=== PATIENT | female | born 1965 | race Caucasian/White ===

== ENCOUNTER 2016-12-28 01:25 | Inpatient (IN) | payer OTHER ==
[2016-12-28] MEDS ORDERED: CLINDAMYCIN 600MG PREMIX IVPB 50 ML IVPB ONE ×2 (02:12→03:53)
[2016-12-28] MEDS ORDERED: SODIUM CHLORIDE 1,000 ML IV STA (02:20)
[2016-12-28] MEDS ORDERED: ACETAMINOPHEN 325 MG TABLET (FP) PO ONE (02:20)
--- NOTE | 2016-12-28 02:45 | PDOC ---
History of Present Illness - General Chief Complaint: Wound Stated Complaint: RT FOOT WOUND, SWELLING, PAIN Time Seen by Provider: 12/28/16 01:55 History Source: Patient - History of Present Illness Occurred: reports: yesterday Lower Extremity Pain Location: right: foot Past History - Past Medical History Allergies/Adverse Reactions: Allergies Allergy/AdvReac Type Severity Reaction Status Date / Time No Known Drug Allergies Allergy Verified 12/28/16 01:54 Home Medications: Ambulatory Orders Levothyroxine [Synthroid -] 200 mcg PO DAILY 04/30/14 Aspirin [ASA -] 81 mg PO DAILY 06/30/14 Gabapentin 300 mg PO HS 10/25/14 Enalapril Maleate [Vasotec -] 10 mg PO HS 10/16/15 Metoprolol Tartrate [Lopressor -] 50 mg PO HS 10/22/15 Lantus Solostar PEN - 60 units SQ DAILY 10/29/16 Metformin HCl 500 mg PO HS 10/29/16 Humalog Kwikpen U-200 20 - 25 unit SQ TID 12/28/16 Anemia: No Asthma: No Cancer: No Cardiac Disorders: Yes (CAD) CVA: No COPD: No CHF: No Dementia: No Diabetes: Yes GI Disorders: No Disorders: No HTN: Yes Hypercholesterolemia: Yes (no meds) Liver Disease: No Suicide Attempt (Hx): No Seizures: No Thyroid Disease: Yes (HYPOTHYROID DISEASE) - Surgical History Abdominal Surgery: No Appendectomy: No Cardiac Surgery: No Cholecystectomy: No Lung Surgery: No Neurologic Surgery: No Orthopedic Surgery: No - Immunization History Immunization Up to Date: Yes - Psycho/Social/Smoking Cessation Hx Anxiety: No Suicidal Ideation: No Smoking Status: Yes Smoking History: Former smoker Have you smoked in the past 12 months: No Number of Cigarettes Smoked Daily: 0 If you are a former smoker, when did you quit?: 18 years ago Information on smoking cessation initiated: No Hx Alcohol Use: No Drug/Substance Use Hx: No Substance Use Type: None Hx Substance Use Treatment: No Review of Systems - Review of Systems Constitutional: Yes: Chills, Fever Integumentary: Yes: Erythema *Physical Exam - Vital Signs Last Vital Signs Temp Pulse Resp BP Pulse Ox 99.4 F 108 H 20 179/90 98 12/28/16 01:50 12/28/16 01:50 12/28/16 01:50 12/28/16 01:50 12/28/16 01:50 - Physical Exam General Appearance: Yes: Appropriately Dressed. No: Apparent Distress HEENT: positive: Normal Voice Neck: positive: Supple Respiratory/Chest: negative: Respiratory Distress Extremity: positive: Other (R foot w/ draining abscess to plantar aspect near 5th MTP joint w/ erythema to dorsum of foot extending into ankle, pulses intact) Integumentary: positive: Dry, Warm Neurologic: positive: Fully Oriented, Alert, Normal Mood/Affect ED Treatment Course - LABORATORY CBC & Chemistry Diagram: 12/28/16 03:05 12/28/16 03:49 - RADIOLOGY Radiology Studies Ordered: Category Date Time Status CHEST PA & LAT [RAD] Stat Radiology 12/28/16 02:15 Ordered FOOT-RIGHT [RAD] Stat Radiology 12/28/16 02:12 Ordered Medical Decision Making - Medical Decision Making 12/28/16 02:40 51-year-old female history of hypothyroid, hypertension, insulin-dependent diabetes, osteomyelitis of left second toe with no amputation, s/p fx of R 5th metatarsal remotely, here with right foot pain, swelling and drainage that started yesterday. Patient states approximately 2 weeks ago she developed blister to lateral aspect of right foot and was treated with po antibiotics, and states blister resolved, but at some point, developed small open wound to plantar aspect of right foot, near site of previous blister and states her wound care doctor "scraped" area last week and that she began having pain to site last night that acutely worsened today. Complaining of chills and malaise. See exam DM foot Low grade temp and tachy in ED but not ill appearing +draining wound to plantar aspect of R foot neat % 5th MTP joint, w/ erythema to dorsum of foot extending into ankle, pedal pulses intact -abx -IVF -XR r/o osteo -labs -vasc consult -admit 12/28/16 02:47 12/28/16 03:38 Case d/w Dr Burns (coverage for Dr Caballero) and pt admitted. MD requesting Dr Grigs[facility] consulted 12/28/16 04:43 12/28/16 04:45 *DC/Admit/Observation/Transfer Diagnosis at time of Disposition: Abscess or cellulitis of foot - Discharge Dispostion Condition at time of disposition: Fair Admit: Yes - Referrals
[2016-12-28 03:19] LABS: BASOPHIL 0.7 % (0-2.0); EOSINOPHIL 0.2 % (0-4.5); MCH 30.1 pg (25.7-33.7); MCHC 33.9 g/dl (32.0-36.0); MEAN CELL VOLUME 88.8 fl (80-96); MEAN PLT VOLUME 9.4 fl (7.5-11.1); NEUTROPHILS 76.8 % (42.8-82.8); PLATELET COUNT 253 K/MM3 (134-434); RDW 13.8 % (11.6-15.6); WHITE BLOOD COUNT 7.5 K/mm3 (4.0-10.0)
[2016-12-28 03:51] LABS: URINE APPEARANCE CLEAR; URINE BILIRUBIN NEGATIVE (NEGATIVE); URINE BLOOD NEGATIVE (NEGATIVE); URINE COLOR STRAW; URINE GLUCOSE (UA) 3+ (NEGATIVE); URINE KETONE NEGATIVE (NEGATIVE); URINE LEUK ESTERASE NEGATIVE (NEGATIVE); URINE NITRITE NEGATIVE (NEGATIVE); URINE PROTEIN NEGATIVE (NEGATIVE); URINE UROBILINOGEN NEGATIVE E.U./dl (0.2-1.0)
[2016-12-28] MEDS ORDERED: ACETAMINOPHEN 325 MG TABLET (FP) ONE (03:53)
[2016-12-28 04:26] LABS: ALBUMIN 3.2 g/dl (3.4-5.0); BILIRUBIN,TOTAL 0.3 mg/dL (0.2-1.0); CALCIUM 8.6 mg/dL (8.5-10.1); CREATININE 1.2 mg/dL (0.55-1.02); TOT PROT 7.3 g/dl (6.4-8.2)
[2016-12-28] MEDS ORDERED: IBUPROFEN 400 MG TABLET (FP) PO ONE ×2 (04:55→05:13)
[2016-12-28 07:09] VITALS: BMI 33.2
--- NOTE | 2016-12-28 09:28 | CONSULT ---
- Consultation REQUESTING PROVIDER: Dr. Grigsby, Vascular Surgery CONSULT REQUEST: We have been asked to surgically evaluate this patient for Right foot infection. PCP:Ariana Caballero HISTORY OF PRESENT ILLNESS: The patient is a 51 yo female with a history of diabetes and PVD who came to the ER because of increased pain, swelling, redness and chills to her right foot. She has had a chronic wound(2 months) to the lateral aspect of her foot which initially began as a blister. The local wound care she received by an outpt planer tailer had caused some irritation to her skin and the blister resolved but she developed a chronic wound/ulcer to this area. It was shaved in his office. She then became a patient of the [facility] at [facility] and has been followed by Dr. Cook. He ordered an MRI of this wound on 12/19 and as per the patient it was negative for osteomyelitis. This week in the office the callous was shaved and since then she developed the previously mentioned symptoms and then came to the ER. Overall the redness has improved since admission. The patient also states that she had RLE claudication symptoms and has had an angiogram with procedures to b/l LE and twice on the right. She no longer has claudication, she doesexperience some tingling/numbness to LE. She is unsure if she had stents placed in her RLE and was on plavix for several months after her procedures. PMHx: HTn, DM, Osteomelitlis of right second toe, PVD (claudication, peripheral neuropathy PSHx: c section Home Medications Medication Instructions Recorded Levothyroxine [Synthroid -] 200 mcg PO DAILY 04/30/14 Aspirin [ASA -] 81 mg PO DAILY 06/30/14 Gabapentin 300 mg PO HS 10/25/14 Enalapril Maleate [Vasotec -] 10 mg PO HS 10/16/15 Metoprolol Tartrate [Lopressor -] 50 mg PO HS 10/22/15 Lantus Solostar PEN - 60 units SQ DAILY 10/29/16 Metformin HCl 500 mg PO HS 10/29/16 Humalog Kwikpen U-200 20 - 25 unit SQ TID 12/28/16 Allergies Allergy/AdvReac Type Severity Reaction Status Date / Time No Known Drug Allergies Allergy Verified 04/02/17 01:54 REVIEW OF SYSTEMS: CONSTITUTIONAL: Present: fever, chills CARDIOVASCULAR: Absent: chest pain, syncope, palpitations, irregular heart rate RESPIRATORY: Absent: cough, shortness of breath, dyspnea with exertion GASTROINTESTINAL: Absent: abdominal pain, abdominal distension, nausea, constipation GENITOURINARY: Absent: dysuria, frequency,hematuria MUSCULOSKELETAL: present: right shoulder pain(intermittent) no ROM problems SKIN: Absent: rash, itching, pallor HEMATOLOGIC/IMMUNOLOGIC: Absent: easy bleeding, easy bruising NEUROLOGIC: Absent: headache, focal weakness Present:paresthesias PHYSICAL EXAM: GENERAL: Awake, alert, and fully oriented, in no acute distress. HEAD: Normal with no signs of trauma. EYES: PERRL, sclera anicteric, conjunctiva clear. NECK: Normal ROM, supple without lymphadenopathy. LUNGS: Clear to auscultation bilat anteriorly. No wheezes, and no crackles. HEART: Mild tachycardia, regular rhythm. No murmurs ABDOMEN: Soft, nontender, not distended, normoactive bowel sounds, no guarding, no rebound, no masses. MUSCULOSKELETAL: Normal ROM at all joints. No bony deformities or tenderness. UPPER EXTREMITIES: 2+ pulses, warm, well-perfused. No cyanosis. Cap refill <2 seconds. No peripheral edema. LOWER EXTREMITIES: 2+ DP/femoral/popliteal b/l, warm, well-perfused. No calf tenderness. No peripheral edema. PT-non palpable. Right foot: lateral/plantar aspect with callous, pinpoint opening which doesn't track when probed, non-tender to palpation with no purulent drainage expressed with palpation, No erythema. NEUROLOGICAL: Normal speech, gait not observed. PSYCH: Cooperative. Good eye contact. Appropriate mood and affect. SKIN: Warm, dry, normal turgor, no rashes or lesions noted. Vital Signs Temperature 98.4 F 12/28/16 06:54 Pulse Rate 100 H 12/28/16 06:54 Respiratory Rate 20 12/28/16 06:54 Blood Pressure 142/76 12/28/16 06:54 O2 Sat by Pulse Oximetry (%) 98 12/28/16 06:54 Lab Results WBC 7.5 K/mm3 (4.0-10.0) 12/28/16 03:05 RBC 4.19 M/mm3 (3.60-5.2) 12/28/16 03:05 Hgb 12.6 GM/dL (10.7-15.3) 12/28/16 03:05 Hct 37.2 % (32.4-45.2) 12/28/16 03:05 MCV 88.8 fl (80-96) 12/28/16 03:05 MCHC 33.9 g/dl (32.0-36.0) 12/28/16 03:05 RDW 13.8 % (11.6-15.6) 12/28/16 03:05 Plt Count 253 K/MM3 (134-434) 12/28/16 03:05 Sodium 135 mmol/L (136-145) L 12/28/16 03:49 Potassium 4.3 mmol/L (3.5-5.1) 12/28/16 03:49 Chloride 99 mmol/L (98-107) 12/28/16 03:49 Carbon Dioxide 26 mmol/L (21-32) 12/28/16 03:49 Anion Gap 10 (8-16) 12/28/16 03:49 BUN 17 mg/dL (7-18) 12/28/16 03:49 Creatinine 1.2 mg/dL (0.55-1.02) H 12/28/16 03:49 Random Glucose 290 mg/dL (74-106) H D 12/28/16 03:49 Calcium 8.6 mg/dL (8.5-10.1) 12/28/16 03:49 Right foot xray-soft tissue swelling with focal speck of air over 5th metatarsal MRI 12/19-No bone marrow edema, focal subcutaneous edema of 5th metatarsalphalangeal joint A/P: 51 yo female with chronic right foot ulcer with h/o of DM/PVD Admitted to right foot infection which appears to be improving, minimal redness to right foot/dorsal aspect and localized swelling to plantar surface Continue IV abx, ID consult pending. Her recent MRI as an outpt was negative for evidence of oteomyelitits I spoke with Dr. Grigsby and ordered baseline PVR imaging of her LE, she may need further imaging such as an angio/CTA since the wound hasn't completely healed over the past 2 months. IV hydration and will follow BUN/CRET values in the am keep right wound covered at all times Visit type - Case Type Case Type: ED Admission - Emergency Emergency Visit: Yes ED Registration Date: 12/28/16 Care time: The patient presented to the Emergency Department on the above date and was hospitalized for further evaluation of their emergent condition. - New patient This patient is new to me today: Yes Date on this admission: 12/28/16 - Critical Care Critical Care patient: No
[2016-12-28] MEDS: CEFTRIAXONE 100 ML IVPB SCH (09:51)
[2016-12-28] MEDS: HEPARIN NA (PORCINE) 5,000 UNITS/ML 1ML VIAL SQ SCH ×2 (09:51→21:41)
[2016-12-28] MEDS: LEVOTHYROXINE NA 100 MCG TABLET (FP) PO SCH (09:51)
[2016-12-28] MEDS: INSULIN DETEMIR 100 UNITS/ML MDV SQ SCH ×2 (09:51→21:48)
[2016-12-28] MEDS: ASPIRIN 81 MG CHEWABLE TABLETS PO SCH (09:52)
--- NOTE | 2016-12-28 09:55 | HP ---
Admitting History and Physical - Admission History of Present Illness: 51-year-old female history of hypothyroid, hypertension, insulin-dependent diabetes, osteomyelitis of left second toe with no amputation, s/p fx of R 5th metatarsal remotely, here with right foot pain,redness, swelling and drainage that started 2 days ago Patient states approximately 2 weeks ago she developed blister to lateral aspect of right foot and was treated at the [facility] with po antibiotics, and states blister resolved, but at some point, developed small open wound to plantar aspect of right foot, near site of previous blister and states her wound care doctor "scraped" area last week and that she began having pain to site last night that acutely worsened. 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 Cardiovascular: Yes: HTN, Hyperlipdemia ...LMP: 10/30/14 Endocrine: Yes: Diabetes Mellitus, Hypothyroidism - Smoking History Smoking history: Former smoker Have you smoked in the past 12 months: No Aproximately how many cigarettes per day: 0 If you are a former smoker, when did you quit?: 18 years ago - Alcohol/Substance Use Hx Alcohol Use: No Home Medications - Allergies Allergies/Adverse Reactions: Allergies Allergy/AdvReac Type Severity Reaction Status Date / Time No Known Drug Allergies Allergy Verified 12/28/16 01:54 - Home Medications Home Medications: Ambulatory Orders Levothyroxine [Synthroid -] 200 mcg PO DAILY 04/30/14 Aspirin [ASA -] 81 mg PO DAILY 06/30/14 Gabapentin 300 mg PO HS 10/25/14 Enalapril Maleate [Vasotec -] 10 mg PO HS 10/16/15 Metoprolol Tartrate [Lopressor -] 50 mg PO HS 10/22/15 Lantus Solostar PEN - 60 units SQ DAILY 10/29/16 Metformin HCl 500 mg PO HS 10/29/16 Humalog Kwikpen U-200 20 - 25 unit SQ TID 12/28/16 Review of Systems - Review of Systems Cardiovascular: reports: No Symptoms Respiratory: reports: No Symptoms Gastrointestinal: reports: No Symptoms Genitourinary: reports: No Symptoms Musculoskeletal: reports: Extremity Pain, Other (foot pain) Physical Examination Vital Signs: Vital Signs Temperature 98.4 F 12/28/16 06:54 Pulse Rate 100 H 12/28/16 06:54 Respiratory Rate 20 12/28/16 06:54 Blood Pressure 142/76 12/28/16 06:54 O2 Sat by Pulse Oximetry (%) 98 12/28/16 06:54 Cardiovascular: Yes: Regular Rate and Rhythm Respiratory: Yes: Regular, CTA Bilaterally Gastrointestinal: Yes: Normal Bowel Sounds, Soft. No: Tenderness Edema: No Wound/Incision: Yes: Dressing Removed, Other (hard tissue around the ulcer on plantar aspect of rt foot edema of foot) Labs: CBC, BMP 12/28/16 03:49 Imaging - Results X-ray: Report Reviewed Problem List - Problems (1) Diabetic foot ulcer Assessment/Plan: XRAY NOTED--R/O OSTEO IV ABX ID AND SURGERY MRI Code(s): E11.621 - TYPE 2 DIABETES MELLITUS WITH FOOT ULCER L97.509 - NON-PRESSURE CHRONIC ULCER OTH PRT UNSP FOOT W UNSP SEVERITY (2) Diabetes Assessment/Plan: BGM AIC Code(s): E11.9 - TYPE 2 DIABETES MELLITUS WITHOUT COMPLICATIONS (3) Hypertension Assessment/Plan: MONITOR ON SAHIL Code(s): I10 - ESSENTIAL (PRIMARY) HYPERTENSION (4) Hypothyroidism Assessment/Plan: CHECK TSH Code(s): E03.9 - HYPOTHYROIDISM, UNSPECIFIED
[2016-12-28] MEDS ORDERED: SODIUM CHLORIDE 0.45% 1,000 ML IV SCH (10:00)
[2016-12-28] MEDS ORDERED: INSULIN (NOVOLOG) ASPART 100 UNITS/ML 10ML VIAL ONE ×2 (11:51→16:43)
[2016-12-28] MEDS: INSULIN SLIDING SCALE (NOVOLOG) 1 VIAL SQ SCH ×3 (11:52→21:49)
[2016-12-28 11:54] LABS: CALCIUM 8.7 mg/dL (8.5-10.1); CREATININE 0.9 mg/dL (0.55-1.02)
--- NOTE | 2016-12-28 15:18 | PN ---
Progress Note (short form) - Note Progress Note: ID consult dictated 51 year old female with DM, hsotry of osteor 2/3 toe right foot 11/11, history fracture with malunion of one of the bones of the right foot with chronic callus 2 months ago had a blister on the foot that healed, the callus was scraped and became larger, she came wound care where she had MRI- no osteo the callus was shaved again on 12/19 she then noted chills and erythema of the dorsum of her right foot and came to ED this am celllulitis of the Right foot r/o osteo prior cultures notable for group b strep and MSSA would continue rocephin just returned from MRI will f/u in am Problem List - Problems (1) Cellulitis Code(s): L03.90 - CELLULITIS, UNSPECIFIED (2) Diabetes Code(s): E11.9 - TYPE 2 DIABETES MELLITUS WITHOUT COMPLICATIONS
[2016-12-28] MEDS: ACETAMINOPHEN 325 MG TABLET (FP) PO PRN (17:04)
[2016-12-28] MEDS: METOPROLOL TARTRATE 50 MG TABLET (FP) PO SCH (21:41)
[2016-12-28] MEDS: ENALAPRIL MALEATE 10 MG TABLET (FP) PO SCH (21:41)
[2016-12-28] MEDS: metFORMIN HCL 500 MG TABLET (FP) PO SCH (21:41)
[2016-12-28] MEDS: GABAPENTIN 300 MG CAPSULE (FP) PO SCH (21:41)
[2016-12-29] MEDS: LEVOTHYROXINE NA 100 MCG TABLET (FP) PO SCH (06:08)
[2016-12-29] MEDS: INSULIN DETEMIR 100 UNITS/ML MDV SQ SCH ×4 (06:08→23:19)
[2016-12-29] MEDS: INSULIN SLIDING SCALE (NOVOLOG) 1 VIAL SQ SCH ×5 (06:18→23:19)
--- NOTE | 2016-12-29 06:33 | PN ---
Progress Note, Physician Chief Complaint: NO COMPLAINTS - Current Medication List Current Medications: Active Medications Acetaminophen (Tylenol -) 650 mg PO Q4H PRN PRN Reason: FEVER OR PAIN Last Admin: 12/28/16 17:04 Dose: 650 mg Aspirin (Asa -) 81 mg PO DAILY [facility] Last Admin: 12/28/16 09:52 Dose: 81 mg Enalapril Maleate (Vasotec -) 10 mg PO [facility] Last Admin: 12/28/16 21:41 Dose: 10 mg Gabapentin (Neurontin -) 300 mg PO [facility] Last Admin: 12/28/16 21:41 Dose: 300 mg Heparin Sodium (Porcine) (Heparin -) 5,000 unit SQ BID [facility] Last Admin: 12/28/16 21:41 Dose: 5,000 unit Ceftriaxone Sodium (Rocephin 2gm Ivpb (Pre-Docked)) 100 mls @ 200 mls/hr IVPB DAILY [facility] Last Admin: 12/28/16 09:51 Dose: 200 mls/hr Sodium Chloride (1/2 Normal Saline) 1,000 mls @ 50 mls/hr IV ASDIR [facility] Stop: 12/29/16 09:53 Last Admin: 12/28/16 09:57 Dose: 50 mls/hr Insulin Aspart (Novolog Vial Sliding Scale -) 1 vial SQ ACHS [facility] PRN Reason: Protocol Last Admin: 12/29/16 06:18 Dose: Not Given Levothyroxine Sodium (Synthroid -) 200 mcg PO DAILY@0700 [facility] Last Admin: 12/29/16 06:08 Dose: 200 mcg Metformin HCl (Glucophage -) 500 mg PO [facility] Last Admin: 12/28/16 21:41 Dose: 500 mg Metoprolol Tartrate (Lopressor -) 50 mg PO [facility] Last Admin: 12/28/16 21:41 Dose: 50 mg - Objective Vital Signs: Vital Signs Temperature 97.8 F 12/29/16 06:00 Pulse Rate 91 H 12/29/16 06:00 Respiratory Rate 20 12/29/16 06:00 Blood Pressure 137/79 12/29/16 06:00 O2 Sat by Pulse Oximetry (%) 98 12/28/16 21:00 Neck: Yes: WNL Cardiovascular: Yes: WNL Respiratory: Yes: WNL Gastrointestinal: Yes: WNL Wound/Incision: Yes: Dressing Dry and Intact Labs: CBC, BMP 04/02/17 10:52 Problem List - Problems (1) Abscess or cellulitis of foot Code(s): L03.119 - CELLULITIS OF UNSPECIFIED PART OF LIMB L02.619 - CUTANEOUS ABSCESS OF UNSPECIFIED FOOT (2) Diabetes Code(s): E11.9 - TYPE 2 DIABETES MELLITUS WITHOUT COMPLICATIONS (3) Hypertension Code(s): I10 - ESSENTIAL (PRIMARY) HYPERTENSION (4) Hypothyroidism Code(s): E03.9 - HYPOTHYROIDISM, UNSPECIFIED Assessment/Plan (1) Diabetic foot ulcer Assessment/Plan: IV ABX ID AND SURGERY MRI SHOWS NO OM Code(s): E11.621 - TYPE 2 DIABETES MELLITUS WITH FOOT ULCER L97.509 - NON-PRESSURE CHRONIC ULCER OTH PRT UNSP FOOT W UNSP SEVERITY (2) Diabetes Assessment/Plan: BGM ISS Code(s): E11.9 - TYPE 2 DIABETES MELLITUS WITHOUT COMPLICATIONS (3) Hypertension Assessment/Plan: MONITOR ON SAHIL Code(s): I10 - ESSENTIAL (PRIMARY) HYPERTENSION (4) Hypothyroidism Assessment/Plan: CHECK TSH -> NL Code(s): E03.9 - HYPOTHYROIDISM, UNSPECIFIED [employer]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
[2016-12-29 08:21] LABS: BASOPHIL 0.5 % (0-2.0); EOSINOPHIL 2.2 % (0-4.5); MCH 29.7 pg (25.7-33.7); MEAN CELL VOLUME 90.2 fl (80-96); MEAN PLT VOLUME 9.1 fl (7.5-11.1); NEUTROPHILS 46.5 % (42.8-82.8); PLATELET COUNT 227 K/MM3 (134-434); RDW 13.3 % (11.6-15.6); WHITE BLOOD COUNT 5.9 K/mm3 (4.0-10.0)
[2016-12-29 08:34] LABS: CHOLESTEROL 159 mg/dL (50-200); LDL CHOLESTEROL (ONLY SJRH) 100 mg/dL (5-100)
[2016-12-29 08:52] LABS: ALK PHOS 101 U/L (45-117); ANION GAP 9 (8-16); BILIRUBIN,TOTAL 0.2 mg/dL (0.2-1.0); CALCIUM 8.8 mg/dL (8.5-10.1); CO2 26 mmol/L (21-32); CREATININE 0.9 mg/dL (0.55-1.02); GLUCOSE,RANDOM 151 mg/dL (74-106); SGOT/AST 37 U/L (15-37); SGPT/ALT 54 U/L (12-78); THYROID STIMULATING HORMONE 2.54 uIU/ml (0.358-3.74); TOT PROT 6.9 g/dl (6.4-8.2)
[2016-12-29] MEDS: ASPIRIN 81 MG CHEWABLE TABLETS PO SCH (09:30)
[2016-12-29] MEDS: HEPARIN NA (PORCINE) 5,000 UNITS/ML 1ML VIAL SQ SCH ×2 (09:30→23:05)
[2016-12-29] MEDS: CEFTRIAXONE 100 ML IVPB SCH (09:30)
--- NOTE | 2016-12-29 13:53 | PN ---
Progress Note (short form) - Note Progress Note: reports some bleeding from callus MRI no osteo Vital Signs Period Temp Pulse Resp BP Sys/Davila Pulse Ox Last 24 Hr 97.8 F-98.4 F 90-101 18-20 137-170/79-95 98 cor-rrr lungs clear abd soft,nt ext still some erythema dorsum of foot but less dry callous CBC, BMP 12/29/16 06:00 12/29/16 06:00 a/p celllulitis of the foot prior history MSSA/group b strep continue cefazolin diabetes history of osteomyelitis
--- NOTE | 2016-12-29 14:22 | CONS ---
DATE OF CONSULTATION: 12/28/2016 REQUESTED BY: Ariana Caballero MD This is a 51-year-old woman, past medical history of diabetes for many years. She has a history of osteomyelitis of the 2nd and 3rd toe of her right foot in 2013. She was successfully treated with IV antibiotics. She has a history of a fracture of the right 5th metatarsal, she says about 6 or 7 years ago, with malunion, for which she had a chronic callus on her right foot. About 2 months ago she had a blister on the right foot that resolved. She subsequently, the callus was noted to be larger. It was shaved as an outpatient, which made it even larger. She then came to Wound Care. She had the callus shaved again on the . It was debrided, and she notes after that that she started having erythema on the dorsum of the right foot accompanied by chills. She came to the emergency room with these complaints. Her past medical history is notable for CVA, hypertension, hyperlipidemia, diabetes, hypothyroidism, osteomyelitis of the right foot. She also had history of fracture of the right 5th metatarsal. She has had a section and cataract surgery in the past. She also has diabetic neuropathy. She has no known drug allergies. Her medications as an outpatient include Synthroid, aspirin, gabapentin, Vasotec, Lopressor, insulin, metformin. Her PMD is Dr. Caballero. Family history is noncontributory. SOCIAL HISTORY: She lives in [place]. She is from [facility] originally. There is no history of any cigarette or substance use. She does not work. PHYSICAL EXAMINATION: Vital Signs: Temperature is 98.4. She has had no fever since admission. She had a temperature of 100.4 on admission. Her current temperature is 98.3. Blood pressure is 138/56. Respiratory rate is 18. She is saturating 98% on room air. Heart rate is 90. HEENT: She is normocephalic. Eyes are anicteric. Neck: Supple. Lungs: Clear to auscultation. Heart: Regular rate and rhythm. Abdomen: Soft, nontender. Extremities: Notable for erythema of the dorsum of the right foot. She has a chronic callus that is dry on the lateral aspect of her right 5th metatarsal. There is no drainage. Her labs are notable for a white count of 7.5, hemoglobin 12.6, platelets 253. BUN 15, creatinine 0.9, glucose is 328. Urinalysis is notable for glucose, otherwise negative. She just returned from MRI, the results of which are pending. In summary, this is a 51-year-old woman with diabetes, with erythema of the dorsum of the right foot, possible cellulitis versus underlying osteomyelitis. She just had an MRI, which we will follow up. I reviewed prior cultures, which are mainly MSSA and group B streptococcus, so given those findings, would agree with continuing her on ceftriaxone, which has been started. Unfortunately, blood cultures were not drawn. Will obtain, but I am not sure how effective they will be as she was started on antibiotics, as they were not drawn prior to antibiotics. Further recommendations to follow based on her clinical course. BLAS BAPTISTE M.D. [facility]/[id number]
[2016-12-29] MEDS: CEFAZOLIN 2 GM/D5W 50 ML IVPB SCH (18:02)
[2016-12-29] MEDS: ACETAMINOPHEN 325 MG TABLET (FP) PO PRN (18:08)
--- NOTE | 2016-12-29 18:48 | PN ---
Progress Note (short form) - Note Progress Note: Vascular Surgery Pt seen and examined. Palpable DP and PT pulses. ARVIN/PVR results reviewed. ARVIN in RLE is .87. Right foot callus with wound on lateral foot. Old fracture site with malunion. On IV antibiotics. Has HBO set up as outpt as well. As per podiatry pt needs to have bone removed so that wound would heal without callus. Pt understands that. Wants to try HBO and antibiotics first. Will follow Dr. Vang as outpt in wound care clinic. Circulation is intact, no need for any vascular intervention. Adithya Grigsby DO
[2016-12-29] MEDS ORDERED: INSULIN DETEMIR 100 UNITS/ML MDV SQ SCH (22:31)
[2016-12-29] MEDS ORDERED: INSULIN SLIDING SCALE (NOVOLOG) 1 VIAL SQ SCH (22:32)
--- NOTE | 2016-12-29 22:49 | CONSULT ---
Consult Consult Specialty:: endocrine Referred by:: dr.saba tellez Reason for Consultation:: iddm - History of Present Illness Chief Complaint: high sugar History of Present Illness: 51-year-old female history of hypothyroid, hypertension, insulin-dependent diabetes, osteomyelitis of left second toe with no amputation, s/p fx of R 5th metatarsal remotely, here with right foot pain,redness, swelling and drainage that started 2 days ago Patient states approximately 2 weeks ago she developed blister to lateral aspect of right foot and was treated at the [facility] with po antibiotics, and states blister resolved, but at some point, developed small open wound to plantar aspect of right foot, with reddness pain elevated sugar - Past Medical History 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 Cardio/Vascular: Yes: HTN, Hyperlipdemia ...LMP: 10/30/14 Endocrine: Yes: Diabetes Mellitus, Hypothyroidism - Alcohol/Substance Use Hx Alcohol Use: No - Smoking History Smoking history: Former smoker Have you smoked in the past 12 months: No Aproximately how many cigarettes per day: 0 If you are a former smoker, when did you quit?: 18 years ago Home Medications - Allergies Allergies/Adverse Reactions: Allergies Allergy/AdvReac Type Severity Reaction Status Date / Time No Known Drug Allergies Allergy Verified 12/28/16 01:54 - Home Medications Home Medications: Ambulatory Orders Levothyroxine [Synthroid -] 200 mcg PO DAILY 04/30/14 Aspirin [ASA -] 81 mg PO DAILY 06/30/14 Gabapentin 300 mg PO HS 10/25/14 Enalapril Maleate [Vasotec -] 10 mg PO HS 10/16/15 Metoprolol Tartrate [Lopressor -] 50 mg PO HS 10/22/15 Lantus Solostar PEN - 60 units SQ DAILY 10/29/16 Metformin HCl 500 mg PO HS 10/29/16 Humalog Kwikpen U-200 20 - 25 unit SQ TID 12/28/16 Review of Systems - Review of Systems Constitutional: reports: Lethargy, Loss of Appetite Eyes: reports: Blurred Vision HENT: reports: No Symptoms Neck: reports: Decreased ROM Respiratory: reports: Exercise Intolerance, SOB on Exertion Gastrointestinal: reports: Indigestion Genitourinary: reports: No Symptoms Musculoskeletal: reports: Joint Swelling, Muscle Pain, Muscle Cramps, Muscle Weakness Integumentary: reports: Lesions, Pruritis, Rash Neurological: reports: Numbness Endocrine: reports: Unexplained Weight Gain Physical Exam Vital Signs: Vital Signs Temperature 98.7 F 12/29/16 15:57 Pulse Rate 95 H 12/29/16 15:57 Respiratory Rate 20 12/29/16 15:57 Blood Pressure 131/98 12/29/16 15:57 O2 Sat by Pulse Oximetry (%) 98 12/29/16 09:00 Constitutional: Yes: Anxious Eyes: Yes: EOM Intact HENT: Yes: Normocephalic Neck: Yes: Trachea Midline Cardiovascular: Yes: Regular Rate and Rhythm Respiratory: Yes: CTA Bilaterally Gastrointestinal: Yes: Normal Bowel Sounds ...Rectal Exam: Yes: Deferred Renal/: Yes: WNL Musculoskeletal: Yes: Muscle Pain, Muscle Weakness Edema: Yes Edema: RLE: 1+ Integumentary: Yes: Onychomycosis Wound/Incision: Yes: Well Approximated Neurological: Yes: WNL, Alert, Oriented, Unsteady Gait, Weakness ...Motor Strength: WNL Labs: CBC, BMP 12/29/16 06:00 12/29/16 06:00 Problem List - Problems (1) Abscess or cellulitis of foot Code(s): L03.119 - CELLULITIS OF UNSPECIFIED PART OF LIMB L02.619 - CUTANEOUS ABSCESS OF UNSPECIFIED FOOT (2) Diabetic foot ulcer Code(s): E11.621 - TYPE 2 DIABETES MELLITUS WITH FOOT ULCER L97.509 - NON-PRESSURE CHRONIC ULCER OTH PRT UNSP FOOT W UNSP SEVERITY Qualifiers: Diabetes mellitus type: type 1 (3) Hyperlipidemia Code(s): E78.5 - HYPERLIPIDEMIA, UNSPECIFIED (4) Hypertension Code(s): I10 - ESSENTIAL (PRIMARY) HYPERTENSION (5) Hypothyroidism Code(s): E03.9 - HYPOTHYROIDISM, UNSPECIFIED (6) Insulin dependent diabetes mellitus Code(s): E11.9 - TYPE 2 DIABETES MELLITUS WITHOUT COMPLICATIONS 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 Assessment/Plan Current Active Problems Abscess or cellulitis of foot (Acute) Cellulitis (Acute) Diabetes (Acute) Diabetic foot ulcer (Acute) Hyperlipidemia (Acute) Hypertension (Acute) Hypothyroidism (Acute) Insulin dependent diabetes mellitus (Acute) Osteomyelitis (Acute) iddm uncontrolled/hyperglycemia neuropathy Abnormal Lab Results 12/29/16 12/29/16 12/29/16 06:00 06:00 06:00 Monocytes % 17.0 H D Random Glucose 151 H D Albumin 3.0 L HDL Cholesterol 34 L Laboratory Results - last 24 hr 12/29/16 12/29/16 12/29/16 05:51 06:00 06:00 WBC 5.9 RBC 4.04 Hgb 12.0 Hct 36.4 MCV 90.2 MCHC 33.0 RDW 13.3 Plt Count 227 MPV 9.1 Neutrophils % 46.5 D Lymphocytes % 33.8 D Monocytes % 17.0 H D Eosinophils % 2.2 D Basophils % 0.5 Sodium 138 Potassium 4.7 Chloride 103 Carbon Dioxide 26 Anion Gap 9 BUN 18 Creatinine 0.9 Creat Clearance w eGFR > 60 POC Glucometer 139 Random Glucose 151 H D Hemoglobin A1c % Calcium 8.8 Total Bilirubin 0.2 D AST 37 D ALT 54 D Alkaline Phosphatase 101 Total Protein 6.9 Albumin 3.0 L Triglycerides Cholesterol Total LDL Cholesterol HDL Cholesterol TSH 2.54 12/29/16 12/29/16 12/29/16 06:00 06:00 12:30 WBC RBC Hgb Hct MCV MCHC RDW Plt Count MPV Neutrophils % Lymphocytes % Monocytes % Eosinophils % Basophils % Sodium Potassium Chloride Carbon Dioxide Anion Gap BUN Creatinine Creat Clearance w eGFR POC Glucometer 234 Random Glucose Hemoglobin A1c % Cancelled Calcium Total Bilirubin AST ALT Alkaline Phosphatase Total Protein Albumin Triglycerides 154 Cholesterol 159 Total LDL Cholesterol 100 HDL Cholesterol 34 L TSH 12/29/16 16:50 WBC RBC Hgb Hct MCV MCHC RDW Plt Count MPV Neutrophils % Lymphocytes % Monocytes % Eosinophils % Basophils % Sodium Potassium Chloride Carbon Dioxide Anion Gap BUN Creatinine Creat Clearance w eGFR POC Glucometer 261 Random Glucose Hemoglobin A1c % Calcium Total Bilirubin AST ALT Alkaline Phosphatase Total Protein Albumin Triglycerides Cholesterol Total LDL Cholesterol HDL Cholesterol TSH Current Medications Generic Name Dose Route Start Last Admin Trade Name Freq PRN Reason Stop Dose Admin Acetaminophen 650 mg 12/28/16 09:02 12/29/16 18:08 Tylenol - PO 650 mg Q4H PRN Administration FEVER OR PAIN Aspirin 81 mg 12/28/16 10:00 12/29/16 09:30 Asa - PO 81 mg DAILY [facility] Administration Enalapril Maleate 10 mg 12/28/16 22:00 12/28/16 21:41 Vasotec - PO 10 mg HS [facility] Administration Gabapentin 300 mg 04/02/17 22:00 12/28/16 21:41 Neurontin - PO 300 mg HS [facility] Administration Heparin Sodium (Porcine) 5,000 unit 12/28/16 10:00 12/29/16 09:30 Heparin - SQ 5,000 unit BID [facility] Administration Cefazolin Sodium/Dextrose 50 mls @ 200 mls/hr 12/29/16 18:00 12/29/16 18:02 Ancef 2 Gm Premixed Ivpb - IVPB 200 mls/hr Q8H-IV [facility] Administration Insulin Aspart 1 vial 12/29/16 22:32 Novolog Vial Sliding Scale - SQ ACHS [facility] Protocol Insulin Detemir 40 units 12/29/16 22:31 Levemir Vial SQ BID@0700,2200 [facility] Levothyroxine Sodium 200 mcg 12/28/16 10:00 12/29/16 06:08 Synthroid - PO 200 mcg DAILY@0700 [facility] Administration Metformin HCl 500 mg 12/28/16 22:00 12/28/16 21:41 Glucophage - PO 500 mg HS [facility] Administration Metoprolol Tartrate 50 mg 12/28/16 22:00 12/28/16 21:41 Lopressor - PO 50 mg HS [facility] Administration plan: titrate insulin dose bgm,achs levemir 40 units bid iv antibiotic as per id wound care debridement
[2016-12-29] MEDS: metFORMIN HCL 500 MG TABLET (FP) PO SCH (23:04)
[2016-12-29] MEDS: GABAPENTIN 300 MG CAPSULE (FP) PO SCH (23:05)
[2016-12-29] MEDS: METOPROLOL TARTRATE 50 MG TABLET (FP) PO SCH (23:05)
[2016-12-29] MEDS: ENALAPRIL MALEATE 10 MG TABLET (FP) PO SCH (23:06)
[2016-12-30] MEDS: CEFAZOLIN 2 GM/D5W 50 ML IVPB SCH ×3 (01:32→18:35)
[2016-12-30] MEDS: ACETAMINOPHEN 325 MG TABLET (FP) PO PRN ×2 (02:18→12:12)
[2016-12-30] MEDS: INSULIN DETEMIR 100 UNITS/ML MDV SQ SCH ×2 (06:30→21:55)
[2016-12-30] MEDS: INSULIN SLIDING SCALE (NOVOLOG) 1 VIAL SQ SCH ×4 (06:32→21:56)
[2016-12-30] MEDS: LEVOTHYROXINE NA 100 MCG TABLET (FP) PO SCH (06:33)
--- NOTE | 2016-12-30 07:15 | EKG ---
Test Reason : Blood Pressure : / mmHG Vent. Rate : 108 BPM Atrial Rate : 108 BPM P-R Int : 130 ms QRS Dur : 084 ms QT Int : 324 ms P-R-T Axes : 057 054 -29 degrees QTc Int : 434 ms SINUS TACHYCARDIA POSSIBLE LEFT ATRIAL ENLARGEMENT T WAVE ABNORMALITY, CONSIDER INFERIOR ISCHEMIA ABNORMAL ECG WHEN COMPARED WITH ECG OF 25-OCT-2014 00:37, T WAVE INVERSION MORE EVIDENT IN INFERIOR LEADS Confirmed by JORDYN FERNANDEZ, TRANG (2016) on 12/30/2016 7:14:48 AM Referred By: Confirmed By:TRANG COBB MD
[2016-12-30 08:02] LABS: BASOPHIL 0.5 % (0-2.0); EOSINOPHIL 2.5 % (0-4.5); MCH 29.9 pg (25.7-33.7); MCHC 33.7 g/dl (32.0-36.0); MEAN CELL VOLUME 88.8 fl (80-96); MEAN PLT VOLUME 9.1 fl (7.5-11.1); NEUTROPHILS 42.3 % (42.8-82.8); PLATELET COUNT 243 K/MM3 (134-434); RDW 13.2 % (11.6-15.6); WHITE BLOOD COUNT 5.7 K/mm3 (4.0-10.0)
[2016-12-30 08:12] LABS: BILIRUBIN,TOTAL 0.3 mg/dL (0.2-1.0); CREATININE 1.2 mg/dL (0.55-1.02); TOT PROT 6.9 g/dl (6.4-8.2)
[2016-12-30] MEDS: HEPARIN NA (PORCINE) 5,000 UNITS/ML 1ML VIAL SQ SCH ×2 (11:46→21:55)
[2016-12-30] MEDS: ASPIRIN 81 MG CHEWABLE TABLETS PO SCH (11:46)
--- NOTE | 2016-12-30 13:31 | PN ---
Progress Note (short form) - Note Progress Note: nad Vital Signs Period Temp Pulse Resp BP Sys/Davila Pulse Ox Last 24 Hr 97.4 F-98.7 F 90-95 18-20 129-159/76-98 98 cor-rrr lungs clear abd-soft, nt ext-decreased erythema of the dorsum of the foot, dry callus, swelling has resolved CBC, BMP 12/30/16 06:30 12/30/16 06:30 Microbiology 12/28/16 17:50 Blood - Peripheral Venous Blood Culture - Preliminary NO GROWTH OBTAINED AFTER 24 HOURS, INCUBATION TO CONTINUE FOR 4 DAYS. 12/28/16 17:50 Blood - Peripheral Venous Blood Culture - Preliminary NO GROWTH OBTAINED AFTER 24 HOURS, INCUBATION TO CONTINUE FOR 4 DAYS. a/p celllulitis of the Right foot continue ancef mri negative for osteomyelitis Problem List - Problems (1) Cellulitis Code(s): L03.90 - CELLULITIS, UNSPECIFIED (2) Diabetes Code(s): E11.9 - TYPE 2 DIABETES MELLITUS WITHOUT COMPLICATIONS
--- NOTE | 2016-12-30 19:53 | PN ---
Progress Note, Physician Chief Complaint: AWAKE , ALERT MILD DISTRESS FOOT - Current Medication List Current Medications: Active Medications Acetaminophen (Tylenol -) 650 mg PO Q4H PRN PRN Reason: FEVER OR PAIN Last Admin: 12/30/16 12:12 Dose: 650 mg Aspirin (Asa -) 81 mg PO DAILY [facility] Last Admin: 12/30/16 11:46 Dose: 81 mg Bacitracin (Bacitracin -) 1 applic TP BID [facility] Enalapril Maleate (Vasotec -) 10 mg PO [facility] Last Admin: 12/29/16 23:06 Dose: 10 mg Gabapentin (Neurontin -) 300 mg PO HS [facility] Last Admin: 12/29/16 23:05 Dose: 300 mg Heparin Sodium (Porcine) (Heparin -) 5,000 unit SQ BID [facility] Last Admin: 12/30/16 11:46 Dose: 5,000 unit Cefazolin Sodium/Dextrose (Ancef 2 Gm Premixed Ivpb -) 50 mls @ 200 mls/hr IVPB Q8H-IV [facility] Last Admin: 12/30/16 18:35 Dose: 200 mls/hr Insulin Aspart (Novolog Vial Sliding Scale -) 1 vial SQ ACHS [facility] PRN Reason: Protocol Last Admin: 12/30/16 18:36 Dose: 9 unit Insulin Detemir (Levemir Vial) 40 units SQ BID@0700,2200 [facility] Last Admin: 12/30/16 06:30 Dose: 40 unit Levothyroxine Sodium (Synthroid -) 200 mcg PO DAILY@0700 [facility] Last Admin: 12/30/16 06:33 Dose: 200 mcg Metformin HCl (Glucophage -) 500 mg PO [facility] Last Admin: 12/29/16 23:04 Dose: 500 mg Metoprolol Tartrate (Lopressor -) 50 mg PO [facility] Last Admin: 12/29/16 23:05 Dose: 50 mg - Objective Vital Signs: Vital Signs Temperature 99 F 12/30/16 17:03 Pulse Rate 95 H 12/30/16 17:03 Respiratory Rate 20 12/30/16 17:03 Blood Pressure 152/83 12/30/16 17:03 O2 Sat by Pulse Oximetry (%) 98 12/30/16 10:00 Constitutional: Yes: Mild Distress Eyes: Yes: WNL HENT: Yes: WNL Neck: Yes: WNL Cardiovascular: Yes: WNL Respiratory: Yes: WNL Gastrointestinal: Yes: WNL Genitourinary: Yes: WNL Musculoskeletal: Yes: Joint Swelling Extremities: Yes: Erythema, Other Edema: No Peripheral Pulses WNL: Yes Integumentary: Yes: Pressure Ulcer, Skin Tear Wound/Incision: Yes: Dressing Removed, Reddened, Excoriated, Other Neurological: Yes: Paresthesia, Pre-Existing Deficit, Unsteady Gait, Weakness ...Motor Strength: LLE, RLE Psychiatric: Yes: WNL Labs: CBC, BMP 12/30/16 06:30 12/30/16 06:30 Problem List - Problems (1) Abscess or cellulitis of foot Code(s): L03.119 - CELLULITIS OF UNSPECIFIED PART OF LIMB L02.619 - CUTANEOUS ABSCESS OF UNSPECIFIED FOOT (2) Cellulitis Code(s): L03.90 - CELLULITIS, UNSPECIFIED Qualifiers: Site of cellulitis of extremity: lower extremity (3) Diabetes Code(s): E11.9 - TYPE 2 DIABETES MELLITUS WITHOUT COMPLICATIONS Qualifiers: Diabetes mellitus type: type 2 Diabetes mellitus complication status: with neurologic complications Diabetes mellitus complication detail: with polyneuropathy (4) Diabetic foot ulcer Code(s): E11.621 - TYPE 2 DIABETES MELLITUS WITH FOOT ULCER L97.509 - NON-PRESSURE CHRONIC ULCER OTH PRT UNSP FOOT W UNSP SEVERITY Qualifiers: Diabetes mellitus type: type 1 (5) Hyperlipidemia Code(s): E78.5 - HYPERLIPIDEMIA, UNSPECIFIED (6) Hypertension Code(s): I10 - ESSENTIAL (PRIMARY) HYPERTENSION (7) Hypothyroidism Code(s): E03.9 - HYPOTHYROIDISM, UNSPECIFIED (8) Insulin dependent diabetes mellitus Code(s): E11.9 - TYPE 2 DIABETES MELLITUS WITHOUT COMPLICATIONS 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 WILL ADD BACITRACIN OINMENT OUTPATIENT WOUND CARE TIGHT GLYCEMIC CONTROL WEIGHT LOSS AND EXERCISE DISCUSSED WITH PATIENT
[2016-12-30] MEDS: BACITRACIN 30 GM TUBE TOPICAL OINTMENT TP SCH (21:49)
[2016-12-30] MEDS: metFORMIN HCL 500 MG TABLET (FP) PO SCH (21:55)
[2016-12-30] MEDS: METOPROLOL TARTRATE 50 MG TABLET (FP) PO SCH (21:56)
[2016-12-30] MEDS: GABAPENTIN 300 MG CAPSULE (FP) PO SCH (21:56)
[2016-12-30] MEDS: ENALAPRIL MALEATE 10 MG TABLET (FP) PO SCH (21:56)
[2016-12-31] MEDS: CEFAZOLIN 2 GM/D5W 50 ML IVPB SCH ×2 (01:37→10:25)
[2016-12-31] MEDS: ACETAMINOPHEN 325 MG TABLET (FP) PO PRN ×2 (01:44→22:03)
[2016-12-31] MEDS: INSULIN DETEMIR 100 UNITS/ML MDV SQ SCH ×2 (06:51→21:34)
[2016-12-31] MEDS: LEVOTHYROXINE NA 100 MCG TABLET (FP) PO SCH (06:53)
[2016-12-31] MEDS: INSULIN SLIDING SCALE (NOVOLOG) 1 VIAL SQ SCH ×4 (06:53→21:35)
[2016-12-31] MEDS ORDERED: INSULIN DETEMIR 100 UNITS/ML MDV SQ ONE (07:57)
[2016-12-31 08:36] LABS: MCH 29.8 pg (25.7-33.7); MCHC 33.5 g/dl (32.0-36.0); MEAN CELL VOLUME 89.1 fl (80-96); MEAN PLT VOLUME 8.8 fl (7.5-11.1); PLATELET COUNT 273 K/MM3 (134-434); RDW 13.1 % (11.6-15.6); WHITE BLOOD COUNT 6.7 K/mm3 (4.0-10.0)
[2016-12-31 08:54] LABS: ALBUMIN 3.4 g/dl (3.4-5.0); CALCIUM 9.3 mg/dL (8.5-10.1); CREATININE 1.1 mg/dL (0.55-1.02)
[2016-12-31 08:56] LABS: BILIRUBIN,TOTAL 0.4 mg/dL (0.2-1.0); TOT PROT 7.5 g/dl (6.4-8.2)
[2016-12-31] MEDS: ASPIRIN 81 MG CHEWABLE TABLETS PO SCH (10:25)
[2016-12-31] MEDS: HEPARIN NA (PORCINE) 5,000 UNITS/ML 1ML VIAL SQ SCH ×2 (10:35→21:34)
[2016-12-31] MEDS: COLLAGENASE CLOSTRIDIUM HIST. 30 GRAMS TUBE TP SCH (10:36)
[2016-12-31] MEDS: BACITRACIN 30 GM TUBE TOPICAL OINTMENT TP SCH ×2 (10:37→21:38)
--- NOTE | 2016-12-31 11:56 | PN ---
Progress Note (short form) - Note Progress Note: continued foot discomfort Vital Signs Period Temp Pulse Resp BP Sys/Davila Pulse Ox Last 24 Hr 98.1 F-99 F 80-98 18-20 142-170/81-92 97-97 decreased erythema of dorsum of foot, no swelling +purulent drainage from calllus CBC, BMP 12/31/16 07:00 12/31/16 07:00 a/p celllulitis of the Right foot continue ancef mri negative for osteomyelitis now with purulent drainage from callus- culture sent escalate antibiotics to ceftaroline to add MRSA coverage called wound care to request f/u from Dr Cook Problem List - Problems (1) Cellulitis Code(s): L03.90 - CELLULITIS, UNSPECIFIED Qualifiers: Site of cellulitis of extremity: lower extremity (2) Diabetes Code(s): E11.9 - TYPE 2 DIABETES MELLITUS WITHOUT COMPLICATIONS Qualifiers: Diabetes mellitus type: type 2 Diabetes mellitus complication status: with neurologic complications Diabetes mellitus complication detail: with polyneuropathy
[2016-12-31] MEDS ORDERED: INSULIN (NOVOLOG) ASPART 100 UNITS/ML 10ML VIAL ONE ×2 (12:01→17:33)
[2016-12-31] MEDS: CEFTAROLINE FOSAMIL ACETATE 600 MG in DEXTROSE 5%-WATER - 100 ML IVPB SCH ×2 (13:30→21:36)
--- NOTE | 2016-12-31 20:48 | PN ---
Progress Note, Physician Chief Complaint: AWAKE ALERT EVENTS AND CHART REVIEWED NO FEVERS - Current Medication List Current Medications: Active Medications Acetaminophen (Tylenol -) 650 mg PO Q4H PRN PRN Reason: FEVER OR PAIN Last Admin: 12/31/16 01:44 Dose: 650 mg Aspirin (Asa -) 81 mg PO DAILY [facility] Last Admin: 12/31/16 10:25 Dose: 81 mg Bacitracin (Bacitracin -) 1 applic TP BID [facility] Last Admin: 12/31/16 10:37 Dose: Not Given Collagenase (Santyl -) 1 applic TP DAILY [facility] Last Admin: 12/31/16 10:36 Dose: 1 applic Enalapril Maleate (Vasotec -) 10 mg PO HS [facility] Last Admin: 12/30/16 21:56 Dose: 10 mg Gabapentin (Neurontin -) 300 mg PO HS [facility] Last Admin: 12/30/16 21:56 Dose: 300 mg Heparin Sodium (Porcine) (Heparin -) 5,000 unit SQ BID [facility] Last Admin: 12/31/16 10:35 Dose: 5,000 unit Ceftaroline Fosamil 600 mg/ (Dextrose) 100 mls @ 200 mls/hr IVPB BID [facility] PRN Reason: Protocol Last Admin: 12/31/16 13:30 Dose: 200 mls/hr Insulin Aspart (Novolog Vial Sliding Scale -) 1 vial SQ ACHS [facility] PRN Reason: Protocol Last Admin: 12/31/16 17:30 Dose: 7 unit Insulin Detemir (Levemir Vial) 40 units SQ BID@0700,2200 [facility] Last Admin: 12/31/16 06:51 Dose: 40 unit Levothyroxine Sodium (Synthroid -) 200 mcg PO DAILY@0700 [facility] Last Admin: 12/31/16 06:53 Dose: 200 mcg Metformin HCl (Glucophage -) 500 mg PO [facility] Last Admin: 12/30/16 21:55 Dose: 500 mg Metoprolol Tartrate (Lopressor -) 50 mg PO [facility] Last Admin: 12/30/16 21:56 Dose: 50 mg - Objective Vital Signs: Vital Signs Temperature 98.1 F 12/31/16 17:16 Pulse Rate 90 12/31/16 17:16 Respiratory Rate 20 12/31/16 17:16 Blood Pressure 132/63 12/31/16 17:16 O2 Sat by Pulse Oximetry (%) 97 12/31/16 09:00 Constitutional: Yes: Mild Distress Eyes: Yes: WNL HENT: Yes: WNL Neck: Yes: WNL Cardiovascular: Yes: WNL Respiratory: Yes: WNL Gastrointestinal: Yes: WNL Genitourinary: Yes: WNL Musculoskeletal: Yes: Joint Swelling Extremities: Yes: Deformity Edema: Yes Edema: LLE: 1+, RLE: 1+ Peripheral Pulses WNL: Yes Integumentary: Yes: Pressure Ulcer, Rash Wound/Incision: Yes: Dressing Removed, Excoriated, Unapproximated Neurological: Yes: Pre-Existing Deficit, Weakness ...Motor Strength: LLE, RLE (STAGE 2-3 FOOT ULCER WITH PURELENT DISCHARGE) Psychiatric: Yes: WNL Labs: CBC, BMP 12/31/16 07:00 12/31/16 07:00 Problem List - Problems (1) Abscess or cellulitis of foot Code(s): L03.119 - CELLULITIS OF UNSPECIFIED PART OF LIMB L02.619 - CUTANEOUS ABSCESS OF UNSPECIFIED FOOT (2) Cellulitis Code(s): L03.90 - CELLULITIS, UNSPECIFIED Qualifiers: Site of cellulitis of extremity: lower extremity (3) Diabetes Code(s): E11.9 - TYPE 2 DIABETES MELLITUS WITHOUT COMPLICATIONS Qualifiers: Diabetes mellitus type: type 2 Diabetes mellitus complication status: with neurologic complications Diabetes mellitus complication detail: with polyneuropathy (4) Diabetic foot ulcer Code(s): E11.621 - TYPE 2 DIABETES MELLITUS WITH FOOT ULCER L97.509 - NON-PRESSURE CHRONIC ULCER OTH PRT UNSP FOOT W UNSP SEVERITY Qualifiers: Diabetes mellitus type: type 1 (5) Hyperlipidemia Code(s): E78.5 - HYPERLIPIDEMIA, UNSPECIFIED (6) Hypertension Code(s): I10 - ESSENTIAL (PRIMARY) HYPERTENSION (7) Hypothyroidism Code(s): E03.9 - HYPOTHYROIDISM, UNSPECIFIED (8) Insulin dependent diabetes mellitus Code(s): E11.9 - TYPE 2 DIABETES MELLITUS WITHOUT COMPLICATIONS Z79.4 - SNF (CURRENT) USE OF INSULIN (9) Blister of foot Code(s): S90.829A - BLISTER (NONTHERMAL), UNSPECIFIED FOOT, INITIAL ENCOUNTER Qualifiers: Encounter type: initial encounter Laterality: right Qualified Code(s): S90.821A - Blister (nonthermal), right foot, initial encounter Assessment/Plan IV ABX ID CONSULT PODIATRY/VASC SX EVAL BIOPSY/CULTURES PENDING HBC OUTPATIENT R/O OSTEOMYELITIS SNF ABX? PER ID TIGHT GLYCEMIC CONTROL
[2016-12-31] MEDS: metFORMIN HCL 500 MG TABLET (FP) PO SCH (21:34)
[2016-12-31] MEDS: GABAPENTIN 300 MG CAPSULE (FP) PO SCH (21:35)
[2016-12-31] MEDS: METOPROLOL TARTRATE 50 MG TABLET (FP) PO SCH (21:35)
[2016-12-31] MEDS: ENALAPRIL MALEATE 10 MG TABLET (FP) PO SCH (21:36)
--- NOTE | 2016-12-31 23:21 | PN ---
Progress Note (short form) - Note Progress Note: S/ Pt seen and examined at bedside c/o mild pain to Right foot. Patient is well known to me O/ Palpable DP and PT pulses. ARVIN/PVR results reviewed. ARVIN in RLE is .87. Right foot callus with wound. no fluctuance no evidance of acute abscess no drainge today. She has an Old fracture base of the 5th metatarsal with malunion A/ DM ulcer with ma; union base of 5th right foot P/ Continue IV antibiotics. Has HBO set up as outpt already Pt needs to have bone removed from mal union so that wound would heal without callus, but she refuses at this time Pt understands that the wound will probaly not heal until bone remvoed She Wants to try HBO and antibiotics first. Have patient follow up with me in Wound Cre[facility] upon D/C no need for any surgical intervention at this time.
--- NOTE | 2016-12-31 23:56 | PN ---
Progress Note (short form) - Note Progress Note: ambulating ,denies hypoglycemia,has decided for hbo and antibiotic before surgery on foot Abnormal Lab Results 12/31/16 07:00 BUN 22 H Creatinine 1.1 H Random Glucose 170 H D Current Active Problems Abscess or cellulitis of foot (Acute) Cellulitis (Acute) Diabetes (Acute) Diabetic foot ulcer (Acute) Hyperlipidemia (Acute) Hypertension (Acute) Hypothyroidism (Acute) Insulin dependent diabetes mellitus (Acute) Osteomyelitis (Acute) plan:bgm qid novolog dose titration levemir 42 units bid Current Medications Generic Name Dose Route Start Last Admin Trade Name Freq PRN Reason Stop Dose Admin Acetaminophen 650 mg 12/28/16 09:02 12/31/16 22:03 Tylenol - PO 650 mg Q4H PRN Administration FEVER OR PAIN Aspirin 81 mg 12/28/16 10:00 12/31/16 10:25 Asa - PO 81 mg DAILY [facility] Administration Bacitracin 1 applic 12/30/16 22:00 12/31/16 21:38 Bacitracin - TP Not Given BID [facility] Collagenase 1 applic 12/31/16 10:00 12/31/16 10:36 Santyl - TP 1 applic DAILY [facility] Administration Enalapril Maleate 10 mg 12/28/16 22:00 12/31/16 21:36 Vasotec - PO 10 mg HS [facility] Administration Gabapentin 300 mg 12/28/16 22:00 12/31/16 21:35 Neurontin - PO 300 mg HS [facility] Administration Heparin Sodium (Porcine) 5,000 unit 12/28/16 10:00 12/31/16 21:34 Heparin - SQ 5,000 unit BID [facility] Administration Ceftaroline Fosamil 600 mg/ 100 mls @ 200 mls/hr 12/31/16 12:00 12/31/16 21:36 Dextrose IVPB 200 mls/hr BID [facility] Administration Protocol Insulin Aspart 1 vial 12/31/16 23:54 Novolog Vial Sliding Scale - SQ ACHS [facility] Protocol Insulin Detemir 40 units 12/29/16 23:15 12/31/16 21:34 Levemir Vial SQ 40 unit BID@0700,2200 [facility] Administration Levothyroxine Sodium 200 mcg 12/28/16 10:00 12/31/16 06:53 Synthroid - PO 200 mcg DAILY@0700 [facility] Administration Metformin HCl 500 mg 12/28/16 22:00 12/31/16 21:34 Glucophage - PO 500 mg HS [facility] Administration Metoprolol Tartrate 50 mg 12/28/16 22:00 12/31/16 21:35 Lopressor - PO 50 mg HS [facility] Administration Problem List - Problems (1) Abscess or cellulitis of foot Code(s): L03.119 - CELLULITIS OF UNSPECIFIED PART OF LIMB L02.619 - CUTANEOUS ABSCESS OF UNSPECIFIED FOOT (2) Diabetic foot ulcer Code(s): E11.621 - TYPE 2 DIABETES MELLITUS WITH FOOT ULCER L97.509 - NON-PRESSURE CHRONIC ULCER OTH PRT UNSP FOOT W UNSP SEVERITY Qualifiers: Diabetes mellitus type: type 1 (3) Hyperlipidemia Code(s): E78.5 - HYPERLIPIDEMIA, UNSPECIFIED (4) Hypertension Code(s): I10 - ESSENTIAL (PRIMARY) HYPERTENSION (5) Hypothyroidism Code(s): E03.9 - HYPOTHYROIDISM, UNSPECIFIED (6) Insulin dependent diabetes mellitus Code(s): E11.9 - TYPE 2 DIABETES MELLITUS WITHOUT COMPLICATIONS Z79.4 - ALF (CURRENT) USE OF INSULIN
[2017-01-01] MEDS: INSULIN DETEMIR 100 UNITS/ML MDV SQ SCH ×2 (06:24→21:33)
[2017-01-01] MEDS: LEVOTHYROXINE NA 100 MCG TABLET (FP) PO SCH (06:27)
[2017-01-01] MEDS: INSULIN SLIDING SCALE (NOVOLOG) 1 VIAL SQ SCH ×4 (06:27→21:36)
[2017-01-01] MEDS: BACITRACIN 30 GM TUBE TOPICAL OINTMENT TP SCH ×2 (10:24→21:37)
[2017-01-01] MEDS ORDERED: PT OWN MED DRAWER 7, Y5N ONE (10:28)
[2017-01-01] MEDS: CEFTAROLINE FOSAMIL ACETATE 600 MG in DEXTROSE 5%-WATER - 100 ML IVPB SCH ×2 (10:44→21:52)
[2017-01-01] MEDS: COLLAGENASE CLOSTRIDIUM HIST. 30 GRAMS TUBE TP SCH (10:45)
[2017-01-01] MEDS: ASPIRIN 81 MG CHEWABLE TABLETS PO SCH (10:45)
[2017-01-01] MEDS: HEPARIN NA (PORCINE) 5,000 UNITS/ML 1ML VIAL SQ SCH ×2 (10:45→21:25)
--- NOTE | 2017-01-01 15:33 | PN ---
Progress Note (short form) - Note Progress Note: continues to complain of foot pain Vital Signs Period Temp Pulse Resp BP Sys/Davila Pulse Ox Last 24 Hr 98.1 F-99.4 F 84-100 20-20 115-163/60-98 95-97 corrrr llungs clear abd soft,nt ext minimal erythema, no drainage from callus CBC, BMP 12/31/16 07:00 12/31/16 07:00 Microbiology 12/31/16 12:10 Foot - Right Lateral Gram Stain - Final 12/31/16 12:10 Foot - Right Lateral Wound Culture - Preliminary Staphylococcus Coagulase Neg 12/28/16 17:50 Blood - Peripheral Venous Blood Culture - Preliminary NO GROWTH OBTAINED AFTER 72 HOURS, INCUBATION TO CONTINUE FOR 2 DAYS. 12/28/16 17:50 Blood - Peripheral Venous Blood Culture - Preliminary NO GROWTH OBTAINED AFTER 72 HOURS, INCUBATION TO CONTINUE FOR 2 DAYS. a/p cellulitis with callous right foot mri no osteo- now on ceftaroline day #2 f/u wound culture Problem List - Problems (1) Cellulitis Code(s): L03.90 - CELLULITIS, UNSPECIFIED Qualifiers: Site of cellulitis of extremity: lower extremity (2) Diabetes Code(s): E11.9 - TYPE 2 DIABETES MELLITUS WITHOUT COMPLICATIONS Qualifiers: Diabetes mellitus type: type 2 Diabetes mellitus complication status: with neurologic complications Diabetes mellitus complication detail: with polyneuropathy
--- NOTE | 2017-01-01 18:10 | PN ---
Progress Note, Physician Chief Complaint: AWAKE ALERT TOLERATING ABX - Current Medication List Current Medications: Active Medications Acetaminophen (Tylenol -) 650 mg PO Q4H PRN PRN Reason: FEVER OR PAIN Last Admin: 12/31/16 22:03 Dose: 650 mg Aspirin (Asa -) 81 mg PO DAILY [facility] Last Admin: 01/01/17 10:45 Dose: 81 mg Bacitracin (Bacitracin -) 1 applic TP BID [facility] Last Admin: 01/01/17 10:24 Dose: Not Given Collagenase (Santyl -) 1 applic TP DAILY [facility] Last Admin: 01/01/17 10:45 Dose: 1 applic Enalapril Maleate (Vasotec -) 10 mg PO HS [facility] Last Admin: 12/31/16 21:36 Dose: 10 mg Gabapentin (Neurontin -) 300 mg PO HS [facility] Last Admin: 12/31/16 21:35 Dose: 300 mg Heparin Sodium (Porcine) (Heparin -) 5,000 unit SQ BID [facility] Last Admin: 01/01/17 10:45 Dose: 5,000 unit Ceftaroline Fosamil 600 mg/ (Dextrose) 100 mls @ 200 mls/hr IVPB BID [facility] PRN Reason: Protocol Last Admin: 01/01/17 10:44 Dose: 200 mls/hr Insulin Aspart (Novolog Vial Sliding Scale -) 1 vial SQ ACHS [facility] PRN Reason: Protocol Last Admin: 01/01/17 17:09 Dose: 10 unit Insulin Detemir (Levemir Vial) 40 units SQ BID@0700,2200 [facility] Last Admin: 01/01/17 06:24 Dose: 40 unit Levothyroxine Sodium (Synthroid -) 200 mcg PO DAILY@0700 [facility] Last Admin: 01/01/17 06:27 Dose: 200 mcg Metformin HCl (Glucophage -) 500 mg PO [facility] Last Admin: 12/31/16 21:34 Dose: 500 mg Metoprolol Tartrate (Lopressor -) 50 mg PO [facility] Last Admin: 12/31/16 21:35 Dose: 50 mg - Objective Vital Signs: Vital Signs Temperature 98.3 F 01/01/17 17:11 Pulse Rate 98 H 01/01/17 17:11 Respiratory Rate 20 01/01/17 17:11 Blood Pressure 158/79 01/01/17 17:11 O2 Sat by Pulse Oximetry (%) 95 01/01/17 09:00 Constitutional: Yes: Mild Distress Eyes: Yes: WNL HENT: Yes: WNL Neck: Yes: WNL Cardiovascular: Yes: WNL Respiratory: Yes: WNL Gastrointestinal: Yes: WNL Genitourinary: Yes: WNL Musculoskeletal: Yes: WNL, Joint Swelling Extremities: Yes: Deformity Edema: Yes Peripheral Pulses WNL: Yes Integumentary: Yes: Other Wound/Incision: Yes: Dressing Removed, Draining, Unapproximated Neurological: Yes: Paresthesia, Other ...Motor Strength: LLE, RLE Psychiatric: Yes: WNL Labs: CBC, BMP 12/31/16 07:00 12/31/16 07:00 Problem List - Problems (1) Abscess or cellulitis of foot Code(s): L03.119 - CELLULITIS OF UNSPECIFIED PART OF LIMB L02.619 - CUTANEOUS ABSCESS OF UNSPECIFIED FOOT (2) Cellulitis Code(s): L03.90 - CELLULITIS, UNSPECIFIED Qualifiers: Site of cellulitis of extremity: lower extremity (3) Diabetes Code(s): E11.9 - TYPE 2 DIABETES MELLITUS WITHOUT COMPLICATIONS Qualifiers: Diabetes mellitus type: type 2 Diabetes mellitus complication status: with neurologic complications Diabetes mellitus complication detail: with polyneuropathy (4) Diabetic foot ulcer Code(s): E11.621 - TYPE 2 DIABETES MELLITUS WITH FOOT ULCER L97.509 - NON-PRESSURE CHRONIC ULCER OTH PRT UNSP FOOT W UNSP SEVERITY Qualifiers: Diabetes mellitus type: type 1 (5) Hyperlipidemia Code(s): E78.5 - HYPERLIPIDEMIA, UNSPECIFIED (6) Hypertension Code(s): I10 - ESSENTIAL (PRIMARY) HYPERTENSION (7) Hypothyroidism Code(s): E03.9 - HYPOTHYROIDISM, UNSPECIFIED (8) Insulin dependent diabetes mellitus Code(s): E11.9 - TYPE 2 DIABETES MELLITUS WITHOUT COMPLICATIONS Z79.4 - SKILLED NURSING (CURRENT) USE OF INSULIN (9) Blister of foot Code(s): S90.829A - BLISTER (NONTHERMAL), UNSPECIFIED FOOT, INITIAL ENCOUNTER Qualifiers: Encounter type: initial encounter Laterality: right Qualified Code(s): S90.821A - Blister (nonthermal), right foot, initial encounter Assessment/Plan IV ABX ID CONSULT PODIATRY/VASC SX EVAL BIOPSY/CULTURES PENDING HBC OUTPATIENT R/O 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 PER ID TIGHT GLYCEMIC CONTROL
[2017-01-01] MEDS: ENALAPRIL MALEATE 10 MG TABLET (FP) PO SCH (21:30)
[2017-01-01] MEDS: GABAPENTIN 300 MG CAPSULE (FP) PO SCH (21:30)
[2017-01-01] MEDS: metFORMIN HCL 500 MG TABLET (FP) PO SCH (21:30)
[2017-01-01] MEDS: METOPROLOL TARTRATE 50 MG TABLET (FP) PO SCH (21:30)
[2017-01-01] MEDS: ACETAMINOPHEN 325 MG TABLET (FP) PO PRN (21:39)
[2017-01-02 06:16] VITALS: TEMP 98.8
[2017-01-02] MEDS: INSULIN SLIDING SCALE (NOVOLOG) 1 VIAL SQ SCH ×2 (06:24→11:24)
[2017-01-02] MEDS: INSULIN DETEMIR 100 UNITS/ML MDV SQ SCH (06:24)
[2017-01-02] MEDS: LEVOTHYROXINE NA 100 MCG TABLET (FP) PO SCH (06:25)
[2017-01-02] MEDS ORDERED: PT OWN MED DRAWER 7, Y5N ONE (10:09)
[2017-01-02] MEDS: CEFTAROLINE FOSAMIL ACETATE 600 MG in DEXTROSE 5%-WATER - 100 ML IVPB SCH (10:10)
[2017-01-02] MEDS: HEPARIN NA (PORCINE) 5,000 UNITS/ML 1ML VIAL SQ SCH (10:11)
[2017-01-02] MEDS: BACITRACIN 30 GM TUBE TOPICAL OINTMENT TP SCH (10:11)
[2017-01-02] MEDS: COLLAGENASE CLOSTRIDIUM HIST. 30 GRAMS TUBE TP SCH (10:11)
[2017-01-02] MEDS: ASPIRIN 81 MG CHEWABLE TABLETS PO SCH (10:11)
--- NOTE | 2017-01-02 10:47 | DS ---
Physical Examination Vital Signs: Vital Signs Temperature 98.8 F 01/02/17 06:14 Pulse Rate 87 01/02/17 06:14 Respiratory Rate 18 01/02/17 06:14 Blood Pressure 131/67 01/02/17 06:14 O2 Sat by Pulse Oximetry (%) 96 01/01/17 21:00 Constitutional: Yes: Mild Distress Eyes: Yes: WNL HENT: Yes: WNL Neck: Yes: WNL Cardiovascular: Yes: WNL Respiratory: Yes: WNL Gastrointestinal: Yes: WNL Renal/: Yes: WNL Musculoskeletal: Yes: Muscle Pain Extremities: Yes: Deformity, Other (right foot ulcer) Edema: No Peripheral Pulses WNL: Yes Integumentary: Yes: Pressure Ulcer, Other Wound/Incision: Yes: Dressing Dry and Intact Neurological: Yes: Loss of Sensation, Pre-Existing Deficit ...Motor Strength: RLE Labs: CBC, BMP 12/31/16 07:00 12/31/16 07:00 Discharge Summary Reason For Visit: ABSCESS OR CELLULITIS OF FOOT EXCLUDING TOE Current Active Problems Abscess or cellulitis of foot (Acute) Cellulitis (Acute) Diabetes (Acute) Diabetic foot ulcer (Acute) Hyperlipidemia (Acute) Hypertension (Acute) Hypothyroidism (Acute) Insulin dependent diabetes mellitus (Acute) Osteomyelitis (Acute) Procedures: Principal: mri/labs Other Procedures: cultures Hospital Course: ADMITTED WITH FOOT INFECTION/RULE OUT OSTEOMYELITIS, IV ABX GIVEN, WOUND CARE, F /U OUT PATIENT AT WOUND CENTER, BACTRIM DS 21 DAYS BID, WOUND CARE AT WOUND CENTER Condition: Fair - Instructions Diet, Activity, Other Instructions: WOUND CARE CENTER OUT PATIENT/ ADA Referrals: Ariana Caballero MD [Primary Care Provider] - Disposition: VNS/HOME HEALTH CARE - Home Medications Comprehensive Discharge Medication List: Ambulatory Orders Levothyroxine [Synthroid -] 200 mcg PO DAILY 04/30/14 Aspirin [ASA -] 81 mg PO DAILY 06/30/14 Gabapentin 300 mg PO HS 10/25/14 Enalapril Maleate [Vasotec -] 10 mg PO HS 10/16/15 Metoprolol Tartrate [Lopressor -] 50 mg PO HS 10/22/15 Lantus Solostar PEN - 60 units SQ DAILY 10/29/16 Metformin HCl 500 mg PO HS 10/29/16 Humalog Kwikpen U-200 20 - 25 unit SQ TID 12/28/16
[2017-01-02] MEDS ORDERED: SULFAMETHOXAZOLE/TRIMETHOPRIM 800MG/160MG D.S. TABLET PO SCH (11:45)
[2017-01-02] MEDS ORDERED: FLUCONAZOLE 150 MG TABLET PO ONE (12:00)
[2017-01-02 12:23] VITALS: BP 123/76; PULSE 90
== END 2017-01-02 15:17 | disposition home health service (06) | DRG 383 ==
LOC: JER 01:25 → JERBED 03:37 → UNDOADMIN 03:44 → JERBED 03:44 → J8W 05:46
PROVIDERS: ADMIT Family Medicine; ATTEND Family Medicine
DX: L03.115 Cellulitis of right lower limb (principal); E11.621 Type 2 diabetes mellitus with foot ulcer; E78.5 Hyperlipidemia, unspecified; Z79.4 Long term (current) use of insulin; E03.9 Hypothyroidism, unspecified; I10 Essential (primary) hypertension; Z87.891 Personal history of nicotine dependence; I73.9 Peripheral vascular disease, unspecified; E11.65 Type 2 diabetes mellitus with hyperglycemia
CPT/HCPCS: 36415; 71020-TC; 73630-TC-RT; 73720-TC; 80048; 80053; 80061; 81003; 83721; 84443; 85025; 85027; 85651; 87040; 87070; 87076; 87205; 93005; 93010; 93923; 99283-25; J1644

== ENCOUNTER 2017-01-14 00:38 | Observation (INO) | payer OTHER ==
[2017-01-14 01:15] VITALS: BMI 35.0
--- NOTE | 2017-01-14 01:47 | PDOC ---
History of Present Illness - General Chief Complaint: Pain Stated Complaint: PAIN Time Seen by Provider: 01/14/17 00:57 - History of Present Illness Initial Comments: 01/14/17 01:26 CHIEF COMPLAINT: foot pain HISTORY OF PRESENT ILLNESS: 51 yo F with hx of hypothyroidism, IDDM, HTN, osteomyelitis of L second toe with no amputation, s/p fx of R 5th metatarsal returns to ED with pain to ulcer of R foot. Patient was admitted to this hospital two weeks ago for cellulitis of R foot s/p blister to foot, discharged on 01/02/17. Patient states she went to her PCP Dr. Caballero this morning and was told to go to the ER, but at that time she "wanted to wait until tomorrow to go to the wound care clinic because it wasn't that bad, but now it hurts too much. " Patient denies any fever, nausea, vomiting, diarrhea, but does complain of chills. No recent travel or sick contacts. PAST MEDICAL HISTORY: Denies past medical history FAMILY HISTORY: Denies SOCIAL HISTORY: Denies tobacco, alcohol, illicit drug use. SURGICAL HISTORY: Denies ALLERGIES: No known drug allergies REVIEW OF SYSTEMS General/Constitutional: Chills. Denies fever. Denies weakness, weight change. HEENT: Denies change in vision. Denies ear pain or discharge. Denies sore throat. Cardiovascular: Denies chest pain or shortness of breath. Respiratory: Denies cough, wheezing, or hemoptysis. Gastrointestinal: Denies nausea, vomiting, diarrhea or constipation. Denies rectal bleeding. Genitourinary: Denies dysuria, frequency, or change in urination. Musculoskeletal: Denies joint or muscle swelling or pain. Denies neck or back pain. Skin and breasts: Worsening painful ulcer to R foot. Denies rash or easy bruising. PHYSICAL EXAM General Appearance: Well-appearing, appropriately dressed. No apparent distress , no intoxication. HEENT: EOMI, PERRLA, normal ENT inspection, normal voice, TMs normal, pharynx normal. No conjunctival pallor. No photophobia, scleral icterus. Neck: Supple. Trachea midline. No tenderness, rigidity, carotid bruit, stridor , lymphadenopathy, or thyromegaly. Respiratory/Chest: Lungs CTAB. Cardiovascular: RRR. S1, S2. Vascular Pulses: Dorsalis-Pedis (R): 2+, Dorsalis-Pedis (L): 2+ Gastrointestinal/Abdominal: Normal bowel sounds. Abdomen soft, non-distended. No tenderness or rebound tenderness. No organomegaly, pulsatile mass, guarding , hernia, hepatomegaly, splenomegaly. Musculoskeletal/Extremities: Normal inspection. FROM of all extremities, normal capillary refill. Pelvis Stable. No CVA tenderness. No tenderness to extremities, pedal edema, swelling, erythema or deformity. Integumentary: 3 cm x 3 cm ulcer to R foot with surrounding necrotic tissue, . Appropriate color, dry, warm. 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 Fully oriented, alert. Appropriate mood/affect. Motor strength 5/5. No appreciable EOM palsy, facial droop or sensory deficit. 01/14/17 01:50 Past History - Past Medical History Allergies/Adverse Reactions: Allergies Allergy/AdvReac Type Severity Reaction Status Date / Time No Known Drug Allergies Allergy Verified 01/14/17 01:02 Home Medications: Ambulatory Orders Levothyroxine [Synthroid -] 200 mcg PO DAILY 04/30/14 Aspirin [ASA -] 81 mg PO DAILY 06/30/14 Gabapentin 300 mg PO HS 10/25/14 Enalapril Maleate [Vasotec -] 5 mg PO HS 10/16/15 Metoprolol Tartrate [Lopressor -] 50 mg PO HS 10/22/15 Lantus Solostar PEN - 60 units SQ DAILY 10/29/16 Metformin HCl 1,000 mg PO HS 10/29/16 Humalog Kwikpen U-200 20 - 25 unit SQ TID 12/28/16 Bacitracin - [Bacitracin Topical Ointment -] 1 applic TP BID #90 tube 01/02/17 Collagenase Clostridium Hist. [Santyl -] 1 applic TP DAILY #90 tube 01/02/17 Sulfamethoxazole/Trimethoprim [Bactrim DS -] 1 each PO BID #42 tablet 01/02/17 Anemia: No Asthma: No Cancer: No Cardiac Disorders: Yes (CAD) CVA: No COPD: No CHF: No Dementia: No Diabetes: Yes GI Disorders: No Disorders: No HTN: Yes Hypercholesterolemia: Yes (no meds) Liver Disease: No Suicide Attempt (Hx): No Seizures: No Thyroid Disease: Yes (HYPOTHYROID DISEASE) - Surgical History Abdominal Surgery: No Appendectomy: No Cardiac Surgery: No Cholecystectomy: No Lung Surgery: No Neurologic Surgery: No Orthopedic Surgery: No - Immunization History Immunization Up to Date: Yes - Psycho/Social/Smoking Cessation Hx Anxiety: No Suicidal Ideation: No Smoking Status: Yes Smoking History: Never smoked Have you smoked in the past 12 months: No Number of Cigarettes Smoked Daily: 0 If you are a former smoker, when did you quit?: 18 years ago Information on smoking cessation initiated: No Hx Alcohol Use: No Drug/Substance Use Hx: No Substance Use Type: None Hx Substance Use Treatment: No *Physical Exam - Vital Signs Last Vital Signs Temp Pulse Resp BP Pulse Ox 97.5 F L 94 H 18 179/70 99 01/14/17 00:59 01/14/17 00:59 01/14/17 00:59 01/14/17 00:59 01/14/17 00:59 ED Treatment Course - LABORATORY CBC & Chemistry Diagram: 01/14/17 01:48 01/14/17 01:48 - RADIOLOGY Radiology Studies Ordered: Category Date Time Status FOOT-RIGHT [RAD] Stat Radiology 01/14/17 01:16 Ordered *DC/Admit/Observation/Transfer Diagnosis at time of Disposition: Acute kidney injury, Abscess or cellulitis of foot - Discharge Dispostion Admit: Yes
[2017-01-14 01:55] LABS: BASOPHIL 0.9 % (0-2.0); MCH 30.3 pg (25.7-33.7); MCHC 34.2 g/dl (32.0-36.0); MEAN CELL VOLUME 88.7 fl (80-96); MEAN PLT VOLUME 8.6 fl (7.5-11.1); PLATELET COUNT 316 K/MM3 (134-434); RDW 12.9 % (11.6-15.6); WHITE BLOOD COUNT 6.2 K/mm3 (4.0-10.0)
[2017-01-14 02:08] LABS: INR 1.12 (0.82-1.09); PROTHROMBIN TIME (PATIENT) 12.4 SEC (9.98-11.88)
[2017-01-14 02:18] LABS: ALBUMIN 3.8 g/dl (3.4-5.0); BILIRUBIN,TOTAL 0.1 mg/dL (0.2-1.0); CALCIUM 9.4 mg/dL (8.5-10.1); COCKROFT - GAULT 53.601; CREATININE 1.8 mg/dL (0.55-1.02)
[2017-01-14] MEDS ORDERED: SODIUM CHLORIDE 0.9% 1000 ML INFUS.BAG IV ONE (02:43)
[2017-01-14] MEDS ORDERED: CEFAZOLIN 1 GM in DEXTROSE 5%-WATER - 50 ML IVPB ONE (02:55)
[2017-01-14] MEDS ORDERED: CLINDAMYCIN 600MG PREMIX IVPB 50 ML IVPB ONE ×2 (02:55→03:01)
[2017-01-14] MEDS ORDERED: SODIUM CHLORIDE 0.9% 500 ML INFUS.BAG IV ONE (03:03)
[2017-01-14] MEDS ORDERED: TETANUS AND DIPHTHERIA TOXOID 0.5 ML DISP.SYRIN IM ONE (03:04)
[2017-01-14] MEDS ORDERED: ACETAMINOPHEN 325 MG TABLET (FP) PO PRN (04:11)
[2017-01-14] MEDS ORDERED: morphine CARPU-JECT 4 MG/1 ML DISP.SYRIN IVPUSH PRN (04:11)
[2017-01-14] MEDS ORDERED: CEFAZOLIN (PRE-DOCKED) 50 ML IVPB ONE (04:24)
[2017-01-14 06:38] LABS: URINE APPEARANCE CLEAR; URINE BILIRUBIN NEGATIVE (NEGATIVE); URINE BLOOD NEGATIVE (NEGATIVE); URINE COLOR COLORLESS; URINE GLUCOSE (UA) 1+ (NEGATIVE); URINE KETONE NEGATIVE (NEGATIVE); URINE LEUK ESTERASE NEGATIVE (NEGATIVE); URINE NITRITE NEGATIVE (NEGATIVE); URINE PROTEIN NEGATIVE (NEGATIVE); URINE UROBILINOGEN NEGATIVE E.U./dl (0.2-1.0)
[2017-01-14] MEDS: INSULIN SLIDING SCALE (NOVOLOG) 1 VIAL SQ SCH ×4 (06:44→21:35)
[2017-01-14] MEDS: LEVOTHYROXINE NA 200 MCG TABLET PO SCH (07:13)
--- NOTE | 2017-01-14 08:14 | CONSULT ---
Consultation: REQUESTING PROVIDER: Dr. Ariana Caballero CONSULT REQUEST: We have been asked to medically evaluate this patient for Cellulitis/Osteomyelitis . HISTORY OF PRESENT ILLNESS: Patient is a 51 year old female with a PMHx of HTN, IDDM with peripheral neuropathy, previous osteomyelitis, and hypothyroidism who was sent over by her PCP for possible osteomyelitis of the right foot. Patient reports three months ago she started forming blisters on her right foot and was then wrapped and covered with topical antibiotics. She states the callus was then beginning to swell up and her vp genetic "took some skin off the callus". After that was done the foot took a long time to heel and she began seeing retail support specialist for debridement back in November. Yesterday, patient reports her right foot was draining more associated with chills but no fevers. Her PCP then sent her over to the hospital for rule out active osteomyelitis. Patient was recently discharged on 01/02/2017 for right foot cellulitis and was discharged with a course of Bactrim for 21 days, which she is currently taking. In the ED today, patient was found to have ЕЛЕНА and foot X-ray revealed soft tissue by the right fifth metatarsal. She was given Clindamycin, ancef and TDAP and admitted to rule out osteomyelitis. Otherwise, patient denies nausea, vomiting, diarrhea , chest pain, palpitations, shortness of breath, headaches, dizziness. Recent Travel: Denies PMHx: HTN, IDDM, Peripheral Neuropathy, Previous Osteomyelitis, Hypothyroidism PSHx: Cataracts, 4 C-sections Family History: Parents both with DMII Social History: Denies alcohol use, drug use or smoking. Lives with her and 4 kids. 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 Allergies: NKDA Recent Antibiotic use: Yes. Bactrim DS started on 01/02/2017 for cellulitis Up to date with immunizations and vaccines Denies history of blood transfusions or IVDA Denies being around sick contacts Denies any recent outdoor activities such as hiking REVIEW OF SYSTEMS: CONSTITUTIONAL: chills Absent: fever, diaphoresis, generalized weakness, malaise, loss of appetite, weight change HEENT: Absent: rhinorrhea, nasal congestion, throat pain, throat swelling, difficulty swallowing, mouth swelling, ear pain, eye pain, visual changes CARDIOVASCULAR: Absent: chest pain, syncope, palpitations, irregular heart rate, lightheadedness , peripheral edema RESPIRATORY: Absent: cough, shortness of breath, dyspnea with exertion, orthopnea, wheezing, stridor, hemoptysis GASTROINTESTINAL: Absent: abdominal pain, abdominal distension, nausea, vomiting, diarrhea, constipation, melena, hematochezia GENITOURINARY: Absent: dysuria, frequency, urgency, hesitancy, hematuria, flank pain, genital pain MUSCULOSKELETAL: Absent: myalgia, arthralgia, joint swelling, back pain, neck pain SKIN: Ulceration of the right foot Absent: itching, pallor HEMATOLOGIC/IMMUNOLOGIC: Absent: easy bleeding, easy bruising, lymphadenopathy, frequent infections ENDOCRINE: Absent: unexplained weight gain, unexplained weight loss, heat intolerance, cold intolerance NEUROLOGIC: Absent: headache, focal weakness or paresthesias, dizziness, unsteady gait, seizure, mental status changes, bladder or bowel incontinence PSYCHIATRIC: Absent: anxiety, depression, suicidal or homicidal ideation, hallucinations. PHYSICAL EXAMINATION Vital Signs - 24 hr 01/14/17 01/14/17 01/14/17 05:58 06:03 07:39 Temperature 98.2 F 98.3 F Pulse Rate 89 Pulse Rate [ 82 Apical] Respiratory 16 18 Rate Blood Pressure 142/84 Blood Pressure 163/94 [Left] O2 Sat by Pulse 100 100 Oximetry (%) 01/14/17 08:09 Temperature Pulse Rate Pulse Rate [ Apical] Respiratory Rate Blood Pressure Blood Pressure [Left] O2 Sat by Pulse 100 Oximetry (%) GENERAL: Awake, alert, and fully oriented, in no acute distress. EYES: Sclera anicteric, conjunctiva clear. THROAT: Oropharynx clear without exudates. Moist mucous membranes. NECK: Normal range of motion, supple without lymphadenopathy. LUNGS: Breath sounds equal, clear to auscultation bilaterally. No wheezes, and no crackles. No accessory muscle use. HEART: Regular rate and rhythm, normal S1 and S2 without murmur, rub or gallop. ABDOMEN: Soft, nontender, not distended, no guarding, no rebound, no masses. No hepatomegaly or splenomegaly. EXTREMITIES: 2+ pedal pulses. No peripheral edema. SKIN: 3X3cm right ulceration to the lateral aspect of the foot extending to the plantar aspect of foot near the 5th MTP joint with no active bleeding. Laboratory Results - last 24 hr 01/14/17 01/14/17 01/14/17 05:13 05:14 06:43 ESR 32 H POC Glucometer 195 Urine Color Colorless Urine Appearance Clear Urine pH 6.0 Ur Specific Mcgregor 1.008 Urine Protein Negative Urine Glucose (UA) 1+ H D Urine Ketones Negative Urine Blood Negative Urine Nitrite Negative Urine Bilirubin Negative Urine Urobilinogen Negative Ur Leukocyte Esterase Negative Active Medications Generic Name Dose Route Start Last Admin Trade Name Freq PRN Reason Stop Dose Admin Acetaminophen 650 mg 01/14/17 04:11 Tylenol - PO Q6H PRN FEVER OR PAIN Aspirin 81 mg 01/14/17 10:00 Ecotrin - PO DAILY [facility] Bacitracin 1 applic 01/14/17 10:00 Bacitracin - TP DAILY [facility] Collagenase 1 applic 01/14/17 10:00 Santyl - TP DAILY [facility] Enalapril Maleate 5 mg 01/14/17 10:00 Vasotec - PO DAILY [facility] Gabapentin 300 mg 01/14/17 10:00 Neurontin - PO BID [facility] Insulin Aspart 1 vial 01/14/17 07:00 01/14/17 06:44 Novolog Vial Sliding Scale - SQ Not Given ACHS [facility] Protocol Insulin Detemir 60 units 01/14/17 22:00 Levemir Vial SQ HS [facility] Levothyroxine Sodium 200 mcg 01/14/17 07:00 01/14/17 07:13 Synthroid - PO 200 mcg DAILY@0700 [facility] Administration Metoprolol Tartrate 50 mg 01/14/17 10:00 Lopressor - PO DAILY [facility] Morphine Sulfate 4 mg 01/14/17 04:11 Morphine Injection - IVPUSH Q6H PRN PAIN ASSESSMENT/PLAN: Right Foot Ulceration, r/o osteomyelitis -Possibly mechanical vs. infection due to location of ulceration -X-ray revealed soft tissue of right foot -TDAP given -Clindamycin and Ancef given in the ED -Wound care consult -ESR elevated -Afebrile with no Leukocytosis. No indication for antibiotics at this point Dispo: We will continue to follow the patient. Thank you for this consultative opportunity. Visit type - Emergency Visit Emergency Visit: Yes ED Registration Date: 01/14/17 Care time: The patient presented to the Emergency Department on the above date and was hospitalized for further evaluation of their emergent condition. - New Patient This patient is new to me today: Yes Date on this admission: 01/14/17 - Critical Care Critical Care patient: No
[2017-01-14 09:10] LABS: MCH 30.2 pg (25.7-33.7); MCHC 33.8 g/dl (32.0-36.0); MEAN CELL VOLUME 89.3 fl (80-96); MEAN PLT VOLUME 8.6 fl (7.5-11.1); PLATELET COUNT 319 K/MM3 (134-434); RDW 12.9 % (11.6-15.6); WHITE BLOOD COUNT 6.4 K/mm3 (4.0-10.0)
[2017-01-14 09:30] LABS: COCKROFT - GAULT 80.4015; CREATININE 1.2 mg/dL (0.55-1.02)
[2017-01-14] MEDS ORDERED: ENALAPRIL MALEATE 5 MG TABLET (FP) PO SCH (10:00)
[2017-01-14] MEDS ORDERED: METOPROLOL TARTRATE 50 MG TABLET (FP) PO SCH (10:00)
[2017-01-14] MEDS: ASPIRIN COATED 81 MG TABLET.EC PO SCH (10:03)
[2017-01-14] MEDS: GABAPENTIN 300 MG CAPSULE (FP) PO SCH ×2 (10:06→21:35)
--- NOTE | 2017-01-14 10:24 | HP ---
Admitting History and Physical - Primary Care Physician PCP: Ariana Caballero - Admission Chief Complaint: RIGHT FOOT PAIN AND WORSENING CHRONIC ULCER History of Present Illness: PATIENT WITH DM/HTN/NEUROPATHY, HERE WITH WORSENING FOOT ULCER STAGE 2-3 WITH PURELENT DISCHARGE NOTED, AND EXTREME PAIN. PATIENT WAS DISCHARGED 2 WEEKS AGO ON BACTRIM BID FOR 21 DAYS WHICH NOW HAS CAUSED WORSENING OF HER CHRONIC RENAL INSUFFICIENCY. 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 Cardiovascular: Yes: HTN, Hyperlipdemia ...LMP: 10/30/14 Endocrine: Yes: Diabetes Mellitus, Hypothyroidism - Smoking History Smoking history: Never smoked Have you smoked in the past 12 months: No Aproximately how many cigarettes per day: 0 If you are a former smoker, when did you quit?: 18 years ago - Alcohol/Substance Use Hx Alcohol Use: No Home Medications - Allergies Allergies/Adverse Reactions: Allergies Allergy/AdvReac Type Severity Reaction Status Date / Time No Known Drug Allergies Allergy Verified 01/14/17 01:02 - Home Medications Home Medications: Ambulatory Orders Levothyroxine [Synthroid -] 200 mcg PO DAILY 04/30/14 Aspirin [ASA -] 81 mg PO DAILY 06/30/14 Gabapentin 300 mg PO HS 10/25/14 Enalapril Maleate [Vasotec -] 5 mg PO HS 10/16/15 Metoprolol Tartrate [Lopressor -] 50 mg PO HS 10/22/15 Lantus Solostar PEN - 60 units SQ DAILY 10/29/16 Metformin HCl 1,000 mg PO HS 10/29/16 Humalog Kwikpen U-200 20 - 25 unit SQ TID 12/28/16 Bacitracin - [Bacitracin Topical Ointment -] 1 applic TP BID #90 tube 01/02/17 Collagenase Clostridium Hist. [Santyl -] 1 applic TP DAILY #90 tube 01/02/17 Sulfamethoxazole/Trimethoprim [Bactrim DS -] 1 each PO BID #42 tablet 01/02/17 Review of Systems - Review of Systems Constitutional: reports: Weakness Eyes: reports: No Symptoms HENT: reports: No Symptoms Neck: reports: No Symptoms Cardiovascular: reports: No Symptoms Respiratory: reports: No Symptoms Gastrointestinal: reports: No Symptoms Genitourinary: reports: No Symptoms Musculoskeletal: reports: Joint Pain Integumentary: reports: Other Neurological: reports: Pre-Existing Deficit Endocrine: reports: No Symptoms Hematology/Lymphatic: reports: No Symptoms Psychiatric: reports: No Symptoms Physical Examination Vital Signs: Vital Signs Temperature 98.3 F 01/14/17 07:39 Pulse Rate 89 01/14/17 07:39 Respiratory Rate 18 01/14/17 07:39 Blood Pressure 142/84 01/14/17 07:39 O2 Sat by Pulse Oximetry (%) 100 01/14/17 08:09 Constitutional: Yes: Moderate Distress Eyes: Yes: WNL HENT: Yes: WNL Neck: Yes: WNL Cardiovascular: Yes: WNL Respiratory: Yes: WNL Gastrointestinal: Yes: WNL Renal/: Yes: WNL Musculoskeletal: Yes: Joint Swelling, Other Extremities: Yes: Deformity Edema: Yes Edema: RLE: Trace Peripheral Pulses WNL: Yes Integumentary: Yes: Pressure Ulcer, Other Wound/Incision: Yes: Open to air, Draining (3 CM STAGE 2-3 ULCER TENDER) Psychiatric: Yes: WNL Labs: CBC, BMP 01/14/17 08:35 01/14/17 08:35 Problem List - Problems (1) Abscess or cellulitis of foot Code(s): L03.119 - CELLULITIS OF UNSPECIFIED PART OF LIMB L02.619 - CUTANEOUS ABSCESS OF UNSPECIFIED FOOT (2) Acute kidney injury Code(s): N17.9 - ACUTE KIDNEY FAILURE, UNSPECIFIED (3) Diabetes Code(s): E11.9 - TYPE 2 DIABETES MELLITUS WITHOUT COMPLICATIONS Qualifiers: Diabetes mellitus type: type 2 Diabetes mellitus complication status: with neurologic complications Diabetes mellitus complication detail: with polyneuropathy (4) Hyperlipidemia Code(s): E78.5 - HYPERLIPIDEMIA, UNSPECIFIED Qualifiers: Hyperlipidemia type: pure hypercholesterolemia Qualified Code(s): E78.00 - Pure hypercholesterolemia, unspecified; E78.0 - Pure hypercholesterolemia (5) Hypertension Code(s): I10 - ESSENTIAL (PRIMARY) HYPERTENSION Qualifiers: Hypertension type: essential hypertension Qualified Code(s): I10 - Essential (primary) hypertension (6) Hypothyroidism Code(s): E03.9 - HYPOTHYROIDISM, UNSPECIFIED Qualifiers: Hypothyroidism type: other Qualified Code(s): E03.8 - Other specified hypothyroidism (7) Insulin dependent diabetes mellitus Code(s): E11.9 - TYPE 2 DIABETES MELLITUS WITHOUT COMPLICATIONS Z79.4 - SKILLED NURSING (CURRENT) USE OF INSULIN (8) Cellulitis Code(s): L03.90 - CELLULITIS, UNSPECIFIED Qualifiers: Site of cellulitis of extremity: lower extremity Assessment/Plan OBSERVATION STATUS WITH IV ABX ORDERED ID AND PODIATRY EVAL STOP BACTRIM SSI IVF PAIN CONTROL
--- NOTE | 2017-01-14 10:46 | PN ---
[id number] the resident's note and discussed the case with the resident. I agree with the resident's findings and plan as documented. SUBJECTIVE: OBJECTIVE: ASSESSMENT AND PLAN: I saw her earlier in the month 12/28 to 01/02 for cellulitis of the forefoot MRI done that admission was negative for osteomyelitis ( 2 recent MRIs are negative) she was discharged on po bactrim now admitted with painful callus and ЕЛЕНА I suspect the ЕЛЕНА is secondary to the bactrim there is no cellulitis, callus is dry, no drainage will d/w Dr Vang- I suspect this is all mechanical and that there is no infection but callus has certainly enlarged and she is concerned will await evaluation by podiatry will observe off antibiotics check esr/crp
[2017-01-14] MEDS ORDERED: INSULIN (NOVOLOG) ASPART 100 UNITS/ML 10ML VIAL ONE (11:29)
--- NOTE | 2017-01-14 12:52 | PN ---
Progress Note (short form) - Note Progress Note: PODIATRY NOTE patient well known to me, seen and examined at bedside Right foot: There is a small open wound plantar aspect with elvira wound callous formation with sub dermal hematoma most likely due to excessive pressure.There is no erythema, no edema, no fluctuance and no clinical signs of abscess either superficial or deep. There is + hypertrophy of the styloid process due to old fracture healing by secondary intention resulting in Mal union. She has palpable Femoral, Popliteal, Posterior Tibial and Dorsalis pedis pulses B/L with normal skin temp and Capillary re-fill. All epiciritic senses diminished due to DM. 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 She demonstrated verbal understanding of all that was said today but wishes to continue HBO since it saved her 2nd toe Educate patient to start wearing her extra-depth diabetic shoes with plastazote inserts to help off load the area Have patient follow up in wound healing center upon Discharge All noted read and appreciated Thank you
[2017-01-14] MEDS: COLLAGENASE CLOSTRIDIUM HIST. 30 GRAMS TUBE TP SCH (14:45)
[2017-01-14] MEDS: BACITRACIN 30 GM TUBE TOPICAL OINTMENT TP SCH (14:46)
--- NOTE | 2017-01-14 17:05 | PN ---
Progress Note (short form) - Note Progress Note: Vascular Surgery Pt seen and examined. Seen December 28 in the hospital. Palpable pulse in right foot. Has malunion deformity in foot, lateral aspect, causing callus and ulcer. Not very optimistic that HBO will heal her. Podiatry on case. Discussed with pt about surgical option. Pt will think about it. Dr. Vang to come back and speak to pt. Cleared from vascular Standpoint for podiatry intervention Adithya Grigsby DO
--- NOTE | 2017-01-14 18:00 | CONSULT ---
Consult Consult Specialty:: Nephrology Reason for Consultation:: ЕЛЕНА - History of Present Illness Chief Complaint: right foot pain History of Present Illness: Pt is a 51 year old female with pmhx of DM, HTN and osteomyelitis who presents to the ER with right foot pain. She has had osteomyelitis in the past. She was found to have elevated creatinine and I was called to evaluate her. She denies history of CKD. She denies nsaid use. She was on bactrim. She denies dysuria or hematuria. 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: Yes: CVA Cardio/Vascular: Yes: HTN, Hyperlipdemia ...LMP: 10/30/14 Endocrine: Yes: Diabetes Mellitus, Hypothyroidism - Alcohol/Substance Use Hx Alcohol Use: No - Smoking History Smoking history: Never smoked Have you smoked in the past 12 months: No Aproximately how many cigarettes per day: 0 If you are a former smoker, when did you quit?: 18 years ago Home Medications - Allergies Allergies/Adverse Reactions: Allergies Allergy/AdvReac Type Severity Reaction Status Date / Time No Known Drug Allergies Allergy Verified 01/14/17 01:02 - Home Medications Home Medications: Ambulatory Orders Levothyroxine [Synthroid -] 200 mcg PO DAILY 04/30/14 Aspirin [ASA -] 81 mg PO DAILY 06/30/14 Gabapentin 300 mg PO HS 10/25/14 Enalapril Maleate [Vasotec -] 5 mg PO HS 10/16/15 Metoprolol Tartrate [Lopressor -] 50 mg PO HS 10/22/15 Lantus Solostar PEN - 60 units SQ DAILY 10/29/16 Metformin HCl 1,000 mg PO HS 10/29/16 Humalog Kwikpen U-200 20 - 25 unit SQ TID 12/28/16 Bacitracin - [Bacitracin Topical Ointment -] 1 applic TP BID #90 tube 01/02/17 Collagenase Clostridium Hist. [Santyl -] 1 applic TP DAILY #90 tube 01/02/17 Sulfamethoxazole/Trimethoprim [Bactrim DS -] 1 each PO BID #42 tablet 01/02/17 Family Disease History - Family Disease History Family History: Denies Review of Systems - Review of Systems Constitutional: reports: No Symptoms Eyes: reports: No Symptoms HENT: reports: No Symptoms Neck: reports: No Symptoms Cardiovascular: reports: No Symptoms Respiratory: reports: No Symptoms Gastrointestinal: reports: No Symptoms Genitourinary: denies: Burning, Discharge, Dysuria Musculoskeletal: reports: Other (right foot pain) Neurological: reports: No Symptoms Endocrine: reports: No Symptoms Hematology/Lymphatic: reports: No Symptoms Psychiatric: reports: No Symptoms Physical Exam Vital Signs: Vital Signs Temperature 97.9 F 01/14/17 14:36 Pulse Rate 91 H 01/14/17 14:36 Respiratory Rate 18 01/14/17 14:36 Blood Pressure 141/77 01/14/17 14:36 O2 Sat by Pulse Oximetry (%) 100 01/14/17 14:00 Constitutional: Yes: Calm Eyes: Yes: Conjunctiva Clear HENT: Yes: Atraumatic Neck: Yes: Supple Cardiovascular: Yes: S1, S2 Respiratory: Yes: CTA Bilaterally Gastrointestinal: Yes: Normal Bowel Sounds Renal/: Yes: WNL Extremities: Yes: Other (right foot dressing in place) Edema: No Wound/Incision: Yes: Dressing Dry and Intact Neurological: Yes: Oriented Psychiatric: Yes: Oriented Labs: CBC, BMP 01/14/17 08:35 01/14/17 08:35 Laboratory Tests 10/25/14 12/28/16 12/29/16 01:20 10:52 06:00 WBC Hgb Plt Count Sodium Potassium Chloride Carbon Dioxide Anion Gap BUN Creatinine 1.0 0.9 D 0.9 Random Glucose Urine Color Urine Appearance Urine pH Ur Specific Cameron Urine Protein Urine Glucose (UA) Urine Ketones Urine Blood Urine Nitrite Urine Bilirubin Urine Urobilinogen Ur Leukocyte Esterase 12/30/16 12/31/16 01/14/17 06:30 07:00 01:48 WBC Hgb Plt Count Sodium 136 Potassium 4.2 Chloride 99 Carbon Dioxide 30 Anion Gap 7 L BUN 27 H D Creatinine 1.2 H D 1.1 H 1.8 H D Random Glucose Urine Color Urine Appearance Urine pH Ur Specific Cameron Urine Protein Urine Glucose (UA) Urine Ketones Urine Blood Urine Nitrite Urine Bilirubin Urine Urobilinogen Ur Leukocyte Esterase 01/14/17 01/14/17 01/14/17 01:48 05:14 08:35 WBC 6.2 6.4 Hgb 12.0 12.1 Plt Count 316 319 Sodium Potassium Chloride Carbon Dioxide Anion Gap BUN Creatinine Random Glucose Urine Color Colorless Urine Appearance Clear Urine pH 6.0 Ur Specific Cameron 1.008 Urine Protein Negative Urine Glucose (UA) 1+ H D Urine Ketones Negative Urine Blood Negative Urine Nitrite Negative Urine Bilirubin Negative Urine Urobilinogen Negative Ur Leukocyte Esterase Negative 01/14/17 08:35 WBC Hgb Plt Count Sodium 134 L Potassium 4.9 Chloride 100 Carbon Dioxide 26 Anion Gap 8 BUN 26 H Creatinine 1.2 H D Random Glucose 266 H Urine Color Urine Appearance Urine pH Ur Specific Cameron Urine Protein Urine Glucose (UA) Urine Ketones Urine Blood Urine Nitrite Urine Bilirubin Urine Urobilinogen Ur Leukocyte Esterase Problem List - Problems (1) Acute kidney injury Code(s): N17.9 - ACUTE KIDNEY FAILURE, UNSPECIFIED (2) Diabetes Code(s): E11.9 - TYPE 2 DIABETES MELLITUS WITHOUT COMPLICATIONS Qualifiers: Diabetes mellitus type: type 2 Diabetes mellitus complication status: with neurologic complications Diabetes mellitus complication detail: with polyneuropathy (3) Hyperlipidemia Code(s): E78.5 - HYPERLIPIDEMIA, UNSPECIFIED Qualifiers: Hyperlipidemia type: pure hypercholesterolemia Qualified Code(s): E78.00 - Pure hypercholesterolemia, unspecified; E78.0 - Pure hypercholesterolemia (4) Hypertension Code(s): I10 - ESSENTIAL (PRIMARY) HYPERTENSION Qualifiers: Hypertension type: essential hypertension Qualified Code(s): I10 - Essential (primary) hypertension Assessment/Plan Current Medications Generic Name Dose Route Start Last Admin Trade Name Freq PRN Reason Stop Dose Admin Acetaminophen 650 mg 01/14/17 04:11 Tylenol - PO Q6H PRN FEVER OR PAIN Aspirin 81 mg 01/14/17 10:00 01/14/17 10:03 Ecotrin - PO 81 mg DAILY TR[facility]I Administration Bacitracin 1 applic 01/14/17 10:00 01/14/17 14:46 Bacitracin - TP Not Given DAILY TRACI Collagenase 1 applic 01/14/17 10:00 01/14/17 14:45 Santyl - TP 1 applic DAILY [facility]I Administration Enalapril Maleate 5 mg 01/14/17 10:00 01/14/17 10:08 Vasotec - PO Not Given DAILY [facility] Gabapentin 300 mg 01/14/17 10:00 01/14/17 10:06 Neurontin - PO 300 mg BID TRACI Administration Insulin Aspart 1 vial 01/14/17 07:00 01/14/17 17:49 Novolog Vial Sliding Scale - SQ 4 units ACHS TRACI Administration Protocol Insulin Detemir 60 units 01/14/17 22:00 Levemir Vial SQ HS [facility]I Levothyroxine Sodium 200 mcg 01/14/17 07:00 01/14/17 07:13 Synthroid - PO 200 mcg DAILY@0700 [facility] Administration Metoprolol Tartrate 50 mg 01/14/17 10:00 01/14/17 10:06 Lopressor - PO Not Given DAILY [facility] Morphine Sulfate 4 mg 01/14/17 04:11 Morphine Injection - IVPUSH Q6H PRN PAIN Impression 1. ЕЛЕНА 2. cellulitis 3. HTN 4. DM 5. hypothyroidism Plan - renal function is improving - bactrim held - repeat labs in am - check renal ultrasound - urine neg for blood pr protein - will follow pt - likely elevated from bactrim - cont edis for now Dr Agudelo
[2017-01-14] MEDS ORDERED: INSULIN DETEMIR 100 UNITS/ML MDV SQ SCH (22:00)
[2017-01-14] MEDS ORDERED: PT OWN MED DRAWER 7, Y5N ONE (22:08)
[2017-01-14] MEDS: METOPROLOL TARTRATE 50 MG TABLET (FP) PO SCH (22:10)
[2017-01-14] MEDS: ENALAPRIL MALEATE 5 MG TABLET (FP) PO SCH (22:10)
[2017-01-15] MEDS ORDERED: PT OWN MED DRAWER 7, Y5N ONE ×3 (05:19→19:27)
[2017-01-15] MEDS: INSULIN SLIDING SCALE (NOVOLOG) 1 VIAL SQ SCH (06:05)
[2017-01-15] MEDS: LEVOTHYROXINE NA 200 MCG TABLET PO SCH (06:05)
[2017-01-15 07:28] LABS: CALCIUM 8.9 mg/dL (8.5-10.1); COCKROFT - GAULT 87.7115; CREATININE 1.1 mg/dL (0.55-1.02)
--- NOTE | 2017-01-15 07:33 | DS ---
Physical Examination Vital Signs: Vital Signs Temperature 97.7 F 01/15/17 06:00 Pulse Rate 84 01/15/17 06:00 Respiratory Rate 20 01/15/17 06:00 Blood Pressure 119/65 01/15/17 06:00 O2 Sat by Pulse Oximetry (%) 100 01/14/17 14:00 Findings/Remarks: podiatry and surgery noted reviewed, outpatient care illustrated Constitutional: Yes: Mild Distress Eyes: Yes: WNL HENT: Yes: WNL Neck: Yes: WNL Cardiovascular: Yes: WNL Respiratory: Yes: WNL Gastrointestinal: Yes: WNL Renal/: Yes: WNL Musculoskeletal: Yes: Joint Swelling Extremities: Yes: Deformity Edema: Yes Edema: LLE: Trace, RLE: Trace Peripheral Pulses WNL: Yes Integumentary: Yes: Pressure Ulcer, Venous Stasis Changes Wound/Incision: Yes: Dressing Removed (malunion of metatarsal right 5th digit, with tender 3cm ulceration) Neurological: Yes: Numbness, Paresthesia, Pre-Existing Deficit ...Motor Strength: RLE Psychiatric: Yes: WNL Labs: CBC, BMP 01/14/17 08:35 Discharge Summary Reason For Visit: ACUTE KIDNEY DISEASE CELLULITIS OF FOOT Current Active Problems Abscess or cellulitis of foot (Acute) Acute kidney injury (Acute) Diabetes (Acute) Hyperlipidemia (Acute) Hypertension (Acute) Hypothyroidism (Acute) Insulin dependent diabetes mellitus (Acute) Osteomyelitis (Acute) Procedures: Principal: xrays Other Procedures: renal sono Hospital Course: observation of 5th digit/tarsal right foot worsening ulcer/cellulitis, with worsening renal function. stop bactrim, wound care asout patient with wound center. Condition: Stable - Instructions Diet, Activity, Other Instructions: ada/low sodium Referrals: Ariana Caballero MD [Primary Care Provider] - Disposition: VNS/HOME HEALTH CARE - Home Medications Comprehensive Discharge Medication List: Ambulatory Orders Levothyroxine [Synthroid -] 200 mcg PO DAILY 04/30/14 Aspirin [ASA -] 81 mg PO DAILY 06/30/14 Gabapentin 300 mg PO HS 10/25/14 Enalapril Maleate [Vasotec -] 5 mg PO HS 10/16/15 Metoprolol Tartrate [Lopressor -] 50 mg PO HS 10/22/15 Lantus Solostar PEN - 60 units SQ DAILY 10/29/16 Metformin HCl 1,000 mg PO HS 10/29/16 Humalog Kwikpen U-200 20 - 25 unit SQ TID 12/28/16 Bacitracin - [Bacitracin Topical Ointment -] 1 applic TP BID #90 tube 01/02/17 Collagenase Clostridium Hist. [Santyl -] 1 applic TP DAILY #90 tube 01/02/17 Acetaminophen [Tylenol .Regular Strength -] 650 mg PO Q6H PRN #0 tablet Bacitracin - [Bacitracin Topical Ointment -] 1 applic TP DAILY tube 01/15/17 Collagenase Clostridium Hist. [Santyl -] 1 applic TP DAILY tube 01/15/17 Enalapril Maleate [Vasotec -] 5 mg PO DAILY@HS tablet 01/15/17 Levothyroxine [Synthroid -] 200 mcg PO DAILY@0700 tablet 01/15/17 Metoprolol Tartrate [Lopressor -] 50 mg PO DAILY@HS tablet 01/15/17
--- NOTE | 2017-01-15 09:27 | PN ---
Physical Exam: SUBJECTIVE: Patient seen and examined by me at bedside. No overnight events noted. Patient was to be discharged home but vascular surgery examined patient and explained that hyperbaric will not help her right foot and that she would need intervention by podiatry. Podiatry was asked to speak to patient again as she is refusing the intervention and would much rather have hyperbaric. Otherwise, patient denies fever, chills, nausea, vomiting, diarrhea, chest pain , palpitations, shortness of breath. OBJECTIVE: Vital Signs Period Temp Pulse Resp BP Sys/Davila Pulse Ox Last 24 Hr 97.7 F-98.5 F 77-98 18-20 119-150/57-77 100 GENERAL: Awake, alert, and fully oriented, in no acute distress. LUNGS: Breath sounds equal, clear to auscultation bilaterally. No wheezes, and no crackles. No accessory muscle use. HEART: Regular rate and rhythm, normal S1 and S2 without murmur, rub or gallop. ABDOMEN: Soft, nontender, not distended, no guarding, no rebound. EXTREMITIES: 2+ pedal pulses. No peripheral edema. SKIN: 3X3cm right ulceration to the lateral aspect of the foot extending to the plantar aspect of foot near the 5th MTP joint with no active bleeding. Laboratory Results - last 24 hr 01/14/17 01/14/17 01/14/17 08:35 11:23 17:45 Sodium 134 L Potassium 4.9 Chloride 100 Carbon Dioxide 26 Anion Gap 8 BUN 26 H Creatinine 1.2 H D POC Glucometer 295 280 Random Glucose 266 H Calcium 9.0 01/14/17 01/15/17 01/15/17 20:50 05:44 06:30 Sodium 137 Potassium 4.6 Chloride 104 Carbon Dioxide 25 Anion Gap 8 BUN 24 H Creatinine 1.1 H POC Glucometer 231 190 Random Glucose 183 H D Calcium 8.9 Active Medications Generic Name Dose Route Start Last Admin Trade Name Freq PRN Reason Stop Dose Admin Acetaminophen 650 mg 01/14/17 04:11 Tylenol - PO Q6H PRN FEVER OR PAIN Aspirin 81 mg 01/14/17 10:00 01/14/17 10:03 Ecotrin - PO 81 mg DAILY TRACI Administration Bacitracin 1 applic 01/14/17 10:00 01/14/17 14:46 Bacitracin - TP Not Given DAILY TR[facility]I Collagenase 1 applic 01/14/17 10:00 01/14/17 14:45 Santyl - TP 1 applic DAILY TRACI Administration Enalapril Maleate 5 mg 01/14/17 22:00 01/14/17 22:10 Vasotec - PO 5 mg DAILY@HS TRACI Administration Gabapentin 300 mg 01/14/17 10:00 01/14/17 21:35 Neurontin - PO 300 mg BID TRACI Administration Insulin Aspart 1 vial 01/14/17 07:00 01/15/17 06:05 Novolog Vial Sliding Scale - SQ Not Given ACHS TRACI Protocol Insulin Detemir 60 units 01/14/17 22:00 01/14/17 21:27 Levemir Vial SQ Not Given HS TRACI Levothyroxine Sodium 200 mcg 01/14/17 07:00 01/15/17 06:05 Synthroid - PO 200 mcg DAILY@0700 TRACI Administration Metoprolol Tartrate 50 mg 01/14/17 22:00 01/14/17 22:10 Lopressor - PO 50 mg DAILY@HS TRACI Administration Morphine Sulfate 4 mg 01/14/17 04:11 Morphine Injection - IVPUSH Q6H PRN PAIN ASSESSMENT/PLAN: Right Foot Ulceration -Possibly mechanical vs. infection due to location of ulceration -X-ray revealed soft tissue of right foot -Vascular surgeon not optimistic that HBO will resolve it. -Afebrile with no Leukocytosis. Still no indication for antibiotics at this point Visit type - Emergency Visit Emergency Visit: Yes ED Registration Date: 01/14/17 Care time: The patient presented to the Emergency Department on the above date and was hospitalized for further evaluation of their emergent condition. - New Patient This patient is new to me today: No - Critical Care Critical Care patient: No
[2017-01-15] MEDS: ASPIRIN COATED 81 MG TABLET.EC PO SCH (10:28)
[2017-01-15] MEDS: GABAPENTIN 300 MG CAPSULE (FP) PO SCH ×2 (10:28→22:18)
[2017-01-15] MEDS: COLLAGENASE CLOSTRIDIUM HIST. 30 GRAMS TUBE TP SCH ×2 (10:30→19:24)
--- NOTE | 2017-01-15 10:46 | PN ---
Progress Note (short form) - Note Progress Note: DISCUSSED WITH NURSING STAFF AND PATIENT, PATIENT WAS TOLD BY INFECTIOUS DISEASE THAT THE WOUND ON HER RIGHT FOOT IS DARK APPEARING AND NEEDS SURGERY FOR WOUND REPAIR. NURSE INTRAUCTED TO CALL DR BEASLEY FOR F/U AND DECISION ON SURGERY. Problem List - Problems (1) Abscess or cellulitis of foot Code(s): L03.119 - CELLULITIS OF UNSPECIFIED PART OF LIMB L02.619 - CUTANEOUS ABSCESS OF UNSPECIFIED FOOT (2) Acute kidney injury Code(s): N17.9 - ACUTE KIDNEY FAILURE, UNSPECIFIED (3) Diabetes Code(s): E11.9 - TYPE 2 DIABETES MELLITUS WITHOUT COMPLICATIONS Qualifiers: Diabetes mellitus type: type 2 Diabetes mellitus complication status: with neurologic complications Diabetes mellitus complication detail: with polyneuropathy (4) Hyperlipidemia Code(s): E78.5 - HYPERLIPIDEMIA, UNSPECIFIED Qualifiers: Hyperlipidemia type: pure hypercholesterolemia Qualified Code(s): E78.00 - Pure hypercholesterolemia, unspecified; E78.0 - Pure hypercholesterolemia (5) Hypertension Code(s): I10 - ESSENTIAL (PRIMARY) HYPERTENSION Qualifiers: Hypertension type: essential hypertension Qualified Code(s): I10 - Essential (primary) hypertension (6) Hypothyroidism Code(s): E03.9 - HYPOTHYROIDISM, UNSPECIFIED Qualifiers: Hypothyroidism type: other Qualified Code(s): E03.8 - Other specified hypothyroidism; E06.3 - Autoimmune thyroiditis (7) Insulin dependent diabetes mellitus Code(s): E11.9 - TYPE 2 DIABETES MELLITUS WITHOUT COMPLICATIONS Z79.4 - HOSPITAL PRODUCT SPECIALIST (CURRENT) USE OF INSULIN (8) Cellulitis Code(s): L03.90 - CELLULITIS, UNSPECIFIED Qualifiers: Site of cellulitis of extremity: lower extremity
--- NOTE | 2017-01-15 16:01 | PN ---
Progress Note, Physician History of Present Illness: Pt seen and examined at bedside. She says her right foot ulcer is worse. She denies dysuria or hematuria. - Current Medication List Current Medications: Active Medications Acetaminophen (Tylenol -) 650 mg PO Q6H PRN PRN Reason: FEVER OR PAIN Aspirin (Ecotrin -) 81 mg PO DAILY [facility] Last Admin: 01/15/17 10:28 Dose: 81 mg Bacitracin (Bacitracin -) 1 applic TP DAILY [facility] Last Admin: 01/14/17 14:46 Dose: Not Given Collagenase (Santyl -) 1 applic TP DAILY [facility] Last Admin: 01/15/17 10:30 Dose: 1 applic Enalapril Maleate (Vasotec -) 5 mg PO DAILY@[facility] Last Admin: 01/14/17 22:10 Dose: 5 mg Gabapentin (Neurontin -) 300 mg PO BID [facility] Last Admin: 01/15/17 10:28 Dose: 300 mg Insulin Aspart (Novolog Vial Sliding Scale -) 1 vial SQ [facility] PRN Reason: Protocol Last Admin: 01/15/17 06:05 Dose: Not Given Insulin Detemir (Levemir Vial) 60 units SQ [facility] Last Admin: 01/14/17 21:27 Dose: Not Given Levothyroxine Sodium (Synthroid -) 200 mcg PO DAILY@0700 [facility] Last Admin: 01/15/17 06:05 Dose: 200 mcg Metoprolol Tartrate (Lopressor -) 50 mg PO DAILY@[facility] Last Admin: 01/14/17 22:10 Dose: 50 mg Morphine Sulfate (Morphine Injection -) 4 mg IVPUSH Q6H PRN PRN Reason: PAIN - Objective Vital Signs: Vital Signs Temperature 98.3 F 01/15/17 14:36 Pulse Rate 93 H 01/15/17 14:36 Respiratory Rate 20 01/15/17 06:00 Blood Pressure 141/76 01/15/17 14:36 O2 Sat by Pulse Oximetry (%) 100 01/14/17 14:00 Constitutional: Yes: Calm Eyes: Yes: Conjunctiva Clear HENT: Yes: Atraumatic Neck: Yes: Supple Cardiovascular: Yes: S1, S2 Respiratory: Yes: CTA Bilaterally Gastrointestinal: Yes: Soft Genitourinary: Yes: WNL Musculoskeletal: Yes: WNL Edema: No Neurological: Yes: Oriented Psychiatric: Yes: Oriented Labs: CBC, BMP 04/19/17 08:35 01/15/17 06:30 INR, PTT INR 1.12 (0.82-1.09) 01/14/17 01:48 Problem List - Problems (1) Acute kidney injury Code(s): N17.9 - ACUTE KIDNEY FAILURE, UNSPECIFIED (2) Diabetes Code(s): E11.9 - TYPE 2 DIABETES MELLITUS WITHOUT COMPLICATIONS Qualifiers: Diabetes mellitus type: type 2 Diabetes mellitus complication status: with neurologic complications Diabetes mellitus complication detail: with polyneuropathy (3) Hyperlipidemia Code(s): E78.5 - HYPERLIPIDEMIA, UNSPECIFIED Qualifiers: Hyperlipidemia type: pure hypercholesterolemia Qualified Code(s): E78.00 - Pure hypercholesterolemia, unspecified; E78.0 - Pure hypercholesterolemia (4) Hypertension Code(s): I10 - ESSENTIAL (PRIMARY) HYPERTENSION Qualifiers: Hypertension type: essential hypertension Qualified Code(s): I10 - Essential (primary) hypertension Assessment/Plan Current Medications Generic Name Dose Route Start Last Admin Trade Name Freq PRN Reason Stop Dose Admin Acetaminophen 650 mg 01/14/17 04:11 Tylenol - PO Q6H PRN FEVER OR PAIN Aspirin 81 mg 01/14/17 10:00 01/15/17 10:28 Ecotrin - PO 81 mg DAILY [facility] Administration Bacitracin 1 applic 01/14/17 10:00 01/14/17 14:46 Bacitracin - TP Not Given DAILY [facility] Collagenase 1 applic 01/14/17 10:00 01/15/17 10:30 Santyl - TP 1 applic DAILY [facility]I Administration Enalapril Maleate 5 mg 01/14/17 22:00 01/14/17 22:10 Vasotec - PO 5 mg DAILY@HS TRACI Administration Gabapentin 300 mg 01/14/17 10:00 01/15/17 10:28 Neurontin - PO 300 mg BID TRACI Administration Insulin Aspart 1 vial 01/14/17 07:00 01/15/17 06:05 Novolog Vial Sliding Scale - SQ Not Given ACHS [facility] Protocol Insulin Detemir 60 units 01/14/17 22:00 01/14/17 21:27 Levemir Vial SQ Not Given HS [facility]I Levothyroxine Sodium 200 mcg 01/14/17 07:00 01/15/17 06:05 Synthroid - PO 200 mcg DAILY@0700 [facility]I Administration Metoprolol Tartrate 50 mg 01/14/17 22:00 01/14/17 22:10 Lopressor - PO 50 mg DAILY@HS TR[facility]I Administration Morphine Sulfate 4 mg 01/14/17 04:11 Morphine Injection - IVPUSH Q6H PRN PAIN Impression 1. ЕЛЕНА 2. cellulitis 3. HTN 4. DM 5. hypothyroidism Plan - renal function continues to improve - repeat labs in am - renal ultrasound reviewed, unremarkable - cont edis for now - case discussed with pt - will follow Dr Agudelo
--- NOTE | 2017-01-15 16:06 | PN ---
Teaching Attending Note Name of Resident: Julieta Contreras ATTENDING PHYSICIAN STATEMENT I saw and evaluated the patient. I reviewed the resident's note and discussed the case with the resident. I agree with the resident's findings and plan as documented. SUBJECTIVE: OBJECTIVE: ASSESSMENT AND PLAN: agree with plans for podiatry to re-evaluate patient is willing to consider surgical intervention for the foot
[2017-01-15] MEDS ORDERED: HUMALOG INSULIN SQ SCH (16:30)
[2017-01-15] MEDS: BACITRACIN 30 GM TUBE TOPICAL OINTMENT TP SCH (17:12)
[2017-01-15] MEDS ORDERED: HUMALOG INSULIN SQ ONE (17:15)
--- NOTE | 2017-01-15 18:06 | PN ---
Progress Note (short form) - Note Progress Note: PODIATRY NOTE patient well known to me, seen and examined at bedside Right foot: There is a small open wound plantar aspect with elvira wound callous formation with sub dermal hematoma most likely due to excessive pressure.There is no erythema, no edema, no fluctuance and no clinical signs of abscess either superficial or deep. There is + hypertrophy of the styloid process due to old fracture healing by secondary intention resulting in Mal union. She has palpable Femoral, Popliteal, Posterior Tibial and Dorsalis pedis pulses B/L with normal skin temp and Capillary re-fill. All epiciritic senses diminished due to DM. Debride callous today asepticaally, probed wound no abscess no drainage. 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 Patient surgically stable for discharge home Have patient follow up in wound healing center upon Discharge will schedule Sx as Out pateint All noted read and appreciated Thank you
[2017-01-15] MEDS ORDERED: INSULIN SLIDING SCALE (NOVOLOG) 1 VIAL SQ SCH (22:00)
[2017-01-15] MEDS ORDERED: LANTUS INSULIN SQ SCH (22:00)
[2017-01-15] MEDS ORDERED: INSULIN DETEMIR 100 UNITS/ML MDV SQ SCH (22:00)
[2017-01-15] MEDS: METOPROLOL TARTRATE 50 MG TABLET (FP) PO SCH (22:18)
[2017-01-15] MEDS: HUMALOG INSULIN SQ SCH (22:18)
[2017-01-15] MEDS: ENALAPRIL MALEATE 5 MG TABLET (FP) PO SCH (22:19)
--- NOTE | 2017-01-15 22:50 | CONSULT ---
Consult Consult Specialty:: endocrine Referred by:: dr.iyad andrade Reason for Consultation:: iddm uncontrolled - History of Present Illness Chief Complaint: high sugar History of Present Illness: 51yo F with hx of hypothyroidism, IDDM, HTN, osteomyelitis of L second toe with no amputation, s/p fx of R 5th metatarsal returns to ED with pain to ulcer of R foot. Patient was admitted to this hospital two weeks ago for cellulitis of R foot s/p blister to foot, discharged on 01/02/17. pain and swelling returned to wound with significant dark circular border requiring surgical wound reevaluation. her sugar has remained elevated despite higher insulin doses - Past Medical History WET SANDER: Yes: CVA Cardio/Vascular: Yes: HTN, Hyperlipdemia ...LMP: 10/30/14 Endocrine: Yes: Diabetes Mellitus, Hypothyroidism - Alcohol/Substance Use Hx Alcohol Use: No - Smoking History Smoking history: Never smoked Have you smoked in the past 12 months: No Aproximately how many cigarettes per day: 0 If you are a former smoker, when did you quit?: 18 years ago Home Medications - Allergies Allergies/Adverse Reactions: Allergies Allergy/AdvReac Type Severity Reaction Status Date / Time No Known Drug Allergies Allergy Verified 01/14/17 01:02 - Home Medications Home Medications: Ambulatory Orders Levothyroxine [Synthroid -] 200 mcg PO DAILY 04/30/14 Aspirin [ASA -] 81 mg PO DAILY 06/30/14 Gabapentin 300 mg PO HS 10/25/14 Enalapril Maleate [Vasotec -] 5 mg PO HS 10/16/15 Metoprolol Tartrate [Lopressor -] 50 mg PO HS 10/22/15 Lantus Solostar PEN - 60 units SQ DAILY 10/29/16 Metformin HCl 1,000 mg PO HS 10/29/16 Humalog Kwikpen U-200 20 - 25 unit SQ TID 12/28/16 Bacitracin - [Bacitracin Topical Ointment -] 1 applic TP BID #90 tube 01/02/17 Collagenase Clostridium Hist. [Santyl -] 1 applic TP DAILY #90 tube 01/02/17 Acetaminophen [Tylenol .Regular Strength -] 650 mg PO Q6H PRN #0 tablet Bacitracin - [Bacitracin Topical Ointment -] 1 applic TP DAILY tube 01/15/17 Collagenase Clostridium Hist. [Santyl -] 1 applic TP DAILY tube 01/15/17 Enalapril Maleate [Vasotec -] 5 mg PO DAILY@HS tablet 01/15/17 Levothyroxine [Synthroid -] 200 mcg PO DAILY@0700 tablet 01/15/17 Metoprolol Tartrate [Lopressor -] 50 mg PO DAILY@HS tablet 01/15/17 Review of Systems - Review of Systems Constitutional: reports: Malaise Eyes: reports: No Symptoms HENT: reports: No Symptoms Neck: reports: No Symptoms Cardiovascular: reports: Shortness of Breath Respiratory: reports: No Symptoms Gastrointestinal: reports: No Symptoms Genitourinary: reports: No Symptoms Breasts: reports: No Symptoms Reported Musculoskeletal: reports: Muscle Pain, Muscle Weakness Endocrine: reports: Unexplained Weight Gain Physical Exam Vital Signs: Vital Signs Temperature 98.1 F 01/15/17 21:49 Pulse Rate 98 H 01/15/17 21:49 Respiratory Rate 16 01/15/17 21:49 Blood Pressure 145/89 01/15/17 21:49 O2 Sat by Pulse Oximetry (%) 100 01/14/17 14:00 Constitutional: Yes: Calm Eyes: Yes: WNL HENT: Yes: WNL Cardiovascular: Yes: WNL Respiratory: Yes: WNL Gastrointestinal: Yes: WNL Renal/: Yes: WNL Extremities: Yes: Delayed Capillary Refill Edema: No Wound/Incision: Yes: Clean/Dry Labs: CBC, BMP 01/14/17 08:35 01/15/17 06:30 Assessment/Plan Current Active Problems Abscess or cellulitis of foot (Acute) Acute kidney injury (Acute) Diabetes (Acute) Hyperlipidemia (Acute) Hypertension (Acute) Hypothyroidism (Acute) Insulin dependent diabetes mellitus (Acute) Osteomyelitis (Acute) Abnormal Lab Results 01/15/17 06:30 BUN 24 H Creatinine 1.1 H Random Glucose 183 H D Laboratory Results - last 24 hr 01/15/17 01/15/17 01/15/17 05:44 06:30 11:35 Sodium 137 Potassium 4.6 Chloride 104 Carbon Dioxide 25 Anion Gap 8 BUN 24 H Creatinine 1.1 H POC Glucometer 190 182 Random Glucose 183 H D Calcium 8.9 01/15/17 01/15/17 16:30 22:10 Sodium Potassium Chloride Carbon Dioxide Anion Gap BUN Creatinine POC Glucometer 203 205 Random Glucose Calcium Laboratory Tests 01/14/17 01/14/17 01/15/17 17:45 20:50 05:44 POC Glucometer 280 231 190 01/15/17 01/15/17 01/15/17 11:35 16:30 22:10 POC Glucometer 182 203 205 plan: lantus 70 units am lantus 25 units hs bgm qid novolog coverage
[2017-01-15] MEDS: MUPIROCIN CA 2% TOPICAL CREAM 15 GM TUBE TP SCH (23:01)
--- NOTE | 2017-01-16 05:38 | PN ---
Progress Note (short form) - Note Progress Note: CHART AND EVENTS REVIEWED, WILL FOLLOW PODIATRY INTRUCTIONS. DISCHARGE HOME AND FOLLOW UP WITH PODIATRY / WOUND CARE CENTER OUTPATIENT. INSTRUCTIONS GIVEN TO PATIENT AND SHE UNDERSTANDS PLAN OF CARE. Problem List - Problems (1) Abscess or cellulitis of foot Code(s): L03.119 - CELLULITIS OF UNSPECIFIED PART OF LIMB L02.619 - CUTANEOUS ABSCESS OF UNSPECIFIED FOOT (2) Acute kidney injury Code(s): N17.9 - ACUTE KIDNEY FAILURE, UNSPECIFIED (3) Diabetes Code(s): E11.9 - TYPE 2 DIABETES MELLITUS WITHOUT COMPLICATIONS Qualifiers: Diabetes mellitus type: type 2 Diabetes mellitus complication status: with neurologic complications Diabetes mellitus complication detail: with polyneuropathy (4) Hyperlipidemia Code(s): E78.5 - HYPERLIPIDEMIA, UNSPECIFIED Qualifiers: Hyperlipidemia type: pure hypercholesterolemia Qualified Code(s): E78.00 - Pure hypercholesterolemia, unspecified; E78.0 - Pure hypercholesterolemia (5) Hypertension Code(s): I10 - ESSENTIAL (PRIMARY) HYPERTENSION Qualifiers: Hypertension type: essential hypertension Qualified Code(s): I10 - Essential (primary) hypertension (6) Hypothyroidism Code(s): E03.9 - HYPOTHYROIDISM, UNSPECIFIED Qualifiers: Hypothyroidism type: other Qualified Code(s): E03.8 - Other specified hypothyroidism; E06.3 - Autoimmune thyroiditis (7) Insulin dependent diabetes mellitus Code(s): E11.9 - TYPE 2 DIABETES MELLITUS WITHOUT COMPLICATIONS Z79.4 - SENIOR LIVING (CURRENT) USE OF INSULIN (8) Cellulitis Code(s): L03.90 - CELLULITIS, UNSPECIFIED Qualifiers: Site of cellulitis of extremity: lower extremity
[2017-01-16 06:29] VITALS: TEMP 98.2
[2017-01-16] MEDS: LEVOTHYROXINE NA 200 MCG TABLET PO SCH (06:33)
[2017-01-16] MEDS ORDERED: INSULIN DETEMIR 100 UNITS/ML MDV SQ SCH (07:00)
[2017-01-16] MEDS ORDERED: LANTUS INSULIN SQ SCH (07:00)
[2017-01-16] MEDS: HUMALOG INSULIN SQ SCH (08:34)
[2017-01-16] MEDS: BACITRACIN 30 GM TUBE TOPICAL OINTMENT TP SCH (10:25)
[2017-01-16] MEDS: ASPIRIN COATED 81 MG TABLET.EC PO SCH (10:25)
[2017-01-16] MEDS: GABAPENTIN 300 MG CAPSULE (FP) PO SCH (10:25)
[2017-01-16] MEDS: COLLAGENASE CLOSTRIDIUM HIST. 30 GRAMS TUBE TP SCH (10:25)
[2017-01-16] MEDS: MUPIROCIN CA 2% TOPICAL CREAM 15 GM TUBE TP SCH (10:25)
[2017-01-16 11:34] VITALS: BP 120/68; PULSE 92
== END 2017-01-16 12:35 | disposition home health service (06) ==
LOC: JER 00:38 → JERBED 04:30 → J6S 06:54
PROVIDERS: ADMIT Family Medicine; ATTEND Family Medicine
PROC: 3E03329 Introduction of Other Anti-infective into Peripheral Vein, Percutaneous Approach (ICD-10-PCS; principal; 2017-01-14)
PROC: 3E0337Z Introduction of Electrolytic and Water Balance Substance into Peripheral Vein, Percutaneous Approach (ICD-10-PCS; 2017-01-14)
PROC: 3E013VG Introduction of Insulin into Subcutaneous Tissue, Percutaneous Approach (ICD-10-PCS; 2017-01-14)
DX: L03.115 Cellulitis of right lower limb (principal); L02.619 Cutaneous abscess of unspecified foot; L97.519 Non-pressure chronic ulcer of other part of right foot with unspecified severity; N17.9 Acute kidney failure, unspecified; E11.42 Type 2 diabetes mellitus with diabetic polyneuropathy; E78.5 Hyperlipidemia, unspecified; I10 Essential (primary) hypertension; E03.9 Hypothyroidism, unspecified; Z79.4 Long term (current) use of insulin; I25.10 Atherosclerotic heart disease of native coronary artery without angina pectoris; Z79.82 Long term (current) use of aspirin; Z86.73 Personal history of transient ischemic attack (TIA), and cerebral infarction without residual deficits; M84.674A Pathological fracture in other disease, right foot, initial encounter for fracture
CPT/HCPCS: 36415; 73630-TC-RT; 76775-TC; 76856-TC; 80048; 80053; 81003; 82550; 82553; 83605; 85025; 85027; 85610; 85651; 86141; 87040; 87070; 87086; 87186; 87205; 99285-25; G0378

== ENCOUNTER 2018-08-27 23:45 | Inpatient (IN) | payer OTHER ==
[2018-08-28] MEDS ORDERED: VANCOMYCIN 1 GM in D5W (PRE-DOCKED) 1,000 MG/250 ML IVPB ONE (01:51)
[2018-08-28 02:14] LABS: BASO % 0.7 % (0-2.0); EOS % 2.3 % (0-4.5); HEMATOCRIT 36.9 % (32.4-45.2); LYMPH % 40.8 % (8-40); MCH 31.3 pg (25.7-33.7); MCHC 35.2 g/dl (32.0-36.0); MEAN CELL VOLUME 88.8 fl (80-96); MEAN PLT VOLUME 8.6 fl (7.5-11.1); MONO % 9.2 % (3.8-10.2); PLATELET COUNT 335 K/MM3 (134-434); RBC 4.15 M/mm3 (3.60-5.2); RDW 12.6 % (11.6-15.6); WHITE BLOOD COUNT 5.1 K/mm3 (4.0-10.0)
--- NOTE | 2018-08-28 02:31 | PDOC ---
History of Present Illness - General Stated Complaint: Eye Problem Time Seen by Provider: 08/28/18 01:27 History Source: Patient Exam Limitations: No Limitations - History of Present Illness Initial Comments: 53 y/o F hx of HTN, HLD, DM, hypothyroidism, PAD presents with L eyelid swelling , pain and redness from 4 days ago. Mentions it was just a little red, but it has gradually gotten worse. Saw her PCP, Dr. Camargo, recently a few days, for vertigo and was prescribed Amoxicillin for sinus infection (has been taking the antibiotic for 3 days). States she sent Dr. Camargo a picture of her eye and he advised her to come to ED for IV antibiotics. Has some tearing from the eye which causes her vision to be a bit blurred. Denies fever, photophobia, diplopia , pain on eye movement, sob, cp, abd pain, n/v. 08/28/18 02:25 Past History - Past Medical History Allergies/Adverse Reactions: Allergies Allergy/AdvReac Type Severity Reaction Status Date / Time No Known Drug Allergies Allergy Verified 01/14/17 01:02 Home Medications: Ambulatory Orders Aspirin [ASA -] 81 mg PO DAILY 06/30/14 Gabapentin 300 mg PO HS 10/25/14 Lantus Solostar PEN - 60 units SQ DAILY 10/29/16 Humalog Kwikpen U-200 20 - 25 unit SQ TID 12/28/16 Acetaminophen [Tylenol .Regular Strength -] 650 mg PO Q6H PRN #0 tablet Enalapril Maleate [Vasotec -] 5 mg PO DAILY@HS tablet 01/15/17 Levothyroxine [Synthroid -] 200 mcg PO DAILY@0700 tablet 01/15/17 Metoprolol Tartrate [Lopressor -] 50 mg PO DAILY@HS tablet 01/15/17 Plavix 75 mg PO DAILY 02/04/17 Tramadol HCl PRN 02/04/17 Anemia: No Asthma: No Cancer: No Cardiac Disorders: Yes (CAD) CVA: No COPD: No CHF: No Dementia: No Diabetes: Yes GI Disorders: No Disorders: No HTN: Yes Hypercholesterolemia: Yes (no meds) Liver Disease: No Seizures: No Thyroid Disease: Yes (HYPOTHYROID DISEASE) - Surgical History Abdominal Surgery: No Appendectomy: No Cardiac Surgery: No Cholecystectomy: No Lung Surgery: No Neurologic Surgery: No Orthopedic Surgery: No - Immunization History Immunization Up to Date: Yes - Suicide/Smoking/Psychosocial Hx Smoking Status: Yes Smoking History: Former smoker Have you smoked in the past 12 months: No Number of Cigarettes Smoked Daily: 0 If you are a former smoker, when did you quit?: 18 years ago Hx Alcohol Use: No Drug/Substance Use Hx: No Substance Use Type: None Hx Substance Use Treatment: No Review of Systems - Review of Systems Comments:: see hpi 08/28/18 02:29 *Physical Exam - Vital Signs Last Vital Signs Temp Pulse Resp BP Pulse Ox 98.1 F 92 H 18 168/101 H 98 08/28/18 02:18 08/28/18 02:18 08/28/18 02:18 08/28/18 02:18 08/28/18 02:18 - Physical Exam General Appearance: No: Apparent Distress HEENT: positive: EOMI, LUIS FERNANDO, Other (+redness and swelling of L upper eyelid, no palpable stye, no pain on eye movement, no proptosis, no chemosis, no swelling of the whole eye noted) Respiratory/Chest: positive: Lungs Clear, Normal Breath Sounds. negative: Respiratory Distress Cardiovascular: positive: Regular Rhythm, Regular Rate, S1, S2. negative: Murmur Gastrointestinal/Abdominal: positive: Normal Bowel Sounds, Soft. negative: Tender, Distended, Guarding, Rebound Neurologic: positive: Fully Oriented, Alert, Normal Mood/Affect Moderate Sedation - Procedure Monitoring Vital Signs: Procedure Monitoring Vital Signs Temperature 98.1 F 08/28/18 02:18 Pulse Rate 92 H 08/28/18 02:18 Respiratory Rate 18 08/28/18 02:18 Blood Pressure 168/101 H 08/28/18 02:18 O2 Sat by Pulse Oximetry (%) 98 08/28/18 02:18 ED Treatment Course - LABORATORY CBC & Chemistry Diagram: 08/28/18 01:51 08/28/18 02:10 - ADDITIONAL ORDERS Additional order review: 08/28/18 01:51 RBC 4.15 MCV 88.8 MCHC 35.2 RDW 12.6 MPV 8.6 Neutrophils % 47.0 Lymphocytes % 40.8 H Monocytes % 9.2 Eosinophils % 2.3 Basophils % 0.7 Medical Decision Making - Medical Decision Making 53 y/o F hx of HTN, HLD, DM, hypothyroidism, PAD presents with what appears as periorbital cellulitis. No concern for orbital cellulitis given her eye exam. Patient has already been taking PO Amoxicillin x 3 days and her eye has not improved. Consider possible MRSA infection. Will give dose of IV Vanc, admit as obs for further monitoring of the eye. D/W Dr. Cabrera 08/28/18 02:31 *DC/Admit/Observation/Transfer Diagnosis at time of Disposition: Periorbital cellulitis of left eye - Discharge Dispostion Decision to Admit order: Yes - Referrals Referrals: Ariana Caballero MD [Primary Care Provider] - - Patient Instructions - Post Discharge Activity
[2018-08-28] MEDS ORDERED: VANCOMYCIN 1 GRAM (PRE-DOCKED) 1,000 MG/250 ML BAG IVPB ONE (02:36)
[2018-08-28 02:42] LABS: ANION GAP 6 MMOL/L (8-16); BLOOD UREA NITROGEN 19 mg/dL (7-18); CALCIUM 8.8 mg/dL (8.5-10.1); CHLORIDE 100 mmol/L (98-107); CO2 30 mmol/L (21-32); GLUCOSE,RANDOM 238 mg/dL (74-106); POTASSIUM 4.2 mmol/L (3.5-5.1); SODIUM 136 mmol/L (136-145)
[2018-08-28] MEDS ORDERED: ONDANSETRON 4 MG/2 ML VIAL IVPUSH ONE (03:45)
[2018-08-28] MEDS ORDERED: PSEUDOEPHEDRINE HCL 60 MG TABLET ONE (03:49)
[2018-08-28] MEDS ORDERED: ONDANSETRON 4 MG/2 ML VIAL ONE (03:49)
[2018-08-28] MEDS ORDERED: PSEUDOEPHEDRINE HCL 30 MG TABLET PO ONE (04:00)
[2018-08-28] MEDS ORDERED: SODIUM CHLORIDE 1,000 ML IV STA (04:12)
--- NOTE | 2018-08-28 04:25 | HP ---
Admitting History and Physical - Admission History of Present Illness: 3 y/o F hx of HTN, HLD, DM, hypothyroidism, PAD presents with L eyelid swelling , pain and redness from 4 days ago. Mentions it was just a little red, but it has gradually gotten worse. Saw her PCP, Dr. Camargo, recently a few days, for vertigo and was prescribed Amoxicillin for sinus infection (has been taking the antibiotic for 3 days). States she sent Dr. Camargo a picture of her eye and he advised her to come to ED for IV antibiotics. Has some tearing from the eye which causes her vision to be a bit blurred. Denies fever, photophobia, diplopia , pain on eye movement, sob, cp, abd pain, n/v. 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 Cardiovascular: Yes: HTN, Hyperlipdemia ...LMP: 10/30/14 Endocrine: Yes: Diabetes Mellitus, Hypothyroidism - Smoking History Smoking history: Former smoker Have you smoked in the past 12 months: No Aproximately how many cigarettes per day: 0 If you are a former smoker, when did you quit?: 18 years ago - Alcohol/Substance Use Hx Alcohol Use: No Home Medications - Allergies Allergies/Adverse Reactions: Allergies Allergy/AdvReac Type Severity Reaction Status Date / Time No Known Drug Allergies Allergy Verified 08/28/18 02:50 - Home Medications Home Medications: Ambulatory Orders Aspirin [ASA -] 81 mg PO DAILY 06/30/14 Gabapentin 300 mg PO HS 10/25/14 Humalog Kwikpen U-200 20 - 25 unit SQ TID 12/28/16 Acetaminophen [Tylenol .Regular Strength -] 650 mg PO Q6H PRN #0 tablet Enalapril Maleate [Vasotec -] 5 mg PO DAILY@HS tablet 01/15/17 Metoprolol Tartrate [Lopressor -] 50 mg PO DAILY@HS tablet 01/15/17 Plavix 75 mg PO DAILY 02/04/17 Levothyroxine [Synthroid -] 25 mcg PO DAILY@0700 08/28/18 Review of Systems - Review of Systems Constitutional: reports: No Symptoms, Fever Eyes: reports: No Symptoms, Eye Pain HENT: reports: No Symptoms Neck: reports: No Symptoms Cardiovascular: reports: No Symptoms Respiratory: reports: No Symptoms Gastrointestinal: reports: No Symptoms Physical Examination Vital Signs: Vital Signs Temperature 98.1 F 08/28/18 02:18 Pulse Rate 92 H 08/28/18 02:18 Respiratory Rate 18 08/28/18 02:18 Blood Pressure 168/101 H 08/28/18 02:18 O2 Sat by Pulse Oximetry (%) 98 08/28/18 02:18 Constitutional: Yes: Well Nourished, No Distress, Calm Eyes: Yes: WNL, Conjunctiva Clear, EOM Intact, Other (swelling of the outer eye- lid and pain with movemenet of the eye lid) HENT: Yes: WNL, Atraumatic, Normocephalic Neck: Yes: WNL, Supple, Trachea Midline Cardiovascular: Yes: WNL, Regular Rate and Rhythm, S1, S2 Respiratory: Yes: WNL, Regular, CTA Bilaterally Gastrointestinal: Yes: WNL, Normal Bowel Sounds Musculoskeletal: Yes: WNL Extremities: Yes: WNL Labs: CBC, BMP 08/28/18 01:51 08/28/18 02:10 Problem List - Problems (1) Periorbital cellulitis of left eye Assessment/Plan: start the patient on clindamycin 600mg q8hrs ID consult Code(s): L03.213 - PERIORBITAL CELLULITIS (2) Fever Assessment/Plan: 2/2 to elvira-orbital cellulitis tylenol prn fever Code(s): R50.9 - FEVER, UNSPECIFIED (3) Hyperlipidemia Assessment/Plan: stable c/w statin Code(s): E78.5 - HYPERLIPIDEMIA, UNSPECIFIED Qualifiers: (4) Hypertension Assessment/Plan: cotnrolled continue with enalapril Code(s): I10 - ESSENTIAL (PRIMARY) HYPERTENSION Qualifiers: (5) Hypothyroidism Assessment/Plan: c/w levothyroxine 200mcg Code(s): E03.9 - HYPOTHYROIDISM, UNSPECIFIED Qualifiers: (6) Insulin dependent diabetes mellitus Assessment/Plan: insulin sliding scale Code(s): E11.9 - TYPE 2 DIABETES MELLITUS WITHOUT COMPLICATIONS; Z79.4 - S[employer]IOR [employer] (CURRENT) USE OF INSULIN
[2018-08-28] MEDS ORDERED: LEVOTHYROXINE NA 25 MCG TABLET (FP) ONE (07:11)
[2018-08-28] MEDS: ACETAMINOPHEN 325 MG TABLET (FP) PO PRN ×2 (07:31→22:05)
[2018-08-28] MEDS: LEVOTHYROXINE NA 25 MCG TABLET (FP) PO SCH (07:31)
[2018-08-28] MEDS ORDERED: ACETAMINOPHEN 325 MG TABLET (FP) ONE (07:32)
[2018-08-28] MEDS ORDERED: INSULIN REGULAR HUMAN 100 UNITS/ML *VIAL ONE ×2 (07:33→11:18)
[2018-08-28] MEDS: INSULIN SLIDING SCALE (NOVOLOG) 1 VIAL SQ SCH ×3 (07:37→18:41)
[2018-08-28] MEDS: CLOPIDOGREL BISULFATE 75 MG TABLET (FP) PO SCH (09:44)
[2018-08-28] MEDS: LORATADINE 10 MG TABLET PO SCH (09:44)
[2018-08-28] MEDS: ASPIRIN 81 MG CHEWABLE TABLETS PO SCH (09:44)
[2018-08-28] MEDS: ENOXAPARIN NA (PORCINE) 40 MG/0.4 ML DISP.SYRIN SQ SCH (09:54)
[2018-08-28] MEDS ORDERED: FLU VACCINE QUAD 60 MCG/0.5 ML (MDV 18-19) IM ONE (12:07)
--- NOTE | 2018-08-28 17:18 | PN ---
Progress Note, Physician Chief Complaint: left eye erythema/periorbital cellulitis - Current Medication List Current Medications: Active Medications Acetaminophen (Tylenol -) 650 mg PO Q6H PRN PRN Reason: FEVER Last Admin: 08/28/18 07:31 Dose: 650 mg Aspirin (Asa -) 81 mg PO DAILY [facility] Last Admin: 08/28/18 09:44 Dose: 81 mg Clopidogrel Bisulfate (Plavix -) 75 mg PO DAILY [facility] Last Admin: 08/28/18 09:44 Dose: 75 mg Enalapril Maleate (Vasotec -) 5 mg PO [facility] Enoxaparin Sodium (Lovenox -) 40 mg SQ DAILY [facility] Last Admin: 08/28/18 09:54 Dose: Not Given Gabapentin (Neurontin -) 300 mg PO [facility] Insulin Aspart (Novolog Vial Sliding Scale -) [facility] Protocol Last Admin: 08/28/18 11:20 Dose: 2 unit Levothyroxine Sodium (Synthroid -) 25 mcg PO DAILY@0700 [facility] Last Admin: 08/28/18 07:31 Dose: 25 mcg Loratadine (Claritin -) 10 mg PO DAILY [facility] Last Admin: 08/28/18 09:44 Dose: 10 mg Metoprolol Tartrate (Lopressor -) 50 mg PO [facility] - Objective Vital Signs: Vital Signs Temperature 97.7 F 08/28/18 07:39 Pulse Rate 88 08/28/18 15:40 Respiratory Rate 16 08/28/18 15:40 Blood Pressure 143/86 08/28/18 15:40 O2 Sat by Pulse Oximetry (%) 98 08/28/18 15:40 Constitutional: Yes: Mild Distress Eyes: Yes: Tearing, Other (LEFT EYE ERYTHEMA/TENDERNESS) HENT: Yes: WNL Neck: Yes: WNL Cardiovascular: Yes: WNL Respiratory: Yes: WNL Gastrointestinal: Yes: WNL Genitourinary: Yes: WNL Musculoskeletal: Yes: WNL Extremities: Yes: WNL Edema: No Peripheral Pulses WNL: Yes Integumentary: Yes: WNL Wound/Incision: Yes: Clean/Dry Neurological: Yes: WNL ...Motor Strength: WNL Psychiatric: Yes: WNL Labs: CBC, BMP 08/28/18 01:51 08/28/18 02:10 Problem List - Problems (1) Periorbital cellulitis of left eye Code(s): L03.213 - PERIORBITAL CELLULITIS (2) Diabetes Code(s): E11.9 - TYPE 2 DIABETES MELLITUS WITHOUT COMPLICATIONS (3) Hyperlipidemia Code(s): E78.5 - HYPERLIPIDEMIA, UNSPECIFIED Qualifiers: (4) Hypertension Code(s): I10 - ESSENTIAL (PRIMARY) HYPERTENSION Qualifiers: (5) Hypothyroidism Code(s): E03.9 - HYPOTHYROIDISM, UNSPECIFIED Qualifiers: Assessment/Plan IV ABX OPHTHALMOLOGY CONSULT CLARITON/FLONASE DM CONTROL
[2018-08-28 18:41] VITALS: BMI 28.8
[2018-08-28] MEDS: AMPICILLIN NA/SULBACTAM NA 3 GM in SODIUM CHLORIDE 100 ML IVPB SCH (20:12)
[2018-08-28] MEDS: BACITRACIN 3.5 GM OPTHALMIC OINT TUBE OD SCH ×2 (20:12→22:07)
[2018-08-28] MEDS ORDERED: BACITRACIN/POLYMYXIN OPH OINT 3.5 GM TUBE OD SCH ×3 (22:00→22:10)
[2018-08-28] MEDS: METOPROLOL TARTRATE 50 MG TABLET (FP) PO SCH (22:05)
[2018-08-28] MEDS: GABAPENTIN 300 MG CAPSULE (FP) PO SCH (22:05)
[2018-08-28] MEDS: ENALAPRIL MALEATE 5 MG TABLET (FP) PO SCH (22:06)
[2018-08-29] MEDS: BACITRACIN 15 GM TUBE TOPICAL OINTMENT TP SCH ×3 (00:22→21:54)
[2018-08-29] MEDS: AMPICILLIN NA/SULBACTAM NA 3 GM in SODIUM CHLORIDE 100 ML IVPB SCH ×3 (04:12→17:11)
[2018-08-29] MEDS: LEVOTHYROXINE NA 25 MCG TABLET (FP) PO SCH (06:27)
[2018-08-29] MEDS: INSULIN SLIDING SCALE (NOVOLOG) 1 VIAL SQ SCH ×3 (06:27→17:13)
[2018-08-29 07:11] LABS: HEMOGLOBIN 11.6 GM/dL (10.7-15.3); MCH 29.7 pg (25.7-33.7); MCHC 33.2 g/dl (32.0-36.0); MEAN CELL VOLUME 89.4 fl (80-96); MEAN PLT VOLUME 8.5 fl (7.5-11.1); PLATELET COUNT 272 K/MM3 (134-434); RBC 3.91 M/mm3 (3.60-5.2); RDW 12.6 % (11.6-15.6)
[2018-08-29] MEDS ORDERED: BENZOCAINE/MENTH/CETYLPYRD CL 1 EACH LOZENGE MM PRN (08:08)
[2018-08-29] MEDS ORDERED: PHENOL 177 ML SPRAY BOTTLE MM PRN (08:08)
[2018-08-29] MEDS ORDERED: SODIUM CHLORIDE NASAL SPRAY 44 ML BOTTLE NS PRN (08:08)
[2018-08-29 08:54] LABS: ALK PHOS 106 U/L (45-117); ANION GAP 6 MMOL/L (8-16); BILIRUBIN,TOTAL 0.2 mg/dL (0.2-1); BLOOD UREA NITROGEN 17 mg/dL (7-18); CALCIUM 8.7 mg/dL (8.5-10.1); CHLORIDE 103 mmol/L (98-107); CO2 29 mmol/L (21-32); CREATININE 0.9 mg/dL (0.55-1.3); GLUCOSE,RANDOM 212 mg/dL (74-106); PHOSPHOROUS 3.7 mg/dL (2.5-4.9); POTASSIUM 4.2 mmol/L (3.5-5.1); SGOT/AST 14 U/L (15-37); SGPT/ALT 19 U/L (13-61); SODIUM 138 mmol/L (136-145); TOT PROT 6.5 g/dl (6.4-8.2)
[2018-08-29] MEDS: LORATADINE 10 MG TABLET PO SCH (09:31)
[2018-08-29] MEDS: ASPIRIN 81 MG CHEWABLE TABLETS PO SCH (09:31)
[2018-08-29] MEDS: CLOPIDOGREL BISULFATE 75 MG TABLET (FP) PO SCH (09:31)
[2018-08-29] MEDS: ENOXAPARIN NA (PORCINE) 40 MG/0.4 ML DISP.SYRIN SQ SCH (09:38)
[2018-08-29] MEDS ORDERED: PT OWN MED DRAWER 7, Y5N ONE ×3 (10:07→21:14)
[2018-08-29] MEDS: FLUTICASONE PROP 0.05% 16 GM NASAL SPRAY NS SCH (10:12)
--- NOTE | 2018-08-29 12:52 | PN ---
Progress Note, Physician Chief Complaint: PATIENT TELLS ME THAT SHE HAD CATARACTS AND RETINOPATHY SURGERY WITH A DR MOTA IN THE [place] 1 YEAR AGO AND HAS NEVER FOLLOWED UP WITH HIM BECAUSE SHE WAS TO BUSY. I TOLD HER THAT WAS NOT GOOD AND SHE NEEDS TO SEE HIM KASHMIR. 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 - Current Medication List Current Medications: Active Medications Acetaminophen (Tylenol -) 650 mg PO Q6H PRN PRN Reason: FEVER Last Admin: 08/28/18 22:05 Dose: 650 mg Albuterol/Ipratropium (Duoneb -) 1 amp NEB Q6H PRN PRN Reason: SHORTNESS OF BREATH Aspirin (Asa -) 81 mg PO DAILY [facility] Last Admin: 08/29/18 09:31 Dose: 81 mg Bacitracin (Bacitracin -) 1 applic TP BID [facility] Last Admin: 08/29/18 09:36 Dose: 1 applic Benzocaine/Menthol (Cepacol Lozenge -) 1 each MM PRN PRN PRN Reason: SORE THROAT Clopidogrel Bisulfate (Plavix -) 75 mg PO DAILY [facility] Last Admin: 08/29/18 09:31 Dose: 75 mg Enalapril Maleate (Vasotec -) 5 mg PO HS [facility] Last Admin: 08/28/18 22:06 Dose: 5 mg Enoxaparin Sodium (Lovenox -) 40 mg SQ DAILY [facility] Last Admin: 08/29/18 09:38 Dose: 40 mg Fluticasone Propionate (Flonase -) 2 spray NS DAILY [facility] Last Admin: 08/29/18 10:12 Dose: 2 spray Gabapentin (Neurontin -) 300 mg PO HS [facility] Last Admin: 08/28/18 22:05 Dose: 300 mg Ampicillin Sodium/Sulbactam (Sodium 3 gm/ Sodium Chloride) 100 mls @ 200 mls/ hr IVPB Q8H-IV [facility] Last Admin: 08/29/18 09:38 Dose: 200 mls/hr Insulin Aspart (Novolog Vial Sliding Scale -) 1 vial SQ TIDAC [facility]; Protocol Last Admin: 08/29/18 12:17 Dose: 2 unit Levothyroxine Sodium (Synthroid -) 25 mcg PO DAILY@0700 [facility] Last Admin: 08/29/18 06:27 Dose: 25 mcg Loratadine (Claritin -) 10 mg PO DAILY [facility] Last Admin: 08/29/18 09:31 Dose: 10 mg Metoprolol Tartrate (Lopressor -) 50 mg PO HS [facility] Last Admin: 08/28/18 22:05 Dose: 50 mg Phenol/Menthol (Chloraseptic -) 1 spray MM Q6HPO PRN PRN Reason: SORE THROAT Sodium Chloride ([place] Nasal [place] -) 2 spray NS TID PRN PRN Reason: NASAL CONGESTION - Objective Vital Signs: Vital Signs Temperature 98.3 F 08/29/18 09:00 Pulse Rate 88 08/29/18 09:00 Respiratory Rate 18 08/29/18 09:00 Blood Pressure 130/68 08/29/18 09:00 O2 Sat by Pulse Oximetry (%) 98 08/29/18 03:00 Constitutional: Yes: Mild Distress Eyes: Yes: Other (ERYTHEMA/TENDERNESS) HENT: Yes: WNL Neck: Yes: WNL Cardiovascular: Yes: WNL Respiratory: Yes: WNL Gastrointestinal: Yes: WNL Genitourinary: Yes: WNL Musculoskeletal: Yes: WNL Edema: No Peripheral Pulses WNL: Yes Integumentary: Yes: WNL Neurological: Yes: WNL ...Motor Strength: WNL Psychiatric: Yes: WNL Labs: CBC, BMP 08/29/18 06:30 08/29/18 06:30 Problem List - Problems (1) Periorbital cellulitis of left eye Code(s): L03.213 - PERIORBITAL CELLULITIS (2) Diabetes Code(s): E11.9 - TYPE 2 DIABETES MELLITUS WITHOUT COMPLICATIONS (3) Hyperlipidemia Code(s): E78.5 - HYPERLIPIDEMIA, UNSPECIFIED Qualifiers: (4) Hypertension Code(s): I10 - ESSENTIAL (PRIMARY) HYPERTENSION Qualifiers: (5) Hypothyroidism Code(s): E03.9 - HYPOTHYROIDISM, UNSPECIFIED Qualifiers: Assessment/Plan IV ABX OPHTHALMOLOGY CONSULT CLARITON/FLONASE DM CONTROL
[2018-08-29] MEDS ORDERED: ONDANSETRON *ODT* 4 MG TABLET SL PRN (20:19)
[2018-08-29] MEDS: GABAPENTIN 300 MG CAPSULE (FP) PO SCH (21:55)
[2018-08-29] MEDS: METOPROLOL TARTRATE 50 MG TABLET (FP) PO SCH (21:55)
[2018-08-29] MEDS: ENALAPRIL MALEATE 5 MG TABLET (FP) PO SCH (21:55)
[2018-08-30] MEDS: ALBUTEROL SO4 2.5/IPRATROPIUM 0.5 INH SOL 3 ML VIAL.NEB. NEB PRN ×2 (00:24→08:02)
[2018-08-30] MEDS: AMPICILLIN NA/SULBACTAM NA 3 GM in SODIUM CHLORIDE 100 ML IVPB SCH ×3 (02:52→18:11)
[2018-08-30] MEDS: LEVOTHYROXINE NA 25 MCG TABLET (FP) PO SCH (06:19)
[2018-08-30] MEDS: INSULIN SLIDING SCALE (NOVOLOG) 1 VIAL SQ SCH ×3 (06:21→16:12)
[2018-08-30] MEDS: LORATADINE 10 MG TABLET PO SCH (10:41)
[2018-08-30] MEDS: ENOXAPARIN NA (PORCINE) 40 MG/0.4 ML DISP.SYRIN SQ SCH (10:41)
[2018-08-30] MEDS: ASPIRIN 81 MG CHEWABLE TABLETS PO SCH (10:42)
[2018-08-30] MEDS: CLOPIDOGREL BISULFATE 75 MG TABLET (FP) PO SCH (10:42)
[2018-08-30] MEDS: BACITRACIN 15 GM TUBE TOPICAL OINTMENT TP SCH ×2 (10:42→22:18)
[2018-08-30] MEDS: FLUTICASONE PROP 0.05% 16 GM NASAL SPRAY NS SCH (10:47)
[2018-08-30] MEDS ORDERED: INSULIN (NOVOLOG) ASPART 100 UNITS/ML 10ML VIAL ONE (10:52)
--- NOTE | 2018-08-30 11:32 | PN ---
Progress Note, Physician Chief Complaint: Periorbital cellulitis of Left eye History of Present Illness: NAD, fells better On IV abx afebrile no leukocytosis seen by Ophthalmology-but no note? To be seen by ID - Current Medication List Current Medications: Active Medications Acetaminophen (Tylenol -) 650 mg PO Q6H PRN PRN Reason: FEVER Last Admin: 08/28/18 22:05 Dose: 650 mg Albuterol/Ipratropium (Duoneb -) 1 amp NEB Q6H PRN PRN Reason: SHORTNESS OF BREATH Last Admin: 08/30/18 08:02 Dose: 1 amp Aspirin (Asa -) 81 mg PO DAILY [facility] Last Admin: 08/30/18 10:42 Dose: 81 mg Bacitracin (Bacitracin -) 1 applic TP BID [facility] Last Admin: 08/30/18 10:42 Dose: 1 applic Benzocaine/Menthol (Cepacol Lozenge -) 1 each MM PRN PRN PRN Reason: SORE THROAT Clopidogrel Bisulfate (Plavix -) 75 mg PO DAILY [facility] Last Admin: 08/30/18 10:42 Dose: 75 mg Enalapril Maleate (Vasotec -) 5 mg PO HS [facility] Last Admin: 08/29/18 21:55 Dose: 5 mg Enoxaparin Sodium (Lovenox -) 40 mg SQ DAILY [facility] Last Admin: 08/30/18 10:41 Dose: 40 mg Fluticasone Propionate (Flonase -) 2 spray NS DAILY [facility] Last Admin: 08/30/18 10:47 Dose: 2 sprays Gabapentin (Neurontin -) 300 mg PO HS [facility] Last Admin: 08/29/18 21:55 Dose: 300 mg Ampicillin Sodium/Sulbactam (Sodium 3 gm/ Sodium Chloride) 100 mls @ 200 mls/ hr IVPB Q8H-IV [facility] Last Admin: 08/30/18 10:43 Dose: 200 mls/hr Insulin Aspart (Novolog Vial Sliding Scale -) 1 vial SQ TIDAC [facility]; Protocol Last Admin: 08/30/18 10:56 Dose: 2 unit Levothyroxine Sodium (Synthroid -) 25 mcg PO DAILY@0700 [facility] Last Admin: 08/30/18 06:19 Dose: 25 mcg Loratadine (Claritin -) 10 mg PO DAILY [facility] Last Admin: 08/30/18 10:41 Dose: 10 mg Metoprolol Tartrate (Lopressor -) 50 mg PO HS [facility] Last Admin: 08/29/18 21:55 Dose: 50 mg Ondansetron HCl (Zofran Odt -) 4 mg SL Q8H PRN PRN Reason: NAUSEA AND/OR VOMITING Phenol/Menthol (Chloraseptic -) 1 spray MM Q6HPO PRN PRN Reason: SORE THROAT Sodium Chloride ([place] Nasal [place] -) 2 spray NS TID PRN PRN Reason: NASAL CONGESTION Last Admin: 08/30/18 10:43 Dose: 2 sprays - Objective Vital Signs: Vital Signs Temperature 98.3 F 08/30/18 06:23 Pulse Rate 80 08/30/18 06:23 Respiratory Rate 21 H 08/30/18 06:23 Blood Pressure 134/70 08/30/18 06:23 O2 Sat by Pulse Oximetry (%) 98 08/30/18 05:38 Constitutional: Yes: Well Nourished, No Distress, Calm Eyes: Yes: Other (left periorbital swelling-much improved) Cardiovascular: Yes: Regular Rate and Rhythm Respiratory: Yes: Regular Gastrointestinal: Yes: Normal Bowel Sounds, Soft Musculoskeletal: Yes: WNL Extremities: Yes: WNL Edema: No Peripheral Pulses WNL: Yes Neurological: Yes: Alert, Oriented Psychiatric: Yes: Alert, Oriented Labs: CBC, BMP 08/29/18 06:30 08/29/18 06:30 Problem List - Problems (1) Periorbital cellulitis of left eye Assessment/Plan: -IV abx -Warm compress Q2H -ID and ophthalmology consult Code(s): L03.213 - PERIORBITAL CELLULITIS (2) Diabetes Assessment/Plan: -BGM AC HS -Diabetic/ low sodium diet -Start Januvia 100 mg po daily -RD consult -Novolog sliding scale -check A1c Code(s): E11.9 - TYPE 2 DIABETES MELLITUS WITHOUT COMPLICATIONS (3) Hypertension Assessment/Plan: -Increase metoprolol to 100 mg po daily -monitor BP trend -Low sodium diet Code(s): I10 - ESSENTIAL (PRIMARY) HYPERTENSION Qualifiers: Assessment/Plan see problem list DVT prophylaxis Self ambulatory
--- NOTE | 2018-08-30 15:11 | PN ---
Progress Note (short form) - Note Progress Note: ID Consult dictated L periorbital cellulitis Diabetes mellitus Continue IV antibiotics additional 24hr Unasyn/ Vancomycin
[2018-08-30] MEDS: VANCOMYCIN 1 GRAM (PRE-DOCKED) 1,000 MG/250 ML BAG IVPB SCH (16:13)
--- NOTE | 2018-08-30 17:12 | CONS ---
DATE OF CONSULTATION: DATE OF DICTATION: 08/30/2018 INFECTIOUS DISEASE CONSULTATION HISTORY OF PRESENT ILLNESS: The patient is a 53-year-old insulin dependent diabetic female who is evaluated for left periorbital cellulitis. The patient states she began to develop left eye pain approximately 2 weeks ago. Approximately 1 week ago, she began to notice erythema, warmth and swelling of the left upper eyelid that became progressively worse and involved the left periorbital area. She presented to her PMD, where she was evaluated. She was given amoxicillin for cellulitis and sinusitis. She had developed sinus congestion and sinus pressure. She denied any associated fever or chills. Patient denies any traumatic injury to her eye, no scratches, a yellowish ocular discharge 4 days prior to admission. She denies any change in her visual acuity. She presented to the emergency room where she was treated with Unasyn and bacitracin. She also received vancomycin. She denies prior history of eye infection. She has had a history of diabetic foot infections in the past and has been treated for osteomyelitis. Cultures in the past have grown mixed organisms including coagulated negative staph, staph aureus, and enterococcus. PAST MEDICAL HISTORY: Positive for insulin dependent diabetes mellitus, hypertension, hyperlipidemia, peripheral vascular disease, hypothyroidism. ALLERGIES: No known allergies. MEDICATION: Aspirin, Neurontin, Humalog, Vasotec, Synthroid, Lopressor, Plavix, tramadol. PAST SURGICAL HISTORY: Status post cataract surgery, gastric bypass, and section. LABORATORY DATA: White count 5.0, hematocrit 35.0, platelet count 272, creatinine 0.9. PHYSICAL EXAMINATION: General: On exam, the patient is awake and alert, not acutely toxic appearing. Vital signs: Temperature 98.3, blood pressure 172/86, pulse 80 regular, respirations 20 per minute. HEENT: Sclerae anicteric. No conjunctival injection. Examination of the left eye, there is diffuse swelling of the left upper eyelid. There is faint erythema involving the periorbital area extending to the lower eyelid. Extraocular muscles are intact. No photophobia. There is some tenderness present over the maxillary sinuses bilaterally. Neck: Supple. No palpable adenopathy. Cardiovascular: Heart sounds S1, S2. Lungs: Clear. Abdomen: Soft, nontender. Extremities: Negative for edema. IMPRESSION: 1. Left periorbital cellulitis. 2. Insulin dependent diabetes mellitus. Continue empiric antibiotic coverage with Unasyn 3 g IV piggyback every 8 hours plus vancomycin 1 g IV piggyback every 12 hours for an additional 24 hours. Ophthalmology consultation appreciated. Etiology of periorbital cellulitis not clear. Focal swelling in the upper eyelid consistent with possible sty which may have become secondarily infected. Other possibilities include an occluded lacrimal duct or hair follicle with secondary infection. Continue warm compresses, analgesics, will follow. Thank you for the kind referral. TRISTIN JIMÉNEZ M.D. [id number]
[2018-08-30] MEDS ORDERED: PT OWN MED DRAWER 7, Y5N ONE ×2 (17:37→21:46)
[2018-08-30] MEDS: GABAPENTIN 300 MG CAPSULE (FP) PO SCH (22:18)
[2018-08-30] MEDS: ENALAPRIL MALEATE 5 MG TABLET (FP) PO SCH (22:18)
[2018-08-31] MEDS: AMPICILLIN NA/SULBACTAM NA 3 GM in SODIUM CHLORIDE 100 ML IVPB SCH ×2 (01:41→10:25)
[2018-08-31] MEDS: VANCOMYCIN 1 GRAM (PRE-DOCKED) 1,000 MG/250 ML BAG IVPB SCH (03:03)
[2018-08-31] MEDS: INSULIN SLIDING SCALE (NOVOLOG) 1 VIAL SQ SCH ×2 (06:15→11:38)
[2018-08-31] MEDS: LEVOTHYROXINE NA 25 MCG TABLET (FP) PO SCH (06:16)
[2018-08-31 06:38] VITALS: PULSE 87
[2018-08-31] MEDS: ALBUTEROL SO4 2.5/IPRATROPIUM 0.5 INH SOL 3 ML VIAL.NEB. NEB PRN (07:48)
[2018-08-31] MEDS ORDERED: PT OWN MED DRAWER 7, Y5N ONE ×2 (10:23→14:17)
[2018-08-31] MEDS: LORATADINE 10 MG TABLET PO SCH (10:25)
[2018-08-31] MEDS: ASPIRIN 81 MG CHEWABLE TABLETS PO SCH (10:25)
[2018-08-31] MEDS: ENOXAPARIN NA (PORCINE) 40 MG/0.4 ML DISP.SYRIN SQ SCH (10:25)
[2018-08-31] MEDS: CLOPIDOGREL BISULFATE 75 MG TABLET (FP) PO SCH (10:25)
[2018-08-31] MEDS: FLUTICASONE PROP 0.05% 16 GM NASAL SPRAY NS SCH (10:25)
[2018-08-31] MEDS: BACITRACIN 15 GM TUBE TOPICAL OINTMENT TP SCH (10:26)
--- NOTE | 2018-08-31 11:05 | PN ---
Progress Note, Physician Chief Complaint: Periorbital cellulitis of Left eye History of Present Illness: NAD, fells better On IV abx-started on Vanco-received 2 doses afebrile no leukocytosis seen by Ophthalmology-but no note? seen by ID - Current Medication List Current Medications: Active Medications Acetaminophen (Tylenol -) 650 mg PO Q6H PRN PRN Reason: FEVER Last Admin: 08/28/18 22:05 Dose: 650 mg Albuterol/Ipratropium (Duoneb -) 1 amp NEB Q6H PRN PRN Reason: SHORTNESS OF BREATH Last Admin: 08/31/18 07:48 Dose: 1 amp Aspirin (Asa -) 81 mg PO DAILY [facility] Last Admin: 08/31/18 10:25 Dose: 81 mg Bacitracin (Bacitracin -) 1 applic TP BID [facility] Last Admin: 08/31/18 10:26 Dose: 1 applic Benzocaine/Menthol (Cepacol Lozenge -) 1 each MM PRN PRN PRN Reason: SORE THROAT Clopidogrel Bisulfate (Plavix -) 75 mg PO DAILY [facility] Last Admin: 08/31/18 10:25 Dose: 75 mg Enalapril Maleate (Vasotec -) 5 mg PO HS [facility] Last Admin: 08/30/18 22:18 Dose: 5 mg Enoxaparin Sodium (Lovenox -) 40 mg SQ DAILY [facility] Last Admin: 08/31/18 10:25 Dose: 40 mg Fluticasone Propionate (Flonase -) 2 spray NS DAILY [facility] Last Admin: 08/31/18 10:25 Dose: 2 sprays Gabapentin (Neurontin -) 300 mg PO HS [facility] Last Admin: 08/30/18 22:18 Dose: 300 mg Ampicillin Sodium/Sulbactam (Sodium 3 gm/ Sodium Chloride) 100 mls @ 200 mls/ hr IVPB Q8H-IV [facility] Last Admin: 08/31/18 10:25 Dose: 200 mls/hr Vancomycin HCl (Vancomycin (Pre-Docked)) 1,000 mg in 250 mls @ 166.667 mls/hr IVPB Q12H [facility]; Protocol Last Admin: 08/31/18 03:03 Dose: 166.667 mls/hr Insulin Aspart (Novolog Vial Sliding Scale -) 1 vial SQ TIDAC [facility]; Protocol Last Admin: 08/31/18 06:15 Dose: Not Given Levothyroxine Sodium (Synthroid -) 25 mcg PO DAILY@0700 [facility] Last Admin: 08/31/18 06:16 Dose: 25 mcg Loratadine (Claritin -) 10 mg PO DAILY [facility] Last Admin: 08/31/18 10:25 Dose: 10 mg Metoprolol Succinate (Toprol Xl -) 100 mg PO DAILY [facility] Last Admin: 08/31/18 10:26 Dose: 100 mg Ondansetron HCl (Zofran Odt -) 4 mg SL Q8H PRN PRN Reason: NAUSEA AND/OR VOMITING Phenol/Menthol (Chloraseptic -) 1 spray MM Q6HPO PRN PRN Reason: SORE THROAT Sitagliptin Phosphate (Januvia -) 100 mg PO DAILY@0700 [facility] Sodium Chloride ([place] Nasal [place] -) 2 spray NS TID PRN PRN Reason: NASAL CONGESTION Last Admin: 08/30/18 10:43 Dose: 2 sprays - Objective Vital Signs: Vital Signs Temperature 98.8 F 08/31/18 06:36 Pulse Rate 87 08/31/18 06:36 Respiratory Rate 20 08/31/18 06:36 Blood Pressure 125/74 08/31/18 06:36 O2 Sat by Pulse Oximetry (%) 98 08/31/18 01:00 Constitutional: Yes: Well Nourished, No Distress, Calm Eyes: Yes: Other (Left upper lid swelling-much improved) Cardiovascular: Yes: Regular Rate and Rhythm Respiratory: Yes: Regular Gastrointestinal: Yes: Normal Bowel Sounds, Soft Musculoskeletal: Yes: WNL Extremities: Yes: WNL Edema: No Peripheral Pulses WNL: Yes Neurological: Yes: Alert, Oriented Psychiatric: Yes: Alert, Oriented Labs: CBC, BMP 08/29/18 06:30 08/29/18 06:30 Problem List - Problems (1) Periorbital cellulitis of left eye Assessment/Plan: -IV abx -Warm compress Q2H -ID and ophthalmology consult Code(s): L03.213 - PERIORBITAL CELLULITIS (2) Diabetes Assessment/Plan: -BGM AC HS -Diabetic/ low sodium diet -Start Januvia 100 mg po daily-continue outpatient -RD consult -Novolog sliding scale -check A1c Code(s): E11.9 - TYPE 2 DIABETES MELLITUS WITHOUT COMPLICATIONS (3) Hypertension Assessment/Plan: -much improved after increasing metoprolol -metoprolol to 100 mg po daily-would continue outpatient -monitor BP trend -Low sodium diet Code(s): I10 - ESSENTIAL (PRIMARY) HYPERTENSION Qualifiers: Assessment/Plan see problem list DVT prophylaxis Self ambulatory D/C home on Augmentin 1 tab 2 x day for 7 days
[2018-08-31 11:44] LABS: BASO % 0.4 % (0-2.0); HEMATOCRIT 35.7 % (32.4-45.2); HEMOGLOBIN 12.4 GM/dL (10.7-15.3); LYMPH % 29.5 % (8-40); MCHC 34.8 g/dl (32.0-36.0); MEAN PLT VOLUME 8.5 fl (7.5-11.1); MONO % 7.1 % (3.8-10.2); PLATELET COUNT 302 K/MM3 (134-434); RBC 4.01 M/mm3 (3.60-5.2); RDW 12.9 % (11.6-15.6); WHITE BLOOD COUNT 6.5 K/mm3 (4.0-10.0)
--- NOTE | 2018-08-31 11:49 | PN ---
Progress Note, Physician History of Present Illness: Awake, alert L eyelid swelling nearly all resolved No c/o eye pain Reports vaginal itching - Current Medication List Current Medications: Active Medications Acetaminophen (Tylenol -) 650 mg PO Q6H PRN PRN Reason: FEVER Last Admin: 08/28/18 22:05 Dose: 650 mg Albuterol/Ipratropium (Duoneb -) 1 amp NEB Q6H PRN PRN Reason: SHORTNESS OF BREATH Last Admin: 08/31/18 07:48 Dose: 1 amp Aspirin (Asa -) 81 mg PO DAILY [facility] Last Admin: 08/31/18 10:25 Dose: 81 mg Bacitracin (Bacitracin -) 1 applic TP BID [facility] Last Admin: 08/31/18 10:26 Dose: 1 applic Benzocaine/Menthol (Cepacol Lozenge -) 1 each MM PRN PRN PRN Reason: SORE THROAT Clopidogrel Bisulfate (Plavix -) 75 mg PO DAILY [facility] Last Admin: 08/31/18 10:25 Dose: 75 mg Enalapril Maleate (Vasotec -) 5 mg PO HS [facility] Last Admin: 08/30/18 22:18 Dose: 5 mg Enoxaparin Sodium (Lovenox -) 40 mg SQ DAILY [facility] Last Admin: 08/31/18 10:25 Dose: 40 mg Fluticasone Propionate (Flonase -) 2 spray NS DAILY [facility] Last Admin: 08/31/18 10:25 Dose: 2 sprays Gabapentin (Neurontin -) 300 mg PO HS [facility] Last Admin: 08/30/18 22:18 Dose: 300 mg Ampicillin Sodium/Sulbactam (Sodium 3 gm/ Sodium Chloride) 100 mls @ 200 mls/ hr IVPB Q8H-IV [facility] Last Admin: 08/31/18 10:25 Dose: 200 mls/hr Vancomycin HCl (Vancomycin (Pre-Docked)) 1,000 mg in 250 mls @ 166.667 mls/hr IVPB Q12H [facility]; Protocol Last Admin: 08/31/18 03:03 Dose: 166.667 mls/hr Insulin Aspart (Novolog Vial Sliding Scale -) 1 vial SQ TIDAC [facility]; Protocol Last Admin: 08/31/18 11:38 Dose: Not Given Levothyroxine Sodium (Synthroid -) 25 mcg PO DAILY@0700 [facility] Last Admin: 12/04/18 06:16 Dose: 25 mcg Loratadine (Claritin -) 10 mg PO DAILY [facility] Last Admin: 08/31/18 10:25 Dose: 10 mg Metoprolol Succinate (Toprol Xl -) 100 mg PO DAILY [facility] Last Admin: 08/31/18 10:26 Dose: 100 mg Ondansetron HCl (Zofran Odt -) 4 mg SL Q8H PRN PRN Reason: NAUSEA AND/OR VOMITING Phenol/Menthol (Chloraseptic -) 1 spray MM Q6HPO PRN PRN Reason: SORE THROAT Sitagliptin Phosphate (Januvia -) 100 mg PO DAILY@0700 [facility] Sodium Chloride ([place] Nasal [place] -) 2 spray NS TID PRN PRN Reason: NASAL CONGESTION Last Admin: 08/30/18 10:43 Dose: 2 sprays - Objective Vital Signs: Vital Signs Temperature 98.8 F 08/31/18 06:36 Pulse Rate 87 08/31/18 06:36 Respiratory Rate 20 08/31/18 06:36 Blood Pressure 125/74 08/31/18 06:36 O2 Sat by Pulse Oximetry (%) 98 08/31/18 01:00 Constitutional: Yes: No Distress Eyes: Yes: Conjunctiva Clear HENT: Yes: Other (L upper eyelid swelling and erythema nearly all resolved) Cardiovascular: Yes: Regular Rate and Rhythm, S1, S2 Respiratory: Yes: CTA Bilaterally Edema: No Assessment/Plan L periorbital cellulitis improved ? Vulvovaginal candidiasis Switch to po augmentin x7d Outpatient ophtho followup Fluconazole x 1
[2018-08-31] MEDS ORDERED: FLUCONAZOLE 50 MG TABLET PO ONE (11:50)
[2018-08-31 13:01] LABS: ALBUMIN 3.3 g/dl (3.4-5.0); ALK PHOS 112 U/L (45-117); ANION GAP 9 MMOL/L (8-16); BILIRUBIN,TOTAL 0.2 mg/dL (0.2-1); BLOOD UREA NITROGEN 20 mg/dL (7-18); CALCIUM 8.6 mg/dL (8.5-10.1); CHLORIDE 100 mmol/L (98-107); CO2 29 mmol/L (21-32); CREATININE 0.9 mg/dL (0.55-1.3); GLUCOSE,RANDOM 181 mg/dL (74-106); POTASSIUM 3.9 mmol/L (3.5-5.1); SGOT/AST 17 U/L (15-37); SGPT/ALT 23 U/L (13-61); SODIUM 138 mmol/L (136-145); TOT PROT 7.2 g/dl (6.4-8.2)
[2018-08-31 14:35] VITALS: BP 157/88; TEMP 98.2
[2018-08-31] MEDS ORDERED: AMOX TR/POT CLAV 875MG/125MG TABLETS (FP) PO SCH (17:30)
[2018-09-01] MEDS ORDERED: sitaGLIPtin PHOSPHATE 100 MG TABLET (FP) PO SCH (07:00)
== END 2018-08-31 15:25 | disposition home or self-care (01) | DRG 383 ==
LOC: JER 23:45 → JERBED 08-28 02:35 → OBSVTOIN 08-28 04:12 → J6S 08-28 17:58
PROVIDERS: ADMIT Internal Medicine; ATTEND Family Medicine
DX: L03.213 Periorbital cellulitis (principal); I73.9 Peripheral vascular disease, unspecified; E11.9 Type 2 diabetes mellitus without complications; B37.3 Candidiasis of vulva and vagina; I10 Essential (primary) hypertension; E78.5 Hyperlipidemia, unspecified; E03.9 Hypothyroidism, unspecified; Z79.4 Long term (current) use of insulin; I25.10 Atherosclerotic heart disease of native coronary artery without angina pectoris; Z87.891 Personal history of nicotine dependence; Z86.73 Personal history of transient ischemic attack (TIA), and cerebral infarction without residual deficits
CPT/HCPCS: 36415; 80048; 80053; 82962; 83036; 83735; 84100; 85025; 85027; 90688; 94640; 99284-25; G0008; G0378; J7030

== ENCOUNTER 2018-09-17 00:58 | Emergency (ER) | payer OTHER ==
[2018-09-17 01:15] VITALS: TEMP 98.6; BMI 27.4
[2018-09-17 01:19] VITALS: PULSE 98
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
[2018-09-17] MEDS ORDERED: ACETAMINOPHEN 325 MG TABLET (FP) PO ONE (02:32)
[2018-09-17] MEDS ORDERED: ACETAMINOPHEN 325 MG TABLET (FP) ONE (02:54)
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
[2018-09-17] MEDS ORDERED: METHOCARBAMOL 500 MG TABLET PO ONE (05:11)
[2018-09-17] MEDS ORDERED: METHOCARBAMOL 500 MG TABLET ONE (05:19)
[2018-09-17 05:34] VITALS: BP 140/93
== END 2018-09-17 06:14 | disposition home or self-care (01) ==
LOC: JER 00:58
DX: M62.830 Muscle spasm of back (principal); M54.5 Low back pain; V43.52XA Car driver injured in collision with other type car in traffic accident, initial encounter; Y92.414 Local residential or business street as the place of occurrence of the external cause; Y93.89 Activity, other specified; Y99.9 Unspecified external cause status; I10 Essential (primary) hypertension; E11.9 Type 2 diabetes mellitus without complications; Z79.4 Long term (current) use of insulin; I73.9 Peripheral vascular disease, unspecified; Z79.01 Long term (current) use of anticoagulants; Z95.828 Presence of other vascular implants and grafts
CPT/HCPCS: 70450-TC; 71046-TC-FY; 72125-TC; 72128-TC; 72131-TC; 73562-TC-LT-FY; 73562-TC-RT-FY; 99282-25

== ENCOUNTER 2019-06-13 15:06 | Inpatient (IN) | payer OTHER ==
--- NOTE | 2019-06-13 15:33 | PDOC ---
Rapid Medical Evaluation Chief Complaint: Wound Time Seen by Provider: 06/13/19 15:25 Medical Evaluation: Allergies Allergy/AdvReac Type Severity Reaction Status Date / Time No Known Drug Allergies Allergy Verified 09/17/18 01:13 Vital Signs Temp Pulse Resp BP Pulse Ox 98.4 F 98 H 16 149/63 98 06/13/19 15:12 06/13/19 15:12 06/13/19 15:12 06/13/19 15:12 06/13/19 15:12 06/13/19 15:31 I have performed a brief in-person evaluation of this patient. The patient presents with a chief complaint of: right foot pain/infection s/p bunion shaving, now toe pain with drainage Pertinent physical exam findings: purulent drainage to toe I have ordered the following: labs, xray The patient will proceed to the ED for further evaluation. Discharge Disposition - Diagnosis Toe infection - Discharge Dispostion Condition at time of disposition: Stable - Referrals - Patient Instructions - Post Discharge Activity
[2019-06-13 15:59] LABS: BASO % 0.6 % (0-2.0); EOS % 1.4 % (0-4.5); HEMATOCRIT 33.8 % (32.4-45.2); HEMOGLOBIN 11.2 GM/dL (10.7-15.3); LYMPH % 29.7 % (8-40); MCH 30.1 pg (25.7-33.7); MCHC 33.2 g/dl (32.0-36.0); MEAN CELL VOLUME 90.7 fl (80-96); MEAN PLT VOLUME 8.6 fl (7.5-11.1); MONO % 7.9 % (3.8-10.2); NEUT % 60.4 % (42.8-82.8); PLATELET COUNT 316 K/MM3 (134-434); RBC 3.72 M/mm3 (3.60-5.2); RDW 13.1 % (11.6-15.6); WHITE BLOOD COUNT 6.1 K/mm3 (4.0-10.0)
[2019-06-13 16:27] LABS: ALBUMIN 3.3 g/dl (3.4-5.0); BILIRUBIN,TOTAL 0.2 mg/dL (0.2-1); BLOOD UREA NITROGEN 15.7 mg/dL (7-18); POTASSIUM 4.3 mmol/L (3.5-5.1); TOT PROT 6.8 g/dl (6.4-8.2)
--- NOTE | 2019-06-13 17:39 | PDOC ---
History of Present Illness - General Chief Complaint: Injury Stated Complaint: WOUND Time Seen by Provider: 06/13/19 15:25 Past History - Travel Traveled outside of the country in the last 30 days: No Close contact w/someone who was outside of country & ill: No - Past Medical History Allergies/Adverse Reactions: Allergies Allergy/AdvReac Type Severity Reaction Status Date / Time No Known Drug Allergies Allergy Verified 09/17/18 01:13 Home Medications: Ambulatory Orders Aspirin [ASA -] 81 mg PO DAILY 06/30/14 Gabapentin 300 mg PO HS 10/25/14 Humalog Kwikpen U-200 20 - 25 unit SQ TID 12/28/16 Acetaminophen [Tylenol .Regular Strength -] 650 mg PO Q6H PRN #0 tablet Enalapril Maleate [Vasotec -] 5 mg PO DAILY@HS tablet 01/15/17 Metoprolol Tartrate [Lopressor -] 50 mg PO DAILY@HS tablet 01/15/17 Levothyroxine [Synthroid -] 25 mcg PO DAILY@0700 08/28/18 Ammonium Lactate Cream [Lac-Hydrin 12% Cream -] 1 applic TP BID #1 tube Clopidogrel Bisulfate [Plavix] 75 mg PO DAILY #30 tablet 01/24/19 Anemia: No Asthma: No Cancer: No Cardiac Disorders: Yes (CAD) CVA: No COPD: No CHF: No Dementia: No Diabetes: Yes GI Disorders: No Disorders: No HTN: Yes Hypercholesterolemia: Yes Liver Disease: No Seizures: No Thyroid Disease: Yes (HYPOTHYROID DISEASE) - Surgical History Abdominal Surgery: No Appendectomy: No Cardiac Surgery: No Cholecystectomy: No Lung Surgery: No Neurologic Surgery: No Orthopedic Surgery: No - Immunization History Immunization Up to Date: Yes - Suicide/Smoking/Psychosocial Hx Smoking Status: Yes Smoking History: Never smoked Have you smoked in the past 12 months: No Number of Cigarettes Smoked Daily: 0 If you are a former smoker, when did you quit?: 18 years ago Information on smoking cessation initiated: No Hx Alcohol Use: No Drug/Substance Use Hx: No Substance Use Type: None Hx Substance Use Treatment: No Review of Systems - Review of Systems Able to Perform ROS?: Yes Comments:: 06/13/19 18:21 CONSTITUTIONAL: Absent: fever, chills, diaphoresis, generalized weakness, malaise, loss of appetite HEENT: Absent: rhinorrhea, nasal congestion, throat pain, throat swelling, difficulty swallowing, mouth swelling, ear pain, eye pain, visual Changes CARDIOVASCULAR: Absent: chest pain, loss of consciousness, palpitations, irregular heart rate, peripheral edema RESPIRATORY: Absent: cough, shortness of breath, dyspnea with exertion, orthopnea, wheezing, stridor, hemoptysis GASTROINTESTINAL: Absent: abdominal pain, abdominal distension, nausea, vomiting, diarrhea, constipation, melena, hematochezia GENITOURINARY: Absent: dysuria, frequency, urgency, hesitancy, hematuria, flank pain, genital pain MUSCULOSKELETAL: Absent: myalgia, arthralgia, joint swelling SKIN: Present: foot infection Absent: rash, itching, pallor HEMATOLOGIC/IMMUNOLOGIC: Absent: easy bleeding, easy bruising, lymphadenopathy, frequent infections ENDOCRINE: Absent: unexplained weight gain, unexplained weight loss, heat intolerance, cold intolerance NEUROLOGIC: Absent: headache, focal weakness or paresthesias, dizziness, unsteady gait, seizure, mental status changes, bladder or bowel incontinence PSYCHIATRIC: Absent: anxiety, depression, suicidal or homicidal ideation, hallucinations. Is the patient limited Irish proficient: No *Physical Exam - Vital Signs Last Vital Signs Temp Pulse Resp BP Pulse Ox 98.4 F 98 H 16 149/63 98 06/13/19 15:12 06/13/19 15:12 06/13/19 15:12 06/13/19 15:12 06/13/19 15:12 - Physical Exam Comments: 06/13/19 18:22 GENERAL: Well developed, well nourished. Awake and alert. No acute distress. HEENT: Normocephalic, atraumatic. PERRLA, EOMI. No conjunctival pallor. Sclera are non- icteric. Moist mucous membranes. Oropharynx is clear. NECK: Supple. Full ROM. No JVD. Carotid pulses 2+ and symmetric, without bruits. No thyromegaly. No lymphadenopathy. CARDIOVASCULAR: Regular rate and rhythm. No murmurs, rubs, or gallops. Distal pulses are 2+ and symmetric. PULMONARY: No evidence of respiratory distress. Lungs clear to auscultation bilaterally. No wheezing, rales or rhonchi. ABDOMINAL: Soft. Non-tender. Non-distended. No rebound or guarding. No organomegaly. Normoactive bowel sounds. MUSCULOSKELETAL Normal range of motion at all joints. No bony deformities or tenderness. No CVA tenderness. EXTREMITIES: No cyanosis. No clubbing. No edema. No calf tenderness. SKIN: 3cm round callus with purulent discharge noted to the R lateral dorsum. Also streaking from the R lateral foot to the ventral aspect of the foot. Warm and dry. Normal capillary refill. No jaundice. NEUROLOGICAL: Alert, awake, appropriate. Cranial nerves 2-12 intact. No deficits to light touch and temperature in face, upper extremities and lower extremities. No motor deficits in the in face, upper extremities and lower extremities. Normoreflexic in the upper and lower extremities. Normal speech. Toes are down- going bilaterally. Gait is normal without ataxia. PSYCHIATRIC: Cooperative. Good eye contact. Appropriate mood and affect. ED Treatment Course - LABORATORY CBC & Chemistry Diagram: 06/13/19 15:42 06/13/19 15:42 - ADDITIONAL ORDERS Additional order review: Laboratory Results 06/13/19 15:42 Sodium 139 Potassium 4.3 Chloride 104 Carbon Dioxide 30 Anion Gap 5 L BUN 15.7 Creatinine 1.0 Est GFR (CKD-EPI)AfAm 75.01 Est GFR (CKD-EPI)NonAf 64.72 Random Glucose 210 H Calcium 9.0 Total Bilirubin 0.2 AST 15 ALT 17 Alkaline Phosphatase 113 Total Protein 6.8 Albumin 3.3 L 06/13/19 15:42 RBC 3.72 MCV 90.7 MCHC 33.2 RDW 13.1 MPV 8.6 Neutrophils % 60.4 Lymphocytes % 29.7 Monocytes % 7.9 Eosinophils % 1.4 Basophils % 0.6 Medical Decision Making - Medical Decision Making 06/13/19 18:20 The patient is a 54-year-old female past medical history of insulin dependent diabetes, hypertension, hyperlipidemia, coronary artery disease, hypothyroidism , presents to the ER today with a infection to her right foot. The patient tissues at wound care and they were shaving down the callus. She believes they shaved to close. She is noted discharge from the area. She now notes that the area is warm and red to touch. Denies fevers, chills, nausea, vomiting, diarrhea , presenting with weakness the affected extremity. A/P: Wound infection in diabetic On exam patient with a 3 cm round callus with purulent discharge noted to the R lateral dorsum. Also streaking from the R lateral foot to the ventral aspect of the foot Wound culture taken Basic labs, blood cultures, urine obtained X-ray obtained of the foot, no osteal noted at this time. IV Zosyn and Vanco ordered We'll admit patient for IV antibiotics John villagran for Dr. Caballero *DC/Admit/Observation/Transfer Diagnosis at time of Disposition: Toe infection Cellulitis Qualifiers: Site of cellulitis: extremity Site of cellulitis of extremity: lower extremity Laterality: right Qualified Code(s): L03.115 - Cellulitis of right lower limb - Discharge Dispostion Condition at time of disposition: Stable Decision to Admit order: Yes - Referrals Referrals: Ariana Caballero MD [Primary Care Provider] - - Patient Instructions - Post Discharge Activity
[2019-06-13] MEDS ORDERED: VANCOMYCIN 1,000 MG in DEXTROSE 5%-WATER - 250 ML IVPB ONE (17:40)
[2019-06-13] MEDS ORDERED: PIPERACILLIN/TAZOB 3.375 GM 3.375 GM in DEXTROSE 5%-WATER - 50 ML IVPB ONE (17:40)
[2019-06-13] MEDS ORDERED: VANCOMYCIN 1 GRAM (PRE-DOCKED) 1,000 MG/250 ML BAG IVPB ONE (17:45)
[2019-06-13] MEDS ORDERED: PIPERACILLIN/TAZOB 3.375 GM 3.375 GM/50 ML BAG IVPB ONE (17:46)
[2019-06-13 19:12] LABS: EPI CELLS 1.8 /HPF (0-5/HPF); HYALINE CASTS 2 /lpf (0-8); URINE APPEARANCE CLEAR; URINE BACTERIA 56.4 /hpf (NEGATIVE); URINE BILIRUBIN NEGATIVE (NEGATIVE); URINE COLOR YELLOW; URINE GLUCOSE (UA) NEGATIVE (NEGATIVE); URINE KETONE NEGATIVE (NEGATIVE); URINE LEUK ESTERASE NEGATIVE (NEGATIVE); URINE NITRITE NEGATIVE (NEGATIVE); URINE PROTEIN NEGATIVE (NEGATIVE); URINE RBC 9 /hpf (0-4); URINE UROBILINOGEN 0.2 mg/dL (0.2-1.0); URINE WBC 1 /hpf (0-5)
--- NOTE | 2019-06-13 22:07 | HP ---
Admitting History and Physical - Primary Care Physician PCP: Ariana Caballero - Admission Chief Complaint: Right Foot Wound History of Present Illness: This is a 54 y/o woman with a PMHx of HTN, HLD, DM. Who presents to the ED for right foot wound with purulent drainage. Patient was at the wound center 2 days ago. The patient reports scraping her foot, bleeding and then having brown purulent drainage. Patient reports increased pain with walking. Patient denies fever, chills, cough, SOB, dizziness, CP, palpitations, AP, N/V/D, constipation , dysuria History Source: Patient Limitations to Obtaining History: No Limitations - Past Medical History WALL TAPER: Yes: CVA Cardiovascular: Yes: HTN, Hyperlipdemia ...LMP: 10/29/18 Endocrine: Yes: Diabetes Mellitus, Hypothyroidism - Smoking History Smoking history: Former smoker Have you smoked in the past 12 months: No Aproximately how many cigarettes per day: 0 If you are a former smoker, when did you quit?: 18 years ago - Alcohol/Substance Use Hx Alcohol Use: No Home Medications - Allergies Allergies/Adverse Reactions: Allergies Allergy/AdvReac Type Severity Reaction Status Date / Time No Known Drug Allergies Allergy Verified 09/17/18 01:13 - Home Medications Home Medications: Ambulatory Orders Aspirin [ASA -] 81 mg PO DAILY 06/30/14 Gabapentin 300 mg PO HS 10/25/14 Humalog Kwikpen U-200 20 - 25 unit SQ TID 12/28/16 Acetaminophen [Tylenol .Regular Strength -] 650 mg PO Q6H PRN #0 tablet Enalapril Maleate [Vasotec -] 5 mg PO DAILY@HS tablet 01/15/17 Metoprolol Tartrate [Lopressor -] 50 mg PO DAILY@HS tablet 01/15/17 Levothyroxine [Synthroid -] 25 mcg PO DAILY@0700 08/28/18 Ammonium Lactate Cream [Lac-Hydrin 12% Cream -] 1 applic TP BID #1 tube Clopidogrel Bisulfate [Plavix] 75 mg PO DAILY #30 tablet 01/24/19 Family Medical History Family Hx Cardiac Disorders: Father Family Hx Diabetes: Father Review of Systems - Review of Systems Constitutional: reports: No Symptoms Eyes: reports: No Symptoms HENT: reports: No Symptoms Neck: reports: No Symptoms Cardiovascular: reports: No Symptoms Respiratory: reports: No Symptoms Gastrointestinal: reports: No Symptoms Genitourinary: reports: No Symptoms Breasts: reports: No Symptoms Reported Musculoskeletal: reports: Extremity Pain Integumentary: reports: Wound, Other (purulent drainage) Neurological: reports: Pre-Existing Deficit Endocrine: reports: No Symptoms Hematology/Lymphatic: reports: No Symptoms Psychiatric: reports: No Symptoms Physical Examination Vital Signs: Vital Signs Temperature 98.4 F 06/13/19 15:12 Pulse Rate 82 06/13/19 20:11 Respiratory Rate 18 06/13/19 20:11 Blood Pressure 136/84 06/13/19 20:11 O2 Sat by Pulse Oximetry (%) 99 06/13/19 20:11 Constitutional: Yes: Well Nourished, No Distress, Calm Eyes: Yes: WNL, Conjunctiva Clear, EOM Intact, PERRL HENT: Yes: WNL, Atraumatic, Normocephalic Neck: Yes: WNL, Supple, Trachea Midline Cardiovascular: Yes: WNL, Regular Rate and Rhythm, S1, S2 Respiratory: Yes: WNL, Regular, CTA Bilaterally Gastrointestinal: Yes: WNL, Normal Bowel Sounds, Soft ...Rectal Exam: Yes: Deferred Renal/: Yes: WNL Musculoskeletal: Yes: Other (right foot pain/swelling to lateral medial aspect, induration, TTP) Extremities: Yes: Erythema Edema: No Peripheral Pulses WNL: Yes Integumentary: Yes: Erythema Wound/Incision: Yes: Open to air, Reddened. No: Draining Neurological: Yes: WNL, Alert, Oriented, Cran Nerves II-XII Intact ...Motor Strength: WNL Psychiatric: Yes: WNL, Alert, Oriented Labs: CBC, BMP 06/13/19 15:42 06/13/19 15:42 Laboratory Results - last 24 hr 06/13/19 06/13/19 06/13/19 15:42 15:42 18:16 WBC 6.1 RBC 3.72 Hgb 11.2 Hct 33.8 MCV 90.7 MCH 30.1 MCHC 33.2 RDW 13.1 Plt Count 316 MPV 8.6 Absolute Neuts (auto) 3.7 Neutrophils % 60.4 Lymphocytes % 29.7 Monocytes % 7.9 Eosinophils % 1.4 Basophils % 0.6 Nucleated RBC % 0 Sodium 139 Potassium 4.3 Chloride 104 Carbon Dioxide 30 Anion Gap 5 L BUN 15.7 Creatinine 1.0 Est GFR (CKD-EPI)AfAm 75.01 Est GFR (CKD-EPI)NonAf 64.72 POC Glucometer Random Glucose 210 H Calcium 9.0 Total Bilirubin 0.2 AST 15 ALT 17 Alkaline Phosphatase 113 Total Protein 6.8 Albumin 3.3 L Urine Color Yellow Urine Appearance Clear Urine pH 5.0 Ur Specific [place] 1.010 Urine Protein Negative Urine Glucose (UA) Negative Urine Ketones Negative Urine Blood 3+ H Urine Nitrite Negative Urine Bilirubin Negative Urine Urobilinogen 0.2 Ur Leukocyte Esterase Negative Urine WBC (Auto) 1 Urine RBC (Auto) 9 Urine Casts (Auto) 2 U Epithel Cells (Auto) 1.8 Urine Bacteria (Auto) 56.4 06/13/19 18:59 WBC RBC Hgb Hct MCV MCH MCHC RDW Plt Count MPV Absolute Neuts (auto) Neutrophils % Lymphocytes % Monocytes % Eosinophils % Basophils % Nucleated RBC % Sodium Potassium Chloride Carbon Dioxide Anion Gap BUN Creatinine Est GFR (CKD-EPI)AfAm Est GFR (CKD-EPI)NonAf POC Glucometer 143 Random Glucose Calcium Total Bilirubin AST ALT Alkaline Phosphatase Total Protein Albumin Urine Color Urine Appearance Urine pH Ur Specific [place] Urine Protein Urine Glucose (UA) Urine Ketones Urine Blood Urine Nitrite Urine Bilirubin Urine Urobilinogen Ur Leukocyte Esterase Urine WBC (Auto) Urine RBC (Auto) Urine Casts (Auto) U Epithel Cells (Auto) Urine Bacteria (Auto) Imaging - Results X-ray: Report Reviewed, Image Reviewed Problem List - Problems (1) Diabetic foot ulcer Assessment/Plan: r/o Osteomyelitis Blood Cultures- pending Foot Xray report- olf healed fracture deformity, no acute process No leukocytosis, afebrile at present Vancomycin and Zosyn started in ED, will continue Appreciate ID consult Consider Podiatry consult Monitor CBC, BMP Elevate extremity Wound care Tylenol prn Code(s): E11.621 - TYPE 2 DIABETES MELLITUS WITH FOOT ULCER; L97.509 - NON- PRESSURE CHRONIC ULCER OTH PRT UNSP FOOT W UNSP SEVERITY (2) Insulin dependent diabetes mellitus Assessment/Plan: stable BGMs ISS Code(s): E11.9 - TYPE 2 DIABETES MELLITUS WITHOUT COMPLICATIONS; 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 Admitted for R- foot wound for further evaluation of their emergent condition. Plan: See Problem List FEN PO fluids as tolerated Replete lytes prn Low Na, Diabetic Diet DVT ppx OOB SCDs Heparin SQ Code Status: Full Code Dispo: Requires Inpatient Care Visit type - Emergency Visit Emergency Visit: Yes ED Registration Date: 06/13/19 Care time: The patient presented to the Emergency Department on the above date and was hospitalized for further evaluation of their emergent condition. - New Patient This patient is new to me today: Yes Date on this admission: 06/13/19 - Critical Care Critical Care patient: No
[2019-06-13] MEDS: HEPARIN NA (PORCINE) 5,000 UNITS/ML 1ML VIAL SQ SCH (22:48)
[2019-06-13] MEDS: INSULIN SLIDING SCALE (NOVOLOG) 1 VIAL SQ SCH (22:49)
[2019-06-14 01:05] VITALS: BMI 29.7
[2019-06-14] MEDS ORDERED: PIPERACILLIN/TAZOBACTAM 3.375 GM VIAL IVPB ONE ×3 (01:36→17:14)
[2019-06-14] MEDS ORDERED: DEXTROSE 5%-WATER - 50 ML IVPB ONE ×3 (01:36→17:14)
[2019-06-14] MEDS ORDERED: PIPERACILLIN/TAZOB 3.375 GM 3.375 GM in DEXTROSE 5%-WATER - 50 ML IVPB SCH (02:00)
[2019-06-14] MEDS: PIPERACILLIN/TAZOB 3.375 GM 3.375 GM in DEXTROSE 5%-WATER - 50 ML IVPB SCH ×3 (02:07→17:37)
[2019-06-14] MEDS: ACETAMINOPHEN 325 MG TABLET (FP) PO PRN ×2 (02:15→20:05)
[2019-06-14] MEDS: ENALAPRIL MALEATE 5 MG TABLET (FP) PO SCH ×2 (02:17→22:38)
[2019-06-14] MEDS: METOPROLOL TARTRATE 50 MG TABLET (FP) PO SCH ×2 (02:17→22:38)
[2019-06-14] MEDS: GABAPENTIN 300 MG CAPSULE (FP) PO SCH ×2 (02:17→22:37)
[2019-06-14] MEDS: LEVOTHYROXINE NA 25 MCG TABLET (FP) PO SCH (06:04)
[2019-06-14] MEDS: INSULIN SLIDING SCALE (NOVOLOG) 1 VIAL SQ SCH ×4 (06:27→22:38)
[2019-06-14 07:01] LABS: BASO % 0.4 % (0-2.0); EOS % 1.7 % (0-4.5); HEMATOCRIT 35.3 % (32.4-45.2); HEMOGLOBIN 11.8 GM/dL (10.7-15.3); MCH 30.3 pg (25.7-33.7); MCHC 33.5 g/dl (32.0-36.0); MEAN CELL VOLUME 90.5 fl (80-96); MONO % 8.4 % (3.8-10.2); NEUT % 55.5 % (42.8-82.8); PLATELET COUNT 335 K/MM3 (134-434); RDW 13.1 % (11.6-15.6); WHITE BLOOD COUNT 5.3 K/mm3 (4.0-10.0)
[2019-06-14 07:24] LABS: BLOOD UREA NITROGEN 15.8 mg/dL (7-18); CALCIUM 8.8 mg/dL (8.5-10.1); CREATININE 1.1 mg/dL (0.55-1.3); POTASSIUM 3.9 mmol/L (3.5-5.1)
[2019-06-14] MEDS ORDERED: VANCOMYCIN 1,000 MG in DEXTROSE 5%-WATER - 250 ML IVPB SCH ×2 (10:00→19:00)
--- NOTE | 2019-06-14 10:44 | PN ---
Progress Note, Physician Chief Complaint: Right foot cellulitis Uncontrolled Diabetes Mellitus 2 History of Present Illness: NAD sitting in chair - Current Medication List Current Medications: Active Medications Acetaminophen (Tylenol -) 650 mg PO Q6H PRN PRN Reason: FEVER Last Admin: 06/14/19 02:15 Dose: 650 mg Aspirin (Asa -) 81 mg PO DAILY [facility] Clopidogrel Bisulfate (Plavix -) 75 mg PO DAILY [facility] Enalapril Maleate (Vasotec -) 5 mg PO DAILY@[facility] Last Admin: 06/14/19 02:17 Dose: 5 mg Gabapentin (Neurontin -) 300 mg PO HS [facility] Last Admin: 06/14/19 02:17 Dose: 300 mg Heparin Sodium (Porcine) (Heparin -) 5,000 unit SQ BID [facility] Last Admin: 06/13/19 22:48 Dose: 5,000 unit Piperacillin Sod/Tazobactam (Sod 3.375 gm/ Dextrose) 50 mls @ 100 mls/hr IVPB Q8H-IV [facility]; Protocol Piperacillin Sod/Tazobactam (Sod 3.375 gm/ Dextrose) 50 mls @ 100 mls/hr IVPB Q8H-IV [facility]; Protocol Stop: 06/14/19 18:29 Last Admin: 06/14/19 02:07 Dose: 100 mls/hr Vancomycin HCl 1,000 mg/ (Dextrose) 250 mls @ 200 mls/hr IVPB Q24H [facility]; Protocol Vancomycin HCl 1,000 mg/ (Dextrose) 250 mls @ 166.667 mls/hr IVPB Q24H [facility]; Protocol Stop: 06/14/19 20:29 Insulin Aspart (Novolog Vial Sliding Scale -) [facility]; Protocol Last Admin: 06/14/19 06:27 Dose: 2 units Levothyroxine Sodium (Synthroid -) 25 mcg PO DAILY@0700 [facility] Last Admin: 06/14/19 06:04 Dose: 25 mcg Melatonin (Melatonin) 5 mg PO HS PRN PRN Reason: INSOMNIA Metoprolol Tartrate (Lopressor -) 50 mg PO DAILY@HS [facility] Last Admin: 06/14/19 02:17 Dose: 50 mg - Objective Vital Signs: Vital Signs Temperature 98.4 F 06/14/19 06:00 Pulse Rate 60 06/14/19 06:00 Respiratory Rate 18 06/14/19 00:48 Blood Pressure 124/53 L 06/14/19 06:00 O2 Sat by Pulse Oximetry (%) 99 06/14/19 00:48 Constitutional: Yes: Well Nourished, No Distress, Calm Cardiovascular: Yes: Regular Rate and Rhythm Respiratory: Yes: Regular Gastrointestinal: Yes: Normal Bowel Sounds, Soft Genitourinary: Yes: WNL Musculoskeletal: Yes: WNL Extremities: Yes: Erythema (right lateral plantar) Edema: No Peripheral Pulses WNL: Yes Neurological: Yes: Alert, Oriented Psychiatric: Yes: Alert, Oriented Labs: CBC, BMP 06/14/19 06:10 06/14/19 06:10 Problem List - Problems (1) Cellulitis Assessment/Plan: - ID consult -Podiatry consult -Vascular consult -IV abx -afebrile -no leukocytosis -pain management -Check ESR/CRP Code(s): L03.90 - CELLULITIS, UNSPECIFIED Qualifiers: Site of cellulitis: extremity Site of cellulitis of extremity: lower extremity Laterality: right Qualified Code(s): L03.115 - Cellulitis of right lower limb (2) Diabetes Assessment/Plan: -check a1c -BGM AC HS -ISS -Endocrinology consult -Diabetes low sodium diet Code(s): E11.9 - TYPE 2 DIABETES MELLITUS WITHOUT COMPLICATIONS Assessment/Plan see problem list DVT ppx Self ambulatory
--- NOTE | 2019-06-14 11:05 | CONSULT ---
- Consultation REQUESTING PROVIDER: CONSULT REQUEST: We have been asked to surgically evaluate this patient for Rt foot wound PCP:Ariana Caballero HISTORY OF PRESENT ILLNESS: 54yo F with long history of Rt foot wound and DM. Pt is followed by Dr. Bell in the wound care clinic who last saw the pt on 06/09/19. Pt states that she came into the hospital after found to have worsening pain and redness around her foot. Pt has a history of RLE angio with stent placement, pt had vascular study several weeks ago that showed good flow in her RLE. PMHx: DM, Hypothyroidism, PVD Home Medications Medication Instructions Recorded Aspirin [ASA -] 81 mg PO DAILY 06/30/14 Gabapentin 300 mg PO HS 10/25/14 Humalog Kwikpen U-200 20 - 25 unit SQ TID 12/28/16 Acetaminophen [Tylenol .Regular 650 mg PO Q6H PRN #0 tablet 01/15/17 Strength -] Enalapril Maleate [Vasotec -] 5 mg PO DAILY@HS tablet 01/15/17 Metoprolol Tartrate [Lopressor -] 50 mg PO DAILY@HS tablet 01/15/17 Levothyroxine [Synthroid -] 25 mcg PO DAILY@0700 08/28/18 Ammonium Lactate Cream [Lac-Hydrin 1 applic TP BID #1 tube 01/13/19 12% Cream -] Clopidogrel Bisulfate [Plavix] 75 mg PO DAILY #30 tablet 01/24/19 Allergies Allergy/AdvReac Type Severity Reaction Status Date / Time No Known Drug Allergies Allergy Verified 09/17/18 01:13 REVIEW OF SYSTEMS: CONSTITUTIONAL: Absent: fever, chills, diaphoresis, generalized weakness, malaise, loss of appetite, weight change CARDIOVASCULAR: Absent: chest pain, syncope, palpitations, irregular heart rate, lightheadedness , peripheral edema RESPIRATORY: Absent: cough, shortness of breath, dyspnea with exertion, wheezing, stridor, hemoptysis PHYSICAL EXAM: GENERAL: Awake, alert, and fully oriented, in no acute distress. HEAD: Normal with no signs of trauma. EYES: PERRL, sclera anicteric, conjunctiva clear. NECK: Normal ROM LUNGS: Clear to auscultation bilat anteriorly. No wheezes, and no crackles. No accessory muscle use. HEART: Regular rate and rhythm. No murmurs LOWER EXTREMITIES: 2+ pulses, warm, well-perfused. No calf tenderness. No peripheral edema. Rt foot lateral foot shows 3 cm swelling, with erythema tracting up anterior foot, yellowish drainage. NEUROLOGICAL: Normal speech, gait not observed. PSYCH: Cooperative. Good eye contact. Appropriate mood and affect. SKIN: Warm, dry, normal turgor, no rashes or lesions noted. Vital Signs Temperature 98.4 F 06/14/19 06:00 Pulse Rate 60 06/14/19 06:00 Respiratory Rate 18 06/14/19 00:48 Blood Pressure 124/53 L 06/14/19 06:00 O2 Sat by Pulse Oximetry (%) 99 06/14/19 00:48 Lab Results WBC 5.3 K/mm3 (4.0-10.0) 06/14/19 06:10 RBC 3.90 M/mm3 (3.60-5.2) 06/14/19 06:10 Hgb 11.8 GM/dL (10.7-15.3) 06/14/19 06:10 Hct 35.3 % (32.4-45.2) 06/14/19 06:10 MCV 90.5 fl (80-96) 06/14/19 06:10 MCHC 33.5 g/dl (32.0-36.0) 06/14/19 06:10 RDW 13.1 % (11.6-15.6) 06/14/19 06:10 Plt Count 335 K/MM3 (134-434) 06/14/19 06:10 Sodium 139 mmol/L (136-145) 06/14/19 06:10 Potassium 3.9 mmol/L (3.5-5.1) 06/14/19 06:10 Chloride 102 mmol/L (98-107) 06/14/19 06:10 Carbon Dioxide 30 mmol/L (21-32) 06/14/19 06:10 Anion Gap 6 MMOL/L (8-16) L 06/14/19 06:10 BUN 15.8 mg/dL (7-18) 06/14/19 06:10 Creatinine 1.1 mg/dL (0.55-1.3) 06/14/19 06:10 Random Glucose 200 mg/dL (74-106) H 06/14/19 06:10 Calcium 8.8 mg/dL (8.5-10.1) 06/14/19 06:10 Problem List - Problems (1) Cellulitis Assessment/Plan: Plan -pt has good pulses and blood flow in her Rt foot, no need for vascular intervention, recommend follow up and wound care as per Podiatry (Arabella) -please contact vascular team if any changes Code(s): L03.90 - CELLULITIS, UNSPECIFIED Qualifiers: Site of cellulitis: extremity Site of cellulitis of extremity: lower extremity Laterality: right Qualified Code(s): L03.115 - Cellulitis of right lower limb
[2019-06-14] MEDS: HEPARIN NA (PORCINE) 5,000 UNITS/ML 1ML VIAL SQ SCH ×2 (11:37→22:37)
[2019-06-14] MEDS: CLOPIDOGREL BISULFATE 75 MG TABLET (FP) PO SCH (11:37)
[2019-06-14] MEDS: ASPIRIN 81 MG CHEWABLE TABLETS PO SCH (11:37)
--- NOTE | 2019-06-14 13:04 | EKG ---
Test Reason : Blood Pressure : / mmHG Vent. Rate : 084 BPM Atrial Rate : 084 BPM P-R Int : 136 ms QRS Dur : 090 ms QT Int : 406 ms P-R-T Axes : 046 035 042 degrees QTc Int : 479 ms NORMAL SINUS RHYTHM POSSIBLE LEFT ATRIAL ENLARGEMENT WHEN COMPARED WITH ECG OF 28-DEC-2016 02:37, T WAVE INVERSION NO LONGER EVIDENT IN INFERIOR LEADS Confirmed by MD Oscar, Piotr ([id number]) on 06/14/2019 1:04:17 PM Referred By: Confirmed By:Piotr Moore MD
--- NOTE | 2019-06-14 16:26 | PN ---
Progress Note (short form) - Note Progress Note: ID CONSULT DICTATED CELLULITIS R FOOT DIABETES MELLITUS AWAIT C/S EMPIRIC ZOSYN/ VANCOMYCIN LOCAL WOUND CARE
[2019-06-14] MEDS: VANCOMYCIN 1 GRAM (PRE-DOCKED) 1,000 MG/250 ML BAG IVPB SCH (17:37)
--- NOTE | 2019-06-14 20:28 | CONSULT ---
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 Cardio/Vascular: Yes: HTN, Hyperlipdemia ...LMP: 06/13/19 ...: No Endocrine: Yes: Diabetes Mellitus, Hypothyroidism - Alcohol/Substance Use Hx Alcohol Use: No - Smoking History Smoking history: Former smoker Have you smoked in the past 12 months: No Aproximately how many cigarettes per day: 0 If you are a former smoker, when did you quit?: 18 years ago Home Medications - Allergies Allergies/Adverse Reactions: Allergies Allergy/AdvReac Type Severity Reaction Status Date / Time No Known Drug Allergies Allergy Verified 09/17/18 01:13 - Home Medications Home Medications: Ambulatory Orders Aspirin [ASA -] 81 mg PO DAILY 06/30/14 Gabapentin 300 mg PO HS 10/25/14 Humalog Kwikpen U-200 20 - 25 unit SQ TID 12/28/16 Acetaminophen [Tylenol .Regular Strength -] 650 mg PO Q6H PRN #0 tablet Enalapril Maleate [Vasotec -] 5 mg PO DAILY@HS tablet 01/15/17 Metoprolol Tartrate [Lopressor -] 50 mg PO DAILY@HS tablet 01/15/17 Levothyroxine [Synthroid -] 25 mcg PO DAILY@0700 08/28/18 Ammonium Lactate Cream [Lac-Hydrin 12% Cream -] 1 applic TP BID #1 tube Clopidogrel Bisulfate [Plavix] 75 mg PO DAILY #30 tablet 01/24/19 Physical Exam Vital Signs: Vital Signs Temperature 98.0 F 06/14/19 14:38 Pulse Rate 88 06/14/19 14:38 Respiratory Rate 18 06/14/19 10:00 Blood Pressure 159/85 06/14/19 14:38 O2 Sat by Pulse Oximetry (%) 99 06/14/19 00:48 Extremities: Yes: Other (+abscess right foot, r/o om, -naveed drainage, +non draining blister with ascending cellulitis) Labs: CBC, BMP 06/14/19 06:10 06/14/19 06:10 Imaging - Results X-ray: Image Reviewed Assessment/Plan dm with neuropathy abscess right r/o om mri ordered. ivabx as per id. vascular consult. betadine dressing to wound right foot. will follow.
--- NOTE | 2019-06-14 20:33 | CONS ---
INFECTIOUS DISEASE CONSULTATION DATE OF CONSULTATION: DATE OF DICTATION: 06/14/2019 HISTORY: The patient is a 54-year-old female insulin-dependent diabetic who was evaluated for diabetic foot infection. The patient reports a history of right lateral foot callus. [facility], for her usual visit. Trimming of the callus was performed. She reports developing worsening erythema, warmth, and swelling of the lateral aspect of the right foot and noted purulent drainage. Symptoms worsened on Wednesday, June 12, 2019. She presented to the emergency room where she was noted to have erythema extending from the lateral aspect of the right foot to the dorsum of the foot. There was also some purulent drainage, which was cultured. X-rays showed old fractures of the 5th metatarsal. She denies associated fevers or chills. PAST MEDICAL HISTORY: Positive for insulin-dependent diabetes mellitus, hypertension, hyperlipidemia, coronary artery disease, hypothyroidism. ALLERGIES: No known allergies. LABORATORY DATA: White count 5.3, hematocrit 35.3, platelets 335, creatinine 1.1, ESR 34, C-reactive protein 3.2, white count 1 white cell. Blood and wound cultures pending. PHYSICAL EXAMINATION: General: She is awake and alert. She is not acutely toxic appearing. Vital Signs: Temperature 98.0, blood pressure 159/85, pulse 88 regular, respirations 20 per minute. HEENT: Sclerae anicteric. Heart: Sounds S1, S2. Lungs: Clear. Abdomen: Soft. Extremities: Examination of the lower extremities, there is a hard callus present on the lateral aspect of the right foot at the midfoot. There is erythema extending from that callus to the dorsum of the foot proximally. There is no crepitus, fluctuance, or expressible pus. IMPRESSION: 1. Cellulitis of the right foot. 2. Diabetes mellitus. PLAN: Await wound and blood culture results. Empiric antibiotic coverage with vancomycin and Zosyn. Local wound care. We will follow. Thank you for the kind referral. TRISTIN JIMÉNEZ M.D. [id number]
[2019-06-14] MEDS: MELATONIN 5 MG TABLETS PO PRN (22:38)
[2019-06-14] MEDS ORDERED: FAMOTIDINE 20 MG/50 ML IVPB 20 MG/50 ML MG IVPB ONE (23:02)
[2019-06-15] MEDS ORDERED: PIPERACILLIN/TAZOBACTAM 3.375 GM VIAL IVPB ONE ×3 (02:57→17:08)
[2019-06-15] MEDS ORDERED: DEXTROSE 5%-WATER - 50 ML IVPB ONE ×3 (02:57→17:08)
[2019-06-15] MEDS: PIPERACILLIN/TAZOB 3.375 GM 3.375 GM in DEXTROSE 5%-WATER - 50 ML IVPB SCH ×3 (02:59→17:21)
[2019-06-15] MEDS: VANCOMYCIN 1 GRAM (PRE-DOCKED) 1,000 MG/250 ML BAG IVPB SCH ×2 (03:57→17:20)
[2019-06-15] MEDS ORDERED: INSULIN (NOVOLOG) ASPART 100 UNITS/ML 10ML VIAL ONE ×2 (06:23→11:40)
[2019-06-15] MEDS: LEVOTHYROXINE NA 25 MCG TABLET (FP) PO SCH (06:24)
[2019-06-15] MEDS: INSULIN SLIDING SCALE (NOVOLOG) 1 VIAL SQ SCH ×4 (06:24→21:55)
[2019-06-15] MEDS: HEPARIN NA (PORCINE) 5,000 UNITS/ML 1ML VIAL SQ SCH ×2 (10:06→21:54)
[2019-06-15] MEDS: CLOPIDOGREL BISULFATE 75 MG TABLET (FP) PO SCH (10:06)
[2019-06-15] MEDS: ASPIRIN 81 MG CHEWABLE TABLETS PO SCH (10:06)
[2019-06-15] MEDS: ACETAMINOPHEN 325 MG TABLET (FP) PO PRN (10:08)
[2019-06-15] MEDS ORDERED: ASPIRIN 81 MG CHEWABLE TABLETS ONE (10:25)
--- NOTE | 2019-06-15 11:13 | PN ---
Progress Note, Physician Chief Complaint: Right foot cellulitis Uncontrolled Diabetes Mellitus 2 History of Present Illness: NAD sitting in chair - Current Medication List Current Medications: Active Medications Acetaminophen (Tylenol -) 650 mg PO Q6H PRN PRN Reason: FEVER Last Admin: 06/15/19 10:08 Dose: 650 mg Aspirin (Asa -) 81 mg PO DAILY [facility] Last Admin: 06/15/19 10:06 Dose: 81 mg Clopidogrel Bisulfate (Plavix -) 75 mg PO DAILY [facility] Last Admin: 06/15/19 10:06 Dose: 75 mg Enalapril Maleate (Vasotec -) 5 mg PO DAILY@[facility] Last Admin: 06/14/19 22:38 Dose: 5 mg Gabapentin (Neurontin -) 300 mg PO HS [facility] Last Admin: 06/14/19 22:37 Dose: 300 mg Heparin Sodium (Porcine) (Heparin -) 5,000 unit SQ BID [facility] Last Admin: 06/15/19 10:06 Dose: 5,000 unit Piperacillin Sod/Tazobactam (Sod 3.375 gm/ Dextrose) 50 mls @ 100 mls/hr IVPB Q8H-IV [facility]; Protocol Last Admin: 06/15/19 10:07 Dose: 100 mls/hr Vancomycin HCl (Vancomycin (Pre-Docked)) 1,000 mg in 250 mls @ 166.667 mls/hr IVPB Q12H [facility]; Protocol Last Admin: 06/15/19 03:57 Dose: 166.667 mls/hr Insulin Aspart (Novolog Vial Sliding Scale -) 1 vial SQ ACHS [facility]; Protocol Last Admin: 06/15/19 06:24 Dose: 2 units Levothyroxine Sodium (Synthroid -) 25 mcg PO DAILY@0700 [facility] Last Admin: 06/15/19 06:24 Dose: 25 mcg Melatonin (Melatonin) 5 mg PO HS PRN PRN Reason: INSOMNIA Last Admin: 06/14/19 22:38 Dose: 5 mg Metoprolol Tartrate (Lopressor -) 50 mg PO DAILY@HS [facility] Last Admin: 06/14/19 22:38 Dose: 50 mg - Objective Vital Signs: Vital Signs Temperature 98.2 F 06/15/19 09:15 Pulse Rate 84 06/15/19 09:15 Respiratory Rate 14 06/15/19 09:15 Blood Pressure 124/78 06/15/19 09:15 O2 Sat by Pulse Oximetry (%) 99 06/14/19 21:00 Constitutional: Yes: Well Nourished, No Distress, Calm Cardiovascular: Yes: Regular Rate and Rhythm Respiratory: Yes: Regular Gastrointestinal: Yes: WNL Genitourinary: Yes: WNL Musculoskeletal: Yes: WNL Extremities: Yes: Erythema (Right lateral plantar foot) Edema: No Peripheral Pulses WNL: Yes Neurological: Yes: Alert, Oriented Psychiatric: Yes: Alert, Oriented Labs: CBC, BMP 06/14/19 06:10 06/14/19 06:10 Problem List - Problems (1) Cellulitis Assessment/Plan: - ID consult -Podiatry consult -Vascular consult -IV abx -afebrile -no leukocytosis -pain management -ESR/CRP elevated -MRI RLE done, results pending Code(s): L03.90 - CELLULITIS, UNSPECIFIED Qualifiers: Site of cellulitis: extremity Site of cellulitis of extremity: lower extremity Laterality: right Qualified Code(s): L03.115 - Cellulitis of right lower limb (2) Diabetes Assessment/Plan: -check a1c -BGM AC HS -ISS -Endocrinology consult -Diabetes low sodium diet Code(s): E11.9 - TYPE 2 DIABETES MELLITUS WITHOUT COMPLICATIONS Assessment/Plan see problem list DVT ppx Self ambulatory
--- NOTE | 2019-06-15 12:17 | PN ---
Progress Note (short form) - Note Progress Note: FUV right foot. No pain. VSS. MRI done. +enlarged blister right foot lateral aspect, -drainage, -mal odor, -tender Abscess/Blister right r/o om After patient was consented and foot was prepped using a 6cc syringe and an 18guage draw up needle the blister/abscess was evacuated at bedside under sterile technique w/o anesthesia. Specimen sent to microbiolgy for culture. Betadine dressing. Tyler review MR results once read. Will formulate tx plan after that. Will follow.
[2019-06-15] MEDS ORDERED: BASAGLAR 100 UNIT/ML PO SCH (13:15)
--- NOTE | 2019-06-15 15:03 | EKG ---
Test Reason : Blood Pressure : / mmHG Vent. Rate : 085 BPM Atrial Rate : 085 BPM P-R Int : 146 ms QRS Dur : 090 ms QT Int : 386 ms P-R-T Axes : 054 038 023 degrees QTc Int : 459 ms NORMAL SINUS RHYTHM POSSIBLE LEFT ATRIAL ENLARGEMENT BORDERLINE ECG WHEN COMPARED WITH ECG OF 13-JUN-2019 18:37, NO SIGNIFICANT CHANGE WAS FOUND Confirmed by MIRIAM STOVALL MD ([id number]) on 06/15/2019 3:02:47 PM Referred By: Confirmed By:MIRIAM STOVALL MD
[2019-06-15] MEDS: GABAPENTIN 300 MG CAPSULE (FP) PO SCH (21:54)
[2019-06-15] MEDS: METOPROLOL TARTRATE 50 MG TABLET (FP) PO SCH (21:54)
[2019-06-15] MEDS: ENALAPRIL MALEATE 5 MG TABLET (FP) PO SCH (21:54)
[2019-06-15] MEDS: BASAGLAR 100 UNIT/ML PO SCH (21:56)
[2019-06-15] MEDS ORDERED: INSULIN (LEVEMIR) 100 UNITS/ML UNITS SQ SCH (22:00)
[2019-06-16] MEDS ORDERED: PIPERACILLIN/TAZOBACTAM 3.375 GM VIAL IVPB ONE ×3 (01:18→16:40)
[2019-06-16] MEDS ORDERED: DEXTROSE 5%-WATER - 50 ML IVPB ONE ×3 (01:18→16:41)
[2019-06-16] MEDS: PIPERACILLIN/TAZOB 3.375 GM 3.375 GM in DEXTROSE 5%-WATER - 50 ML IVPB SCH ×3 (02:14→17:01)
[2019-06-16] MEDS: VANCOMYCIN 1 GRAM (PRE-DOCKED) 1,000 MG/250 ML BAG IVPB SCH (04:16)
[2019-06-16] MEDS: ACETAMINOPHEN 325 MG TABLET (FP) PO PRN (04:20)
[2019-06-16] MEDS: INSULIN SLIDING SCALE (NOVOLOG) 1 VIAL SQ SCH ×4 (06:49→22:33)
[2019-06-16] MEDS: LEVOTHYROXINE NA 25 MCG TABLET (FP) PO SCH (06:49)
[2019-06-16] MEDS: BASAGLAR 100 UNIT/ML PO SCH ×2 (06:50→22:35)
[2019-06-16] MEDS: HEPARIN NA (PORCINE) 5,000 UNITS/ML 1ML VIAL SQ SCH ×2 (09:48→22:32)
[2019-06-16] MEDS: ASPIRIN 81 MG CHEWABLE TABLETS PO SCH (09:48)
[2019-06-16] MEDS: CLOPIDOGREL BISULFATE 75 MG TABLET (FP) PO SCH (09:48)
--- NOTE | 2019-06-16 10:15 | PN ---
Progress Note, Physician Chief Complaint: Right Foot Cellulitis Uncontrolled DM History of Present Illness: Previous notes and events reviewed awake and alert NAD s/p bedside I&D yesterday with podiatry no leukocytosis afebrile - Current Medication List Current Medications: Active Medications Acetaminophen (Tylenol -) 650 mg PO Q6H PRN PRN Reason: FEVER Last Admin: 06/16/19 04:20 Dose: 650 mg Aspirin (Asa -) 81 mg PO DAILY [facility] Last Admin: 06/16/19 09:48 Dose: 81 mg Clopidogrel Bisulfate (Plavix -) 75 mg PO DAILY [facility] Last Admin: 06/16/19 09:48 Dose: 75 mg Enalapril Maleate (Vasotec -) 5 mg PO DAILY@[facility] Last Admin: 06/15/19 21:54 Dose: 5 mg Gabapentin (Neurontin -) 300 mg PO HS [facility] Last Admin: 06/15/19 21:54 Dose: 300 mg Heparin Sodium (Porcine) (Heparin -) 5,000 unit SQ BID [facility] Last Admin: 06/16/19 09:48 Dose: 5,000 unit Piperacillin Sod/Tazobactam (Sod 3.375 gm/ Dextrose) 50 mls @ 100 mls/hr IVPB Q8H-IV [facility]; Protocol Last Admin: 06/16/19 09:49 Dose: 100 mls/hr Vancomycin HCl (Vancomycin (Pre-Docked)) 1,000 mg in 250 mls @ 166.667 mls/hr IVPB Q12H [facility]; Protocol Last Admin: 06/16/19 04:16 Dose: 166.667 mls/hr Insulin Aspart (Novolog Vial Sliding Scale -) 1 vial SQ ACHS [facility]; Protocol Last Admin: 06/16/19 06:49 Dose: 2 units Levothyroxine Sodium (Synthroid -) 25 mcg PO DAILY@0700 [facility] Last Admin: 06/16/19 06:49 Dose: 25 mcg Melatonin (Melatonin) 5 mg PO HS PRN PRN Reason: INSOMNIA Last Admin: 06/14/19 22:38 Dose: 5 mg Metoprolol Tartrate (Lopressor -) 50 mg PO DAILY@HS [facility] Last Admin: 06/15/19 21:54 Dose: 50 mg Basaglar 100 Units/Ml(Patient's Own Med ) 0 each PO BID@0700,2200 [facility] Last Admin: 06/16/19 06:50 Dose: 1 each - Objective Vital Signs: Vital Signs Temperature 97.9 F 06/16/19 08:03 Pulse Rate 75 06/16/19 08:03 Respiratory Rate 15 06/16/19 08:03 Blood Pressure 116/60 06/16/19 08:03 O2 Sat by Pulse Oximetry (%) 99 06/15/19 21:00 Constitutional: Yes: No Distress, Calm Eyes: Yes: Conjunctiva Clear HENT: Yes: Atraumatic Cardiovascular: Yes: Regular Rate and Rhythm Respiratory: Yes: Regular, CTA Bilaterally Gastrointestinal: Yes: Normal Bowel Sounds, Soft Musculoskeletal: Yes: Muscle Weakness Extremities: Yes: WNL Edema: No Wound/Incision: Yes: Dressing Dry and Intact Neurological: Yes: Alert, Oriented Psychiatric: Yes: Alert, Oriented Labs: CBC, BMP 06/14/19 06:10 06/14/19 06:10 Microbiology 06/13/19 18:16 Blood - Peripheral Venous Blood Culture - Preliminary NO GROWTH OBTAINED AFTER 48 HOURS, INCUBATION TO CONTINUE FOR 3 DAYS. 06/13/19 18:16 Blood - Peripheral Venous Blood Culture - Preliminary NO GROWTH OBTAINED AFTER 48 HOURS, INCUBATION TO CONTINUE FOR 3 DAYS. 06/15/19 12:00 Foot - Right Lateral Gram Stain - Final 06/13/19 18:16 Foot - Right Lateral Gram Stain - Final 06/13/19 18:16 Foot - Right Lateral Wound Culture - Preliminary Lactose Fermenting Neg Bacilli Lactose Fermenting Neg Bacilli#2 Staphylococcus Coagulase Neg Alpha Hemolytic Streptococcus 06/13/19 18:16 Urine - Urine Clean Catch Urine Culture - Final NO GROWTH OBTAINED - ....Imaging MRI: Report Reviewed Problem List - Problems (1) Cellulitis Assessment/Plan: -ID on board -no leukocytosis -afebrile -MRI RLE shows no osteomyelitis -ESR and CRP elevated -wound culture from 06/13 positive, repeat wound culture pending -Podiatry and Vascular on board -Vancomycin and Zosyn Code(s): L03.90 - CELLULITIS, UNSPECIFIED Qualifiers: Site of cellulitis: extremity Site of cellulitis of extremity: lower extremity Laterality: right Qualified Code(s): L03.115 - Cellulitis of right lower limb (2) Hypertension Assessment/Plan: -Vasotec and Metoprolol -low Na diet Code(s): I10 - ESSENTIAL (PRIMARY) HYPERTENSION Qualifiers: (3) Hypothyroidism Assessment/Plan: -Levothyroxine Code(s): E03.9 - HYPOTHYROIDISM, UNSPECIFIED Qualifiers: (4) Type 2 diabetes mellitus with foot ulcer Assessment/Plan: -BGM ACHS -diabetic diet -ISS -HgA1c 8.3% -Endocrinology consult Code(s): E11.621 - TYPE 2 DIABETES MELLITUS WITH FOOT ULCER; L97.509 - NON- PRESSURE CHRONIC ULCER OTH PRT UNSP FOOT W UNSP SEVERITY Qualifiers: Assessment/Plan see problem list dvt ppx
[2019-06-16] MEDS ORDERED: INSULIN (NOVOLOG) ASPART 100 UNITS/ML 10ML VIAL ONE (11:20)
--- NOTE | 2019-06-16 13:45 | PN ---
Progress Note, Physician History of Present Illness: C/O R FOOT PAIN AFEBRILE MRI NO OSTEO WOUND C/S POLYMICROBIAL - Current Medication List Current Medications: Active Medications Acetaminophen (Tylenol -) 650 mg PO Q6H PRN PRN Reason: FEVER Last Admin: 06/16/19 04:20 Dose: 650 mg Aspirin (Asa -) 81 mg PO DAILY [facility] Last Admin: 06/16/19 09:48 Dose: 81 mg Clopidogrel Bisulfate (Plavix -) 75 mg PO DAILY [facility] Last Admin: 06/16/19 09:48 Dose: 75 mg Enalapril Maleate (Vasotec -) 5 mg PO DAILY@HS [facility] Last Admin: 06/15/19 21:54 Dose: 5 mg Gabapentin (Neurontin -) 300 mg PO HS [facility] Last Admin: 06/15/19 21:54 Dose: 300 mg Heparin Sodium (Porcine) (Heparin -) 5,000 unit SQ BID [facility] Last Admin: 06/16/19 09:48 Dose: 5,000 unit Piperacillin Sod/Tazobactam (Sod 3.375 gm/ Dextrose) 50 mls @ 100 mls/hr IVPB Q8H-IV [facility]; Protocol Last Admin: 06/16/19 09:49 Dose: 100 mls/hr Vancomycin HCl (Vancomycin (Pre-Docked)) 1,000 mg in 250 mls @ 166.667 mls/hr IVPB Q12H [facility]; Protocol Last Admin: 06/16/19 04:16 Dose: 166.667 mls/hr Insulin Aspart (Novolog Vial Sliding Scale -) 1 vial SQ ACHS [facility]; Protocol Last Admin: 06/16/19 11:25 Dose: 2 units Levothyroxine Sodium (Synthroid -) 25 mcg PO DAILY@0700 [facility] Last Admin: 06/16/19 06:49 Dose: 25 mcg Melatonin (Melatonin) 5 mg PO HS PRN PRN Reason: INSOMNIA Last Admin: 06/14/19 22:38 Dose: 5 mg Metoprolol Tartrate (Lopressor -) 50 mg PO DAILY@HS [facility] Last Admin: 06/15/19 21:54 Dose: 50 mg Basaglar 100 Units/Ml(Patient's Own Med ) 0 each PO BID@0700,2200 [facility] Last Admin: 06/16/19 06:50 Dose: 1 each - Objective Vital Signs: Vital Signs Temperature 97.9 F 09/19/19 08:03 Pulse Rate 75 06/16/19 08:03 Respiratory Rate 15 06/16/19 08:03 Blood Pressure 116/60 06/16/19 08:03 O2 Sat by Pulse Oximetry (%) 99 06/15/19 21:00 Constitutional: Yes: No Distress Cardiovascular: Yes: Regular Rate and Rhythm, S1, S2 Respiratory: Yes: CTA Bilaterally Gastrointestinal: Yes: Normal Bowel Sounds, Soft. No: Tenderness Extremities: Yes: Other (R LATERAL FOOT ERYTHEMA IMPROVED; + DRY PLANTAR CALLOUS ; BULLA WITH CLEAR FLUID LATERAL FOOT) Labs: CBC, BMP 06/14/19 06:10 06/14/19 06:10 Assessment/Plan CELLULITIS R FOOT IMPROVED DM AWAIT FINAL WOUND C/S CONTINUE ZOSYN D/C VANCOMYCIN
--- NOTE | 2019-06-16 14:09 | PN ---
Progress Note (short form) - Note Progress Note: FUV right foot. No pain. VSS. MRI done. +improved blister right foot lateral aspect, -drainage, -mal odor, -tender Abscess/Blister right r/o om ID note read and appreciated. Continue betadine dressing to wound right foot. Will follow. Patient needs diabetic shoes with proper insoles.
[2019-06-16] MEDS: PANTOPRAZOLE 40 MG TABLET (FP) PO SCH (15:16)
[2019-06-16] MEDS ORDERED: PT OWN MED DRAWER 7, Y5N ONE (22:30)
[2019-06-16] MEDS: GABAPENTIN 300 MG CAPSULE (FP) PO SCH (22:33)
[2019-06-16] MEDS: ENALAPRIL MALEATE 5 MG TABLET (FP) PO SCH (22:33)
[2019-06-16] MEDS: METOPROLOL TARTRATE 50 MG TABLET (FP) PO SCH (22:33)
[2019-06-17] MEDS ORDERED: PT OWN MED DRAWER 7, Y5N ONE ×3 (01:12→09:44)
[2019-06-17] MEDS ORDERED: PIPERACILLIN/TAZOBACTAM 3.375 GM VIAL IVPB ONE ×3 (01:12→16:49)
[2019-06-17] MEDS ORDERED: DEXTROSE 5%-WATER - 50 ML IVPB ONE ×3 (01:14→16:49)
[2019-06-17] MEDS: PIPERACILLIN/TAZOB 3.375 GM 3.375 GM in DEXTROSE 5%-WATER - 50 ML IVPB SCH ×3 (01:45→17:44)
[2019-06-17] MEDS: LEVOTHYROXINE NA 25 MCG TABLET (FP) PO SCH (06:44)
[2019-06-17] MEDS: BASAGLAR 100 UNIT/ML PO SCH ×2 (06:44→22:23)
[2019-06-17] MEDS: INSULIN SLIDING SCALE (NOVOLOG) 1 VIAL SQ SCH ×4 (06:44→22:20)
[2019-06-17] MEDS: ACETAMINOPHEN 325 MG TABLET (FP) PO PRN ×2 (06:47→22:31)
[2019-06-17 08:56] LABS: HEMATOCRIT 32.7 % (32.4-45.2); HEMOGLOBIN 11.1 GM/dL (10.7-15.3); MCH 30.1 pg (25.7-33.7); MCHC 33.9 g/dl (32.0-36.0); MEAN CELL VOLUME 88.8 fl (80-96); MEAN PLT VOLUME 8.9 fl (7.5-11.1); PLATELET COUNT 342 K/MM3 (134-434); RBC 3.69 M/mm3 (3.60-5.2); RDW 12.8 % (11.6-15.6); WHITE BLOOD COUNT 4.8 K/mm3 (4.0-10.0)
[2019-06-17 09:22] LABS: BILIRUBIN,TOTAL 0.3 mg/dL (0.2-1); BLOOD UREA NITROGEN 27.9 mg/dL (7-18); CREATININE 1.1 mg/dL (0.55-1.3); POTASSIUM 3.9 mmol/L (3.5-5.1); TOT PROT 6.6 g/dl (6.4-8.2)
[2019-06-17] MEDS: PANTOPRAZOLE 40 MG TABLET (FP) PO SCH (09:57)
[2019-06-17] MEDS: HEPARIN NA (PORCINE) 5,000 UNITS/ML 1ML VIAL SQ SCH ×2 (09:58→22:22)
[2019-06-17] MEDS: CLOPIDOGREL BISULFATE 75 MG TABLET (FP) PO SCH (09:58)
[2019-06-17] MEDS: ASPIRIN 81 MG CHEWABLE TABLETS PO SCH (09:58)
--- NOTE | 2019-06-17 14:44 | PN ---
Progress Note, Physician Chief Complaint: Right Foot Cellulitis Uncontrolled DM History of Present Illness: Previous notes and events reviewed awake and alert NAD sts pain to R foot with ambulating no leukocytosis afebrile - Current Medication List Current Medications: Active Medications Acetaminophen (Tylenol -) 650 mg PO Q6H PRN PRN Reason: FEVER Last Admin: 06/17/19 06:47 Dose: 650 mg Aspirin (Asa -) 81 mg PO DAILY [facility] Last Admin: 06/17/19 09:58 Dose: 81 mg Clopidogrel Bisulfate (Plavix -) 75 mg PO DAILY [facility] Last Admin: 06/17/19 09:58 Dose: 75 mg Enalapril Maleate (Vasotec -) 5 mg PO DAILY@HS [facility] Last Admin: 06/16/19 22:33 Dose: 5 mg Gabapentin (Neurontin -) 300 mg PO HS [facility] Last Admin: 06/16/19 22:33 Dose: 300 mg Heparin Sodium (Porcine) (Heparin -) 5,000 unit SQ BID [facility] Last Admin: 06/17/19 09:58 Dose: 5,000 unit Piperacillin Sod/Tazobactam (Sod 3.375 gm/ Dextrose) 50 mls @ 100 mls/hr IVPB Q8H-IV [facility]; Protocol Last Admin: 06/17/19 09:58 Dose: 100 mls/hr Insulin Aspart (Novolog Vial Sliding Scale -) 1 vial SQ ACHS [facility]; Protocol Last Admin: 06/17/19 12:26 Dose: 4 units Levothyroxine Sodium (Synthroid -) 25 mcg PO DAILY@0700 [facility] Last Admin: 06/17/19 06:44 Dose: 25 mcg Melatonin (Melatonin) 5 mg PO HS PRN PRN Reason: INSOMNIA Last Admin: 06/14/19 22:38 Dose: 5 mg Metoprolol Tartrate (Lopressor -) 50 mg PO DAILY@HS [facility] Last Admin: 06/16/19 22:33 Dose: 50 mg Basaglar 100 Units/Ml(Patient's Own Med ) 0 each PO BID@0700,2200 [facility] Last Admin: 06/17/19 06:44 Dose: 1 each Pantoprazole Sodium (Protonix -) 40 mg PO DAILY [facility] Last Admin: 06/17/19 09:57 Dose: 40 mg - Objective Vital Signs: Vital Signs Temperature 98.1 F 06/17/19 05:08 Pulse Rate 79 06/17/19 05:08 Respiratory Rate 20 06/17/19 05:08 Blood Pressure 101/56 L 06/17/19 05:08 O2 Sat by Pulse Oximetry (%) 100 06/16/19 21:00 Constitutional: Yes: No Distress, Calm Eyes: Yes: Conjunctiva Clear HENT: Yes: Atraumatic Cardiovascular: Yes: Regular Rate and Rhythm Respiratory: Yes: Regular, CTA Bilaterally Gastrointestinal: Yes: Normal Bowel Sounds, Soft Musculoskeletal: Yes: WNL Extremities: Yes: WNL Edema: No Wound/Incision: Yes: Dressing Dry and Intact Neurological: Yes: Alert, Oriented Psychiatric: Yes: Alert, Oriented Labs: CBC, BMP 06/17/19 07:43 06/17/19 07:43 Microbiology 06/15/19 12:00 Foot - Right Lateral Gram Stain - Final 06/15/19 12:00 Foot - Right Lateral Wound Culture - Preliminary Enterobacter Cloacae Lactose Fermenting Neg Bacilli#2 Alpha Hemolytic Streptococcus 06/13/19 18:16 Blood - Peripheral Venous Blood Culture - Preliminary NO GROWTH OBTAINED AFTER 72 HOURS, INCUBATION TO CONTINUE FOR 2 DAYS. 06/13/19 18:16 Blood - Peripheral Venous Blood Culture - Preliminary NO GROWTH OBTAINED AFTER 72 HOURS, INCUBATION TO CONTINUE FOR 2 DAYS. 06/13/19 18:16 Foot - Right Lateral Gram Stain - Final 06/13/19 18:16 Foot - Right Lateral Wound Culture - Final Klebsiella Oxytoca Enterobacter Cloacae Staphylococcus Coagulase Neg Alpha Hemolytic Streptococcus 06/13/19 18:16 Urine - Urine Clean Catch Urine Culture - Final NO GROWTH OBTAINED Problem List - Problems (1) Cellulitis Assessment/Plan: -ID on board -no leukocytosis -afebrile -MRI RLE shows no osteomyelitis -ESR and CRP elevated -wound culture from 06/13 positive, repeat wound culture positive -Podiatry and Vascular on board -Zosyn Code(s): L03.90 - CELLULITIS, UNSPECIFIED Qualifiers: Site of cellulitis: extremity Site of cellulitis of extremity: lower extremity Laterality: right Qualified Code(s): L03.115 - Cellulitis of right lower limb (2) Hypertension Assessment/Plan: -Vasotec and Metoprolol -low Na diet Code(s): I10 - ESSENTIAL (PRIMARY) HYPERTENSION Qualifiers: (3) Hypothyroidism Assessment/Plan: -Levothyroxine Code(s): E03.9 - HYPOTHYROIDISM, UNSPECIFIED Qualifiers: (4) Type 2 diabetes mellitus with foot ulcer Assessment/Plan: -BGM ACHS -diabetic diet -ISS -HgA1c 8.3% -Endocrinology consult Code(s): E11.621 - TYPE 2 DIABETES MELLITUS WITH FOOT ULCER; L97.509 - NON- PRESSURE CHRONIC ULCER OTH PRT UNSP FOOT W UNSP SEVERITY Qualifiers: Assessment/Plan see problem list dvt ppx
--- NOTE | 2019-06-17 16:25 | PN ---
Progress Note, Physician History of Present Illness: REPORTS LESS R FOOT PAIN AFEBRILE MRI NO OSTEO WOUND C/S POLYMICROBIAL - Current Medication List Current Medications: Active Medications Acetaminophen (Tylenol -) 650 mg PO Q6H PRN PRN Reason: FEVER Last Admin: 06/17/19 06:47 Dose: 650 mg Aspirin (Asa -) 81 mg PO DAILY [facility] Last Admin: 06/17/19 09:58 Dose: 81 mg Clopidogrel Bisulfate (Plavix -) 75 mg PO DAILY [facility] Last Admin: 06/17/19 09:58 Dose: 75 mg Enalapril Maleate (Vasotec -) 5 mg PO DAILY@HS [facility] Last Admin: 06/16/19 22:33 Dose: 5 mg Gabapentin (Neurontin -) 300 mg PO HS [facility] Last Admin: 06/16/19 22:33 Dose: 300 mg Heparin Sodium (Porcine) (Heparin -) 5,000 unit SQ BID [facility] Last Admin: 06/17/19 09:58 Dose: 5,000 unit Piperacillin Sod/Tazobactam (Sod 3.375 gm/ Dextrose) 50 mls @ 100 mls/hr IVPB Q8H-IV [facility]; Protocol Last Admin: 06/17/19 09:58 Dose: 100 mls/hr Insulin Aspart (Novolog Vial Sliding Scale -) 1 vial SQ ACHS [facility]; Protocol Last Admin: 06/17/19 12:26 Dose: 4 units Levothyroxine Sodium (Synthroid -) 25 mcg PO DAILY@0700 [facility] Last Admin: 06/17/19 06:44 Dose: 25 mcg Melatonin (Melatonin) 5 mg PO HS PRN PRN Reason: INSOMNIA Last Admin: 06/14/19 22:38 Dose: 5 mg Metoprolol Tartrate (Lopressor -) 50 mg PO DAILY@HS [facility] Last Admin: 06/16/19 22:33 Dose: 50 mg Basaglar 100 Units/Ml(Patient's Own Med ) 0 each PO BID@0700,2200 [facility] Last Admin: 06/17/19 06:44 Dose: 1 each Pantoprazole Sodium (Protonix -) 40 mg PO DAILY [facility] Last Admin: 06/17/19 09:57 Dose: 40 mg - Objective Vital Signs: Vital Signs Temperature 98.0 F 06/17/19 15:00 Pulse Rate 86 06/17/19 15:00 Respiratory Rate 20 06/17/19 15:00 Blood Pressure 123/80 06/17/19 15:00 O2 Sat by Pulse Oximetry (%) 100 06/16/19 21:00 Constitutional: Yes: No Distress Cardiovascular: Yes: Regular Rate and Rhythm, S1, S2 Respiratory: Yes: CTA Bilaterally Gastrointestinal: Yes: Normal Bowel Sounds, Soft. No: Tenderness Extremities: Yes: Other (DECREASED ERYTHEMA R LATERAL FOOT. BLISTER INTACT) Labs: CBC, BMP 06/17/19 07:43 06/17/19 07:43 Assessment/Plan CELLULITIS R FOOT IMPROVED DM CONTINUE ZOSYN SUBSTITUTE BACTRIM DS PO BID X 7D NEXT 48HR OUTPATIENT F/U [facility]
[2019-06-17] MEDS ORDERED: INSULIN (NOVOLOG) ASPART 100 UNITS/ML 10ML VIAL ONE (22:18)
[2019-06-17] MEDS: METOPROLOL TARTRATE 50 MG TABLET (FP) PO SCH (22:23)
[2019-06-17] MEDS: GABAPENTIN 300 MG CAPSULE (FP) PO SCH (22:23)
[2019-06-17] MEDS: ENALAPRIL MALEATE 5 MG TABLET (FP) PO SCH (22:23)
[2019-06-18] MEDS ORDERED: PIPERACILLIN/TAZOBACTAM 3.375 GM VIAL IVPB ONE ×3 (02:29→17:16)
[2019-06-18] MEDS ORDERED: DEXTROSE 5%-WATER - 50 ML IVPB ONE ×3 (02:29→17:16)
[2019-06-18] MEDS: PIPERACILLIN/TAZOB 3.375 GM 3.375 GM in DEXTROSE 5%-WATER - 50 ML IVPB SCH ×3 (02:30→17:36)
[2019-06-18] MEDS: INSULIN SLIDING SCALE (NOVOLOG) 1 VIAL SQ SCH ×4 (06:58→22:37)
[2019-06-18] MEDS: BASAGLAR 100 UNIT/ML PO SCH ×2 (06:59→22:37)
[2019-06-18] MEDS: LEVOTHYROXINE NA 25 MCG TABLET (FP) PO SCH (07:01)
--- NOTE | 2019-06-18 08:33 | PN ---
Progress Note (short form) - Note Progress Note: FUV right foot. No pain. VSS. +improved blister right foot lateral aspect, -drainage, -mal odor, -tender grade 2 wound right Blister unroofed betadine dressing applied. Consult Dr. Savage for better control of her sugar levels. May be DC with abx as per ID and follow up in wound care.
[2019-06-18 08:54] LABS: HEMATOCRIT 33.2 % (32.4-45.2); MCH 29.8 pg (25.7-33.7); MCHC 33.1 g/dl (32.0-36.0); MEAN CELL VOLUME 89.9 fl (80-96); MEAN PLT VOLUME 8.9 fl (7.5-11.1); PLATELET COUNT 350 K/MM3 (134-434); RBC 3.69 M/mm3 (3.60-5.2); RDW 12.9 % (11.6-15.6); WHITE BLOOD COUNT 4.6 K/mm3 (4.0-10.0)
[2019-06-18 09:07] LABS: BILIRUBIN,TOTAL 0.3 mg/dL (0.2-1); BLOOD UREA NITROGEN 26.7 mg/dL (7-18); CALCIUM 9.2 mg/dL (8.5-10.1); CREATININE 1.3 mg/dL (0.55-1.3); POTASSIUM 4.5 mmol/L (3.5-5.1); TOT PROT 6.7 g/dl (6.4-8.2)
[2019-06-18] MEDS: HEPARIN NA (PORCINE) 5,000 UNITS/ML 1ML VIAL SQ SCH ×2 (09:39→22:36)
[2019-06-18] MEDS: ASPIRIN 81 MG CHEWABLE TABLETS PO SCH (09:40)
[2019-06-18] MEDS: PANTOPRAZOLE 40 MG TABLET (FP) PO SCH (09:40)
[2019-06-18] MEDS: CLOPIDOGREL BISULFATE 75 MG TABLET (FP) PO SCH (09:40)
[2019-06-18] MEDS ORDERED: INSULIN (NOVOLOG) ASPART 100 UNITS/ML 10ML VIAL ONE (11:53)
--- NOTE | 2019-06-18 12:02 | PN ---
Progress Note, Physician Chief Complaint: AWAKE ALERT EVENTS REVIEWED NO FEVERS - Current Medication List Current Medications: Active Medications Acetaminophen (Tylenol -) 650 mg PO Q6H PRN PRN Reason: FEVER Last Admin: 06/17/19 22:31 Dose: 650 mg Aspirin (Asa -) 81 mg PO DAILY [facility] Last Admin: 06/18/19 09:40 Dose: 81 mg Clopidogrel Bisulfate (Plavix -) 75 mg PO DAILY [facility] Last Admin: 06/18/19 09:40 Dose: 75 mg Enalapril Maleate (Vasotec -) 5 mg PO DAILY@HS [facility] Last Admin: 06/17/19 22:23 Dose: 5 mg Gabapentin (Neurontin -) 300 mg PO HS [facility] Last Admin: 06/17/19 22:23 Dose: 300 mg Heparin Sodium (Porcine) (Heparin -) 5,000 unit SQ BID [facility] Last Admin: 06/18/19 09:39 Dose: 5,000 unit Piperacillin Sod/Tazobactam (Sod 3.375 gm/ Dextrose) 50 mls @ 100 mls/hr IVPB Q8H-IV [facility]; Protocol Last Admin: 06/18/19 09:39 Dose: 100 mls/hr Insulin Aspart (Novolog Vial Sliding Scale -) 1 vial SQ ACHS [facility]; Protocol Last Admin: 06/18/19 06:58 Dose: Not Given Levothyroxine Sodium (Synthroid -) 25 mcg PO DAILY@0700 [facility] Last Admin: 06/18/19 07:01 Dose: 25 mcg Melatonin (Melatonin) 5 mg PO HS PRN PRN Reason: INSOMNIA Last Admin: 06/14/19 22:38 Dose: 5 mg Metoprolol Tartrate (Lopressor -) 50 mg PO DAILY@HS [facility] Last Admin: 06/17/19 22:23 Dose: 50 mg Basaglar 100 Units/Ml(Patient's Own Med ) 0 each PO BID@0700,2200 [facility] Last Admin: 06/18/19 06:59 Dose: 1 each Pantoprazole Sodium (Protonix -) 40 mg PO DAILY [facility] Last Admin: 06/18/19 09:40 Dose: 40 mg - Objective Vital Signs: Vital Signs Temperature 98.0 F 06/18/19 03:00 Pulse Rate 84 06/18/19 09:00 Respiratory Rate 18 06/18/19 09:00 Blood Pressure 125/76 06/18/19 09:00 O2 Sat by Pulse Oximetry (%) 96 06/17/19 21:00 Constitutional: Yes: Mild Distress Cardiovascular: Yes: Regular Rate and Rhythm Respiratory: Yes: WNL Gastrointestinal: Yes: WNL Genitourinary: Yes: WNL Musculoskeletal: Yes: Other Extremities: Yes: Deformity (RLL EXTREMITY/FOOT) Integumentary: Yes: Pressure Ulcer Wound/Incision: Yes: Dressing Dry and Intact Neurological: Yes: Pre-Existing Deficit ...Motor Strength: RLE Labs: CBC, BMP 06/18/19 07:31 06/18/19 07:31 Problem List - Problems (1) Cellulitis Code(s): L03.90 - CELLULITIS, UNSPECIFIED Qualifiers: Site of cellulitis: extremity Site of cellulitis of extremity: lower extremity Laterality: right Qualified Code(s): L03.115 - Cellulitis of right lower limb (2) Toe infection Code(s): L08.9 - LOCAL INFECTION OF THE SKIN AND SUBCUTANEOUS TISSUE, UNSP (3) Abscess or cellulitis of foot Code(s): L03.119 - CELLULITIS OF UNSPECIFIED PART OF LIMB; L02.619 - CUTANEOUS ABSCESS OF UNSPECIFIED FOOT (4) Controlled diabetes mellitus with foot ulcer, with long-term current use of insulin Code(s): E11.621 - TYPE 2 DIABETES MELLITUS WITH FOOT ULCER; L97.509 - NON- PRESSURE CHRONIC ULCER OTH PRT UNSP FOOT W UNSP SEVERITY; Z79.4 - SNF ( CURRENT) USE OF INSULIN (5) Hyperlipidemia Code(s): E78.5 - HYPERLIPIDEMIA, UNSPECIFIED Qualifiers: (6) Hypertension Code(s): I10 - ESSENTIAL (PRIMARY) HYPERTENSION Qualifiers: (7) Insulin dependent diabetes mellitus Code(s): E11.9 - TYPE 2 DIABETES MELLITUS WITHOUT COMPLICATIONS; Z79.4 - SNF (CURRENT) USE OF INSULIN Assessment/Plan IV ABX FOR 48HRS MORE WOUND CARE PER PODIATRY BGM CHECKS ENDOCRINE CONSULT NUTRITION/HOSPITAL CODER TO SEE PATIENT MENU GIVEN FOR ADA COMPLIANCE OOB TO CHAIR DVT PROPHYLAXIS
--- NOTE | 2019-06-18 18:28 | CONSULT ---
Consult Consult Specialty:: Nephrology Reason for Consultation:: hematuria - microscopic - History of Present Illness Chief Complaint: right foot infection History of Present Illness: Pt is a 54 year old female with pmhx of елена, dm, htn, hld, cad, hypothyroidism who presents to the ER with right foot infection. I was called to evaluate her for abnormal ua. She has history of ЕЛЕНА in the past however her renal function improved. She is being treated for foot cellulitis. She denies fevers or chills at the moment. SHe denies dysuria or gross hematuria. She is awake and alert. She says that her renal function had stabilized after her last hospitalization but always bumps up when she is on antibiotics. 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: Yes: CVA Cardio/Vascular: Yes: HTN, Hyperlipdemia Renal/: Yes: Other (елена) ...LMP: 10/29/18 ...: No Endocrine: Yes: Diabetes Mellitus, Hypothyroidism - Alcohol/Substance Use Hx Alcohol Use: No - Smoking History Smoking history: Former smoker Have you smoked in the past 12 months: No Aproximately how many cigarettes per day: 0 If you are a former smoker, when did you quit?: 18 years ago Home Medications - Allergies Allergies/Adverse Reactions: Allergies Allergy/AdvReac Type Severity Reaction Status Date / Time No Known Drug Allergies Allergy Verified 09/17/18 01:13 - Home Medications Home Medications: Ambulatory Orders Aspirin [ASA -] 81 mg PO DAILY 06/30/14 Gabapentin 300 mg PO HS 10/25/14 Humalog Kwikpen U-200 20 - 25 unit SQ TID 12/28/16 Acetaminophen [Tylenol .Regular Strength -] 650 mg PO Q6H PRN #0 tablet Enalapril Maleate [Vasotec -] 5 mg PO DAILY@HS tablet 01/15/17 Metoprolol Tartrate [Lopressor -] 50 mg PO DAILY@HS tablet 01/15/17 Levothyroxine [Synthroid -] 25 mcg PO DAILY@0700 08/28/18 Ammonium Lactate Cream [Lac-Hydrin 12% Cream -] 1 applic TP BID #1 tube Clopidogrel Bisulfate [Plavix] 75 mg PO DAILY #30 tablet 01/24/19 Family Medical History Family History: Denies Review of Systems - Review of Systems Constitutional: reports: No Symptoms Eyes: reports: No Symptoms HENT: reports: No Symptoms Neck: reports: No Symptoms Cardiovascular: reports: No Symptoms Respiratory: reports: No Symptoms Gastrointestinal: reports: No Symptoms Genitourinary: reports: No Symptoms Musculoskeletal: reports: No Symptoms Integumentary: reports: No Symptoms Neurological: reports: No Symptoms, Seizure Hematology/Lymphatic: reports: No Symptoms Psychiatric: reports: No Symptoms Physical Exam Vital Signs: Vital Signs Temperature 98.0 F 06/18/19 15:51 Pulse Rate 81 06/18/19 15:51 Respiratory Rate 18 06/18/19 15:51 Blood Pressure 158/93 06/18/19 15:51 O2 Sat by Pulse Oximetry (%) 96 06/17/19 21:00 Constitutional: Yes: Calm Eyes: Yes: Conjunctiva Clear HENT: Yes: Atraumatic Neck: Yes: Supple Cardiovascular: Yes: S1, S2 Respiratory: Yes: CTA Bilaterally Gastrointestinal: Yes: Soft Renal/: Yes: WNL Musculoskeletal: Yes: WNL Extremities: Yes: WNL Edema: No Wound/Incision: Yes: Dressing Dry and Intact Neurological: Yes: Oriented Psychiatric: Yes: Oriented Labs: CBC, BMP 06/18/19 07:31 06/18/19 07:31 Imaging - Results MRI: Report Reviewed Problem List - Problems (1) Hematuria Code(s): R31.9 - HEMATURIA, UNSPECIFIED (2) Cellulitis Code(s): L03.90 - CELLULITIS, UNSPECIFIED Qualifiers: Site of cellulitis: extremity Site of cellulitis of extremity: lower extremity Laterality: right Qualified Code(s): L03.115 - Cellulitis of right lower limb Assessment/Plan Current Medications Generic Name Dose Route Start Last Admin Trade Name Freq PRN Reason Stop Dose Admin Acetaminophen 650 mg 06/14/19 01:54 06/17/19 22:31 Tylenol - PO 650 mg Q6H PRN Administration FEVER Aspirin 81 mg 06/14/19 10:00 06/18/19 09:40 Asa - PO 81 mg DAILY [facility] Administration Clopidogrel Bisulfate 75 mg 06/14/19 10:00 06/18/19 09:40 Plavix - PO 75 mg DAILY [facility] Administration Enalapril Maleate 5 mg 06/14/19 01:49 06/17/19 22:23 Vasotec - PO 5 mg DAILY@HS [facility] Administration Gabapentin 300 mg 06/14/19 01:53 06/17/19 22:23 Neurontin - PO 300 mg HS [facility] Administration Heparin Sodium (Porcine) 5,000 unit 06/13/19 22:00 06/18/19 09:39 Heparin - SQ 5,000 unit BID [facility] Administration Piperacillin Sod/Tazobactam 50 mls @ 100 mls/hr 06/14/19 18:00 06/18/19 17:36 Sod 3.375 gm/ Dextrose IVPB 100 mls/hr Q8H-IV [facility] Administration Protocol Insulin Aspart 1 vial 06/13/19 22:00 06/18/19 17:37 Novolog Vial Sliding Scale - SQ Not Given ACHS [facility] Protocol Levothyroxine Sodium 25 mcg 06/14/19 07:00 06/18/19 07:01 Synthroid - PO 25 mcg DAILY@0700 [facility] Administration Melatonin 5 mg 06/14/19 02:24 06/14/19 22:38 Melatonin PO 5 mg HS PRN Administration INSOMNIA Metoprolol Tartrate 50 mg 06/14/19 01:49 06/17/19 22:23 Lopressor - PO 50 mg DAILY@HS [facility] Administration Basaglar 100 Units/ 0 each 06/15/19 22:00 06/18/19 06:59 Ml(Patient's Own Med PO 1 each ) BID@0700,2200 [facility] Administration Pantoprazole Sodium 40 mg 06/16/19 15:15 06/18/19 09:40 Protonix - PO 40 mg DAILY [facility] Administration Impression 1. microscopic hematuria 2. htn 3. dm 4. cellulitis 5. cad 6. hypothyroidism Plan - repeat ua - check ultrasound kidneys and bladder - avoid nsaids - avoid nephrotoxins - will follow
--- NOTE | 2019-06-18 21:59 | CONSULT ---
Consult Consult Specialty:: endocrine Referred by:: dr.[email or web address] dominguez Reason for Consultation:: diabetes mellitus T1 - History of Present Illness Chief Complaint: high sugars History of Present Illness: 54 y female,pmh DMT1 ,htn,cad,hld,presenting with rt lateral foot callus,with redness and swelling, which required surgical debridement,with significant skin and size involvement.has required insulin coverage for elevated blood sugars. 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: CVA Cardio/Vascular: Yes: HTN, Hyperlipdemia Renal/: Yes: Other (jim) ...LMP: 10/29/18 ...: No Endocrine: Yes: Diabetes Mellitus, Hypothyroidism - Alcohol/Substance Use Hx Alcohol Use: No - Smoking History Smoking history: Former smoker Have you smoked in the past 12 months: No Aproximately how many cigarettes per day: 0 If you are a former smoker, when did you quit?: 18 years ago Home Medications - Allergies Allergies/Adverse Reactions: Allergies Allergy/AdvReac Type Severity Reaction Status Date / Time No Known Drug Allergies Allergy Verified 09/17/18 01:13 - Home Medications Home Medications: Ambulatory Orders Aspirin [ASA -] 81 mg PO DAILY 06/30/14 Gabapentin 300 mg PO HS 10/25/14 Humalog Kwikpen U-200 20 - 25 unit SQ TID 12/28/16 Acetaminophen [Tylenol .Regular Strength -] 650 mg PO Q6H PRN #0 tablet Enalapril Maleate [Vasotec -] 5 mg PO DAILY@HS tablet 01/15/17 Metoprolol Tartrate [Lopressor -] 50 mg PO DAILY@HS tablet 01/15/17 Levothyroxine [Synthroid -] 25 mcg PO DAILY@0700 08/28/18 Ammonium Lactate Cream [Lac-Hydrin 12% Cream -] 1 applic TP BID #1 tube Clopidogrel Bisulfate [Plavix] 75 mg PO DAILY #30 tablet 01/24/19 Review of Systems - Review of Systems Constitutional: reports: Weakness Eyes: reports: No Symptoms HENT: reports: No Symptoms Neck: reports: No Symptoms Cardiovascular: reports: Shortness of Breath Respiratory: reports: Exercise Intolerance, SOB on Exertion Gastrointestinal: reports: Bloating Genitourinary: reports: Hematuria Breasts: reports: No Symptoms Reported Musculoskeletal: reports: Joint Pain, Joint Swelling, Muscle Weakness Integumentary: reports: Wound Neurological: reports: Numbness Endocrine: reports: Unexplained Weight Loss Physical Exam Vital Signs: Vital Signs Temperature 98.0 F 06/18/19 15:51 Pulse Rate 81 06/18/19 15:51 Respiratory Rate 18 06/18/19 15:51 Blood Pressure 158/93 06/18/19 15:51 O2 Sat by Pulse Oximetry (%) 96 06/17/19 21:00 Constitutional: Yes: Calm Eyes: Yes: EOM Intact HENT: Yes: Normocephalic Neck: Yes: Trachea Midline Cardiovascular: Yes: Regular Rate and Rhythm Respiratory: Yes: CTA Bilaterally Gastrointestinal: Yes: Normal Bowel Sounds ...Rectal Exam: Yes: Deferred Musculoskeletal: Yes: Back Pain, Joint Stiffness, Joint Swelling, Muscle Weakness Extremities: Yes: Cold, Delayed Capillary Refill Edema: RLE: Trace Peripheral Pulses WNL: Yes Wound/Incision: Yes: Draining Neurological: Yes: Alert, Oriented Labs: CBC, BMP 06/18/19 07:31 06/18/19 07:31 Problem List - Problems (1) Cellulitis Code(s): L03.90 - CELLULITIS, UNSPECIFIED Qualifiers: Site of cellulitis: extremity Site of cellulitis of extremity: lower extremity Laterality: right Qualified Code(s): L03.115 - Cellulitis of right lower limb (2) Hematuria Code(s): R31.9 - HEMATURIA, UNSPECIFIED (3) Toe infection Code(s): L08.9 - LOCAL INFECTION OF THE SKIN AND SUBCUTANEOUS TISSUE, UNSP (4) Abscess or cellulitis of foot Code(s): L03.119 - CELLULITIS OF UNSPECIFIED PART OF LIMB; L02.619 - CUTANEOUS ABSCESS OF UNSPECIFIED FOOT (5) Acute kidney injury Code(s): N17.9 - ACUTE KIDNEY FAILURE, UNSPECIFIED (6) Blister of foot Code(s): S90.829A - BLISTER (NONTHERMAL), UNSPECIFIED FOOT, INITIAL ENCOUNTER Qualifiers: Encounter type: initial encounter Laterality: right Qualified Code(s): S90.821A - Blister (nonthermal), right foot, initial encounter (7) Claudication Code(s): I73.9 - PERIPHERAL VASCULAR DISEASE, UNSPECIFIED (8) Closed fracture of right foot with malunion Code(s): S92.901P - UNSP FRACTURE OF RIGHT FOOT, SUBS FOR FX W MALUNION (9) Controlled type 1 diabetes mellitus with diabetic neuropathy Code(s): E10.40 - TYPE 1 DIABETES MELLITUS WITH DIABETIC NEUROPATHY, UNSP Assessment/Plan Current Active Problems diabetes mellitus type 1 Cellulitis (Acute) Hematuria (Acute) Toe infection (Acute) Abnormal Lab Results 06/18/19 07:31 Anion Gap 5 L BUN 26.7 H Random Glucose 119 H AST 13 L Albumin 3.0 L Laboratory Results - last 24 hr 06/17/19 06/18/19 06/18/19 22:13 06:55 07:31 WBC 4.6 RBC 3.69 Hgb 11.0 Hct 33.2 MCV 89.9 MCH 29.8 MCHC 33.1 RDW 12.9 Plt Count 350 MPV 8.9 Sodium Potassium Chloride Carbon Dioxide Anion Gap BUN Creatinine Est GFR (CKD-EPI)AfAm Est GFR (CKD-EPI)NonAf POC Glucometer 332 131 Random Glucose Calcium Total Bilirubin AST ALT Alkaline Phosphatase Total Protein Albumin 06/18/19 06/18/19 06/18/19 07:31 11:19 17:12 WBC RBC Hgb Hct MCV MCH MCHC RDW Plt Count MPV Sodium 139 Potassium 4.5 Chloride 104 Carbon Dioxide 30 Anion Gap 5 L BUN 26.7 H Creatinine 1.3 Est GFR (CKD-EPI)AfAm 54.62 Est GFR (CKD-EPI)NonAf 47.13 POC Glucometer 216 130 Random Glucose 119 H Calcium 9.2 Total Bilirubin 0.3 AST 13 L ALT 18 Alkaline Phosphatase 102 Total Protein 6.7 Albumin 3.0 L Laboratory Tests 06/13/19 18:16 Urine Blood 3+ H Urine RBC (Auto) 9 Urine Casts (Auto) 2 plan: bgm qid novlog scale basaglar 12 units bid hba1c nephrology consult appreciated
[2019-06-18] MEDS ORDERED: PT OWN MED DRAWER 7, Y5N ONE (22:32)
[2019-06-18] MEDS: GABAPENTIN 300 MG CAPSULE (FP) PO SCH (22:36)
[2019-06-18] MEDS: METOPROLOL TARTRATE 50 MG TABLET (FP) PO SCH (22:36)
[2019-06-18] MEDS: ENALAPRIL MALEATE 5 MG TABLET (FP) PO SCH (22:36)
[2019-06-19] MEDS ORDERED: DEXTROSE 5%-WATER - 50 ML IVPB ONE ×3 (02:40→16:52)
[2019-06-19] MEDS ORDERED: PIPERACILLIN/TAZOBACTAM 3.375 GM VIAL IVPB ONE ×3 (02:40→16:52)
[2019-06-19] MEDS: PIPERACILLIN/TAZOB 3.375 GM 3.375 GM in DEXTROSE 5%-WATER - 50 ML IVPB SCH ×3 (02:47→17:43)
[2019-06-19 05:02] LABS: PH,URINE 5.5 (5.0-8.0); URINE APPEARANCE CLEAR; URINE BILIRUBIN NEGATIVE (NEGATIVE); URINE COLOR YELLOW; URINE GLUCOSE (UA) 1+ (NEGATIVE); URINE KETONE NEGATIVE (NEGATIVE); URINE LEUK ESTERASE NEGATIVE (NEGATIVE); URINE NITRITE NEGATIVE (NEGATIVE); URINE PROTEIN NEGATIVE (NEGATIVE); URINE UROBILINOGEN 0.2 mg/dL (0.2-1.0)
[2019-06-19] MEDS: INSULIN SLIDING SCALE (NOVOLOG) 1 VIAL SQ SCH ×4 (06:42→22:13)
[2019-06-19] MEDS: LEVOTHYROXINE NA 25 MCG TABLET (FP) PO SCH (06:42)
[2019-06-19] MEDS: BASAGLAR 100 UNIT/ML PO SCH ×2 (06:42→22:15)
[2019-06-19] MEDS: HEPARIN NA (PORCINE) 5,000 UNITS/ML 1ML VIAL SQ SCH ×2 (09:48→22:15)
[2019-06-19] MEDS: PANTOPRAZOLE 40 MG TABLET (FP) PO SCH (09:48)
[2019-06-19] MEDS: ASPIRIN 81 MG CHEWABLE TABLETS PO SCH (09:48)
[2019-06-19] MEDS: CLOPIDOGREL BISULFATE 75 MG TABLET (FP) PO SCH (09:48)
--- NOTE | 2019-06-19 09:48 | PN ---
Progress Note, Physician Chief Complaint: AWAKE ALERT IN PAIN - Current Medication List Current Medications: Active Medications Acetaminophen (Tylenol -) 650 mg PO Q6H PRN PRN Reason: FEVER Last Admin: 06/17/19 22:31 Dose: 650 mg Aspirin (Asa -) 81 mg PO DAILY [facility] Last Admin: 06/18/19 09:40 Dose: 81 mg Clopidogrel Bisulfate (Plavix -) 75 mg PO DAILY [facility] Last Admin: 06/18/19 09:40 Dose: 75 mg Enalapril Maleate (Vasotec -) 5 mg PO DAILY@HS [facility] Last Admin: 06/18/19 22:36 Dose: 5 mg Gabapentin (Neurontin -) 300 mg PO HS [facility] Last Admin: 06/18/19 22:36 Dose: 300 mg Heparin Sodium (Porcine) (Heparin -) 5,000 unit SQ BID [facility] Last Admin: 06/18/19 22:36 Dose: 5,000 unit Piperacillin Sod/Tazobactam (Sod 3.375 gm/ Dextrose) 50 mls @ 100 mls/hr IVPB Q8H-IV [facility]; Protocol Last Admin: 06/19/19 02:47 Dose: 100 mls/hr Insulin Aspart (Novolog Vial Sliding Scale -) 1 vial SQ ACHS [facility]; Protocol Last Admin: 06/19/19 06:42 Dose: 3 units Levothyroxine Sodium (Synthroid -) 25 mcg PO DAILY@0700 [facility] Last Admin: 06/19/19 06:42 Dose: 25 mcg Melatonin (Melatonin) 5 mg PO HS PRN PRN Reason: INSOMNIA Last Admin: 06/14/19 22:38 Dose: 5 mg Metoprolol Tartrate (Lopressor -) 50 mg PO DAILY@HS [facility] Last Admin: 06/18/19 22:36 Dose: 50 mg Basaglar 100 Units/Ml(Patient's Own Med ) 0 each PO BID@0700,2200 [facility] Last Admin: 06/19/19 06:42 Dose: 1 each Pantoprazole Sodium (Protonix -) 40 mg PO DAILY [facility] Last Admin: 06/18/19 09:40 Dose: 40 mg - Objective Vital Signs: Vital Signs Temperature 98.0 F 06/19/19 03:00 Pulse Rate 80 06/19/19 03:00 Respiratory Rate 18 06/18/19 21:00 Blood Pressure 102/55 L 06/19/19 03:00 O2 Sat by Pulse Oximetry (%) 96 06/18/19 21:00 Constitutional: Yes: Mild Distress Cardiovascular: Yes: Regular Rate and Rhythm Respiratory: Yes: WNL Gastrointestinal: Yes: WNL Genitourinary: Yes: WNL Musculoskeletal: Yes: Other Extremities: Yes: Deformity (RIGHT FOOT CLEAN DEBRIDEMENT OF BLISTER, NO DISCHARGE, HARD NODULAR CALYS) Integumentary: Yes: Pressure Ulcer Wound/Incision: Yes: Dressing Removed, Excoriated Neurological: Yes: Numbness, Paresthesia, Pre-Existing Deficit ...Motor Strength: LLE, RLE Psychiatric: Yes: WNL Labs: CBC, BMP 06/18/19 07:31 06/18/19 07:31 Problem List - Problems (1) Cellulitis Code(s): L03.90 - CELLULITIS, UNSPECIFIED Qualifiers: Site of cellulitis: extremity Site of cellulitis of extremity: lower extremity Laterality: right Qualified Code(s): L03.115 - Cellulitis of right lower limb (2) Toe infection Code(s): L08.9 - LOCAL INFECTION OF THE SKIN AND SUBCUTANEOUS TISSUE, UNSP (3) Abscess or cellulitis of foot Code(s): L03.119 - CELLULITIS OF UNSPECIFIED PART OF LIMB; L02.619 - CUTANEOUS ABSCESS OF UNSPECIFIED FOOT (4) Controlled diabetes mellitus with foot ulcer, with long-term current use of insulin Code(s): E11.621 - TYPE 2 DIABETES MELLITUS WITH FOOT ULCER; L97.509 - NON- PRESSURE CHRONIC ULCER OTH PRT UNSP FOOT W UNSP SEVERITY; Z79.4 - CARE ATTENDANT ( CURRENT) USE OF INSULIN (5) Hyperlipidemia Code(s): E78.5 - HYPERLIPIDEMIA, UNSPECIFIED Qualifiers: (6) Hypertension Code(s): I10 - ESSENTIAL (PRIMARY) HYPERTENSION Qualifiers: (7) Insulin dependent diabetes mellitus Code(s): E11.9 - TYPE 2 DIABETES MELLITUS WITHOUT COMPLICATIONS; Z79.4 - CARE ATTENDANT (CURRENT) USE OF INSULIN (8) Diabetic neuropathy Code(s): E11.40 - TYPE 2 DIABETES MELLITUS WITH DIABETIC NEUROPATHY, UNSP Assessment/Plan PLAN IS IV ABX TODAY, TOMORROW THEN CHANGE TO PO ABX THURSDAY AND DISCHARGE FOR WOUND CARE CENTER AND PODIATRY F/U. STRICT BGM CONTROL ENDOCRINE CONSULT APPRECIATED WILL F/U OUTPATIENT WITH AND DR HUERTA
--- NOTE | 2019-06-19 17:38 | PN ---
Progress Note, Physician History of Present Illness: Pt seen and examined at bedside. She is awake and alert. She denies shortness of breath. - Current Medication List Current Medications: Active Medications Acetaminophen (Tylenol -) 650 mg PO Q6H PRN PRN Reason: FEVER Last Admin: 06/17/19 22:31 Dose: 650 mg Aspirin (Asa -) 81 mg PO DAILY [facility] Last Admin: 06/19/19 09:48 Dose: 81 mg Clopidogrel Bisulfate (Plavix -) 75 mg PO DAILY [facility] Last Admin: 06/19/19 09:48 Dose: 75 mg Enalapril Maleate (Vasotec -) 5 mg PO DAILY@HS [facility] Last Admin: 06/18/19 22:36 Dose: 5 mg Gabapentin (Neurontin -) 300 mg PO [facility] Last Admin: 06/18/19 22:36 Dose: 300 mg Heparin Sodium (Porcine) (Heparin -) 5,000 unit SQ BID [facility] Last Admin: 06/19/19 09:48 Dose: 5,000 unit Piperacillin Sod/Tazobactam (Sod 3.375 gm/ Dextrose) 50 mls @ 100 mls/hr IVPB Q8H-IV [facility]; Protocol Last Admin: 06/19/19 09:47 Dose: 100 mls/hr Insulin Aspart (Novolog Vial Sliding Scale -) 1 vial SQ ACHS [facility]; Protocol Last Admin: 06/19/19 12:20 Dose: Not Given Levothyroxine Sodium (Synthroid -) 25 mcg PO DAILY@0700 [facility] Last Admin: 06/19/19 06:42 Dose: 25 mcg Melatonin (Melatonin) 5 mg PO HS PRN PRN Reason: INSOMNIA Last Admin: 06/14/19 22:38 Dose: 5 mg Metoprolol Tartrate (Lopressor -) 50 mg PO DAILY@HS [facility] Last Admin: 06/18/19 22:36 Dose: 50 mg Basaglar 100 Units/Ml(Patient's Own Med ) 0 each PO BID@0700,2200 [facility] Last Admin: 06/19/19 06:42 Dose: 1 each Pantoprazole Sodium (Protonix -) 40 mg PO DAILY [facility] Last Admin: 06/19/19 09:48 Dose: 40 mg - Objective Vital Signs: Vital Signs Temperature 97.7 F 06/19/19 14:49 Pulse Rate 75 06/19/19 14:49 Respiratory Rate 20 06/19/19 14:49 Blood Pressure 121/60 06/19/19 14:49 O2 Sat by Pulse Oximetry (%) 96 06/18/19 21:00 Constitutional: Yes: Calm Eyes: Yes: Conjunctiva Clear HENT: Yes: Atraumatic Neck: Yes: Supple Cardiovascular: Yes: S1, S2 Respiratory: Yes: CTA Bilaterally Gastrointestinal: Yes: Soft Genitourinary: Yes: WNL Musculoskeletal: Yes: WNL Edema: No Neurological: Yes: Oriented Psychiatric: Yes: Oriented Labs: CBC, BMP 06/18/19 07:31 06/18/19 07:31 Problem List - Problems (1) Hematuria Code(s): R31.9 - HEMATURIA, UNSPECIFIED (2) Cellulitis Code(s): L03.90 - CELLULITIS, UNSPECIFIED Qualifiers: Site of cellulitis: extremity Site of cellulitis of extremity: lower extremity Laterality: right Qualified Code(s): L03.115 - Cellulitis of right lower limb Assessment/Plan Current Medications Generic Name Dose Route Start Last Admin Trade Name Freq PRN Reason Stop Dose Admin Acetaminophen 650 mg 06/14/19 01:54 06/17/19 22:31 Tylenol - PO 650 mg Q6H PRN Administration FEVER Aspirin 81 mg 06/14/19 10:00 06/19/19 09:48 Asa - PO 81 mg DAILY [facility] Administration Clopidogrel Bisulfate 75 mg 06/14/19 10:00 06/19/19 09:48 Plavix - PO 75 mg DAILY [facility] Administration Enalapril Maleate 5 mg 06/14/19 01:49 06/18/19 22:36 Vasotec - PO 5 mg DAILY@HS [facility] Administration Gabapentin 300 mg 06/14/19 01:53 06/18/19 22:36 Neurontin - PO 300 mg HS [facility] Administration Heparin Sodium (Porcine) 5,000 unit 06/13/19 22:00 06/19/19 09:48 Heparin - SQ 5,000 unit BID [facility] Administration Piperacillin Sod/Tazobactam 50 mls @ 100 mls/hr 06/14/19 18:00 06/19/19 09:47 Sod 3.375 gm/ Dextrose IVPB 100 mls/hr Q8H-IV [facility] Administration Protocol Insulin Aspart 1 vial 06/18/19 22:13 06/19/19 12:20 Novolog Vial Sliding Scale - SQ Not Given ACHS [facility] Protocol Levothyroxine Sodium 25 mcg 06/14/19 07:00 06/19/19 06:42 Synthroid - PO 25 mcg DAILY@0700 [facility] Administration Melatonin 5 mg 06/14/19 02:24 06/14/19 22:38 Melatonin PO 5 mg HS PRN Administration INSOMNIA Metoprolol Tartrate 50 mg 06/14/19 01:49 06/18/19 22:36 Lopressor - PO 50 mg DAILY@HS [facility] Administration Basaglar 100 Units/ 0 each 06/15/19 22:00 06/19/19 06:42 Ml(Patient's Own Med PO 1 each ) BID@0700,2200 [facility] Administration Pantoprazole Sodium 40 mg 06/16/19 15:15 06/19/19 09:48 Protonix - PO 40 mg DAILY [facility] Administration Impression 1. microscopic hematuria 2. htn 3. dm 4. cellulitis 5. cad 6. hypothyroidism Plan - pt was on menstrual cycle when she had the first ua - repeat ua improved - glucose control - outpt follow up - renal ultrasound reviewed - avoid nsaids - avoid nephrotoxins - will follow PRN
[2019-06-19] MEDS ORDERED: INSULIN (NOVOLOG) ASPART 100 UNITS/ML 10ML VIAL ONE (21:32)
[2019-06-19] MEDS ORDERED: PT OWN MED DRAWER 7, Y5N ONE (21:33)
[2019-06-19] MEDS: GABAPENTIN 300 MG CAPSULE (FP) PO SCH (22:14)
[2019-06-19] MEDS: ENALAPRIL MALEATE 5 MG TABLET (FP) PO SCH (22:15)
[2019-06-19] MEDS: METOPROLOL TARTRATE 50 MG TABLET (FP) PO SCH (22:15)
[2019-06-20] MEDS ORDERED: DEXTROSE 5%-WATER - 50 ML IVPB ONE ×3 (02:00→18:20)
[2019-06-20] MEDS ORDERED: PIPERACILLIN/TAZOBACTAM 3.375 GM VIAL IVPB ONE ×3 (02:00→18:20)
[2019-06-20] MEDS: PIPERACILLIN/TAZOB 3.375 GM 3.375 GM in DEXTROSE 5%-WATER - 50 ML IVPB SCH ×3 (02:05→18:26)
[2019-06-20] MEDS: INSULIN SLIDING SCALE (NOVOLOG) 1 VIAL SQ SCH ×4 (06:21→21:41)
[2019-06-20] MEDS: LEVOTHYROXINE NA 25 MCG TABLET (FP) PO SCH (06:21)
[2019-06-20] MEDS: BASAGLAR 100 UNIT/ML PO SCH ×2 (06:21→21:55)
--- NOTE | 2019-06-20 10:30 | PN ---
Progress Note (short form) - Note Progress Note: FUV right foot. No pain. VSS. +grade 1-2 wound clean and granulating right foot, -cellulitis, grade 2 wound right Santyl to wound right. Will order Regranex outpatient. Will follow till dc. Abx as per ID.
[2019-06-20] MEDS: ASPIRIN 81 MG CHEWABLE TABLETS PO SCH (11:49)
[2019-06-20] MEDS: HEPARIN NA (PORCINE) 5,000 UNITS/ML 1ML VIAL SQ SCH ×2 (11:49→21:41)
[2019-06-20] MEDS: PANTOPRAZOLE 40 MG TABLET (FP) PO SCH (11:49)
[2019-06-20] MEDS: CLOPIDOGREL BISULFATE 75 MG TABLET (FP) PO SCH (11:49)
[2019-06-20] MEDS: COLLAGENASE CLOSTRIDIUM HIST. 30 GRAMS TUBE TP SCH (11:50)
[2019-06-20] MEDS ORDERED: INSULIN (NOVOLOG) ASPART 100 UNITS/ML 10ML VIAL ONE ×2 (12:04→21:37)
--- NOTE | 2019-06-20 15:20 | PN ---
Progress Note, Physician Chief Complaint: awake alert - Current Medication List Current Medications: Active Medications Acetaminophen (Tylenol -) 650 mg PO Q6H PRN PRN Reason: FEVER Last Admin: 06/17/19 22:31 Dose: 650 mg Aspirin (Asa -) 81 mg PO DAILY [facility] Last Admin: 06/20/19 11:49 Dose: 81 mg Clopidogrel Bisulfate (Plavix -) 75 mg PO DAILY [facility] Last Admin: 06/20/19 11:49 Dose: 75 mg Collagenase (Santyl -) 1 applic TP DAILY [facility]; Protocol Last Admin: 06/20/19 11:50 Dose: 1 applic Enalapril Maleate (Vasotec -) 5 mg PO DAILY@HS [facility] Last Admin: 06/19/19 22:15 Dose: 5 mg Gabapentin (Neurontin -) 300 mg PO HS [facility] Last Admin: 06/19/19 22:14 Dose: 300 mg Heparin Sodium (Porcine) (Heparin -) 5,000 unit SQ BID [facility] Last Admin: 06/20/19 11:49 Dose: 5,000 unit Piperacillin Sod/Tazobactam (Sod 3.375 gm/ Dextrose) 50 mls @ 100 mls/hr IVPB Q8H-IV [facility]; Protocol Last Admin: 06/20/19 11:49 Dose: 100 mls/hr Insulin Aspart (Novolog Vial Sliding Scale -) 1 vial SQ ACHS [facility]; Protocol Last Admin: 06/20/19 12:06 Dose: 3 units Levothyroxine Sodium (Synthroid -) 25 mcg PO DAILY@0700 [facility] Last Admin: 06/20/19 06:21 Dose: 25 mcg Melatonin (Melatonin) 5 mg PO HS PRN PRN Reason: INSOMNIA Last Admin: 06/14/19 22:38 Dose: 5 mg Metoprolol Tartrate (Lopressor -) 50 mg PO DAILY@HS [facility] Last Admin: 06/19/19 22:15 Dose: 50 mg Basaglar 100 Units/Ml(Patient's Own Med ) 0 each PO BID@0700,2200 [facility] Last Admin: 06/20/19 06:21 Dose: 1 each Pantoprazole Sodium (Protonix -) 40 mg PO DAILY [facility] Last Admin: 06/20/19 11:49 Dose: 40 mg - Objective Vital Signs: Vital Signs Temperature 98.4 F 06/20/19 11:28 Pulse Rate 88 06/20/19 11:28 Respiratory Rate 18 06/20/19 11:28 Blood Pressure 126/70 06/20/19 11:28 O2 Sat by Pulse Oximetry (%) 96 06/20/19 09:00 Constitutional: Yes: Calm Neck: Yes: Trachea Midline Cardiovascular: Yes: Regular Rate and Rhythm, S1, S2 Respiratory: Yes: CTA Bilaterally Gastrointestinal: Yes: Normal Bowel Sounds, Soft Labs: CBC, BMP 06/18/19 07:31 06/18/19 07:31 Problem List - Problems (1) Cellulitis Assessment/Plan: iv abx today santyl to foot wound change to po abx in AM Code(s): L03.90 - CELLULITIS, UNSPECIFIED Qualifiers: Site of cellulitis: extremity Site of cellulitis of extremity: lower extremity Laterality: right Qualified Code(s): L03.115 - Cellulitis of right lower limb
[2019-06-20] MEDS: GABAPENTIN 300 MG CAPSULE (FP) PO SCH (21:40)
[2019-06-20] MEDS: ENALAPRIL MALEATE 5 MG TABLET (FP) PO SCH (21:40)
[2019-06-20] MEDS: METOPROLOL TARTRATE 50 MG TABLET (FP) PO SCH (21:40)
[2019-06-20] MEDS: MELATONIN 5 MG TABLETS PO PRN (22:58)
[2019-06-20] MEDS: ACETAMINOPHEN 325 MG TABLET (FP) PO PRN (22:58)
[2019-06-21] MEDS ORDERED: DEXTROSE 5%-WATER - 50 ML IVPB ONE ×3 (01:26→15:53)
[2019-06-21] MEDS ORDERED: PIPERACILLIN/TAZOBACTAM 3.375 GM VIAL IVPB ONE ×3 (01:26→15:53)
[2019-06-21] MEDS: PIPERACILLIN/TAZOB 3.375 GM 3.375 GM in DEXTROSE 5%-WATER - 50 ML IVPB SCH ×3 (01:35→17:22)
[2019-06-21] MEDS: INSULIN SLIDING SCALE (NOVOLOG) 1 VIAL SQ SCH ×4 (06:35→21:57)
[2019-06-21] MEDS: LEVOTHYROXINE NA 25 MCG TABLET (FP) PO SCH (06:36)
[2019-06-21] MEDS: ACETAMINOPHEN 325 MG TABLET (FP) PO PRN ×2 (06:36→22:22)
[2019-06-21] MEDS: BASAGLAR 100 UNIT/ML PO SCH ×2 (06:38→22:03)
[2019-06-21] MEDS ORDERED: INSULIN (NOVOLOG) ASPART 100 UNITS/ML 10ML VIAL ONE (06:54)
--- NOTE | 2019-06-21 08:50 | PN ---
Progress Note, Physician Chief Complaint: AWAKE ALERT STILL IN PAIN TO RIGHT FOOT - Current Medication List Current Medications: Active Medications Acetaminophen (Tylenol -) 650 mg PO Q6H PRN PRN Reason: PAIN LEVEL 1-5 Last Admin: 06/21/19 06:36 Dose: 650 mg Aspirin (Asa -) 81 mg PO DAILY [facility] Last Admin: 06/20/19 11:49 Dose: 81 mg Clopidogrel Bisulfate (Plavix -) 75 mg PO DAILY [facility] Last Admin: 06/20/19 11:49 Dose: 75 mg Collagenase (Santyl -) 1 applic TP DAILY [facility]; Protocol Last Admin: 06/20/19 11:50 Dose: 1 applic Enalapril Maleate (Vasotec -) 5 mg PO DAILY@HS [facility] Last Admin: 06/20/19 21:40 Dose: 5 mg Gabapentin (Neurontin -) 300 mg PO HS [facility] Last Admin: 06/20/19 21:40 Dose: 300 mg Heparin Sodium (Porcine) (Heparin -) 5,000 unit SQ BID [facility] Last Admin: 06/20/19 21:41 Dose: 5,000 unit Piperacillin Sod/Tazobactam (Sod 3.375 gm/ Dextrose) 50 mls @ 100 mls/hr IVPB Q8H-IV [facility]; Protocol Last Admin: 06/21/19 01:35 Dose: 100 mls/hr Insulin Aspart (Novolog Vial Sliding Scale -) 1 vial SQ ACHS [facility]; Protocol Last Admin: 06/21/19 06:35 Dose: 3 units Levothyroxine Sodium (Synthroid -) 25 mcg PO DAILY@0700 [facility] Last Admin: 06/21/19 06:36 Dose: 25 mcg Melatonin (Melatonin) 5 mg PO HS PRN PRN Reason: INSOMNIA Last Admin: 06/20/19 22:58 Dose: 5 mg Metoprolol Tartrate (Lopressor -) 50 mg PO DAILY [facility] Basaglar 100 Units/Ml(Patient's Own Med ) 0 each PO BID@0700,2200 [facility] Last Admin: 06/21/19 06:38 Dose: 10 each Pantoprazole Sodium (Protonix -) 40 mg PO DAILY [facility] Last Admin: 06/20/19 11:49 Dose: 40 mg - Objective Vital Signs: Vital Signs Temperature 98.4 F 06/21/19 05:40 Pulse Rate 79 06/21/19 05:40 Respiratory Rate 20 06/21/19 05:40 Blood Pressure 118/66 06/21/19 05:40 O2 Sat by Pulse Oximetry (%) 98 06/20/19 21:00 Constitutional: Yes: Mild Distress Cardiovascular: Yes: Regular Rate and Rhythm Respiratory: Yes: WNL Genitourinary: Yes: WNL Extremities: Yes: Deformity, Other Integumentary: Yes: Erythema, Pressure Ulcer Wound/Incision: Yes: Dressing Removed (REDDENED AREA, MINIMAL SANGUNOUS DISCHARGE) Neurological: Yes: Loss of Sensation, Numbness, Pre-Existing Deficit ...Motor Strength: RLE Psychiatric: Yes: WNL Labs: CBC, BMP 06/18/19 07:31 06/18/19 07:31 Problem List - Problems (1) Cellulitis Code(s): L03.90 - CELLULITIS, UNSPECIFIED Qualifiers: Site of cellulitis: extremity Site of cellulitis of extremity: lower extremity Laterality: right Qualified Code(s): L03.115 - Cellulitis of right lower limb (2) Toe infection Code(s): L08.9 - LOCAL INFECTION OF THE SKIN AND SUBCUTANEOUS TISSUE, UNSP (3) Abscess or cellulitis of foot Code(s): L03.119 - CELLULITIS OF UNSPECIFIED PART OF LIMB; L02.619 - CUTANEOUS ABSCESS OF UNSPECIFIED FOOT (4) Controlled diabetes mellitus with foot ulcer, with long-term current use of insulin Code(s): E11.621 - TYPE 2 DIABETES MELLITUS WITH FOOT ULCER; L97.509 - NON- PRESSURE CHRONIC ULCER OTH PRT UNSP FOOT W UNSP SEVERITY; Z79.4 - NURSING HOME ( CURRENT) USE OF INSULIN (5) Hyperlipidemia Code(s): E78.5 - HYPERLIPIDEMIA, UNSPECIFIED Qualifiers: (6) Hypertension Code(s): I10 - ESSENTIAL (PRIMARY) HYPERTENSION Qualifiers: (7) Insulin dependent diabetes mellitus Code(s): E11.9 - TYPE 2 DIABETES MELLITUS WITHOUT COMPLICATIONS; Z79.4 - SIDE DOOR MAN (CURRENT) USE OF INSULIN (8) Diabetic neuropathy Code(s): E11.40 - TYPE 2 DIABETES MELLITUS WITH DIABETIC NEUROPATHY, UNSP Assessment/Plan PLAN IS IV ABX TODAY PODIATRY FOLLOW UP PAIN CONTROL TO PO ABX THURSDAY AND DISCHARGE FOR WOUND CARE CENTER AND PODIATRY F/U. STRICT BGM CONTROL ENDOCRINE CONSULT APPRECIATED WILL F/U OUTPATIENT WITH AND DR HUERTA
[2019-06-21] MEDS: CLOPIDOGREL BISULFATE 75 MG TABLET (FP) PO SCH (09:14)
[2019-06-21] MEDS: ASPIRIN 81 MG CHEWABLE TABLETS PO SCH (09:14)
[2019-06-21] MEDS: HEPARIN NA (PORCINE) 5,000 UNITS/ML 1ML VIAL SQ SCH ×2 (09:15→21:52)
[2019-06-21] MEDS: METOPROLOL TARTRATE 50 MG TABLET (FP) PO SCH (09:15)
[2019-06-21] MEDS: PANTOPRAZOLE 40 MG TABLET (FP) PO SCH (09:15)
[2019-06-21] MEDS: COLLAGENASE CLOSTRIDIUM HIST. 30 GRAMS TUBE TP SCH (11:21)
--- NOTE | 2019-06-21 20:36 | PN ---
Progress Note (short form) - Note Progress Note: FUV right foot. No pain. VSS. +grade 1-2 wound clean and granulating right foot, -cellulitis, +macerated due to tegaderm like dressing grade 2 wound right improving Santyl to wound right foot with gauze and kerlix. no tegaderm like products to wound. Maybe dc from podiatry standpoint and follow up in c. ordered Regranex outpatient. Will follow till dc. Abx as per ID.
[2019-06-21] MEDS ORDERED: PT OWN MED DRAWER 7, Y5N ONE (21:51)
[2019-06-21] MEDS: ENALAPRIL MALEATE 5 MG TABLET (FP) PO SCH (21:52)
[2019-06-21] MEDS: GABAPENTIN 300 MG CAPSULE (FP) PO SCH (22:21)
[2019-06-21] MEDS: MELATONIN 5 MG TABLETS PO PRN (22:22)
[2019-06-22] MEDS ORDERED: PIPERACILLIN/TAZOBACTAM 3.375 GM VIAL IVPB ONE ×2 (02:35→07:44)
[2019-06-22] MEDS ORDERED: DEXTROSE 5%-WATER - 50 ML IVPB ONE ×2 (02:35→07:44)
[2019-06-22] MEDS: PIPERACILLIN/TAZOB 3.375 GM 3.375 GM in DEXTROSE 5%-WATER - 50 ML IVPB SCH ×2 (02:47→09:26)
[2019-06-22] MEDS ORDERED: PT OWN MED DRAWER 7, Y5N ONE (05:58)
[2019-06-22] MEDS: INSULIN SLIDING SCALE (NOVOLOG) 1 VIAL SQ SCH ×2 (06:26→12:10)
[2019-06-22] MEDS: LEVOTHYROXINE NA 25 MCG TABLET (FP) PO SCH (06:27)
[2019-06-22] MEDS: BASAGLAR 100 UNIT/ML PO SCH (06:27)
[2019-06-22] MEDS ORDERED: INSULIN (NOVOLOG) ASPART 100 UNITS/ML 10ML VIAL ONE (06:34)
[2019-06-22] MEDS: ASPIRIN 81 MG CHEWABLE TABLETS PO SCH (09:25)
[2019-06-22] MEDS: HEPARIN NA (PORCINE) 5,000 UNITS/ML 1ML VIAL SQ SCH (09:25)
[2019-06-22] MEDS: CLOPIDOGREL BISULFATE 75 MG TABLET (FP) PO SCH (09:25)
[2019-06-22] MEDS: PANTOPRAZOLE 40 MG TABLET (FP) PO SCH (09:25)
[2019-06-22] MEDS: METOPROLOL TARTRATE 50 MG TABLET (FP) PO SCH (09:25)
--- NOTE | 2019-06-22 11:18 | PN ---
Progress Note, Physician Chief Complaint: Right foot cellulitis Uncontrolled Diabetes Mellitus 2 History of Present Illness: NAD sitting in chair MRI no osteo Seen by podiatry On IV abx santyl on the wound - Current Medication List Current Medications: Active Medications Acetaminophen (Tylenol -) 650 mg PO Q6H PRN PRN Reason: PAIN LEVEL 1-5 Last Admin: 06/21/19 22:22 Dose: 650 mg Aspirin (Asa -) 81 mg PO DAILY [facility] Last Admin: 06/22/19 09:25 Dose: 81 mg Clopidogrel Bisulfate (Plavix -) 75 mg PO DAILY [facility] Last Admin: 06/22/19 09:25 Dose: 75 mg Collagenase (Santyl -) 1 applic TP DAILY [facility]; Protocol Last Admin: 06/21/19 11:21 Dose: 1 applic Enalapril Maleate (Vasotec -) 5 mg PO DAILY@HS [facility] Last Admin: 06/21/19 21:52 Dose: 5 mg Gabapentin (Neurontin -) 300 mg PO HS [facility] Last Admin: 06/21/19 22:21 Dose: 300 mg Heparin Sodium (Porcine) (Heparin -) 5,000 unit SQ BID [facility] Last Admin: 06/22/19 09:25 Dose: 5,000 unit Piperacillin Sod/Tazobactam (Sod 3.375 gm/ Dextrose) 50 mls @ 100 mls/hr IVPB Q8H-IV [facility]; Protocol Last Admin: 06/22/19 09:26 Dose: 100 mls/hr Insulin Aspart (Novolog Vial Sliding Scale -) 1 vial SQ ACHS [facility]; Protocol Last Admin: 06/22/19 06:26 Dose: 3 units Levothyroxine Sodium (Synthroid -) 25 mcg PO DAILY@0700 [facility] Last Admin: 06/22/19 06:27 Dose: 25 mcg Melatonin (Melatonin) 5 mg PO HS PRN PRN Reason: INSOMNIA Last Admin: 06/21/19 22:22 Dose: 5 mg Metoprolol Tartrate (Lopressor -) 50 mg PO DAILY [facility] Last Admin: 06/22/19 09:25 Dose: 50 mg Basaglar 100 Units/Ml(Patient's Own Med ) 0 each PO BID@0700,2200 [facility] Last Admin: 06/22/19 06:27 Dose: 10 each Pantoprazole Sodium (Protonix -) 40 mg PO DAILY [facility] Last Admin: 06/22/19 09:25 Dose: 40 mg - Objective Vital Signs: Vital Signs Temperature 97.9 F 06/22/19 06:59 Pulse Rate 80 06/22/19 06:59 Respiratory Rate 20 06/22/19 06:59 Blood Pressure 101/56 L 06/22/19 06:59 O2 Sat by Pulse Oximetry (%) 98 06/21/19 21:00 Constitutional: Yes: Well Nourished, No Distress, Calm Cardiovascular: Yes: Regular Rate and Rhythm Respiratory: Yes: Regular Gastrointestinal: Yes: Normal Bowel Sounds, Soft Genitourinary: Yes: WNL Musculoskeletal: Yes: WNL Extremities: Yes: WNL Edema: No Peripheral Pulses WNL: Yes Wound/Incision: Yes: Dressing Dry and Intact Neurological: Yes: Alert, Oriented Psychiatric: Yes: Alert, Oriented Labs: CBC, BMP 06/18/19 07:31 06/18/19 07:31 Problem List - Problems (1) Cellulitis Assessment/Plan: - ID consult -Podiatry consult -Vascular consult -IV abx-->change to PO bactrim DS 1 tab bid x 7 days -afebrile -no leukocytosis -pain management -ESR/CRP elevated -MRI RLE reviewed -F/U with Podiatry o/p at wound care center Code(s): L03.90 - CELLULITIS, UNSPECIFIED Qualifiers: Site of cellulitis: extremity Site of cellulitis of extremity: lower extremity Laterality: right Qualified Code(s): L03.115 - Cellulitis of right lower limb (2) Diabetes Assessment/Plan: -check a1c -BGM AC HS -ISS -Endocrinology consult -Diabetes low sodium diet Code(s): E11.9 - TYPE 2 DIABETES MELLITUS WITHOUT COMPLICATIONS Assessment/Plan see problem list DVT ppx Self ambulatory
--- NOTE | 2019-06-22 11:22 | DS ---
Physical Examination Vital Signs: Vital Signs Temperature 97.9 F 06/22/19 06:59 Pulse Rate 80 06/22/19 06:59 Respiratory Rate 20 06/22/19 06:59 Blood Pressure 101/56 L 06/22/19 06:59 O2 Sat by Pulse Oximetry (%) 98 06/21/19 21:00 Findings/Remarks: This is a 54 y/o woman with a PMHx of HTN, HLD, DM. Who presents to the ED for right foot wound with purulent drainage. Patient was at the wound center 2 days ago. The patient reports scraping her foot, bleeding and then having brown purulent drainage. Patient reports increased pain with walking. Patient denies fever, chills, cough, SOB, dizziness, CP, palpitations, AP, N/V/D, constipation , dysuria Constitutional: Yes: Well Nourished, No Distress, Calm Cardiovascular: Yes: Regular Rate and Rhythm Respiratory: Yes: Regular Gastrointestinal: Yes: Normal Bowel Sounds, Soft Musculoskeletal: Yes: WNL Extremities: Yes: WNL Edema: No Peripheral Pulses WNL: Yes Wound/Incision: Yes: Dressing Dry and Intact Neurological: Yes: Alert, Oriented Psychiatric: Yes: Alert, Oriented Labs: CBC, BMP 06/18/19 07:31 06/18/19 07:31 Discharge Summary Problems reviewed: Yes Reason For Visit: CELLULITIS AND ABSCESS OF FOOT EXCLUDING TOE Current Active Problems Cellulitis (Acute) Controlled type 1 diabetes mellitus with diabetic neuropathy (Acute) Diabetic neuropathy (Acute) Hematuria (Acute) Toe infection (Acute) Laboratory Last Values WBC 4.6 K/mm3 (4.0-10.0) 06/18/19 07:31 RBC 3.69 M/mm3 (3.60-5.2) 06/18/19 07:31 Hgb 11.0 GM/dL (10.7-15.3) 06/18/19 07:31 Hct 33.2 % (32.4-45.2) 06/18/19 07:31 MCV 89.9 fl (80-96) 06/18/19 07:31 MCH 29.8 pg (25.7-33.7) 06/18/19 07:31 MCHC 33.1 g/dl (32.0-36.0) 06/18/19 07:31 RDW 12.9 % (11.6-15.6) 06/18/19 07:31 Plt Count 350 K/MM3 (134-434) 06/18/19 07:31 MPV 8.9 fl (7.5-11.1) 06/18/19 07:31 Absolute Neuts (auto) 3.0 K/mm3 (1.5-8.0) 06/14/19 06:10 Neutrophils % 55.5 % (42.8-82.8) 06/14/19 06:10 Lymphocytes % 34.0 % (8-40) 06/14/19 06:10 Monocytes % 8.4 % (3.8-10.2) 06/14/19 06:10 Eosinophils % 1.7 % (0-4.5) 06/14/19 06:10 Basophils % 0.4 % (0-2.0) 06/14/19 06:10 Nucleated RBC % 0 % (0-0) 06/14/19 06:10 ESR 34 mm/hr (0-30) H 06/14/19 13:48 Sodium 139 mmol/L (136-145) 06/18/19 07:31 Potassium 4.5 mmol/L (3.5-5.1) 06/18/19 07:31 Chloride 104 mmol/L (98-107) 06/18/19 07:31 Carbon Dioxide 30 mmol/L (21-32) 06/18/19 07:31 Anion Gap 5 MMOL/L (8-16) L 06/18/19 07:31 BUN 26.7 mg/dL (7-18) H 06/18/19 07:31 Creatinine 1.3 mg/dL (0.55-1.3) 06/18/19 07:31 Est GFR (CKD-EPI)AfAm 54.62 06/18/19 07:31 Est GFR (CKD-EPI)NonAf 47.13 06/18/19 07:31 POC Glucometer 118 UNITS (80-120) 06/22/19 05:35 Random Glucose 119 mg/dL (74-106) H 06/18/19 07:31 Hemoglobin A1c % 8.3 % (4.2-6.3) H 06/14/19 13:48 Calcium 9.2 mg/dL (8.5-10.1) 06/18/19 07:31 Total Bilirubin 0.3 mg/dL (0.2-1) 06/18/19 07:31 AST 13 U/L (15-37) L 06/18/19 07:31 ALT 18 U/L (13-61) 06/18/19 07:31 Alkaline Phosphatase 102 U/L (45-117) 06/18/19 07:31 C-Reactive Protein 3.2 MG/DL (0.00-0.3) H 06/14/19 13:48 Total Protein 6.7 g/dl (6.4-8.2) 06/18/19 07:31 Albumin 3.0 g/dl (3.4-5.0) L 06/18/19 07:31 Urine Color Yellow 06/19/19 04:40 Urine Appearance Clear 06/19/19 04:40 Urine pH 5.5 (5.0-8.0) 06/19/19 04:40 Ur Specific [place] 1.014 (1.010-1.035) 06/19/19 04:40 Urine Protein Negative (NEGATIVE) 06/19/19 04:40 Urine Glucose (UA) 1+ (NEGATIVE) H 06/19/19 04:40 Urine Ketones Negative (NEGATIVE) 06/19/19 04:40 Urine Blood Negative (NEGATIVE) 06/19/19 04:40 Urine Nitrite Negative (NEGATIVE) 06/19/19 04:40 Urine Bilirubin Negative (NEGATIVE) 06/19/19 04:40 Urine Urobilinogen 0.2 mg/dL (0.2-1.0) 06/19/19 04:40 Ur Leukocyte Esterase Negative (NEGATIVE) 06/19/19 04:40 Urine WBC (Auto) 1 /hpf (0-5) 06/13/19 18:16 Urine RBC (Auto) 9 /hpf (0-4) 06/13/19 18:16 Urine Casts (Auto) 2 /lpf (0-8) 06/13/19 18:16 U Epithel Cells (Auto) 1.8 /HPF (0-5/HPF) 06/13/19 18:16 Urine Bacteria (Auto) 56.4 /hpf (NEGATIVE) 06/13/19 18:16 Vancomycin Pre-Dose 4.6 ug/ml (18-26) L 06/14/19 09:50 Microbiology 06/13/19 18:16 Blood - Peripheral Venous Blood Culture - Final NO GROWTH AFTER 5 DAYS INCUBATION 06/13/19 18:16 Blood - Peripheral Venous Blood Culture - Final NO GROWTH AFTER 5 DAYS INCUBATION 06/15/19 12:00 Foot - Right Lateral Gram Stain - Final 06/15/19 12:00 Foot - Right Lateral Wound Culture - Final Enterobacter Cloacae Klebsiella Oxytoca Alpha Hemolytic Streptococcus 06/13/19 18:16 Foot - Right Lateral Gram Stain - Final 06/13/19 18:16 Foot - Right Lateral Wound Culture - Final Klebsiella Oxytoca Enterobacter Cloacae Staphylococcus Coagulase Neg Alpha Hemolytic Streptococcus 06/13/19 18:16 Urine - Urine Clean Catch Urine Culture - Final NO GROWTH OBTAINED Vital Signs Temp 97.9 F 06/22/19 06:59 Pulse 80 06/22/19 06:59 Resp 20 06/22/19 06:59 BP 101/56 L 06/22/19 06:59 Pulse Ox 98 06/21/19 21:00 Intake & Output 06/21/19 06/21/19 06/22/19 11:59 23:59 11:59 Intake Total 950 400 Output Total 500 Balance 450 400 Intake: IV 350 SL 350 IVPB 100 50 Oral 500 350 Output: Urine 500 Void 500 Other: Voiding Method Toilet Toilet Toilet # Unmeasured Voids Void 2 2 Bowel Movement Yes # Bowel Movements 1 Condition: Stable - Instructions Diet, Activity, Other Instructions: santyl to the wound daily follow up with Podiatry at the wound care center Referrals: Shi Bell DPM [Staff Physician] - Ariana Caballero MD [Primary Care Provider] - Disposition: HOME - Home Medications Comprehensive Discharge Medication List: Ambulatory Orders Aspirin [ASA -] 81 mg PO DAILY 06/30/14 Gabapentin 300 mg PO HS 10/25/14 Humalog Kwikpen U-200 20 - 25 unit SQ TID 12/28/16 Acetaminophen [Tylenol .Regular Strength -] 650 mg PO Q6H PRN #0 tablet Enalapril Maleate [Vasotec -] 5 mg PO DAILY@HS tablet 01/15/17 Metoprolol Tartrate [Lopressor -] 50 mg PO DAILY@HS tablet 01/15/17 Levothyroxine [Synthroid -] 25 mcg PO DAILY@0700 08/28/18 Clopidogrel Bisulfate [Plavix] 75 mg PO DAILY #30 tablet 01/24/19 Becaplermin [Regranex] 15 gm TP DAILY #1 gel..gram. 06/20/19 Collagenase Clostridium Hist. [Santyl -] 1 applic TP DAILY #1 tube 06/22/19 Melatonin 5 mg PO HS PRN #30 tab 06/22/19 Sulfamethoxazole/Trimethoprim [Bactrim Ds -] 1 tab PO BID #14 tablet 06/22/19
[2019-06-22 11:31] VITALS: TEMP 98.3
[2019-06-22] MEDS: COLLAGENASE CLOSTRIDIUM HIST. 30 GRAMS TUBE TP SCH (11:33)
[2019-06-22 14:45] VITALS: BP 132/73; PULSE 81
== END 2019-06-22 15:18 | disposition home health service (06) | DRG 380 ==
LOC: JER 15:06 → JERBED 18:48 → J6S 20:35
PROVIDERS: ADMIT Family Medicine; ATTEND Family Medicine
PROC: 0Y9M3ZX Drainage of Right Foot, Percutaneous Approach, Diagnostic (ICD-10-PCS; principal; 2019-06-15)
DX: E11.621 Type 2 diabetes mellitus with foot ulcer (principal); L03.115 Cellulitis of right lower limb; E11.51 Type 2 diabetes mellitus with diabetic peripheral angiopathy without gangrene; E11.40 Type 2 diabetes mellitus with diabetic neuropathy, unspecified; L97.519 Non-pressure chronic ulcer of other part of right foot with unspecified severity; E11.65 Type 2 diabetes mellitus with hyperglycemia; Z79.4 Long term (current) use of insulin; I10 Essential (primary) hypertension; E78.5 Hyperlipidemia, unspecified; I25.10 Atherosclerotic heart disease of native coronary artery without angina pectoris; E03.9 Hypothyroidism, unspecified; R31.29 Other microscopic hematuria; Z87.891 Personal history of nicotine dependence
CPT/HCPCS: 36415; 73630-TC-RT-FY; 73718-TC-RT; 76775-TC; 76856-TC; 80048; 80053; 81003; 82962; 83036; 85025; 85027; 85651; 86140; 87040; 87070; 87077; 87086; 87186; 87205; 93005; 93010; 99282-25; G0480; J1644

== ENCOUNTER 2020-05-10 13:45 | Inpatient (IN) | payer OTHER ==
--- NOTE | 2020-05-10 14:52 | PDOC ---
History of Present Illness - General Chief Complaint: Wound Stated Complaint: WOUND CARE (RT FOOT) Time Seen by Provider: 05/10/20 14:41 History Source: Patient, Old Records Exam Limitations: No Limitations - History of Present Illness Initial Comments: 05/10/20 14:52 Yolande Vargas is a 55F with PMH HTN, HLD, RLE arterial stent, and IDDM c/b BLE neuropathy and RLE chronic foot ulcer sent from wound clinic for worsening cellulitis and admission for IV Abx. Patient has poorly controlled IDDM with BLE neuropathy, had foot fracture 5 years ago and has large callus to R MTP plantar region. Follows up with wound clinic weekly, last week had large blister over callus that was drained, MRI no osteo, X-ray no deep infection, was given PO amoxicillin for infection ppx. Last wound culture showed ampicillin resistance. Last dose taken 3 days ago. Yesterday noticed swelling and redness to area of blister site ~3cm radiating, non-tender, but painful when walking. Today went to wound clinic and redness area has doubled with worsening pain, referred to ED for admission for c ellulitis. Patient denies fever, chills, nausea, vomiting, cough, SOB, abd pain, urinary sx. PMD Federico ID Josue Past History - Medical History Allergies/Adverse Reactions: Allergies Allergy/AdvReac Type Severity Reaction Status Date / Time No Known Drug Allergies Allergy Verified 09/17/18 01:13 Home Medications: Ambulatory Orders Aspirin [ASA -] 81 mg PO DAILY 06/30/14 Gabapentin 300 mg PO HS 10/25/14 Humalog Kwikpen U-200 20 - 25 unit SQ TID 12/28/16 Acetaminophen [Tylenol .Regular Strength -] 650 mg PO Q6H PRN #0 tablet 01/15/17 Enalapril Maleate [Vasotec -] 5 mg PO DAILY@HS tablet 01/15/17 Metoprolol Tartrate [Lopressor -] 50 mg PO DAILY@HS tablet 01/15/17 Levothyroxine [Synthroid -] 25 mcg PO DAILY@0700 08/28/18 Clopidogrel Bisulfate [Plavix] 75 mg PO DAILY #30 tablet 01/24/19 Melatonin 5 mg PO HS PRN #30 tab 06/22/19 Anemia: No Asthma: No Cancer: No Cardiac Disorders: Yes (CAD) CVA: No COPD: No CHF: No Dementia: No Diabetes: Yes GI Disorders: No Disorders: No HTN: Yes Hypercholesterolemia: Yes Liver Disease: No Seizures: No Thyroid Disease: Yes (HYPOTHYROID DISEASE) - Surgical History Abdominal Surgery: No Appendectomy: No Cardiac Surgery: No Cholecystectomy: No Lung Surgery: No Neurologic Surgery: No Orthopedic Surgery: No - Reproductive History Is Patient Now?: No - Immunization History Immunization Up to Date: Yes - Psycho-Social/Smoking History Smoking Status: Yes Smoking History: Never smoked Have you smoked in the past 12 months: No Number of Cigarettes Smoked Daily: 0 If you are a former smoker, when did you quit?: 18 years ago - Substance Abuse Hx (Audit-C & DAST Scrn) How often the patient has a drink containing alcohol: Never Score: In Men: 4 or > Positive; In Women: 3 or > Positive: 0 Screen Result (Pos requires Nsg. Audit-10AR): Negative Review of Systems - Review of Systems Able to Perform ROS?: Yes Constitutional: No: Symptoms Reported HEENTM: No: Symptoms Reported Respiratory: No: Symptoms reported Cardiac (ROS): No: Symptoms Reported ABD/GI: No: Symptoms Reported : No: Symptoms Reported Musculoskeletal: No: Symptoms Reported Integumentary: Yes: Erythema Neurological: Yes: Numbness (BLE) Endocrine: No: Symptoms Reported Hematologic/Lymphatic: No: Symptoms Reported All Other Systems: Reviewed and Negative *Physical Exam - Vital Signs Last Vital Signs Temp Pulse Resp BP Pulse Ox 98.5 F 87 18 172/84 H 98 05/10/20 13:57 05/10/20 13:57 05/10/20 13:57 05/10/20 13:57 05/10/20 13:57 - Physical Exam General Appearance: Yes: Nourished, Appropriately Dressed, Obese, Other (pleasant and otherwise resting in bed). No: Apparent Distress HEENT: positive: EOMI, Normal ENT Inspection, Normal Voice, Symmetrical, Pharynx Normal, Hearing Grossly Normal. negative: Scleral Icterus (R), Scleral Icterus (L), Pharyngeal Erythema, Tonsillar Exudate, Tonsillar Erythema Neck: positive: Trachea midline, Normal Thyroid, Supple. negative: Tender, Rigid, Lymphadenopathy (R), Lymphadenopathy (L), Tender lateral, Tender midline Respiratory/Chest: positive: Lungs Clear, Normal Breath Sounds. negative: Chest Tender, Respiratory Distress, Accessory Muscle Use, Crackles, Rales, Rhonchi, Stridor Cardiovascular: positive: Regular Rhythm, Regular Rate Gastrointestinal/Abdominal: positive: Normal Bowel Sounds, Flat, Soft. negative: Tender, Organomegaly, Guarding, Rebound, Hernia Musculoskeletal: positive: Normal Inspection, Decreased Range of Motion. negative: CVA Tenderness, Vertebral Tenderness Extremity: positive: Normal Capillary Refill, Normal Range of Motion, Swelling, Erythema (forefoot erythema with mild warmth, borders demarcated with marker), Inflammation, Other (large 6cm callus to R foot at MTP laterally with bruising to dorsal part and surrounding cellulitis). negative: Normal Inspection, Tender, Pelvis Stable, Pedal Edema Integumentary: positive: Normal Color, Dry, Warm. negative: Clammy, Diaphoresis Neurologic: positive: Fully Oriented, Alert, Normal Mood/Affect, Normal Response ED Treatment Course - LABORATORY CBC & Chemistry Diagram: 05/10/20 15:50 05/10/20 15:50 - ADDITIONAL ORDERS Additional order review: Laboratory Results 05/10/20 14:41 POC Glucometer 116 05/10/20 14:41 POC Glucometer 116 Medical Decision Making - Medical Decision Making 05/10/20 17:48 Patient has known history of IDDM and chronic foot wound here for repeat cellulitis to R foot. No systemic symptoms, VSS, per patient cellulitis has doubled in size and is painful. Ordering CBC/CMP/CRP/ESR/BC/ECG/CXR and R foot XR for evaluation of deep infection. Per prior notes, has been admitted for cellulitis and started on empiric vanc/Zosyn per Dr. Salas, starting same Abx at this time. ECG shows NSR with HR 84, QTc 458, inverted P waves in V2, no concerning DANY/D or TWI. CXR unremarkable. Labs notable for: - CBC WNL - K 8.6 hemolyzed, re-ordered - ESR 32, elevated - CRP 3.5, elevated - AST 89 - AP 133 MDMB sent to [facility] for admission to Med/Surg for cellulitis. 19:[address] Valente with night team, plan for f/u K+ and admit to Med/Surg. Discharge - Discharge Information Problems reviewed: Yes Clinical Impression/Diagnosis: Abscess or cellulitis of foot Condition: Stable - Admission Yes - Follow up/Referral Referrals: Ariana Caballero MD [Primary Care Provider] - - Patient Discharge Instructions - Post Discharge Activity
[2020-05-10 16:13] LABS: BASO % 0.5 % (0-2.0); EOS % 0.9 % (0-4.5); HEMOGLOBIN 12.2 GM/dL (10.7-15.3); LYMPH % 22.7 % (8-40); MCH 29.2 pg (25.7-33.7); MEAN CELL VOLUME 88.5 fl (80-96); MEAN PLT VOLUME 9.7 fl (7.5-11.1); MONO % 7.9 % (3.8-10.2); PLATELET COUNT 363 K/MM3 (134-434); RBC 4.18 M/mm3 (3.60-5.2); RDW 13.6 % (11.6-15.6); WHITE BLOOD COUNT 6.9 K/mm3 (4.0-10.0)
[2020-05-10 16:22] LABS: INR 1.04 (0.83-1.09); PROTHROMBIN TIME (PATIENT) 12.3 SEC (9.7-13.0)
[2020-05-10 16:25] LABS: ACTIVATED PTT 34.4 SECONDS (25.2-36.5)
[2020-05-10 16:54] LABS: ALBUMIN 3.6 g/dl (3.4-5.0); BILIRUBIN,TOTAL 0.4 mg/dL (0.2-1); CALCIUM 9.2 mg/dL (8.5-10.1); CREATININE 0.9 mg/dL (0.55-1.3); TOT PROT 8.8 g/dl (6.4-8.2)
[2020-05-10 17:14] LABS: POTASSIUM 8.6 mmol/L (3.5-5.1)
[2020-05-10 17:34] LABS: ERYTHROCYTE SEDIMENTATION RATE 32 mm/hr (0-30)
[2020-05-10] MEDS ORDERED: VANCOMYCIN 1 GM in D5W (PRE-DOCKED) 1,000 MG/250 ML IVPB ONE (17:45)
[2020-05-10] MEDS ORDERED: PIPERACILLIN/TAZOB 3.375 GM 3.375 GM in DEXTROSE 5%-WATER - 50 ML IVPB ONE (17:45)
--- NOTE | 2020-05-10 17:58 | PDOC ---
Documentation entered by Viv Lee SCRIBE, acting as scribe for Suzy Rahman MD. Suzy Rahman MD: This documentation has been prepared by the scribe, Viv Lee SCRIBE, under my direction and personally reviewed by me in its entirety. I confirm that the documentation accurately reflects all work, treatment, procedures, and medical decision making performed by me. Attending Attestation - Resident Resident Name: KimberleeDeyvi - ED Attending Attestation I have performed the following: I have examined & evaluated the patient, The case was reviewed & discussed with the resident, I agree w/resident's findings & plan, Exceptions are as noted - HPI HPI: 05/10/20 16:39 The patient is a 55-year-old female with a past medical history significant for CAD, DM, HTN, HLD, and hypothyroidism who was sent to the ER from wound care for admission for R foot cellulitis. Patient reports some drainage from the R foot wound and increased surrounding erythema and increased warmth. Denies fevers. Denies any new trauma. States feels similar to when she had foot cellulitis in the past requiring admission and IV abx. - Physicial Exam PE: 05/10/20 15:56 General: well appearing, NAD HEENT: NCAT Extremities: no LE edema, +callous on R lateral aspect of foot without active drainage, +surrounding erythema without ttp but +increased warmth, sensation intact to light touch, able to wiggle toes, dorsiflexion/plantarflexion intact - Medical Decision Making 05/10/20 15:56 55 yo F sent from wound care for admission cellulitis and possible infected wound given report of new drainage. Will also r/o osteo. Plan: -labs -xr R foot -cxr -abx -admit This clinical encounter is taking place during a federal and state health care emergency attributable to the novel [place] Virus pandemic. The [employer] of the Department of Health and Human Services has declared, pursuant to the Public Health Service Act 319F-3 (42 U.S[place]C. 247d-6d), that a covered persons activities related to medical countermeasures against COVID-19 will be immune from liability under Federal and State law. Discharge - Discharge Information Problems reviewed: Yes Clinical Impression/Diagnosis: Abscess or cellulitis of foot - Follow up/Referral Referrals: Ariana Caballero MD [Primary Care Provider] - - Patient Discharge Instructions - Post Discharge Activity
[2020-05-10] MEDS ORDERED: VANCOMYCIN 1 GRAM (PRE-DOCKED) 1,000 MG/250 ML BAG IVPB ONE (18:01)
[2020-05-10] MEDS ORDERED: PIPERACILLIN/TAZOB 3.375 GM 3.375 GM/50 ML BAG IVPB ONE (18:01)
[2020-05-10 19:22] LABS: ALBUMIN 3.7 g/dl (3.4-5.0); BILIRUBIN,TOTAL 0.4 mg/dL (0.2-1); BLOOD UREA NITROGEN 11.2 mg/dL (7-18); CALCIUM 9.4 mg/dL (8.5-10.1); CREATININE 0.8 mg/dL (0.55-1.3); POTASSIUM 4.5 mmol/L (3.5-5.1)
--- NOTE | 2020-05-10 19:26 | PDOC ---
*Physical Exam - Vital Signs Last Vital Signs Temp Pulse Resp BP Pulse Ox 99.1 F 87 18 173/88 H 99 05/10/20 18:26 05/10/20 18:26 05/10/20 13:57 05/10/20 18:26 05/10/20 18:26 ED Treatment Course - LABORATORY CBC & Chemistry Diagram: 05/10/20 15:50 05/10/20 17:15 - ADDITIONAL ORDERS Additional order review: Laboratory Results 05/10/20 05/10/20 05/10/20 17:33 17:15 15:50 PT with INR 12.30 INR 1.04 PTT (Actin FS) 34.4 Sodium 138 Potassium 4.5 Chloride 104 Carbon Dioxide 28 Anion Gap 6 L BUN 11.2 Creatinine 0.8 Est GFR (CKD-EPI)AfAm 97.55 Est GFR (CKD-EPI)NonAf 84.17 POC Glucometer 103 Random Glucose 108 H Calcium 9.4 Total Bilirubin 0.4 AST 24 ALT 25 Alkaline Phosphatase 131 H C-Reactive Protein Total Protein 8.0 Albumin 3.7 05/10/20 05/10/20 15:50 14:41 PT with INR INR PTT (Actin FS) Sodium 136 Potassium 8.6 H* Chloride 104 Carbon Dioxide 28 Anion Gap 4 L BUN 11.0 Creatinine 0.9 Est GFR (CKD-EPI)AfAm 84.61 Est GFR (CKD-EPI)NonAf 73.00 POC Glucometer 116 Random Glucose 113 H Calcium 9.2 Total Bilirubin 0.4 AST 89 H ALT 29 Alkaline Phosphatase 133 H C-Reactive Protein 3.5 H Total Protein 8.8 H Albumin 3.6 05/10/20 05/10/20 05/10/20 17:33 15:50 14:41 RBC 4.18 MCV 88.5 MCHC 33.0 RDW 13.6 MPV 9.7 Neutrophils % 68.0 D Lymphocytes % 22.7 D Monocytes % 7.9 Eosinophils % 0.9 Basophils % 0.5 POC Glucometer 103 116 - Medications Given in the ED: ED Medications Discontinued Medications Generic Name Dose Route Start Last Admin Trade Name Freq PRN Reason Stop Dose Admin Piperacillin Sod/Tazobactam 50 mls @ 100 mls/hr 05/10/20 17:45 05/10/20 18:15 Sod 3.375 gm/ Dextrose IVPB 08/13/20 18:14 100 mls/hr ONCE ONE Administration Protocol Vancomycin HCl 1,000 mg 05/10/20 17:45 05/10/20 18:15 Vancomycin (Pre-Docked) IVPB 05/10/20 17:46 1,000 mg ONCE ONE Administration Protocol ED Progress Note - Progress Note Progress Note: 05/10/20 19:29 Pending admission for cellulitis. Being treated with vanc/zosyn. f/u repeat K. 05/10/20 19:47 Patient admitted by day team resident Discharge - Discharge Information Problems reviewed: Yes Clinical Impression/Diagnosis: Abscess or cellulitis of foot Condition: Stable - Follow up/Referral Referrals: Ariana Caballero MD [Primary Care Provider] - - Patient Discharge Instructions - Post Discharge Activity
[2020-05-10] MEDS ORDERED: ENOXAPARIN NA (PORCINE) 40 MG/0.4 ML DISP.SYRIN SQ ONE (20:32)
[2020-05-10] MEDS: ENOXAPARIN NA (PORCINE) 40 MG/0.4 ML DISP.SYRIN SQ SCH (20:41)
--- NOTE | 2020-05-10 22:20 | HP ---
CHIEF COMPLAINT:right foot pain and swelling PCP:Dr. Santana Infectious Diseases: Dr. Salas Wound Care: Dr. Denise HISTORY OF PRESENT ILLNESS: 55 year old female with a past medical history of HTN, HLD, RLE arterial stent, and IDDM, BLE neuropathy and RLE chronic foot ulcer who was sent from the wound clinic for worsening cellulitis. As reported patient has poorly controlled IDDM with BLE neuropathy, had foot fracture 5 years ago and has large callus to R MTP plantar region. She follows up with wound clinic weekly, last week had large blister over callus that was drained, MRI showed no osteomyelitis, X-ray no deep infection, she was given PO amoxicillin for infection ppx. Last wound culture showed ampicillin resistance. Last dose taken was 3 days ago. Yesterday she noticed swelling and redness to area of blister site ~3cm radiating, non-tender, but painful when walking. Today she went to wound clinic and redness area has doubled with worsening pain, and she was referred to ED for admission for cellulitis and IV antibiotics. She denied fever, chills, nausea, vomiting, cough, SOB, abdominal pain, and urinary symptoms. ER course notable for: right foot wound with erythema and pain, WBC 6.9, ESR 32 and C-reactive protein 3.5 received a dose of IV vancomycin and pippercillin Recent Travel: denies PAST MEDICAL HISTORY: HTN HLD RLE arterial stent IDDM BLE neuropathy RLE chronic foot ulcer PAST SURGICAL HISTORY: none Social History: Smoking:no Alcohol:no Drugs: no Family History: noncontributory Allergies No Known Drug Allergies Allergy (Verified 09/17/18 01:13) HOME MEDICATIONS: Home Medications Medication Instructions Recorded Aspirin [ASA -] 81 mg PO DAILY 06/30/14 Gabapentin 300 mg PO HS 10/25/14 Humalog Kwikpen U-200 20 - 25 unit SQ TID 12/28/16 Acetaminophen [Tylenol .Regular 650 mg PO Q6H PRN #0 tablet 01/15/17 Strength -] Enalapril Maleate [Vasotec -] 5 mg PO DAILY@[facility] tablet 01/15/17 Metoprolol Tartrate [Lopressor -] 50 mg PO DAILY@[facility] tablet 01/15/17 Levothyroxine [Synthroid -] 25 mcg PO DAILY@0700 08/28/18 Clopidogrel Bisulfate [Plavix] 75 mg PO DAILY #30 tablet 01/24/19 Melatonin 5 mg PO HS PRN #30 tab 06/22/19 REVIEW OF SYSTEMS CONSTITUTIONAL: Absent: fever, chills, diaphoresis, generalized weakness, malaise, loss of appetite, weight change HEENT: Absent: rhinorrhea, nasal congestion, throat pain, throat swelling, difficulty swallowing, mouth swelling, ear pain, eye pain, visual changes CARDIOVASCULAR: Absent: chest pain, syncope, palpitations, irregular heart rate, lightheadedness, peripheral edema RESPIRATORY: Absent: cough, shortness of breath, dyspnea with exertion, orthopnea, wheezing, stridor, hemoptysis GASTROINTESTINAL: Absent: abdominal pain, abdominal distension, nausea, vomiting, diarrhea, constipation, melena, hematochezia GENITOURINARY: Absent: dysuria, frequency, urgency, hesitancy, hematuria, flank pain, genital pain MUSCULOSKELETAL: Absent: myalgia, arthralgia, joint swelling, back pain, neck pain SKIN: Absent: rash, itching, pallor, right lower foot open wound with erythema and pain HEMATOLOGIC/IMMUNOLOGIC: Absent: easy bleeding, easy bruising, lymphadenopathy, frequent infections ENDOCRINE: Absent: unexplained weight gain, unexplained weight loss, heat intolerance, cold intolerance NEUROLOGIC: Absent: headache, focal weakness or paresthesias, dizziness, unsteady gait, seizure, mental status changes, bladder or bowel incontinence PSYCHIATRIC: Absent: anxiety, depression, suicidal or homicidal ideation, hallucinations. PHYSICAL EXAMINATION Vital Signs - 24 hr 05/10/20 05/10/20 13:57 18:26 Temperature 98.5 F 99.1 F Pulse Rate 87 Pulse Rate [ 87 Right Radial] Respiratory 18 Rate Blood Pressure 172/84 H Blood Pressure 173/88 H [Right Arm] O2 Sat by Pulse 98 99 Oximetry (%) General no acute distress Vital signs reviewed afebrile BP noted Neck no JVD Lungs CTA nonlabored breathing effort no rales no wheezing Heart s1s2 rate regular no murmurs Abdomen soft nontender nondistended Extremities warm to touch no pitting edema no cyanosis RLE wrapped wound with erythema present Skin nail beds and lips pink Mood calm Laboratory Results - last 24 hr 05/10/20 05/10/20 05/10/20 14:41 15:50 15:50 WBC 6.9 RBC 4.18 Hgb 12.2 Hct 37.0 MCV 88.5 MCH 29.2 MCHC 33.0 RDW 13.6 Plt Count 363 MPV 9.7 Absolute Neuts (auto) 4.7 Neutrophils % 68.0 D Lymphocytes % 22.7 D Monocytes % 7.9 Eosinophils % 0.9 Basophils % 0.5 Nucleated RBC % 0 ESR 32 H PT with INR INR PTT (Actin FS) Sodium 136 Potassium 8.6 H* Chloride 104 Carbon Dioxide 28 Anion Gap 4 L BUN 11.0 Creatinine 0.9 Est GFR (CKD-EPI)AfAm 84.61 Est GFR (CKD-EPI)NonAf 73.00 POC Glucometer 116 Random Glucose 113 H Calcium 9.2 Total Bilirubin 0.4 AST 89 H ALT 29 Alkaline Phosphatase 133 H C-Reactive Protein 3.5 H Total Protein 8.8 H Albumin 3.6 05/10/20 05/10/20 05/10/20 15:50 17:15 17:33 WBC RBC Hgb Hct MCV MCH MCHC RDW Plt Count MPV Absolute Neuts (auto) Neutrophils % Lymphocytes % Monocytes % Eosinophils % Basophils % Nucleated RBC % ESR PT with INR 12.30 INR 1.04 PTT (Actin FS) 34.4 Sodium 138 Potassium 4.5 Chloride 104 Carbon Dioxide 28 Anion Gap 6 L BUN 11.2 Creatinine 0.8 Est GFR (CKD-EPI)AfAm 97.55 Est GFR (CKD-EPI)NonAf 84.17 POC Glucometer 103 Random Glucose 108 H Calcium 9.4 Total Bilirubin 0.4 AST 24 ALT 25 Alkaline Phosphatase 131 H C-Reactive Protein Total Protein 8.0 Albumin 3.7 05/10/20 20:36 WBC RBC Hgb Hct MCV MCH MCHC RDW Plt Count MPV Absolute Neuts (auto) Neutrophils % Lymphocytes % Monocytes % Eosinophils % Basophils % Nucleated RBC % ESR PT with INR INR PTT (Actin FS) Sodium Potassium Chloride Carbon Dioxide Anion Gap BUN Creatinine Est GFR (CKD-EPI)AfAm Est GFR (CKD-EPI)NonAf POC Glucometer 206 Random Glucose Calcium Total Bilirubin AST ALT Alkaline Phosphatase C-Reactive Protein Total Protein Albumin ASSESSMENT/PLAN: 55 year old female with a past medical history of HTN, HLD, RLE arterial stent, hypothyroidism,IDDM, BLE neuropathy and RLE chronic foot ulcer who was sent from the wound clinic for worsening cellulitis. #1 Chronic Right Lower Extremity Wound/Cellulitis no leukocytosis, ESR and CRP elevated remains afebrile received one dosage of IV vancomycin 1 gm and pippercillin 3.375mcg c/w with IV vancomycin 1 gm and pippercillin 2.275 mcg q8hr c/w tylenol 1000mg q6hr prn for pain control f/up on blood cultures Infectious Disease- Dr. Salas consulted Wound Care- Dr Denise consulted #2 Hypertension uncontrolled, SBP 170's c/w metoprolol and vasotec #3 IDDM controlled BGM before meals and at bedtime insulin as per sliding scale check hgbA1c c/w asa ideally should be on statin therapy #4 Right Lower Extremity Arterial Stent c/w asa and plavix #5 Hypothyroidism c/w synthroid #6 Hyperlipidemia not on statin therapy, hx IDDM consider adding statin therapy #7 Rule Out COVID f/up on COVID test maintain strict isolation precautions for contact and droplet DVT Prophylaxis lovenox 40 mg daily FEN no IV fluids indicated BMP daily, replete electrolytes as needed ADA, low sodium diet Family Medical History Family History: Unremarkable Family Hx Cancer: Grandmother (paternal) Visit type - Emergency Visit Emergency Visit: Yes ED Registration Date: 05/10/20 Care time: The patient presented to the Emergency Department on the above date and was hospitalized for further evaluation of their emergent condition. - New Patient This patient is new to me today: Yes Date on this admission: 05/11/20 - Critical Care Critical Care patient: No
[2020-05-11] MEDS: ENALAPRIL MALEATE 5 MG TABLET (FP) PO SCH ×2 (00:11→21:32)
[2020-05-11] MEDS: GABAPENTIN 300 MG CAPSULE PO SCH ×2 (00:11→21:32)
[2020-05-11] MEDS: MELATONIN 5 MG TABLETS PO PRN ×2 (00:11→23:32)
[2020-05-11] MEDS: ACETAMINOPHEN 500 MG TABLET (FP) PO PRN (00:12)
[2020-05-11] MEDS: ROSUVASTATIN CA 5 MG TABLET (FP) PO SCH ×2 (00:17→21:32)
[2020-05-11] MEDS ORDERED: PIPERACILLIN/TAZOBACTAM 2.25 GM VIAL IVPB ONE ×2 (02:36→09:43)
[2020-05-11] MEDS ORDERED: DEXTROSE 5%-WATER - 50 ML IVPB ONE ×3 (02:37→16:51)
[2020-05-11] MEDS: PIPERACILLIN/TAZOB 2.25 GM 2.25 GM in DEXTROSE 5%-WATER - 50 ML IVPB SCH ×3 (02:45→11:43)
[2020-05-11 04:38] VITALS: BMI 27.6
[2020-05-11] MEDS: INSULIN SLIDING SCALE (NOVOLOG) 1 VIAL SQ SCH ×2 (06:42→17:13)
[2020-05-11] MEDS: LEVOTHYROXINE NA 25 MCG TABLET (FP) PO SCH (06:43)
--- NOTE | 2020-05-11 08:43 | PN ---
Progress Note, Physician Chief Complaint: Right foot diabetic ulcer History of Present Illness: NAD Denies any pain at the moment self ambulatory - Current Medication List Current Medications: Active Medications Acetaminophen (Tylenol -) 1,000 mg PO Q6H PRN PRN Reason: PAIN Last Admin: 05/11/20 00:12 Dose: 1,000 mg Documented by: Aspirin (Asa -) 81 mg PO DAILY [facility] Clopidogrel Bisulfate (Plavix -) 75 mg PO DAILY [facility] Enalapril Maleate (Vasotec -) 5 mg PO DAILY@[facility] Last Admin: 05/11/20 00:11 Dose: 5 mg Documented by: Enoxaparin Sodium (Lovenox -) 40 mg SQ DAILY [facility] Last Admin: 05/10/20 20:41 Dose: 40 mg Documented by: Gabapentin (Neurontin -) 300 mg PO [facility] Last Admin: 05/11/20 00:11 Dose: 300 mg Documented by: Piperacillin Sod/Tazobactam (Sod 2.25 gm/ Dextrose) 50 mls @ 100 mls/hr IVPB Q8H-IV [facility]; Protocol Piperacillin Sod/Tazobactam (Sod 2.25 gm/ Dextrose) 50 mls @ 100 mls/hr IVPB Q8H-IV [facility]; Protocol Stop: 05/11/20 18:29 Last Admin: 05/11/20 02:45 Dose: 100 mls/hr Documented by: Insulin Aspart (Novolog Vial Sliding Scale -) 1 vial SQ BIDAC [facility]; Protocol Last Admin: 05/11/20 06:42 Dose: Not Given Documented by: Levothyroxine Sodium (Synthroid -) 25 mcg PO DAILY@0700 [facility] Last Admin: 05/11/20 06:43 Dose: 25 mcg Documented by: Melatonin (Melatonin) 5 mg PO HS PRN PRN Reason: INSOMNIA Last Admin: 05/11/20 00:11 Dose: 5 mg Documented by: Rosuvastatin Calcium (Crestor -) 5 mg PO HS [facility] Last Admin: 05/11/20 00:17 Dose: 5 mg Documented by: Vancomycin HCl (Vancomycin (Pre-Docked)) 1,000 mg IVPB DAILY [facility]; Protocol Vancomycin HCl (Vancomycin (Pre-Docked)) 1,000 mg IVPB Q24H [facility]; Protocol Stop: 05/11/20 18:01 - Objective Vital Signs: Vital Signs Temperature 98.0 F 05/11/20 06:00 Pulse Rate 75 05/11/20 06:00 Respiratory Rate 18 05/11/20 06:00 Blood Pressure 121/63 05/11/20 06:00 O2 Sat by Pulse Oximetry (%) 98 05/11/20 06:00 Constitutional: Yes: Well Nourished, No Distress, Calm Cardiovascular: Yes: Regular Rate and Rhythm Respiratory: Yes: Regular, CTA Bilaterally Gastrointestinal: Yes: Normal Bowel Sounds, Soft Genitourinary: Yes: WNL Musculoskeletal: Yes: WNL Extremities: Yes: WNL Edema: No Peripheral Pulses WNL: Yes Integumentary: Yes: Other (Right lateral foot abscess formation-no opening for drainage) Neurological: Yes: Alert, Oriented Psychiatric: Yes: Alert, Oriented Labs: CBC, BMP 05/10/20 15:50 05/10/20 17:15 INR, PTT INR 1.04 (0.83-1.09) 05/10/20 15:50 Problem List - Problems (1) Abscess or cellulitis of foot Assessment/Plan: -ID consult -Podiatry consult -MRI RLE done outpatient on 04/30/20 shows no osteomyelitis Problems reviewed: Yes Code(s): L03.119 - CELLULITIS OF UNSPECIFIED PART OF LIMB; L02.619 - CUTANEOUS ABSCESS OF UNSPECIFIED FOOT (2) Diabetes Assessment/Plan: -Recheck A1c -BGM AC HS -Not on any oral hypoglycemics or insulin at home? -ISS -Diabetic low sodium diet Problems reviewed: Yes Code(s): E11.9 - TYPE 2 DIABETES MELLITUS WITHOUT COMPLICATIONS (3) Hyperlipidemia Assessment/Plan: -LDL at 105 with goal LDL of <70 -Increase rosuvastatin to 10 mg po HS Problems reviewed: Yes Code(s): E78.5 - HYPERLIPIDEMIA, UNSPECIFIED Qualifiers: Assessment/Plan See problem list
[2020-05-11 09:41] LABS: BASO % 0.3 % (0-2.0); EOS % 1.9 % (0-4.5); HEMATOCRIT 34.7 % (32.4-45.2); HEMOGLOBIN 11.3 GM/dL (10.7-15.3); LYMPH % 25.5 % (8-40); MCH 28.8 pg (25.7-33.7); MCHC 32.5 g/dl (32.0-36.0); MEAN CELL VOLUME 88.6 fl (80-96); MEAN PLT VOLUME 9.4 fl (7.5-11.1); MONO % 11.5 % (3.8-10.2); NEUT % 60.8 % (42.8-82.8); PLATELET COUNT 308 K/MM3 (134-434); RBC 3.91 M/mm3 (3.60-5.2); RDW 13.1 % (11.6-15.6); WHITE BLOOD COUNT 5.4 K/mm3 (4.0-10.0)
[2020-05-11] MEDS: ENOXAPARIN NA (PORCINE) 40 MG/0.4 ML DISP.SYRIN SQ SCH (09:45)
[2020-05-11] MEDS: ASPIRIN 81 MG CHEWABLE TABLETS PO SCH (09:45)
[2020-05-11] MEDS: CLOPIDOGREL BISULFATE 75 MG TABLET (FP) PO SCH (09:46)
[2020-05-11] MEDS ORDERED: VANCOMYCIN 1 GM in D5W (PRE-DOCKED) 1,000 MG/250 ML IVPB SCH ×2 (10:00→18:00)
[2020-05-11 10:07] LABS: BLOOD UREA NITROGEN 17.6 mg/dL (7-18); CALCIUM 9.3 mg/dL (8.5-10.1)
--- NOTE | 2020-05-11 11:21 | PN ---
Progress Note (short form) - Note Progress Note: ID CONSULT DICTATED CELLULITIS R FOOT DIABETES MELLITUS CONTINUE EMPIRIC VANCOMYCIN/ ZOSYN
[2020-05-11] MEDS: VANCOMYCIN 1 GRAM (PRE-DOCKED) 1,000 MG/250 ML BAG IVPB SCH ×2 (12:10→23:32)
--- NOTE | 2020-05-11 12:46 | CONS ---
DATE OF CONSULTATION: DATE OF DICTATION: 05/11/2020 CHIEF COMPLAINT: The patient is a 55-year-old diabetic female who is evaluated for diabetic foot infection. HISTORY OF PRESENT ILLNESS: The patient reports developing a blister on the dorsal aspect of the right foot adjacent to a chronic callus. She reports that she was seen in the wound care clinic, where an aspirate was performed. The fluid obtained from the aspirate was not grossly purulent, and cultures were negative. She received a course of p.o. amoxicillin. She now presents with a 1-day history of worsening erythema, warmth, and swelling of the right foot. Patient has a lasting deformity of her right foot secondary to a fracture of the 5th metatarsal years ago. She was hospitalized in May of 2019 for cellulitis of the foot and clinically improved on IV antibiotic therapy. Wound culture at that time grew mixed organisms including enterobacter, klebsiella, and strep species. She denies any associated fever or chills. PAST MEDICAL HISTORY: Positive for insulin-dependent diabetes mellitus, hypertension, hyperlipidemia, peripheral vascular disease status post right lower extremity stent, peripheral neuropathy. ALLERGIES: No known allergies. MEDICATIONS: Include vancomycin, Zosyn, Plavix, Lovenox, enalapril, Crestor, Tylenol, aspirin, Neurontin, Synthroid. SOCIAL HISTORY: She lives in the community, nonsmoker, nondrinker. LABORATORY DATA: White count 5.4, ESR 31, creatinine 1.0. X-ray shows old fracture of the right 5th metatarsal. MRI performed on April 30 negative for osteomyelitis. PHYSICAL EXAMINATION: General: She is awake and alert. She is not acutely toxic appearing. Vital Signs: Temperature 97.9, blood pressure 155/63, pulse 82, regular. Respirations 18 per minute. HEENT: Sclerae are anicteric. Cardiovascular: Heart sounds S1, S2. Lungs: Clear. Abdomen: Soft and nontender. Extremities: Examination of the right foot: There is a deformity present on the lateral aspect of the right foot corresponding to her previous fracture. There is a callus present over the lateral aspect of the foot. There is a small fluctuant area adjacent to the callus. Erythema extends from the base of the toes to the midfoot on the dorsal aspect of the right foot. IMPRESSION: 1. Recurrent cellulitis, right foot. 2. Diabetes mellitus. 3. Peripheral neuropathy. Would continue vancomycin and Zosyn. Podiatry followup. Should the fluctuant area increase in size, would re-aspirate. Previous aspiration culture was negative, making an abscess less likely. Will follow. Thank you for the kind referral. TRISTIN JIMÉNEZ M.D. RADHIKA/[id number]
--- NOTE | 2020-05-11 13:44 | CONSULT ---
Consult Reason for Consultation:: Cellutlis right foot that has gotten worse the last few days She saw Dr Bell and everything was fine then - History of Present Illness Chief Complaint: Swollen right foot with a bullae present dorsum dorsum right foot lateral side - Past Medical History [employer]: Yes: CVA Cardio/Vascular: Yes: HTN, Hyperlipdemia Renal/: Yes: Other (jim) ...LMP: 01/27/20 ...LMP Comment: irregular ...: No Endocrine: Yes: Diabetes Mellitus, Hypothyroidism - Alcohol/Substance Use Hx Alcohol Use: No - Smoking History Smoking history: Never smoked Have you smoked in the past 12 months: No Aproximately how many cigarettes per day: 0 If you are a former smoker, when did you quit?: 18 years ago Home Medications - Allergies Allergies/Adverse Reactions: Allergies Allergy/AdvReac Type Severity Reaction Status Date / Time No Known Drug Allergies Allergy Verified 09/17/18 01:13 - Home Medications Home Medications: Ambulatory Orders Aspirin [ASA -] 81 mg PO DAILY 06/30/14 Gabapentin 300 mg PO HS 10/25/14 Humalog Kwikpen U-200 20 - 25 unit SQ TID 12/28/16 Acetaminophen [Tylenol .Regular Strength -] 650 mg PO Q6H PRN #0 tablet 01/15/17 Enalapril Maleate [Vasotec -] 5 mg PO DAILY@[facility] tablet 01/15/17 Metoprolol Tartrate [Lopressor -] 50 mg PO DAILY@[facility] tablet 01/15/17 Levothyroxine [Synthroid -] 25 mcg PO DAILY@0700 08/28/18 Clopidogrel Bisulfate [Plavix] 75 mg PO DAILY #30 tablet 01/24/19 Melatonin 5 mg PO HS PRN #30 tab 06/22/19 Physical Exam Vital Signs: Vital Signs Temperature 97.9 F 05/11/20 10:00 Pulse Rate 82 05/11/20 10:00 Respiratory Rate 18 05/11/20 10:00 Blood Pressure 155/63 05/11/20 10:00 O2 Sat by Pulse Oximetry (%) 97 05/11/20 10:00 Labs: CBC, BMP 05/11/20 07:52 05/11/20 07:52 Assessment Plan - Plan Plan: Infected right foot + cellulitis, + bullae Tx- Consent for was taken with nurse present . Patient agreed to incision and drainage of bullae Culture was performed and sent to lab [facility]de as per Infectious disease Doctor Dsd applied with suyapa May
--- NOTE | 2020-05-11 15:43 | EKG ---
Test Reason : Blood Pressure : / mmHG Vent. Rate : 084 BPM Atrial Rate : 084 BPM P-R Int : 128 ms QRS Dur : 094 ms QT Int : 388 ms P-R-T Axes : 050 043 044 degrees QTc Int : 458 ms NORMAL SINUS RHYTHM POSSIBLE LEFT ATRIAL ENLARGEMENT CANNOT RULE OUT ANTERIOR INFARCT , AGE UNDETERMINED ABNORMAL ECG WHEN COMPARED WITH ECG OF 13-JUN-2019 22:21, NO SIGNIFICANT CHANGE WAS FOUND Confirmed by LAURITA FERNANDEZ, ADALBERTO ([id number]) on 05/11/2020 3:43:24 PM Referred By: Confirmed By:ADALBERTO SHAY MD
[2020-05-11] MEDS ORDERED: PT OWN MED DRAWER 7, Y5N ONE ×2 (16:51→20:37)
[2020-05-11] MEDS ORDERED: PIPERACILLIN/TAZOBACTAM 3.375 GM VIAL IVPB ONE (16:51)
[2020-05-11] MEDS: PIPERACILLIN/TAZOB 3.375 GM 3.375 GM in DEXTROSE 5%-WATER - 50 ML IVPB SCH (17:13)
[2020-05-12] MEDS ORDERED: PIPERACILLIN/TAZOBACTAM 3.375 GM VIAL IVPB ONE ×3 (00:47→17:07)
[2020-05-12] MEDS ORDERED: DEXTROSE 5%-WATER - 50 ML IVPB ONE ×3 (00:47→17:08)
[2020-05-12] MEDS: PIPERACILLIN/TAZOB 3.375 GM 3.375 GM in DEXTROSE 5%-WATER - 50 ML IVPB SCH ×3 (01:19→17:29)
[2020-05-12] MEDS: INSULIN SLIDING SCALE (NOVOLOG) 1 VIAL SQ SCH ×2 (06:14→17:29)
[2020-05-12] MEDS: LEVOTHYROXINE NA 25 MCG TABLET (FP) PO SCH (06:15)
--- NOTE | 2020-05-12 07:41 | PN ---
Progress Note, Physician Chief Complaint: Right foot diabetic ulcer Uncontrolled DM2 History of Present Illness: NAD Denies any pain at the moment self ambulatory Seen by Poditry right foot abscess drained, culture obtained - Current Medication List Current Medications: Active Medications Acetaminophen (Tylenol -) 1,000 mg PO Q6H PRN PRN Reason: PAIN Last Admin: 05/11/20 00:12 Dose: 1,000 mg Documented by: Aspirin (Asa -) 81 mg PO DAILY [facility] Last Admin: 05/11/20 09:45 Dose: 81 mg Documented by: Clopidogrel Bisulfate (Plavix -) 75 mg PO DAILY [facility] Last Admin: 05/11/20 09:46 Dose: 75 mg Documented by: Enalapril Maleate (Vasotec -) 5 mg PO DAILY@[facility] Last Admin: 05/11/20 21:32 Dose: 5 mg Documented by: Enoxaparin Sodium (Lovenox -) 40 mg SQ DAILY [facility] Last Admin: 05/11/20 09:45 Dose: 40 mg Documented by: Gabapentin (Neurontin -) 300 mg PO HS [facility] Last Admin: 05/11/20 21:32 Dose: 300 mg Documented by: Vancomycin HCl (Vancomycin (Pre-Docked)) 1,000 mg in 250 mls @ 166.667 mls/hr IVPB Q12H [facility]; Protocol Last Admin: 05/11/20 23:32 Dose: 166.667 mls/hr Documented by: Piperacillin Sod/Tazobactam (Sod 3.375 gm/ Dextrose) 50 mls @ 100 mls/hr IVPB Q8H-IV [facility]; Protocol Last Admin: 05/12/20 01:19 Dose: 100 mls/hr Documented by: Insulin Aspart (Novolog Vial Sliding Scale -) 1 vial SQ BIDAC [facility]; Protocol Last Admin: 05/12/20 06:14 Dose: Not Given Documented by: Levothyroxine Sodium (Synthroid -) 25 mcg PO DAILY@0700 [facility] Last Admin: 05/12/20 06:15 Dose: 25 mcg Documented by: Melatonin (Melatonin) 5 mg PO HS PRN PRN Reason: INSOMNIA Last Admin: 05/11/20 23:32 Dose: 5 mg Documented by: Rosuvastatin Calcium (Crestor -) 5 mg PO HS [facility] Last Admin: 05/11/20 21:32 Dose: 5 mg Documented by: - Objective Vital Signs: Vital Signs Temperature 98.1 F 05/12/20 06:11 Pulse Rate 77 05/12/20 06:11 Respiratory Rate 18 05/12/20 06:11 Blood Pressure 112/56 L 05/12/20 06:11 O2 Sat by Pulse Oximetry (%) 94 L 05/11/20 21:30 Constitutional: Yes: Well Nourished, No Distress, Calm Cardiovascular: Yes: Regular Rate and Rhythm Respiratory: Yes: Regular, CTA Bilaterally Gastrointestinal: Yes: Normal Bowel Sounds, Soft Genitourinary: Yes: WNL Musculoskeletal: Yes: WNL Extremities: Yes: WNL Edema: No Peripheral Pulses WNL: Yes Integumentary: Yes: Other (right lateral foot abcess formation) Wound/Incision: Yes: Dressing Removed Neurological: Yes: Alert, Oriented Psychiatric: Yes: Alert, Oriented Labs: CBC, BMP 05/11/20 07:52 05/11/20 07:52 INR, PTT INR 1.04 (0.83-1.09) 05/10/20 15:50 Problem List - Problems (1) Abscess or cellulitis of foot Assessment/Plan: -ID consult -Podiatry consult -MRI RLE done outpatient on 04/30/20 shows no osteomyelitis -WC: Microbiology 05/11/20 13:30 Wound Culture - Preliminary Foot - Right Dorsum Non Lactose Fermenting Gnb Lactose Fermenting Neg Bacilli 05/10/20 15:50 Blood Culture - Preliminary Blood - Peripheral Venous NO GROWTH OBTAINED AFTER 24 HOURS, INCUBATION TO CONTINUE FOR 4 DAYS. 05/10/20 15:50 Blood Culture - Preliminary Blood - Peripheral Venous NO GROWTH OBTAINED AFTER 24 HOURS, INCUBATION TO CONTINUE FOR 4 DAYS. -IV Vanco -Afebrile Problems reviewed: Yes Code(s): L03.119 - CELLULITIS OF UNSPECIFIED PART OF LIMB; L02.619 - CUTANEOUS ABSCESS OF UNSPECIFIED FOOT (2) Diabetes Assessment/Plan: -A1c at 8.2 -BGM AC HS -Not on any oral hypoglycemics or insulin at home? -ISS -Diabetic low sodium diet -Start metformin 500 mg po bid -Also start Januvia 50 mg po daily Problems reviewed: Yes Code(s): E11.9 - TYPE 2 DIABETES MELLITUS WITHOUT COMPLICATIONS (3) Hyperlipidemia Assessment/Plan: -LDL at 105 with goal LDL of <70 -Increase rosuvastatin to 10 mg po HS Problems reviewed: Yes Code(s): E78.5 - HYPERLIPIDEMIA, UNSPECIFIED Qualifiers: Assessment/Plan See problem list
[2020-05-12] MEDS: CLOPIDOGREL BISULFATE 75 MG TABLET (FP) PO SCH (09:57)
[2020-05-12] MEDS: ASPIRIN 81 MG CHEWABLE TABLETS PO SCH (09:57)
[2020-05-12] MEDS: ENOXAPARIN NA (PORCINE) 40 MG/0.4 ML DISP.SYRIN SQ SCH (10:01)
[2020-05-12] MEDS: sitaGLIPtin PHOSPHATE 50 MG TABLET PO SCH (11:11)
[2020-05-12] MEDS: VANCOMYCIN 1 GRAM (PRE-DOCKED) 1,000 MG/250 ML BAG IVPB SCH (11:51)
--- NOTE | 2020-05-12 17:09 | PN ---
Progress Note, Physician Chief Complaint: S/P I&D R FOOT FLUID COLLECTION WOUND C/S LF, NLF NO COMPLAINTS OF PAIN NO F/C - Current Medication List Current Medications: Active Medications Acetaminophen (Tylenol -) 1,000 mg PO Q6H PRN PRN Reason: PAIN Last Admin: 05/11/20 00:12 Dose: 1,000 mg Documented by: Aspirin (Asa -) 81 mg PO DAILY [facility] Last Admin: 05/12/20 09:57 Dose: 81 mg Documented by: Clopidogrel Bisulfate (Plavix -) 75 mg PO DAILY [facility] Last Admin: 05/12/20 09:57 Dose: 75 mg Documented by: Enalapril Maleate (Vasotec -) 5 mg PO DAILY@[facility] Last Admin: 05/11/20 21:32 Dose: 5 mg Documented by: Enoxaparin Sodium (Lovenox -) 40 mg SQ DAILY [facility] Last Admin: 05/12/20 10:01 Dose: 40 mg Documented by: Gabapentin (Neurontin -) 300 mg PO HS [facility] Last Admin: 05/11/20 21:32 Dose: 300 mg Documented by: Piperacillin Sod/Tazobactam (Sod 3.375 gm/ Dextrose) 50 mls @ 100 mls/hr IVPB Q8H-IV [facility]; Protocol Last Admin: 05/12/20 09:58 Dose: 100 mls/hr Documented by: Insulin Aspart (Novolog Vial Sliding Scale -) 1 vial SQ BIDAC [facility]; Protocol Last Admin: 05/12/20 06:14 Dose: Not Given Documented by: Levothyroxine Sodium (Synthroid -) 25 mcg PO DAILY@0700 [facility] Last Admin: 05/12/20 06:15 Dose: 25 mcg Documented by: Melatonin (Melatonin) 5 mg PO HS PRN PRN Reason: INSOMNIA Last Admin: 05/11/20 23:32 Dose: 5 mg Documented by: Metformin HCl (Glucophage -) 500 mg PO BID@0700,1630 [facility] Rosuvastatin Calcium (Crestor -) 10 mg PO HS [facility] Sitagliptin Phosphate (Januvia -) 50 mg PO DAILY@0700 [facility] Last Admin: 05/12/20 11:11 Dose: Not Given Documented by: - Objective Vital Signs: Vital Signs Temperature 98 F 05/12/20 16:55 Pulse Rate 88 05/12/20 16:55 Respiratory Rate 18 05/12/20 16:55 Blood Pressure 158/88 05/12/20 16:55 O2 Sat by Pulse Oximetry (%) 94 L 05/12/20 16:55 Constitutional: Yes: No Distress Eyes: Yes: Conjunctiva Clear Cardiovascular: Yes: Regular Rate and Rhythm, S1, S2 Respiratory: Yes: Regular Gastrointestinal: Yes: Normal Bowel Sounds, Soft Extremities: Yes: Other (R FOOT DECREASED FLUCTUANT SWELLING DECREASED ERYTHEMA) Labs: CBC, BMP 05/11/20 07:52 05/11/20 07:52 INR, PTT INR 1.04 (0.83-1.09) 05/10/20 15:50 Assessment/Plan CELLULITIS R FOOT S/P ASPIRATION R FOOT FLUID COLLECTION AWAIT C/S CONTINUE EMPIRIC ZOSYN
[2020-05-12] MEDS: metFORMIN HCL 500 MG TABLET (FP) PO SCH (17:29)
[2020-05-12] MEDS ORDERED: PT OWN MED DRAWER 7, Y5N ONE (20:38)
[2020-05-12] MEDS: GABAPENTIN 300 MG CAPSULE PO SCH (21:05)
[2020-05-12] MEDS: ENALAPRIL MALEATE 5 MG TABLET (FP) PO SCH (21:05)
[2020-05-12] MEDS: ROSUVASTATIN CA 10 MG TABLET (FP) PO SCH (21:05)
[2020-05-13] MEDS: MELATONIN 5 MG TABLETS PO PRN (00:10)
[2020-05-13] MEDS ORDERED: PIPERACILLIN/TAZOBACTAM 3.375 GM VIAL IVPB ONE ×3 (00:58→16:33)
[2020-05-13] MEDS ORDERED: DEXTROSE 5%-WATER - 50 ML IVPB ONE ×3 (00:58→16:33)
[2020-05-13] MEDS: PIPERACILLIN/TAZOB 3.375 GM 3.375 GM in DEXTROSE 5%-WATER - 50 ML IVPB SCH ×3 (01:06→17:09)
[2020-05-13] MEDS: ACETAMINOPHEN 500 MG TABLET (FP) PO PRN (01:13)
[2020-05-13] MEDS: LEVOTHYROXINE NA 25 MCG TABLET (FP) PO SCH (06:00)
[2020-05-13] MEDS: metFORMIN HCL 500 MG TABLET (FP) PO SCH ×2 (06:00→16:52)
[2020-05-13] MEDS: sitaGLIPtin PHOSPHATE 50 MG TABLET PO SCH (06:00)
[2020-05-13] MEDS: INSULIN SLIDING SCALE (NOVOLOG) 1 VIAL SQ SCH ×2 (06:01→16:52)
--- NOTE | 2020-05-13 08:21 | PN ---
Progress Note, Physician Chief Complaint: Right foot diabetic ulcer Uncontrolled DM2 History of Present Illness: NAD Denies any pain at the moment self ambulatory Seen by Podiatry right foot abscess drained, culture obtained - Current Medication List Current Medications: Active Medications Acetaminophen (Tylenol -) 1,000 mg PO Q6H PRN PRN Reason: PAIN Last Admin: 05/13/20 01:13 Dose: 1,000 mg Documented by: Aspirin (Asa -) 81 mg PO DAILY [facility] Last Admin: 05/12/20 09:57 Dose: 81 mg Documented by: Clopidogrel Bisulfate (Plavix -) 75 mg PO DAILY [facility] Last Admin: 05/12/20 09:57 Dose: 75 mg Documented by: Enalapril Maleate (Vasotec -) 5 mg PO DAILY@[facility] Last Admin: 05/12/20 21:05 Dose: 5 mg Documented by: Enoxaparin Sodium (Lovenox -) 40 mg SQ DAILY [facility] Last Admin: 05/12/20 10:01 Dose: 40 mg Documented by: Gabapentin (Neurontin -) 300 mg PO [facility] Last Admin: 05/12/20 21:05 Dose: 300 mg Documented by: Piperacillin Sod/Tazobactam (Sod 3.375 gm/ Dextrose) 50 mls @ 100 mls/hr IVPB Q8H-IV [facility]; Protocol Last Admin: 05/13/20 01:06 Dose: 100 mls/hr Documented by: Insulin Aspart (Novolog Vial Sliding Scale -) 1 vial SQ BIDAC [facility]; Protocol Last Admin: 05/13/20 06:01 Dose: Not Given Documented by: Levothyroxine Sodium (Synthroid -) 25 mcg PO DAILY@0700 [facility] Last Admin: 05/13/20 06:00 Dose: 25 mcg Documented by: Melatonin (Melatonin) 5 mg PO HS PRN PRN Reason: INSOMNIA Last Admin: 05/13/20 00:10 Dose: 5 mg Documented by: Metformin HCl (Glucophage -) 500 mg PO BID@0700,1630 [facility] Last Admin: 05/13/20 06:00 Dose: 500 mg Documented by: Rosuvastatin Calcium (Crestor -) 10 mg PO HS [facility] Last Admin: 05/12/20 21:05 Dose: 10 mg Documented by: Sitagliptin Phosphate (Januvia -) 50 mg PO DAILY@0700 [facility] Last Admin: 05/13/20 06:00 Dose: 50 mg Documented by: - Objective Vital Signs: Vital Signs Temperature 97.7 F 05/13/20 06:00 Pulse Rate 76 05/13/20 06:00 Respiratory Rate 18 05/13/20 06:00 Blood Pressure 133/76 05/13/20 06:00 O2 Sat by Pulse Oximetry (%) 95 05/13/20 06:00 Constitutional: Yes: Well Nourished, No Distress, Calm Cardiovascular: Yes: Regular Rate and Rhythm Respiratory: Yes: Regular, CTA Bilaterally Gastrointestinal: Yes: Normal Bowel Sounds, Soft Genitourinary: Yes: Hematuria Musculoskeletal: Yes: WNL Extremities: Yes: WNL Edema: No Peripheral Pulses WNL: Yes Wound/Incision: Yes: Dressing Dry and Intact (right foot) Neurological: Yes: Alert, Oriented Psychiatric: Yes: Alert Labs: CBC, BMP 05/11/20 07:52 05/11/20 07:52 INR, PTT INR 1.04 (0.83-1.09) 05/10/20 15:50 Problem List - Problems (1) Abscess or cellulitis of foot Assessment/Plan: -ID consult -Podiatry consult -MRI RLE done outpatient on 04/30/20 shows no osteomyelitis -WC: Microbiology 05/11/20 13:30 Wound Culture - Preliminary Foot - Right Dorsum Non Lactose Fermenting Gnb Lactose Fermenting Neg Bacilli 05/10/20 15:50 Blood Culture - Preliminary Blood - Peripheral Venous NO GROWTH OBTAINED AFTER 24 HOURS, INCUBATION TO CONTINUE FOR 4 DAYS. 05/10/20 15:50 Blood Culture - Preliminary Blood - Peripheral Venous NO GROWTH OBTAINED AFTER 24 HOURS, INCUBATION TO CONTINUE FOR 4 DAYS. -IV Vanco -Afebrile Problems reviewed: Yes Code(s): L03.119 - CELLULITIS OF UNSPECIFIED PART OF LIMB; L02.619 - CUTANEOUS ABSCESS OF UNSPECIFIED FOOT (2) Diabetes Assessment/Plan: -A1c at 8.2 -BGM AC HS -Not on any oral hypoglycemics at home? Takes basalgar 10 U in am at home -ISS -Diabetic low sodium diet -metformin 500 mg po bid -Januvia 50 mg po daily Problems reviewed: Yes Code(s): E11.9 - TYPE 2 DIABETES MELLITUS WITHOUT COMPLICATIONS (3) Hyperlipidemia Assessment/Plan: -LDL at 105 with goal LDL of <70 -Increase rosuvastatin to 10 mg po HS Problems reviewed: Yes Code(s): E78.5 - HYPERLIPIDEMIA, UNSPECIFIED Qualifiers: (4) Hypertension Assessment/Plan: -Continue enalapril home dose 10 mg po daily, titrate if needed Problems reviewed: Yes Code(s): I10 - ESSENTIAL (PRIMARY) HYPERTENSION Qualifiers: Assessment/Plan See problem list
--- NOTE | 2020-05-13 09:59 | PN ---
Progress Note (short form) - Note Progress Note: Patient seen at bedside and states she had pain last night Abscess or cellulitis of right foot Erythema has not increased Mri done outpatient on 04/30/20 shows no osteomyelitis Preliminary Culture Report -Lactose Fermenting Neg Bacilli If it does not improve might need an Incision and drainage in O.R Dsd applied today Patient advised not to walk and keep foot elevated Dr Bell will follow
[2020-05-13] MEDS: ASPIRIN 81 MG CHEWABLE TABLETS PO SCH (10:13)
[2020-05-13] MEDS: ENOXAPARIN NA (PORCINE) 40 MG/0.4 ML DISP.SYRIN SQ SCH (10:13)
[2020-05-13] MEDS: CLOPIDOGREL BISULFATE 75 MG TABLET (FP) PO SCH (10:13)
[2020-05-13] MEDS ORDERED: ENALAPRIL MALEATE 5 MG TABLET (FP) PO ONE (11:03)
[2020-05-13] MEDS ORDERED: PT OWN MED DRAWER 7, Y5N ONE ×2 (12:50→21:31)
[2020-05-13] MEDS: ROSUVASTATIN CA 10 MG TABLET (FP) PO SCH (21:37)
[2020-05-13] MEDS: ENALAPRIL MALEATE 10 MG TABLET (FP) PO SCH (21:37)
[2020-05-13] MEDS: GABAPENTIN 300 MG CAPSULE PO SCH (21:37)
[2020-05-14] MEDS: MELATONIN 5 MG TABLETS PO PRN (00:07)
[2020-05-14] MEDS ORDERED: PIPERACILLIN/TAZOBACTAM 3.375 GM VIAL IVPB ONE ×3 (01:57→19:34)
[2020-05-14] MEDS ORDERED: DEXTROSE 5%-WATER - 50 ML IVPB ONE ×3 (01:57→19:34)
[2020-05-14] MEDS: PIPERACILLIN/TAZOB 3.375 GM 3.375 GM in DEXTROSE 5%-WATER - 50 ML IVPB SCH ×4 (02:14→19:40)
[2020-05-14] MEDS: LEVOTHYROXINE NA 25 MCG TABLET (FP) PO SCH (06:36)
[2020-05-14] MEDS: INSULIN SLIDING SCALE (NOVOLOG) 1 VIAL SQ SCH ×2 (06:36→17:19)
[2020-05-14] MEDS: metFORMIN HCL 500 MG TABLET (FP) PO SCH ×2 (06:36→17:00)
[2020-05-14] MEDS: sitaGLIPtin PHOSPHATE 50 MG TABLET PO SCH (06:36)
--- NOTE | 2020-05-14 08:18 | PN ---
Progress Note, Physician Chief Complaint: AWAKE ALERT EVENTS AND NOTES REVIEWED - Current Medication List Current Medications: Active Medications Acetaminophen (Tylenol -) 1,000 mg PO Q6H PRN PRN Reason: PAIN Last Admin: 05/13/20 01:13 Dose: 1,000 mg Documented by: Aspirin (Asa -) 81 mg PO DAILY [facility] Last Admin: 05/13/20 10:13 Dose: 81 mg Documented by: Clopidogrel Bisulfate (Plavix -) 75 mg PO DAILY [facility] Last Admin: 05/13/20 10:13 Dose: 75 mg Documented by: Enalapril Maleate (Vasotec -) 10 mg PO DAILY@[facility] Last Admin: 05/13/20 21:37 Dose: 10 mg Documented by: Enoxaparin Sodium (Lovenox -) 40 mg SQ DAILY [facility] Last Admin: 05/13/20 10:13 Dose: 40 mg Documented by: Gabapentin (Neurontin -) 300 mg PO HS [facility] Last Admin: 05/13/20 21:37 Dose: 300 mg Documented by: Piperacillin Sod/Tazobactam (Sod 3.375 gm/ Dextrose) 50 mls @ 100 mls/hr IVPB Q8H-IV [facility]; Protocol Last Admin: 05/14/20 02:14 Dose: 100 mls/hr Documented by: Insulin Aspart (Novolog Vial Sliding Scale -) 1 vial SQ BIDAC [facility]; Protocol Last Admin: 05/14/20 06:36 Dose: Not Given Documented by: Levothyroxine Sodium (Synthroid -) 25 mcg PO DAILY@0700 [facility] Last Admin: 05/14/20 06:36 Dose: 25 mcg Documented by: Melatonin (Melatonin) 5 mg PO HS PRN PRN Reason: INSOMNIA Last Admin: 05/14/20 00:07 Dose: 5 mg Documented by: Metformin HCl (Glucophage -) 500 mg PO BID@0700,1630 [facility] Last Admin: 05/14/20 06:36 Dose: 500 mg Documented by: Rosuvastatin Calcium (Crestor -) 10 mg PO HS [facility] Last Admin: 05/13/20 21:37 Dose: 10 mg Documented by: Sitagliptin Phosphate (Januvia -) 50 mg PO DAILY@0700 [facility] Last Admin: 05/14/20 06:36 Dose: 50 mg Documented by: - Objective Vital Signs: Vital Signs Temperature 98.4 F 05/14/20 06:00 Pulse Rate 87 05/14/20 06:00 Respiratory Rate 18 05/14/20 06:00 Blood Pressure 132/71 05/14/20 06:00 O2 Sat by Pulse Oximetry (%) 95 05/14/20 06:00 Constitutional: Yes: Mild Distress Cardiovascular: Yes: Regular Rate and Rhythm Respiratory: Yes: WNL Gastrointestinal: Yes: WNL Genitourinary: Yes: WNL Musculoskeletal: Yes: Joint Swelling Extremities: Yes: Deformity (FOOT WOUND WITH DISCHARGE EDEMA SWELLING) Wound/Incision: Yes: Open to air Neurological: Yes: Pre-Existing Deficit Labs: CBC, BMP 05/11/20 07:52 05/11/20 07:52 INR, PTT INR 1.04 (0.83-1.09) 05/10/20 15:50 Problem List - Problems (1) Abscess or cellulitis of foot Code(s): L03.119 - CELLULITIS OF UNSPECIFIED PART OF LIMB; L02.619 - CUTANEOUS ABSCESS OF UNSPECIFIED FOOT (2) Acute kidney injury Code(s): N17.9 - ACUTE KIDNEY FAILURE, UNSPECIFIED (3) Cellulitis Code(s): L03.90 - CELLULITIS, UNSPECIFIED Qualifiers: Site of cellulitis: extremity Site of cellulitis of extremity: lower extremity Laterality: right Qualified Code(s): L03.115 - Cellulitis of right lower limb (4) Diabetic foot ulcer Code(s): E11.621 - TYPE 2 DIABETES MELLITUS WITH FOOT ULCER; L97.509 - NON- PRESSURE CHRONIC ULCER OTH PRT UNSP FOOT W UNSP SEVERITY (5) Diabetic neuropathy Code(s): E11.40 - TYPE 2 DIABETES MELLITUS WITH DIABETIC NEUROPATHY, UNSP (6) Hyperlipidemia Code(s): E78.5 - HYPERLIPIDEMIA, UNSPECIFIED Qualifiers: (7) Hypertension Code(s): I10 - ESSENTIAL (PRIMARY) HYPERTENSION Qualifiers: (8) Hypothyroidism Code(s): E03.9 - HYPOTHYROIDISM, UNSPECIFIED Qualifiers: (9) Insulin dependent diabetes mellitus Code(s): E11.9 - TYPE 2 DIABETES MELLITUS WITHOUT COMPLICATIONS; Z79.4 - ASSISTED (CURRENT) USE OF INSULIN Assessment/Plan DEBRIDEMENT OF FOOT WOUND DR JOHNSON D/W ME THE PLAN CAN DC TOMORROW ON ABX DM CONTROL WOUND CARE
[2020-05-14 09:36] LABS: BASO % 0.6 % (0-2.0); EOS % 1.6 % (0-4.5); HEMATOCRIT 34.5 % (32.4-45.2); HEMOGLOBIN 11.2 GM/dL (10.7-15.3); LYMPH % 29.9 % (8-40); MCH 28.5 pg (25.7-33.7); MCHC 32.5 g/dl (32.0-36.0); MEAN CELL VOLUME 87.5 fl (80-96); MONO % 8.5 % (3.8-10.2); NEUT % 59.4 % (42.8-82.8); PLATELET COUNT 338 K/MM3 (134-434); RBC 3.94 M/mm3 (3.60-5.2); RDW 12.8 % (11.6-15.6); WHITE BLOOD COUNT 6.1 K/mm3 (4.0-10.0)
[2020-05-14 10:01] LABS: ALBUMIN 3.2 g/dl (3.4-5.0); BILIRUBIN,TOTAL 0.3 mg/dL (0.2-1); BLOOD UREA NITROGEN 20.4 mg/dL (7-18); CALCIUM 9.2 mg/dL (8.5-10.1); CREATININE 1.1 mg/dL (0.55-1.3); POTASSIUM 4.5 mmol/L (3.5-5.1); TOT PROT 7.3 g/dl (6.4-8.2)
--- NOTE | 2020-05-14 10:01 | OP ---
Operative Note - Note: Operative Date: 05/14/20 Pre-Operative Diagnosis: Abscess right foot Operation: Incison and drainage right foot bedside. Wound culture. Betadine dressing applied. Findings: Serosanguinous fluid with necrotic tissue. Implants: n/a Post-Operative Diagnosis: Same as Pre-op Surgeon: Shi Bell Specimens Removed: serosanguinous fluid/necrotic skin Estimated Blood Loss (mls): 1 Instrument used (Debridements only): 18gauge needle, suture removal scissors, forceps Drains & Tubes with Location: n/a Operative Report Dictated: No
[2020-05-14] MEDS: CLOPIDOGREL BISULFATE 75 MG TABLET (FP) PO SCH (10:19)
[2020-05-14] MEDS: ENOXAPARIN NA (PORCINE) 40 MG/0.4 ML DISP.SYRIN SQ SCH (10:19)
[2020-05-14] MEDS: ASPIRIN 81 MG CHEWABLE TABLETS PO SCH (10:19)
[2020-05-14] MEDS: ACETAMINOPHEN 500 MG TABLET (FP) PO PRN ×2 (13:32→22:42)
--- NOTE | 2020-05-14 14:48 | PN ---
Progress Note, Physician Chief Complaint: S/P I&D R FOOT FLUID COLLECTION AT BEDSIDE EARLIER TODAY WOUND C/S MIXED NO COMPLAINTS OF PAIN NO F/C - Current Medication List Current Medications: Active Medications Acetaminophen (Tylenol -) 1,000 mg PO Q6H PRN PRN Reason: PAIN Last Admin: 05/14/20 13:32 Dose: 1,000 mg Documented by: Aspirin (Asa -) 81 mg PO DAILY [facility] BEDS AT [facility] Last Admin: 05/14/20 10:19 Dose: 81 mg Documented by: Clopidogrel Bisulfate (Plavix -) 75 mg PO DAILY [facility] 234 [facility]EDS [facility] Last Admin: 05/14/20 10:19 Dose: 75 mg Documented by: Enalapril Maleate (Vasotec -) 10 mg PO DAILY@[facility] 234 BEDS AT [facility] Last Admin: 05/13/20 21:37 Dose: 10 mg Documented by: Enoxaparin Sodium (Lovenox -) 40 mg SQ DAILY [facility] 234 BEDS [facility] Last Admin: 05/14/20 10:19 Dose: 40 mg Documented by: Gabapentin (Neurontin -) 300 mg PO HS [facility] 234 BEDS [facility] Last Admin: 05/13/20 21:37 Dose: 300 mg Documented by: Piperacillin Sod/Tazobactam (Sod 3.375 gm/ Dextrose) 50 mls @ 100 mls/hr IVPB Q8H-IV [facility]; Protocol Last Admin: 05/14/20 10:20 Dose: 100 mls/hr Documented by: Vancomycin HCl (Vancomycin (Pre-Docked)) 1,000 mg in 250 mls @ 166.667 mls/hr IVPB Q12H [facility]; Protocol Insulin Aspart (Novolog Vial Sliding Scale -) 1 vial SQ BIDAC [facility] 234 BEDS [facility]; Protocol Last Admin: 05/14/20 06:36 Dose: Not Given Documented by: Levothyroxine Sodium (Synthroid -) 25 mcg PO DAILY@0700 [facility] 234 BEDS [facility] Last Admin: 05/14/20 06:36 Dose: 25 mcg Documented by: Melatonin (Melatonin) 5 mg PO HS PRN PRN Reason: INSOMNIA Last Admin: 05/14/20 00:07 Dose: 5 mg Documented by: Metformin HCl (Glucophage -) 500 mg PO BID@0700,1630 [facility] 234 BEDS AT [facility] Last Admin: 05/14/20 06:36 Dose: 500 mg Documented by: Rosuvastatin Calcium (Crestor -) 10 mg PO HS [facility] 234 BEDS AT [facility] Last Admin: 05/13/20 21:37 Dose: 10 mg Documented by: Sitagliptin Phosphate (Richyuvia -) 50 mg PO DAILY@0700 [facility] Last Admin: 05/14/20 06:36 Dose: 50 mg Documented by: - Objective Vital Signs: Vital Signs Temperature 98.4 F 05/14/20 12:00 Pulse Rate 93 H 05/14/20 12:00 Respiratory Rate 05/14/20 12:00 Blood Pressure 144/88 05/14/20 12:00 O2 Sat by Pulse Oximetry (%) 97 05/14/20 12:00 Constitutional: Yes: No Distress Eyes: Yes: Conjunctiva Clear Cardiovascular: Yes: Regular Rate and Rhythm, S1, S2 Respiratory: Yes: CTA Bilaterally Gastrointestinal: Yes: Normal Bowel Sounds, Soft. No: Tenderness Extremities: Yes: Other (DRESSING IN PLACE R FOOT) Labs: CBC, BMP 05/14/20 08:20 05/14/20 08:20 INR, PTT INR 1.04 (0.83-1.09) 05/10/20 15:50 Assessment/Plan CELLULITIS R FOOT S/P I&D R FOOT FLUID COLLECTION AWAIT C/S CONTINUE EMPIRIC ZOSYN WILL RESUME VANCOMYCIN PENDING C/S
[2020-05-14] MEDS ORDERED: INSULIN (NOVOLOG) ASPART 100 UNITS/ML 10ML VIAL ONE (16:15)
[2020-05-14] MEDS: VANCOMYCIN 1 GRAM (PRE-DOCKED) 1,000 MG/250 ML BAG IVPB SCH (17:19)
[2020-05-14] MEDS ORDERED: PT OWN MED DRAWER 7, Y5N ONE (21:52)
[2020-05-14] MEDS: GABAPENTIN 300 MG CAPSULE PO SCH (22:08)
[2020-05-14] MEDS: ROSUVASTATIN CA 10 MG TABLET (FP) PO SCH (22:08)
[2020-05-14] MEDS: ENALAPRIL MALEATE 10 MG TABLET (FP) PO SCH (22:42)
[2020-05-15] MEDS: PIPERACILLIN/TAZOB 3.375 GM 3.375 GM in DEXTROSE 5%-WATER - 50 ML IVPB SCH ×2 (02:14→09:42)
[2020-05-15] MEDS: VANCOMYCIN 1 GRAM (PRE-DOCKED) 1,000 MG/250 ML BAG IVPB SCH ×3 (03:27→15:04)
[2020-05-15] MEDS: metFORMIN HCL 500 MG TABLET (FP) PO SCH ×2 (06:18→16:50)
[2020-05-15] MEDS: sitaGLIPtin PHOSPHATE 50 MG TABLET PO SCH (06:18)
[2020-05-15] MEDS: LEVOTHYROXINE NA 25 MCG TABLET (FP) PO SCH (06:18)
[2020-05-15] MEDS: INSULIN SLIDING SCALE (NOVOLOG) 1 VIAL SQ SCH ×2 (06:19→16:50)
[2020-05-15] MEDS ORDERED: DEXTROSE 5%-WATER - 50 ML IVPB ONE (08:05)
[2020-05-15] MEDS ORDERED: PIPERACILLIN/TAZOBACTAM 3.375 GM VIAL IVPB ONE (08:05)
--- NOTE | 2020-05-15 08:48 | DS ---
Physical Examination Vital Signs: Vital Signs Temperature 98.4 F 05/15/20 06:43 Pulse Rate 92 H 05/15/20 06:43 Respiratory Rate 20 05/15/20 06:43 Blood Pressure 134/75 05/15/20 06:43 O2 Sat by Pulse Oximetry (%) 99 05/15/20 06:43 Constitutional: Yes: No Distress Eyes: Yes: WNL HENT: Yes: WNL Neck: Yes: WNL Cardiovascular: Yes: WNL Respiratory: Yes: WNL Gastrointestinal: Yes: WNL Renal/: Yes: WNL Musculoskeletal: Yes: Other Extremities: Yes: Deformity Edema: No Peripheral Pulses WNL: Yes Integumentary: Yes: Pressure Ulcer Wound/Incision: Yes: Dressing Dry and Intact Neurological: Yes: Other ...Motor Strength: RLE Labs: CBC, BMP 05/14/20 08:20 05/14/20 08:20 Discharge Summary Problems reviewed: Yes Reason For Visit: CELLULITIS OF RIGHT FOOT Current Active Problems Abscess or cellulitis of foot (Acute) Procedures: Principal: DEBRIDEMENT RIGHT FOOT Hospital Course: ADMITTED IV ABX, DEBRIDED WOUND BY PODIATRY BEDSIDE, WILL NEED ABX AND WOUND CENTER F/U Plan of Treatment: WOUND CENTER HERE AT [facility] ABX FOR 7 DAYS SEE PODIATRY AND ID FOR FOLLOW UP DR CABALLERO IN 2 WEEKS Condition: Stable - Instructions Diet, Activity, Other Instructions: WOUND CENTER [facility] HERE AT [facility] INSTRUCTIONS FOR WOUND CARE DR JOHNSON Referrals: Ariana Caballero MD [Primary Care Provider] - Disposition: VNS/HOME HEALTH CARE - Home Medications Comprehensive Discharge Medication List: Ambulatory Orders Aspirin [ASA -] 81 mg PO DAILY 06/30/14 Gabapentin 300 mg PO HS 10/25/14 Humalog Kwikpen U-200 20 - 25 unit SQ TID 12/28/16 Acetaminophen [Tylenol .Regular Strength -] 650 mg PO Q6H PRN #0 tablet 01/15/17 Enalapril Maleate [Vasotec -] 5 mg PO DAILY@[facility] tablet 01/15/17 Metoprolol Tartrate [Lopressor -] 50 mg PO DAILY@[facility] tablet 01/15/17 Levothyroxine [Synthroid -] 25 mcg PO DAILY@0700 08/28/18 Clopidogrel Bisulfate [Plavix] 75 mg PO DAILY #30 tablet 01/24/19 Melatonin 5 mg PO HS PRN #30 tab 06/22/19 Amoxicillin/Potassium Clav [Augmentin 875-125 Tablet] 1 each PO BID #14 tablet 05/15/20
[2020-05-15] MEDS: CLOPIDOGREL BISULFATE 75 MG TABLET (FP) PO SCH (09:43)
[2020-05-15] MEDS: ASPIRIN 81 MG CHEWABLE TABLETS PO SCH (09:43)
[2020-05-15] MEDS: ENOXAPARIN NA (PORCINE) 40 MG/0.4 ML DISP.SYRIN SQ SCH (09:43)
[2020-05-15 15:58] VITALS: BP 156/87; PULSE 98; TEMP 98.7
--- NOTE | 2020-05-15 16:04 | PN ---
Progress Note, Physician Chief Complaint: S/P I&D R FOOT FLUID COLLECTION AT BEDSIDE NO C/O FOOT PAIN WOUND C/S MIXED NO F/C - Current Medication List Current Medications: Active Medications Acetaminophen (Tylenol -) 1,000 mg PO Q6H PRN PRN Reason: PAIN Last Admin: 05/14/20 22:42 Dose: 1,000 mg Documented by: Aspirin (Asa -) 81 mg PO DAILY [facility] Last Admin: 05/15/20 09:43 Dose: 81 mg Documented by: Clopidogrel Bisulfate (Plavix -) 75 mg PO DAILY [facility] Last Admin: 05/15/20 09:43 Dose: 75 mg Documented by: Enalapril Maleate (Vasotec -) 10 mg PO DAILY@[facility] Last Admin: 05/14/20 22:42 Dose: 10 mg Documented by: Enoxaparin Sodium (Lovenox -) 40 mg SQ DAILY [facility] Last Admin: 05/15/20 09:43 Dose: 40 mg Documented by: Gabapentin (Neurontin -) 300 mg PO [facility] Last Admin: 05/14/20 22:08 Dose: 300 mg Documented by: Insulin Aspart (Novolog Vial Sliding Scale -) [facility] Protocol Last Admin: 05/15/20 06:19 Dose: Not Given Documented by: Levofloxacin (Levaquin -) 500 mg PO DAILY [facility] Levothyroxine Sodium (Synthroid -) 25 mcg PO DAILY@0700 [facility] Last Admin: 05/15/20 06:18 Dose: 25 mcg Documented by: Melatonin (Melatonin) 5 mg PO HS PRN PRN Reason: INSOMNIA Last Admin: 05/14/20 00:07 Dose: 5 mg Documented by: Metformin HCl (Glucophage -) 500 mg PO BID@0700,1630 [facility] Last Admin: 05/15/20 06:18 Dose: 500 mg Documented by: Rosuvastatin Calcium (Crestor -) 10 mg PO HS [facility] Last Admin: 05/14/20 22:08 Dose: 10 mg Documented by: Sitagliptin Phosphate (Januvia -) 50 mg PO DAILY@0700 [facility] Last Admin: 05/15/20 06:18 Dose: 50 mg Documented by: - Objective Vital Signs: Vital Signs Temperature 98.7 F 05/15/20 14:00 Pulse Rate 98 H 05/15/20 14:00 Respiratory Rate 18 05/15/20 14:00 Blood Pressure 156/87 05/15/20 14:00 O2 Sat by Pulse Oximetry (%) 100 05/15/20 14:00 Constitutional: Yes: No Distress Cardiovascular: Yes: Regular Rate and Rhythm, S1, S2 Respiratory: Yes: CTA Bilaterally Gastrointestinal: Yes: Normal Bowel Sounds, Soft. No: Tenderness Extremities: Yes: Other (ERYTHEMA/ WARMTH R FOOT RESOLVED; DEBRIDED AREA W/ PURULENCE) Labs: CBC, BMP 05/14/20 08:20 05/14/20 08:20 INR, PTT INR 1.04 (0.83-1.09) 05/10/20 15:50 Assessment/Plan CELLULITIS R FOOT S/P I&D R FOOT FLUID COLLECTION WUND C/S MIXED SUBSTITUTE LEVAQUIN 500MG PO QD X 7D FOLLOW UP WOUND CARE CENTER
--- NOTE | 2020-05-17 17:27 | PATH ---
Surgical Pathology Report Patient Name: ESTHER PARK Med. Rec. #: [id number] /Age/Gender: 1965 (Age: 55) / F Account: [id number] Location: [address] [place] [address]/[facility] Taken: 05/14/2020 Received: 05/16/2020 Reported: 05/17/2020 Physicians: Shi Bell DPM Specimen(s) Received CELLULITIS RIGHT FOOT Clinical History Abscess right foot Final Diagnosis FOOT, RIGHT, CELLULITIS, DEBRIDEMENT: SUPERFICIAL FRAGMENTS OF SKIN WITH MARKED ACUTE INFLAMMATION AND NECROSIS. Electronically Signed Yaritza Wu M.D. Gross Description Received in formalin labeled with the patient's name and indicated on the requisition to be cellulitis of the right foot, is a 3.5 x 3.4 x 0.2 cm aggregate of multiple [id number], necrotic appearing portions skin and soft tissue. [employer] sections are submitted in one cassette. /05/16/2020 saudi/05/16/2020
== END 2020-05-15 18:21 | disposition home or self-care (01) | DRG 383 ==
LOC: JER 13:45 → JERBED 19:47 → J5S 22:43
PROVIDERS: ADMIT Internal Medicine; ATTEND Family Medicine
PROC: 0JBQ0ZZ Excision of Right Foot Subcutaneous Tissue and Fascia, Open Approach (ICD-10-PCS; principal; 2020-05-14)
DX: L03.115 Cellulitis of right lower limb (principal); I10 Essential (primary) hypertension; E78.5 Hyperlipidemia, unspecified; E03.9 Hypothyroidism, unspecified; L97.518 Non-pressure chronic ulcer of other part of right foot with other specified severity; E11.621 Type 2 diabetes mellitus with foot ulcer; E11.52 Type 2 diabetes mellitus with diabetic peripheral angiopathy with gangrene; I96 Gangrene, not elsewhere classified; E11.40 Type 2 diabetes mellitus with diabetic neuropathy, unspecified; E11.65 Type 2 diabetes mellitus with hyperglycemia
CPT/HCPCS: 36415; 73610-TC-RT-FY; 73630-TC-RT-FY; 80048; 80053; 80061; 82962; 83036; 83721; 85025; 85610; 85651; 85730; 86140; 87040; 87070; 87186; 87205; 88304-TC; 93005; 93010; 97116-GP; 97162-GP; 99285-25; G0463-25; U0003

== ENCOUNTER 2020-09-24 10:39 | Emergency (ER) | payer OTHER | END 2020-09-24 11:48 | disposition home or self-care (01) | LOC: JVIRT 10:39 | DX: U07.1 COVID-19 (principal) | CPT/HCPCS: C9803; G2012-GT; Q3014-GT; U0003 ==

== ENCOUNTER 2020-11-05 13:45 | Emergency (ER) | payer OTHER | END 2020-11-05 14:12 | disposition home or self-care (01) | LOC: JVIRT 13:45 | DX: Z11.52 Encounter for screening for COVID-19 (principal) | CPT/HCPCS: C9803; G2012-GT; U0003 ==

== ENCOUNTER 2022-11-20 14:24 | Inpatient (IN) | payer OTHER ==
[2022-11-20] MEDS ORDERED: ACETAMINOPHEN 1000 MG/100 ML BAG IVPB ONE (15:48)
[2022-11-20] MEDS ORDERED: MAG HYDROX/AL HYDROX/SIMETH 30 ML UNIT-DOSE CUP PO ONE (15:48)
[2022-11-20] MEDS ORDERED: FAMOTIDINE 20 MG/50 ML IVPB 20 MG/50 ML MG IVPB ONE ×2 (15:48→16:09)
[2022-11-20] MEDS ORDERED: ASPIRIN 81 MG CHEWABLE TABLETS PO ONE (15:49)
[2022-11-20] MEDS ORDERED: ASPIRIN 81 MG CHEWABLE TABLETS ONE (16:08)
[2022-11-20] MEDS ORDERED: MAG HYDROX/AL HYDROX/SIMETH 30 ML UNIT-DOSE CUP ONE (16:09)
[2022-11-20] MEDS ORDERED: ACETAMINOPHEN INJECTION 100 ML IVPB ONE (16:09)
[2022-11-20 17:27] LABS: BASO % 0.6 % (0-2.0); EOS % 1.4 % (0-4.5); HEMATOCRIT 34.6 % (32.4-45.2); HEMOGLOBIN 11.7 GM/dL (10.7-15.3); MCH 28.6 pg (25.7-33.7); MCHC 33.7 g/dl (32.0-36.0); MEAN CELL VOLUME 84.8 fl (80-96); MEAN PLT VOLUME 8.8 fl (7.5-11.1); MONO % 7.6 % (3.8-10.2); NEUT % 58.4 % (42.8-82.8); PLATELET COUNT 359 10^3/uL (134-434); RBC 4.08 M/mm3 (3.60-5.2); RDW 15.7 % (11.6-15.6); WHITE BLOOD COUNT 6.9 K/mm3 (4.0-10.0)
[2022-11-20 17:33] LABS: INR 1.17 (0.83-1.09); PROTHROMBIN TIME (PATIENT) 13.6 SEC (9.7-13.0)
[2022-11-20 17:36] LABS: ACTIVATED PTT 35.1 SECONDS (25.2-36.5); CHLORIDE 102 mmol/L (98-107); SODIUM 135 mmol/L (136-145)
[2022-11-20 17:38] LABS: BLOOD UREA NITROGEN 35.5 mg/dL (7-18); CALCIUM 9.4 mg/dL (8.5-10.1)
[2022-11-20 17:39] LABS: ALBUMIN 3.8 g/dl (3.4-5.0); ANION GAP 4 MMOL/L (8-16); CO2 29 mmol/L (21-32); GLUCOSE,RANDOM 163 mg/dL (74-106); LIPASE 65 U/L (73-393); MAGNESIUM 2.2 mg/dL (1.8-2.4)
[2022-11-20 17:42] LABS: CREATININE 0.9 mg/dL (0.55-1.3); SGOT/AST 42 U/L (15-37); SGPT/ALT 22 U/L (13-61)
[2022-11-20 17:43] LABS: BILIRUBIN,TOTAL 0.4 mg/dL (0.2-1); TOT PROT 8.1 g/dl (6.4-8.2)
[2022-11-20 17:45] LABS: ALK PHOS 108 U/L (45-117)
[2022-11-20] MEDS ORDERED: HEPARIN NA (PORCINE) 5,000 UNITS/ML 1ML VIAL IVPUSH ONE (18:10)
[2022-11-20] MEDS ORDERED: HEPARIN INFUSION - 500 ML IVPB SCH (18:15)
[2022-11-20] MEDS ORDERED: HEPARIN NA (PORCINE) 5,000 UNITS/ML 1ML VIAL ONE (18:15)
[2022-11-20] MEDS ORDERED: HEPARIN NA (PORCINE) 5,000 UNITS/ML 1ML VIAL IVPUSH PRN (18:26)
[2022-11-20] MEDS ORDERED: CLOPIDOGREL BISULFATE 300 MG TABLET PO ONE (18:38)
[2022-11-20] MEDS ORDERED: NITROGLYCERIN SUBLINGUAL 1/150 0.4 MG TAB SL ONE (18:38)
[2022-11-20] MEDS ORDERED: CLOPIDOGREL BISULFATE 300 MG TABLET ONE (18:44)
[2022-11-20] MEDS ORDERED: NITROGLYCERIN SUBLINGUAL 1/150 0.4 MG TAB ONE (18:45)
[2022-11-20 19:57] LABS: CHLORIDE 104 mmol/L (98-107); SODIUM 137 mmol/L (136-145)
[2022-11-20 19:59] LABS: CALCIUM 9.2 mg/dL (8.5-10.1)
[2022-11-20 20:00] LABS: ANION GAP 6 MMOL/L (8-16); BLOOD UREA NITROGEN 34.4 mg/dL (7-18); CO2 26 mmol/L (21-32); GLUCOSE,RANDOM 155 mg/dL (74-106)
[2022-11-20 20:03] LABS: CREATININE 1.1 mg/dL (0.55-1.3)
[2022-11-20] MEDS: HEPARIN - 25,000 UNIT in SODIUM CHLORIDE 495 ML IV SCH (20:10)
[2022-11-20 22:35] VITALS: BMI 28.5
[2022-11-21] MEDS ORDERED: VANCOMYCIN 1 GM in D5W (PRE-DOCKED) 1,000 MG/250 ML IVPB SCH (01:15)
[2022-11-21] MEDS ORDERED: CEFTRIAXONE 2 GM in DEXTROSE 5%-WATER 100 ML IVPB SCH (02:00)
[2022-11-21] MEDS: VANCOMYCIN/WATER FOR INJ (PEG) 1,000 MG/200 ML BAG IVPB SCH ×2 (04:31→14:35)
[2022-11-21] MEDS ORDERED: MELATONIN 5 MG TABLETS PO ONE (05:10)
[2022-11-21] MEDS ORDERED: GABAPENTIN 300 MG CAPSULE PO ONE (05:14)
[2022-11-21] MEDS ORDERED: GABAPENTIN 300 MG CAPSULE PO PRN (05:14)
[2022-11-21] MEDS ORDERED: MELATONIN 5 MG TABLETS PO PRN (05:50)
[2022-11-21] MEDS ORDERED: LEVOTHYROXINE NA 50 MCG TABLET (FP) PO SCH (07:00)
[2022-11-21 07:17] LABS: BASO % 0.7 % (0-2.0); EOS % 2.6 % (0-4.5); HEMATOCRIT 29.6 % (32.4-45.2); LYMPH % 50.7 % (8-40); MCH 28.4 pg (25.7-33.7); MCHC 33.7 g/dl (32.0-36.0); MEAN CELL VOLUME 84.4 fl (80-96); MEAN PLT VOLUME 8.8 fl (7.5-11.1); MONO % 8.6 % (3.8-10.2); NEUT % 37.4 % (42.8-82.8); PLATELET COUNT 302 10^3/uL (134-434); RBC 3.51 M/mm3 (3.60-5.2); RDW 15.2 % (11.6-15.6); WHITE BLOOD COUNT 5.3 K/mm3 (4.0-10.0)
[2022-11-21 07:35] LABS: CALCIUM 8.2 mg/dL (8.5-10.1)
[2022-11-21 07:36] LABS: BLOOD UREA NITROGEN 29.2 mg/dL (7-18)
[2022-11-21 07:39] LABS: PHOSPHOROUS 3.2 mg/dL (2.5-4.9)
[2022-11-21] MEDS: METOPROLOL TARTRATE 25 MG TABLET (FP) PO SCH ×2 (09:50→21:44)
[2022-11-21] MEDS ORDERED: HYDROCHLOROTHIAZIDE 12.5 MG CAPSULE (FP) PO SCH (10:00)
[2022-11-21] MEDS ORDERED: PANTOPRAZOLE 40 MG TABLET PO SCH (10:00)
[2022-11-21] MEDS ORDERED: ASPIRIN 81 MG CHEWABLE TABLETS PO SCH (10:00)
[2022-11-21] MEDS ORDERED: COLLAGENASE CLOSTRIDIUM HIST. 30 GRAMS TUBE TP SCH (13:15)
[2022-11-21 14:12] LABS: BASO % 0.5 % (0-2.0); EOS % 2.3 % (0-4.5); HEMATOCRIT 35.3 % (32.4-45.2); HEMOGLOBIN 11.7 GM/dL (10.7-15.3); LYMPH % 39.6 % (8-40); MCH 28.2 pg (25.7-33.7); MCHC 33.2 g/dl (32.0-36.0); MONO % 8.7 % (3.8-10.2); NEUT % 48.9 % (42.8-82.8); PLATELET COUNT 311 10^3/uL (134-434); RBC 4.15 M/mm3 (3.60-5.2); RDW 15.4 % (11.6-15.6); WHITE BLOOD COUNT 4.1 K/mm3 (4.0-10.0)
[2022-11-21] MEDS ORDERED: AMOX TR/POT CLAV 875MG/125MG TABLETS (FP) PO SCH (17:30)
[2022-11-21] MEDS: HEPARIN - 25,000 UNIT in SODIUM CHLORIDE 495 ML IV SCH (21:39)
[2022-11-21] MEDS ORDERED: GABAPENTIN 300 MG CAPSULE PO SCH (22:00)
[2022-11-21] MEDS ORDERED: CLOPIDOGREL BISULFATE 75 MG TABLET (FP) PO SCH (22:00)
[2022-11-21] MEDS ORDERED: LISINOPRIL 20 MG TABLET PO SCH (22:00)
[2022-11-21] MEDS ORDERED: ATORVASTATIN CA 80 MG TABLET (FP) PO SCH (22:00)
[2022-11-21 23:02] VITALS: BP 143/76; PULSE 83; RESP 20; TEMP 98.5
[2022-11-22] MEDS ORDERED: LEVOTHYROXINE NA 75 MCG TABLET (FP) PO SCH (07:00)
[2022-11-22] MEDS ORDERED: ASCORBIC ACID 250 MG TABLET (FP) PO SCH (10:00)
[2022-11-22] MEDS ORDERED: MULTIVITAMINS (DAILY MVI) TABLET (FP) PO SCH (10:00)
== END 2022-11-21 23:04 | disposition short-term general hospital (02) | DRG 190 ==
LOC: JER 14:24 → JERBED 18:31 → J4S 22:11
PROVIDERS: ADMIT Internal Medicine; ATTEND Family Medicine
DX: I21.4 Non-ST elevation (NSTEMI) myocardial infarction (principal); I10 Essential (primary) hypertension; E78.5 Hyperlipidemia, unspecified; E03.9 Hypothyroidism, unspecified; E11.42 Type 2 diabetes mellitus with diabetic polyneuropathy; E11.51 Type 2 diabetes mellitus with diabetic peripheral angiopathy without gangrene; Z86.73 Personal history of transient ischemic attack (TIA), and cerebral infarction without residual deficits; E11.621 Type 2 diabetes mellitus with foot ulcer; L97.519 Non-pressure chronic ulcer of other part of right foot with unspecified severity; D64.9 Anemia, unspecified; Z79.84 Long term (current) use of oral hypoglycemic drugs
CPT/HCPCS: 0241U-QW; 36415; 71046-TC-FY; 80048; 80053; 82550; 82553; 82962; 83690; 83735; 84100; 84439; 84443; 84484; 85025; 85610; 85730; 87070; 87076; 87186; 87205; 93005; 93010; 93306-TC; 99285-25; A6022; G0463-25; J1644

== ENCOUNTER 2023-08-10 20:21 | Observation (INO) | payer OTHER ==
[2023-08-10 20:42] VITALS: BMI 25.1
[2023-08-10 21:51] LABS: EPI CELLS 10 /uL (0-25.1); HYALINE CASTS 90 /uL (0-3.1); URINE APPEARANCE TURBID; URINE BILIRUBIN 1+ (NEGATIVE); URINE COLOR RED; URINE GLUCOSE (UA) NEGATIVE (NEGATIVE); URINE KETONE NEGATIVE (NEGATIVE); URINE LEUK ESTERASE 2+ (NEGATIVE); URINE NITRITE POSITIVE (NEGATIVE); URINE PROTEIN 2+ (NEGATIVE); URINE RBC 5961 /uL (0-23.9); URINE UROBILINOGEN 0.2 mg/dL (0.2-1.0); URINE WBC 43 /uL (0-25.8)
[2023-08-10] MEDS ORDERED: MAG HYDROX/AL HYDROX/SIMETH 30 ML UNIT-DOSE CUP PO ONE (22:00)
[2023-08-10] MEDS ORDERED: FAMOTIDINE 20 MG/50 ML IVPB 20 MG/50 ML MG IVPB ONE ×2 (22:00→22:15)
[2023-08-10] MEDS ORDERED: ACETAMINOPHEN 1000 MG/100 ML BAG IVPB ONE (22:00)
[2023-08-10] MEDS ORDERED: CEFTRIAXONE 1,000 MG in DEXTROSE 5%-WATER - 50 ML IVPB ONE (22:01)
[2023-08-10] MEDS ORDERED: ACETAMINOPHEN INJECTION 100 ML IVPB ONE (22:14)
[2023-08-10] MEDS ORDERED: CEFTRIAXONE 1 GM/50 ML BAG ONE (22:15)
[2023-08-10] MEDS ORDERED: MAG HYDROX/AL HYDROX/SIMETH 30 ML UNIT-DOSE CUP ONE (22:15)
[2023-08-10 22:56] LABS: BASO % 0.6 % (0-2.0); EOS % 1.7 % (0-4.5); HEMOGLOBIN 11.9 GM/dL (10.7-15.3); LYMPH % 29.2 % (8-40); MEAN CELL VOLUME 85.4 fl (80-96); MONO % 8.8 % (3.8-10.2); NEUT % 59.7 % (42.8-82.8); PLATELET COUNT 377 10^3/uL (134-434); RDW 13.3 % (11.6-15.6); WHITE BLOOD COUNT 6.4 K/mm3 (4.0-10.0)
[2023-08-10 23:02] LABS: URINE BACTERIA 3.1 /uL (0-1359)
[2023-08-10] MEDS ORDERED: LISINOPRIL 20 MG TABLET PO ONE (23:33)
[2023-08-10 23:36] LABS: ALBUMIN 3.6 g/dl (3.4-5.0); BLOOD UREA NITROGEN 13.7 mg/dL (7-18); CALCIUM 9.2 mg/dL (8.5-10.1)
[2023-08-10 23:41] LABS: BILIRUBIN,TOTAL 0.3 mg/dL (0.2-1); TOT PROT 7.8 g/dl (6.4-8.2)
[2023-08-10 23:54] LABS: SYPHILIS W/ RPR CONF NON-REACTIVE (NONREACTIVE)
[2023-08-11] MEDS ORDERED: LISINOPRIL 20 MG TABLET ONE ×2 (00:07→09:57)
[2023-08-11 00:23] LABS: HIV INTERPRETATION NEGATIVE (NEGATIVE)
[2023-08-11] MEDS ORDERED: DOCUSATE SODIUM 100 MG CAPSULE (FP) PO PRN (00:38)
[2023-08-11] MEDS ORDERED: MAG HYDROX/AL HYDROX/SIMETH 30 ML UNIT-DOSE CUP PO PRN (00:43)
[2023-08-11 02:41] VITALS: RESP 18
[2023-08-11] MEDS ORDERED: ACETAMINOPHEN 1000 MG/100 ML BAG IVPB PRN (05:00)
[2023-08-11] MEDS ORDERED: ACETAMINOPHEN INJECTION 100 ML IVPB ONE (05:21)
[2023-08-11] MEDS ORDERED: PHENAZOPYRIDINE HCL 100 MG TABLET (FP) PO ONE (05:30)
[2023-08-11 07:10] VITALS: TEMP 97.9
[2023-08-11 07:20] LABS: BASO % 0.4 % (0-2.0); EOS % 1.7 % (0-4.5); HEMATOCRIT 30.3 % (32.4-45.2); HEMOGLOBIN 10.1 GM/dL (10.7-15.3); LYMPH % 30.4 % (8-40); MCH 29.2 pg (25.7-33.7); MCHC 33.4 g/dl (32.0-36.0); MEAN CELL VOLUME 87.3 fl (80-96); MEAN PLT VOLUME 8.3 fl (7.5-11.1); MONO % 11.8 % (3.8-10.2); NEUT % 55.7 % (42.8-82.8); PLATELET COUNT 318 10^3/uL (134-434); RBC 3.47 M/mm3 (3.60-5.2); RDW 12.9 % (11.6-15.6); WHITE BLOOD COUNT 5.5 K/mm3 (4.0-10.0)
[2023-08-11 07:30] LABS: POTASSIUM 3.9 mmol/L (3.5-5.1)
[2023-08-11 07:33] LABS: CALCIUM 8.6 mg/dL (8.5-10.1)
[2023-08-11 07:34] LABS: BLOOD UREA NITROGEN 14.2 mg/dL (7-18); MAGNESIUM 2.2 mg/dL (1.8-2.4)
[2023-08-11 07:35] LABS: INR 1.12 (0.83-1.09)
[2023-08-11 07:36] LABS: ACTIVATED PTT 32.7 SECONDS (25.2-36.5)
[2023-08-11 07:37] LABS: CREATININE 1.1 mg/dL (0.55-1.3); PHOSPHOROUS 3.6 mg/dL (2.5-4.9)
[2023-08-11] MEDS: INSULIN SLIDING SCALE (NOVOLOG) 1 VIAL SQ SCH ×4 (08:00→17:02)
[2023-08-11] MEDS ORDERED: MELATONIN 5 MG TABLETS PO PRN (08:39)
[2023-08-11] MEDS ORDERED: LISINOPRIL 20 MG TABLET PO SCH ×2 (10:00→22:00)
[2023-08-11] MEDS ORDERED: ASPIRIN 81 MG CHEWABLE TABLETS PO SCH (10:00)
[2023-08-11 19:07] VITALS: BP 118/74; PULSE 74
[2023-08-11] MEDS ORDERED: LISINOPRIL HCTZ PO SCH (22:00)
[2023-08-11] MEDS ORDERED: GABAPENTIN 300 MG CAPSULE PO SCH (22:00)
[2023-08-11] MEDS ORDERED: CEFTRIAXONE 1 GM in DEXTROSE 5%-WATER - 50 ML IVPB SCH (22:00)
[2023-08-11] MEDS ORDERED: CLOPIDOGREL BISULFATE 75 MG TABLET (FP) PO SCH (22:00)
[2023-08-12] MEDS ORDERED: LEVOTHYROXINE NA 75 MCG TABLET (FP) PO SCH (07:00)
[2023-08-12] MEDS ORDERED: HYDROCHLOROTHIAZIDE 12.5 MG CAPSULE (FP) PO SCH (10:00)
[2023-08-13] MEDS ORDERED: ACETAMINOPHEN 325 MG TABLET (FP) PO PRN (05:00)
== END 2023-08-12 06:25 | disposition home or self-care (01) ==
LOC: JER 20:21 → JERBED 23:27
PROVIDERS: ADMIT Internal Medicine; ATTEND Family Medicine
PROC: 3E033NZ Introduction of Analgesics, Hypnotics, Sedatives into Peripheral Vein, Percutaneous Approach (ICD-10-PCS; principal; 2023-08-10)
PROC: 3E03329 Introduction of Other Anti-infective into Peripheral Vein, Percutaneous Approach (ICD-10-PCS; 2023-08-10)
PROC: 3E013VG Introduction of Insulin into Subcutaneous Tissue, Percutaneous Approach (ICD-10-PCS; 2023-08-10)
DX: N39.0 Urinary tract infection, site not specified (principal); I25.10 Atherosclerotic heart disease of native coronary artery without angina pectoris; E11.9 Type 2 diabetes mellitus without complications; Z98.84 Bariatric surgery status; I11.9 Hypertensive heart disease without heart failure; E03.9 Hypothyroidism, unspecified; I21.4 Non-ST elevation (NSTEMI) myocardial infarction; Z86.73 Personal history of transient ischemic attack (TIA), and cerebral infarction without residual deficits; Z87.891 Personal history of nicotine dependence
CPT/HCPCS: 36415; 71046-TC-FY; 80048; 80053; 81003; 82962; 83735; 84100; 84439; 84443; 84484; 85025; 85610; 85730; 86704; 86780; 86803; 87086; 87340; 87389; 87491; 87517; 87591; 93005; 93010; 93306-TC; 96365; 96367; 96372; 96375; 96376; 99285-25; G0378

== ENCOUNTER 2023-12-16 18:04 | Observation (INO) | payer OTHER ==
[2023-12-16 18:24] VITALS: BMI 24.0
[2023-12-16 19:25] LABS: BASO % 0.5 % (0-2.0); HEMATOCRIT 35.9 % (32.4-45.2); HEMOGLOBIN 11.4 GM/dL (10.7-15.3); LYMPH % 37.4 % (8-40); MCH 26.7 pg (25.7-33.7); MCHC 31.7 g/dl (32.0-36.0); MEAN CELL VOLUME 84.4 fl (80-96); MEAN PLT VOLUME 8.5 fl (7.5-11.1); MONO % 7.9 % (3.8-10.2); NEUT % 53.2 % (42.8-82.8); PLATELET COUNT 299 10^3/uL (134-434); RBC 4.25 M/mm3 (3.60-5.2); RDW 14.3 % (11.6-15.6); WHITE BLOOD COUNT 5.2 K/mm3 (4.0-10.0)
[2023-12-16 19:40] LABS: INR 1.1 (0.83-1.09); PROTHROMBIN TIME (PATIENT) 12.8 SEC (9.7-13.0)
[2023-12-16 19:42] LABS: PH,URINE 6.5 (5.0-8.0); URINE APPEARANCE CLEAR; URINE BILIRUBIN NEGATIVE (NEGATIVE); URINE COLOR YELLOW; URINE GLUCOSE (UA) NEGATIVE (NEGATIVE); URINE KETONE NEGATIVE (NEGATIVE); URINE LEUK ESTERASE NEGATIVE (NEGATIVE); URINE NITRITE NEGATIVE (NEGATIVE); URINE PROTEIN NEGATIVE (NEGATIVE); URINE UROBILINOGEN 0.2 mg/dL (0.2-1.0)
[2023-12-16] MEDS ORDERED: ASPIRIN 81 MG CHEWABLE TABLETS ONE (19:42)
[2023-12-16] MEDS ORDERED: LISINOPRIL 20 MG TABLET ONE (19:42)
[2023-12-16] MEDS ORDERED: HYDROCHLOROTHIAZIDE 25 MG TABLET (FP) ONE (19:42)
[2023-12-16 19:43] LABS: ACTIVATED PTT 34.8 SECONDS (25.2-36.5)
[2023-12-16] MEDS: HYDROCHLOROTHIAZIDE 25 MG TABLET (FP) PO ONE (19:53)
[2023-12-16] MEDS: ASPIRIN 81 MG CHEWABLE TABLETS PO ONE (19:53)
[2023-12-16] MEDS: LISINOPRIL 20 MG TABLET PO ONE (19:53)
[2023-12-16 19:56] LABS: POTASSIUM 4.8 mmol/L (3.5-5.1)
[2023-12-16 19:59] LABS: CALCIUM 9.6 mg/dL (8.5-10.1)
[2023-12-16 20:00] LABS: ALBUMIN 3.7 g/dl (3.4-5.0); BLOOD UREA NITROGEN 17.9 mg/dL (7-18); MAGNESIUM 2.3 mg/dL (1.8-2.4)
[2023-12-16 20:03] LABS: CREATININE 1.1 mg/dL (0.55-1.3)
[2023-12-16 20:05] LABS: BILIRUBIN,TOTAL 0.3 mg/dL (0.2-1); TOT PROT 7.7 g/dl (6.4-8.2)
[2023-12-16] MEDS ORDERED: MAG HYDROX/AL HYDROX/SIMETH 30 ML UNIT-DOSE CUP ONE (21:20)
[2023-12-16] MEDS: MAG HYDROX/AL HYDROX/SIMETH 30 ML UNIT-DOSE CUP PO ONE (21:26)
[2023-12-16] MEDS ORDERED: DOCUSATE SODIUM 100 MG CAPSULE (FP) PO PRN (22:21)
[2023-12-16] MEDS ORDERED: ACETAMINOPHEN 325 MG TABLET (FP) PO PRN (22:21)
[2023-12-17 02:18] VITALS: PULSE 86
[2023-12-17] MEDS: INSULIN ASPART SLIDING SCALE (NOVOLOG) 1 VIAL SQ SCH (06:39)
[2023-12-17 07:25] VITALS: BP 115/59; RESP 18; TEMP 98.1
[2023-12-17] MEDS: LEVOTHYROXINE NA 75 MCG TABLET (FP) PO SCH (07:32)
[2023-12-17 07:52] LABS: BASO % 0.5 % (0-2.0); EOS % 1.7 % (0-4.5); HEMATOCRIT 33.3 % (32.4-45.2); HEMOGLOBIN 10.9 GM/dL (10.7-15.3); LYMPH % 56.3 % (8-40); MCH 27.4 pg (25.7-33.7); MCHC 32.8 g/dl (32.0-36.0); MEAN CELL VOLUME 83.4 fl (80-96); MEAN PLT VOLUME 8.7 fl (7.5-11.1); MONO % 10.1 % (3.8-10.2); NEUT % 31.4 % (42.8-82.8); PLATELET COUNT 278 10^3/uL (134-434); RBC 3.99 M/mm3 (3.60-5.2); RDW 14.3 % (11.6-15.6)
[2023-12-17 08:20] LABS: POTASSIUM 3.9 mmol/L (3.5-5.1)
[2023-12-17 08:24] LABS: BLOOD UREA NITROGEN 20.3 mg/dL (7-18)
[2023-12-17 08:26] LABS: CALCIUM 9.1 mg/dL (8.5-10.1)
[2023-12-17 08:28] LABS: CREATININE 0.9 mg/dL (0.55-1.3)
[2023-12-17] MEDS ORDERED: LEVOTHYROXINE NA 100 MCG TABLET (FP) PO SCH (11:19)
[2023-12-17] MEDS: ASPIRIN 81 MG CHEWABLE TABLETS PO SCH (12:15)
[2023-12-17] MEDS ORDERED: ATORVASTATIN CA 80 MG TABLET (FP) PO SCH (22:00)
[2023-12-17] MEDS ORDERED: LISINOPRIL 20 MG TABLET PO SCH (22:00)
[2023-12-17] MEDS ORDERED: HYDROCHLOROTHIAZIDE 12.5 MG CAPSULE (FP) PO SCH (22:00)
== END 2023-12-17 15:57 | disposition home or self-care (01) ==
LOC: JER 18:04 → JERBED 20:37 → J4W 12-17 00:18 → UNDODISOB 12-17 14:31
PROVIDERS: ADMIT Internal Medicine; ATTEND Family Medicine
PROC: 3E013VG Introduction of Insulin into Subcutaneous Tissue, Percutaneous Approach (ICD-10-PCS; principal; 2023-12-16)
DX: I11.0 Hypertensive heart disease with heart failure (principal); R07.89 Other chest pain; I25.10 Atherosclerotic heart disease of native coronary artery without angina pectoris; E11.9 Type 2 diabetes mellitus without complications; E78.5 Hyperlipidemia, unspecified; I25.2 Old myocardial infarction; Z95.5 Presence of coronary angioplasty implant and graft; E03.9 Hypothyroidism, unspecified; Z98.84 Bariatric surgery status; M86.9 Osteomyelitis, unspecified; G62.9 Polyneuropathy, unspecified; Z87.891 Personal history of nicotine dependence; I73.9 Peripheral vascular disease, unspecified
CPT/HCPCS: 36415; 71046-TC-FY; 80048; 80053; 81003; 82550; 82962; 83735; 84439; 84443; 84484; 85025; 85610; 85730; 87086; 93005; 93010; 96372; 99285-25; G0378

== ENCOUNTER 2024-06-09 21:41 | Observation (INO) | payer OTHER ==
[2024-06-09 22:33] LABS: BASO % 0.8 % (0-2.0); EOS % 1.4 % (0-4.5); HEMATOCRIT 35.1 % (32.4-45.2); HEMOGLOBIN 11.5 GM/dL (10.7-15.3); LYMPH % 33.1 % (8-40); MCH 27.4 pg (25.7-33.7); MCHC 32.8 g/dl (32.0-36.0); MEAN CELL VOLUME 83.6 fl (80-96); MEAN PLT VOLUME 8.3 fl (7.5-11.1); MONO % 8.8 % (3.8-10.2); NEUT % 55.9 % (42.8-82.8); PLATELET COUNT 331 10^3/uL (134-434); RDW 14.7 % (11.6-15.6); WHITE BLOOD COUNT 4.5 K/mm3 (4.0-10.0)
[2024-06-09 22:54] LABS: POTASSIUM 4.4 mmol/L (3.5-5.1)
[2024-06-09 22:56] LABS: BLOOD UREA NITROGEN 18.1 mg/dL (7-18); CALCIUM 10.1 mg/dL (8.5-10.1)
[2024-06-09] MEDS: SODIUM CHLORIDE 0.9% 500 ML INFUS.BAG IV ONE (23:00)
[2024-06-09 23:01] LABS: BILIRUBIN,TOTAL 0.3 mg/dL (0.2-1); TOT PROT 8.1 g/dl (6.4-8.2)
[2024-06-09 23:12] LABS: VENOUS BASE EXCESS 3.1 mmol/L (-2-2); VENOUS PCO2 57.5 mmHg (38-52); VENOUS PH 7.335 (7.310-7.410)
[2024-06-10 00:57] VITALS: BMI 24.2
[2024-06-10] MEDS: AMPICILLIN NA/SULBACTAM NA 3 GM in SODIUM CHLORIDE 100 ML IVPB SCH (06:34)
[2024-06-10] MEDS: LEVOTHYROXINE NA 75 MCG TABLET (FP) PO SCH (06:34)
[2024-06-10] MEDS: metFORMIN HCL 500 MG TABLET (FP) PO SCH (06:34)
[2024-06-10] MEDS: INSULIN ASPART SLIDING SCALE (NOVOLOG) 1 VIAL SQ SCH (06:53)
[2024-06-10 08:56] LABS: BASO % 0.8 % (0-2.0); EOS % 2.2 % (0-4.5); HEMOGLOBIN 10.6 GM/dL (10.7-15.3); MCH 27.9 pg (25.7-33.7); MCHC 33.2 g/dl (32.0-36.0); MEAN CELL VOLUME 84.1 fl (80-96); MEAN PLT VOLUME 8.4 fl (7.5-11.1); MONO % 10.9 % (3.8-10.2); NEUT % 33.1 % (42.8-82.8); PLATELET COUNT 277 10^3/uL (134-434); RBC 3.81 M/mm3 (3.60-5.2); RDW 14.4 % (11.6-15.6)
[2024-06-10 09:24] LABS: CHLORIDE 105 mmol/L (98-107); POTASSIUM 3.4 mmol/L (3.5-5.1); SODIUM 142 mmol/L (136-145)
[2024-06-10 09:58] LABS: CALCIUM 9.8 mg/dL (8.5-10.1)
[2024-06-10 09:59] LABS: ANION GAP 9 mmol/L (4-13); BLOOD UREA NITROGEN 12.7 mg/dL (7-18); CO2 27 mmol/L (21-32); GLUCOSE,RANDOM 91 mg/dL (74-106)
[2024-06-10 10:02] LABS: CREATININE 0.9 mg/dL (0.55-1.3)
[2024-06-10] MEDS: ASPIRIN 81 MG CHEWABLE TABLETS PO SCH (11:32)
[2024-06-10] MEDS: LISINOPRIL 20 MG TABLET PO SCH (11:32)
[2024-06-10] MEDS: HYDROCHLOROTHIAZIDE 12.5 MG CAPSULE (FP) PO SCH (11:35)
[2024-06-10 14:06] LABS: ERYTHROCYTE SEDIMENTATION RATE 13 mm/hr (0-30)
[2024-06-10] MEDS: GABAPENTIN 300 MG CAPSULE PO SCH (22:21)
[2024-06-10] MEDS: CLOPIDOGREL BISULFATE 75 MG TABLET (FP) PO SCH (22:21)
[2024-06-10] MEDS: ROSUVASTATIN CA 5 MG TABLET PO SCH (22:21)
[2024-06-10] MEDS: ACETAMINOPHEN 325 MG TABLET (FP) PO PRN (23:21)
[2024-06-11] MEDS: MELATONIN 5 MG TABLETS PO PRN (01:09)
[2024-06-11] MEDS ORDERED: AMPICILLIN NA/SULBACTAM NA 3 GM VIAL ONE (09:37)
[2024-06-12] MEDS: INSULIN (LEVEMIR) 100 UNITS/ML UNITS SQ SCH (06:42)
[2024-06-12 09:36] LABS: HEMATOCRIT 34.4 % (32.4-45.2); HEMOGLOBIN 11.4 GM/dL (10.7-15.3); MCH 27.6 pg (25.7-33.7); MEAN CELL VOLUME 83.8 fl (80-96); MEAN PLT VOLUME 8.6 fl (7.5-11.1); PLATELET COUNT 316 10^3/uL (134-434); RBC 4.11 M/mm3 (3.60-5.2); RDW 14.4 % (11.6-15.6); WHITE BLOOD COUNT 5.4 K/mm3 (4.0-10.0)
[2024-06-12 10:12] LABS: CHLORIDE 106 mmol/L (98-107); POTASSIUM 4.2 mmol/L (3.5-5.1); SODIUM 140 mmol/L (136-145)
[2024-06-12 10:20] LABS: ALBUMIN 3.8 g/dl (3.4-5.0); ANION GAP 3 mmol/L (4-13); BLOOD UREA NITROGEN 19.4 mg/dL (7-18); CALCIUM 9.6 mg/dL (8.5-10.1); CO2 31 mmol/L (21-32); MAGNESIUM 1.9 mg/dL (1.8-2.4)
[2024-06-12 10:23] LABS: SGOT/AST 18 U/L (15-37); SGPT/ALT 19 U/L (13-61)
[2024-06-12 10:25] LABS: BILIRUBIN,TOTAL 0.4 mg/dL (0.2-1); TOT PROT 7.2 g/dl (6.4-8.2)
[2024-06-12 10:26] LABS: ALK PHOS 96 U/L (45-117)
[2024-06-12 10:35] LABS: GLUCOSE,RANDOM 44 mg/dL (74-106)
[2024-06-12 12:30] VITALS: RESP 18
[2024-06-13] MEDS ORDERED: MAG HYDROX/AL HYDROX/SIMETH 30 ML UNIT-DOSE CUP PO PRN (20:09)
[2024-06-14 18:59] VITALS: BP 125/71; PULSE 76; TEMP 98.2
== END 2024-06-14 19:39 | disposition home or self-care (01) ==
LOC: JER 21:41 → JERBED 23:00 → J5S 06-10 00:22
PROVIDERS: ADMIT Internal Medicine; ATTEND Family Medicine
PROC: 3E03329 Introduction of Other Anti-infective into Peripheral Vein, Percutaneous Approach (ICD-10-PCS; principal; 2024-06-09)
PROC: 3E013VG Introduction of Insulin into Subcutaneous Tissue, Percutaneous Approach (ICD-10-PCS; 2024-06-09)
PROC: 3E0337Z Introduction of Electrolytic and Water Balance Substance into Peripheral Vein, Percutaneous Approach (ICD-10-PCS; 2024-06-09)
DX: L97.529 Non-pressure chronic ulcer of other part of left foot with unspecified severity (principal); E11.40 Type 2 diabetes mellitus with diabetic neuropathy, unspecified; E11.621 Type 2 diabetes mellitus with foot ulcer; I10 Essential (primary) hypertension; E78.5 Hyperlipidemia, unspecified; I73.9 Peripheral vascular disease, unspecified; E03.9 Hypothyroidism, unspecified; N17.9 Acute kidney failure, unspecified; M79.10 Myalgia, unspecified site; M86.9 Osteomyelitis, unspecified; I25.2 Old myocardial infarction; Z87.891 Personal history of nicotine dependence; Z95.5 Presence of coronary angioplasty implant and graft
CPT/HCPCS: 36415; 73610-TC-LT-FY; 73630-TC-LT; 73721-LT-TC; 80048; 80053; 82010; 82803; 82962; 83036; 83735; 85025; 85027; 85651; 86140; 87070; 87205; 93005; 93010; 93922; 93926-TC; 96365; 96372; 99285-25; G0378

== ENCOUNTER 2024-08-08 05:12 | Day surgery (SDC) | payer OTHER ==
[2024-08-04 13:47] VITALS: BMI 24.0
[2024-08-08] MEDS ORDERED: MIDAZOLAM HCL 2 MG/2 ML SINGLE DOSE VIAL ONE (13:46)
[2024-08-08] MEDS ORDERED: PROPOFOL 20 ML ONE (13:52)
[2024-08-08 15:21] VITALS: PULSE 88
[2024-08-08 15:48] VITALS: RESP 20; TEMP 98
[2024-08-08 15:51] VITALS: BP 168/86
== END 2024-08-08 16:04 | disposition home or self-care (01) ==
LOC: JASU-SURG 05:12
PROVIDERS: ATTEND Urology
PROC: 0TF4XZZ Fragmentation in Left Kidney Pelvis, External Approach (ICD-10-PCS; principal; 2024-08-08 13:57)
DX: N20.0 Calculus of kidney (principal)
CPT/HCPCS: 82962

== ENCOUNTER 2024-11-15 03:52 | Day surgery (SDC) | payer OTHER ==
[2024-11-10 17:21] VITALS: BMI 24.0
[2024-11-15] MEDS ORDERED: MIDAZOLAM HCL 2 MG/2 ML SINGLE DOSE VIAL ONE (10:41)
[2024-11-15 13:01] VITALS: RESP 18
[2024-11-15] MEDS ORDERED: ACETAMINOPHEN 325 MG TABLET (FP) ONE (13:19)
[2024-11-15] MEDS: ACETAMINOPHEN 325 MG TABLET (FP) PO ONE (13:20)
[2024-11-15] MEDS ORDERED: ONDANSETRON *ODT* 4 MG TABLET ONE (13:27)
[2024-11-15] MEDS: ONDANSETRON *ODT* 4 MG TABLET SL ONE (13:28)
[2024-11-15 15:16] VITALS: BP 139/78; PULSE 72; TEMP 97.8
== END 2024-11-15 13:40 | disposition home or self-care (01) ==
LOC: JASU-SURG 03:52
PROVIDERS: ATTEND Urology
PROC: 0TF3XZZ Fragmentation in Right Kidney Pelvis, External Approach (ICD-10-PCS; principal; 2024-11-15 10:54)
DX: N20.0 Calculus of kidney (principal)
CPT/HCPCS: 82962; Q0162